=== PATIENT | male | born 1965 | race Caucasian/White ===

== ENCOUNTER 2020-03-22 13:50 | Outpatient (REF) | payer OTHER, SELFPAY | END 2020-03-22 13:51 | disposition home or self-care (01) | LOC: HO.LAB 13:50 | PROVIDERS: Visit Provider Internal Medicine | DX: Z20.828 Contact with and (suspected) exposure to other viral communicable diseases (principal) | CPT/HCPCS: C9803; U0003 ==

== ENCOUNTER 2020-04-10 07:30 | Outpatient (REF) | payer OTHER, SELFPAY ==
[2020-04-10 08:44] LABS: Alanine Aminotransferase 24 U/L (0-40); Albumin Level 4.3 g/dL (3.5-5.0); Alkaline Phosphatase 66 U/L (39-117); Anion Gap 12 (12-20); Aspartate Amino Transferase 18 U/L (5-37); Bilirubin Total 0.4 mg/dL (0.0-1.0); Blood Urea Nitrogen 14 mg/dL (9-16); Calcium 8.5 mg/dL (8.4-10.2); Carbon Dioxide 30 mmol/L (22-29); Chloride 101 mmol/L (96-108); Cholesterol 190 mg/dL; Estimated Glomerular Filt Rate > 60; Glucose Fasting 112 mg/dL (60-99); HDL Cholesterol 47 mg/dL; LDL Cholesterol Calculated 125 mg/dl; Potassium 3.6 mmol/l (3.3-5.1); Sodium 139 mmol/L (135-145); Total Protein 7.3 g/dL (6.5-8.0); Triglycerides 93 mg/dL
== END 2020-04-10 07:31 | disposition home or self-care (01) ==
LOC: HO.LAB 07:30
PROVIDERS: PCP Internal Medicine; Visit Provider Internal Medicine
DX: E78.00 Pure hypercholesterolemia, unspecified (principal)
CPT/HCPCS: 36415; 80053; 80061

== ENCOUNTER 2020-06-01 07:53 | Emergency (ER) | payer OTHER, SELFPAY ==
--- NOTE | ~2020-06-01 | XR_ITS ---
EXAMINATION: XR ANKLE, RIGHT CLINICAL INFORMATION: Right ankle pain status post twisting injury. COMPARISON: None TECHNIQUE: AP, lateral, and mortise views of the right ankle. FINDINGS: Mild to moderate soft tissue swelling is seen most pronounced laterally. Corticated osseous densities are seen subjacent to the lateral medial malleoli. The tibiotalar and subtalar joint spaces are unremarkable. Very small plantar and retrocalcaneal spurs are seen. XR/XR ankle RT min 3V IMPRESSION: Mild to moderate soft tissue swelling most pronounced laterally without definitive acute underlying osseous abnormality. Corticated osseous density subjacent to the malleoli do not appear acute and could represent accessory ossicles or could be secondary to old injury. Soft tissue/ligamentous injury cannot be excluded.
[2020-06-01 08:17] VITALS: BP 135/99; PULSE 73; RESP 16; TEMP 36.6; O2SAT 99; BMI 34.4
--- NOTE | 2020-06-01 09:17 | PC.NURSE ---
NO ACUTE FX NOTED IN THE [facility] PT AWAITING REASSESS FOR DISCHARGE
--- NOTE | 2020-06-01 09:36 | ED_ITS ---
HPI - Extremity Injury (Lower) General Chief Complaint: Extremity Injury, Lower Stated Complaint: rt ankle injury - work related Time Seen by Provider: 06/01/20 08:22 Source: patient Mode of arrival: ambulatory Limitations: no limitations History of Present Illness HPI Narrative: Pleasant 55-year-old male presenting with complaint of right ankle pain since yesterday. Injury occurred at work yesterday 06/01/2019 after he was on the last step and missed step and twisted his right ankle and had a fall. He denies any other injury. States right ankle is painful and swollen since. MD complaint: ankle injury Onset (ago): day(s) Injury: Right: ankle Place: work Severity: moderate Severity scale (1-10): 5 Relieving factors: immobilization Context: walking Associated symptoms: swelling and able to partially bear weight Other symptoms: none Related Data Home Medications Medication Instructions Recorded Confirmed hydrochlorothiazide 25 mg tablet 25 mg PO DAILY 04/12/20 05/24/20 loratadine 10 mg tablet 10 mg PO DAILY 04/12/20 05/24/20 venlafaxine 75 mg capsule,extended 75 mg PO DAILY 04/12/20 05/24/20 release 24 hr Previous Rx's Medication Instructions Recorded lisinopril 5 mg tablet 5 mg PO DAILY #90 tab 03/11/20 clotrimazole-betamethasone 1 1 appl TOPICAL BID 30 Days #30 g 03/14/ %-0.05 % topical cream atenolol 50 mg tablet 50 mg PO DAILY 90 Days #90 tab 03/31/20 fluticasone propionate 50 1 spray INTRANASAL DAILY #16 ml 04/23/20 mcg/actuation nasal spray,suspension cyclobenzaprine 10 mg tablet 10 mg PO BEDTIME PRN #10 tab 05/06/20 lidocaine 5 % topical patch 1 patch TOPICAL DAILY #15 ea 05/06/20 amoxicillin 875 mg-potassium 1 tab PO BID 7 Days #14 tab 05/25/20 clavulanate 125 mg tablet prednisone 20 mg tablet 20 mg PO DAILY 9 Days #18 tab 05/25/20 sildenafil 100 mg tablet 100 mg PO DAILY PRN #6 tab 05/27/20 Allergies Allergy/AdvReac Type Severity Reaction Status Date / Time No Known Allergies Allergy Verified 05/24/20 14:27 [No Known Allergies*] Review of Systems Review of Systems: Constitutional: No Weight loss, No Fever, No Chills, No Night Sweats, No Fatigue, No Malaise ENT/Mouth: No Hearing loss, No Ear Pain, No Nasal Congestion, No Sinus Pain, No Hoarseness, No sore throat, No Rhinorrhea, No Swallowing Difficulty Eyes: No Eye Pain, No Swelling, No Redness, No Foreign Body, No Discharge, No Vision Changes Cardiovascular: No Chest Pain, No SOB Respiratory: No Cough, No Sputum, No Wheezing, No Smoke Exposure, No Dyspnea Gastrointestinal: Negative Genitourinary: Negative Musculoskeletal: As noted per HPI Skin: No Skin Lesions, No rash Neuro: No Weakness, No Numbness, No Paresthesias, No Loss of Consciousness, No Dizziness, No Headache Psych: No Social Issues Heme/Lymph: No Bruising, No Bleeding,No Lymphadenopathy Endocrine: No Polyuria, No Polydipsia, No Temperature Intolerance Yes all other systems are reviewed and are negative [facility] Past Medical History Medical History Allergic rhinitis Eczema Essential hypertension Impaired glucose tolerance Insomnia Surgical History History of removal of cyst Family History Family History Father No problems noted. Mother Diabetes Hypertension Brother No problems noted. Sister No problems noted. Son No problems noted. Daughter No problems noted. Social History Social History Alcohol intake: former Smoking Status: Former smoker Tobacco Type: Cigarette Advance Directives: No Advance Directives Information Provided: No Physical Exam Vital Signs: Vital Signs: Last Vital Signs Temp 97.9 F 06/01/20 08:17 Pulse 73 06/01/20 08:17 Resp 16 06/01/20 08:17 BP 135/99 H 06/01/20 08:17 Pulse Ox 99 06/01/20 08:17 Body Mass Index 34.4 Reviewed Const: General: cooperative and healthy appearing; No acute distress or intoxicated appearing Nutritional Appearance: average body habitus Orientation/consciousness: patient oriented x3 HENMT: Head: Yes normal to inspection Ears: hearing grossly normal bilaterally Eyes: General: appearance normal, both eyes and all related structures Visual Mccabe: normal visual mccabe by confrontation Chest: Chest palpation & inspection: normal inspection of the chest Resp: Effort & Inspection: normal respiratory effort Auscultation: clear to auscultation bilaterally Cardio: Jugular venous distension: no JVD Rhythm: regular rhythm Heart sounds: S1 normal heart sound present and S2 normal heart sound present GI: Inspection: Yes normal to inspection Percussion: Yes normal to percussion Auscultation: normal bowel sounds : General: Yes no CVA tenderness Back/Spine/Pelvis: Back: no CVA tenderness Skin: General skin exam: no rashes or lesions noted Neuro: General: patient oriented x3 Extrem: General: Yes normal to inspection Right lower extremity: ankle (No erythema or open wound. Neurovascular intact. Cap refill wnl. ) Details: tenderness, swelling and abnormal ROM Details: pain with active ROM Course Course Course Narrative: Plan for [employer]irc[employer] and crutches however states he has not tolerated crutches in the past and does not want those. Will place an sure ortho boot and plan for follow-up with Orthopedics and [facility] given the injury occurred at work. Given work for note for 3 days and aware that he must follow up if any additional problems or time needed. MDM - Extremity Injury (Lower) Differential Diagnosis Differential diagnosis: Likely ankle sprain and strain and ankle fracture; Unlikely acute internal derangement of knee, fracture of femur, fracture of hip, puncture wound of foot and fracture of toe Medical Records Attestation: I reviewed the patient's medical records. Lab Data Attestation: I reviewed the patient's lab results. Imaging Data Right ankle x-ray: Radiologist's impression: [address] [id number] ReportSigned Patient: Heladio Kidd MMR#: [id number]: [id number]:[id number]/Sex: 55 / MADM Date: 06/01/20Loc: [address]: Ordering Physician: Jose Squires NP Date of Service: 06/01/20 Procedure(s): XR ankle RT min 3V Accession Number(s): [id number] cc: Jose Squires NP~ EXAMINATION: XR ANKLE, RIGHT CLINICAL INFORMATION: Right ankle pain status post twisting injury. COMPARISON: None TECHNIQUE: AP, lateral, and mortise views of the right ankle. FINDINGS: Mild to moderate soft tissue swelling is seen most pronounced laterally. Corticated osseous densities are seen subjacent to the lateral medial malleoli. The tibiotalar and subtalar joint spaces are unremarkable. Very small plantar and retrocalcaneal spurs are seen. XR/XR ankle RT min 3V IMPRESSION: Mild to moderate soft tissue swelling most pronounced laterally without definitive acute underlying osseous abnormality. Corticated osseous density subjacent to the malleoli do not appear acute and could represent accessory ossicles or could be secondary to old injury. Soft tissue/ligamentous injury cannot be excluded. Dictated By:TOÑO RANGEL MDSigned By:<Electronically signed by TOÑO RANGEL MD in OV>06/01/2053 DD/ TD/TT: Product Developer: DEV Discharge Plan Discharge Clinical Impression: Ankle sprain Patient Disposition: Home, Self-Care Instructions: Ankle Sprain (ED), Walking Boot (ED) Additional Instructions: Home care for ankle injury as reviewed Follow-up as instructed Return if any concerns or worsening symptoms Thank you Prescriptions: No Action lisinopril 5 mg tablet 5 mg PO DAILY Qty: 90 RF: 1 clotrimazole-betamethasone 1-0.05 % cream 1 appl topical BID 30 Days Qty: 30 RF: 3 atenolol 50 mg tablet 50 mg PO DAILY 90 Days Qty: 90 RF: 3 fluticasone propionate 50 mcg/actuation spray,suspension 1 spray intranasal DAILY Qty: 16 RF: 6 prednisone 20 mg tablet 20 mg PO DAILY 9 Days Qty: 18 RF: 0 amoxicillin-pot clavulanate 875-125 mg tablet 1 tab PO BID 7 Days Qty: 14 RF: 0 cyclobenzaprine 10 mg tablet 10 mg PO BEDTIME PRN (Reason: muscle spasm) Qty: 10 RF: 0 lidocaine 5 % adhesive patch,medicated 1 patch topical DAILY Qty: 15 RF: 0 sildenafil [Viagra] 100 mg tablet 100 mg PO DAILY PRN (Reason: sexual activity) Qty: 6 RF: 3 venlafaxine 75 mg capsule,extended release 24hr 75 mg PO DAILY RF: 0 hydrochlorothiazide 25 mg tablet 25 mg PO DAILY RF: 0 loratadine 10 mg tablet 10 mg PO DAILY RF: 0 Referrals: [facility] [Provider Group] - 3 days Eric Durant MD [Physician] - 2 days Zeynep Patel MD [Primary Care Provider] - 1 week Stand Alone Forms: Work/School Release
== END 2020-06-01 10:07 | disposition home or self-care (01) ==
PROVIDERS: Emergency Provider Emergency Medicine Emergency Medical Services; PCP Internal Medicine
DX: S99.911A Unspecified injury of right ankle, initial encounter (principal); M25.571 Pain in right ankle and joints of right foot; X50.1XXA Overexertion from prolonged static or awkward postures, initial encounter; Y93.01 Activity, walking, marching and hiking; Y92.9 Unspecified place or not applicable; Y99.0 Civilian activity done for income or pay; Z79.899 Other long term (current) drug therapy; Z87.891 Personal history of nicotine dependence
CPT/HCPCS: 73610; 99283

== ENCOUNTER → 2020-06-09 08:28 | Outpatient (BNVA) | payer OTHER, SELFPAY | PROVIDERS: Visit Provider Orthopaedic Surgery | DX: S93.491A Sprain of other ligament of right ankle, initial encounter (principal) | CPT/HCPCS: 99202 ==

== ENCOUNTER → 2020-06-23 08:30 | Outpatient (BNVA) | payer OTHER, MEDICAID, SELFPAY | PROVIDERS: Visit Provider Orthopaedic Surgery | DX: S93.491D Sprain of other ligament of right ankle, subsequent encounter (principal) | CPT/HCPCS: 99212 ==

== ENCOUNTER → 2020-07-06 13:24 | Outpatient (BNVA) | payer OTHER, MEDICAID, SELFPAY | PROVIDERS: PCP Internal Medicine; Visit Provider Orthopaedic Surgery | DX: S93.491D Sprain of other ligament of right ankle, subsequent encounter (principal) | CPT/HCPCS: 99212 ==

== ENCOUNTER 2020-11-21 09:21 | Emergency (ER) | payer OTHER, MEDICAID, SELFPAY ==
[2020-11-21 09:29] VITALS: BP 166/102; PULSE 64; RESP 16; TEMP 36.1; O2SAT 97; BMI 34.4
--- NOTE | 2020-11-21 09:42 | ED.BACK ---
HPI - Back Pain/Injury General Chief Complaint: Back Pain/Injury Stated Complaint: low back pain Time Seen by Provider: 11/21/20 09:41 Source: patient Mode of arrival: ambulatory Limitations: no limitations History of Present Illness HPI Narrative: 55 y/o male presenting with low back pain for the last 4 days. He reports it started when he was at work. 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 Pain is worse with movement. It improves with sitting and being still. He has intermittently taken Motrin for the pain with brief improvement. He reports pain is starting to shoot down his legs at times. No bladder or bowel incontinence, LE weakness, numbness or tingling. MD elicited complaint: back pain Pertinent past history: prior back pain Onset (ago): day(s) (4) Timing: intermittent Severity: moderate Similar Symptoms Previously: Yes Quality: sharp and aching Location: right lower back and left lower back Radiation: left upper leg and right upper leg Exacerbating factors: movement Relieving factors: supine and sitting upright Context: turning/twisting and bending Associated symptoms: denies other symptoms Treatments prior to arrival: NSAIDS Work related injury: Yes Related Data Previous Rx's Medication Instructions Recorded clotrimazole-betamethasone 1 1 appl TOPICAL BID 30 Days #30 g 12/20/20 %-0.05 % topical cream atenolol 50 mg tablet 50 mg PO DAILY 90 Days #90 tab 03/31/20 fluticasone propionate 50 1 spray INTRANASAL DAILY #16 ml 04/23/20 mcg/actuation nasal spray,suspension hydrochlorothiazide 25 mg tablet 25 mg PO DAILY #90 tab 06/09/20 cyclobenzaprine 10 mg tablet 10 mg PO BEDTIME PRN 30 Days #30 06/10/20 tab venlafaxine 75 mg capsule,extended 75 mg PO DAILY #90 cap 06/20/20 release 24 hr lisinopril 5 mg tablet 5 mg PO DAILY #90 tab 07/12/20 sildenafil 100 mg tablet (Viagra) 100 mg PO DAILY PRN #6 tab 08/11/20 loratadine 10 mg tablet 10 mg PO DAILY #90 tab 08/30/20 amoxicillin 875 mg-potassium 1 tab PO BID 7 Days #14 tab 09/13/20 clavulanate 125 mg tablet (Augmentin) azithromycin 250 mg tablet See Rx Instructions PO .COMPLEX #6 10/06/20 tab cyclobenzaprine 5 mg tablet 5 mg PO TID PRN #14 tab 11/21/20 lidocaine 5 % topical patch 1 patch TOPICAL DAILY #15 ea 11/21/20 (Lidoderm) naproxen 500 mg tablet 500 mg PO BID PRN #20 tab 11/21/20 Allergies Allergy/AdvReac Type Severity Reaction Status Date / Time No Known Allergies Allergy Verified 08/11/20 10:05 [No Known Allergies*] Review of Systems Constitutional: Constitutional: Denies chills and Denies fever(s) Cardiovascular: Cardiovascular: Denies chest pain and Denies dyspnea Respiratory: Respiratory: Denies cough and Denies dyspnea Gastrointestinal: Gastrointestinal: Denies abdominal pain, Denies nausea and Denies vomiting Genitourinary: Genitourinary: Denies hematuria and Denies dysuria Musculoskeletal: Musculoskeletal: Denies abnormal gait, Reports back pain, Denies myalgias, Denies arthralgias, Reports radiating pain into limb and Denies tingling Integumentary/Breasts: Skin/Breast: Denies rash Neurologic: Denies abnormal gait, Denies focal weakness, Denies tingling and Denies paresthesias [facility] Past Medical History Attestation statement: The following information was validated with the patient. Medical History Allergic rhinitis Anxiety and depression Eczema Erectile disorder, acquired, generalized, severe Essential hypertension Impaired glucose tolerance Insomnia Surgical History History of removal of cyst Family History Family History Father No problems noted. Mother Diabetes Hypertension Brother No problems noted. Sister No problems noted. Son No problems noted. Daughter No problems noted. 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 Vital Signs: Vital Signs: Last Vital Signs Temp 97 F 11/21/20 09:29 Pulse 64 11/21/20 09:29 Resp 16 11/21/20 09:29 BP 166/102 H 11/21/20 09:29 Pulse Ox 97 11/21/20 09:29 Body Mass Index 34.4 Const: General: cooperative, healthy appearing and comfortable Nutritional Appearance: average body habitus Orientation/consciousness: patient oriented x3 HENMT: Head: Yes normal to inspection Ears: hearing grossly normal bilaterally General nose exam: Normal external nose present Face and sinus: Yes normal facial exam and Yes face symmetric Mouth: Normal oral and palatal mucosa present and lip normal Eyes: General: appearance normal, both eyes and all related structures Neck: Neck: Yes normal visual inspection Chest: Chest palpation & inspection: normal inspection of the chest Resp: Effort & Inspection: normal respiratory effort and able to speak in complete sentences GI: Inspection: Yes obesity Palpation (GI): Soft to palpation, not firm and nontender : General: Yes no CVA tenderness Back/Spine/Pelvis: Back: no CVA tenderness Cervical Spine: normal cervical lordosis and cervical ROM normal Thoracic/Lumbar Spine: thoracic and lumbar spine normal to inspection, thoraco-lumbar ROM normal, straight leg raise negative bilaterally, thoraco-lumbar spasm on the right greater than left and No lumbar spinal tenderness Sacroiliac joints: bilaterally tender to palpation Sacrum: no tenderness Coccyx: no tenderness Skin: General skin exam: no rashes or lesions noted Neuro: General: patient oriented x3, gait normal, tone normal, moves all extremities and deep tendon reflexes 2+ bilaterally Extrem: General: Yes normal to inspection, Yes full ROM and Yes normal gait Psych: Appearance: grossly normal and well kempt Mental Status: mental status grossly normal Speech and movement: Normal speech and movement present Course Course Course Narrative: 55 y/o male presenting with LBP x4 days. 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 He has no red flag symptoms of LBP. His exam and clinical presentation are consistent with muscle strain and spasm as well as possible sciatica. Will treat with NSAID, muscle relaxer and lidoderm. He was encouraged to f/u with PCP this week. He will be given note for work to rest x3 days. Stable for d/c home with plan for outpatient follow up. Discharge Plan Discharge Clinical Impression: Strain of lumbar region Patient Disposition: Home, Self-Care Instructions: Low Back Strain (ED), Lower Back Exercises (ED) Additional Instructions: You pain is likely due to muscle strain and possible inflammation of your sciatic nerve. Recommend rest. No bending, lifting or twisting. Use ice several times per day for 20 minutes at a time for the next 48 hours and then change to heat. Take medications as prescribed to help with pain and discomfort. Follow up with your Primary Care Doctor this week. If your pain worsens, if you develop new numbness, tingling, weakness, loss of function or incontinence call 911 or come back to the ER right away for evaluation. Prescriptions: New cyclobenzaprine 5 mg tablet 5 mg PO TID PRN (Reason: muscle spasm) Qty: 14 RF: 0 lidocaine [Lidoderm] 5 % adhesive patch,medicated 1 patch topical DAILY Qty: 15 RF: 0 naproxen 500 mg tablet 500 mg PO BID PRN (Reason: pain) Qty: 20 RF: 0 No Action clotrimazole-betamethasone 1-0.05 % cream 1 appl topical BID 30 Days Qty: 30 RF: 3 atenolol 50 mg tablet 50 mg PO DAILY 90 Days Qty: 90 RF: 3 fluticasone propionate 50 mcg/actuation spray,suspension 1 spray intranasal DAILY Qty: 16 RF: 6 hydrochlorothiazide 25 mg tablet 25 mg PO DAILY Qty: 90 RF: 2 venlafaxine 75 mg capsule,extended release 24hr 75 mg PO DAILY Qty: 90 RF: 2 lisinopril 5 mg tablet 5 mg PO DAILY Qty: 90 RF: 3 loratadine 10 mg tablet 10 mg PO DAILY Qty: 90 RF: 3 amoxicillin-pot clavulanate [Augmentin] 875-125 mg tablet 1 tab PO BID 7 Days Qty: 14 RF: 0 sildenafil [Viagra] 100 mg tablet 100 mg PO DAILY PRN (Reason: sexual activity) Qty: 6 RF: 3 cyclobenzaprine 10 mg tablet 10 mg PO BEDTIME PRN (Reason: muscle spasm) 30 Days Qty: 30 RF: 0 azithromycin 250 mg tablet See Rx Instructions PO .COMPLEX Qty: 6 RF: 0 Referrals: Zeynep Patel MD [Primary Care Provider] - 2 days (LBP) Stand Alone Forms: Work/School Release Interventions: ED Discharge Assessment Last Done: 11/21/20 10:09 Discharge Date/Time: 11/21/20 10:09
== END 2020-11-21 10:09 | disposition home or self-care (01) ==
PROVIDERS: Emergency Provider Emergency Medicine; PCP Internal Medicine
DX: S39.012A Strain of muscle, fascia and tendon of lower back, initial encounter (principal); X50.0XXA Overexertion from strenuous movement or load, initial encounter; X50.9XXA Other and unspecified overexertion or strenuous movements or postures, initial encounter; Y93.9 Activity, unspecified; Y92.9 Unspecified place or not applicable; Y99.0 Civilian activity done for income or pay; Z79.899 Other long term (current) drug therapy
CPT/HCPCS: 99283

== ENCOUNTER 2020-11-25 07:28 | Emergency (ER) | payer OTHER, MEDICAID, SELFPAY ==
[2020-11-25 08:15] VITALS: BP 156/110; PULSE 64; RESP 18; TEMP 36.3; O2SAT 95; BMI 34.4
--- NOTE | 2020-11-25 08:24 | PC.NURSE ---
Pt alert and oriented x3, b/p 156/110, pt states he is on Atenolol and he took it this morning prior to coming here. Pt reports that he was here on Sunday for left lower back pain and he is to return to work today but is unable to go because he is still having the same pain.
--- NOTE | 2020-11-25 08:35 | ED.EXTPRO ---
HPI - Extremity Problem General Chief complaint: Extremity Problem Stated complaint: back pain Time Seen by Provider: 11/25/20 07:29 Source: patient Mode of arrival: ambulatory Limitations: no limitations History of Present Illness HPI Narrative: Patient comes emergency room complaining of a sciatica exacerbation. Patient was seen here a few days ago, states the pain is not improving. Patient states the pain starts in his lower back and runs down all the way down his left leg. Worse with hip flexion and extension. Related Data Previous Rx's Medication Instructions Recorded clotrimazole-betamethasone 1 1 appl TOPICAL BID 30 Days #30 g //20 %-0.05 % topical cream atenolol 50 mg tablet 50 mg PO DAILY 90 Days #90 tab 03/31/20 fluticasone propionate 50 1 spray INTRANASAL DAILY #16 ml 04/23/20 mcg/actuation nasal spray,suspension hydrochlorothiazide 25 mg tablet 25 mg PO DAILY #90 tab 06/09/20 cyclobenzaprine 10 mg tablet 10 mg PO BEDTIME PRN 30 Days #30 06/10/20 tab venlafaxine 75 mg capsule,extended 75 mg PO DAILY #90 cap 06/20/20 release 24 hr lisinopril 5 mg tablet 5 mg PO DAILY #90 tab 07/12/20 sildenafil 100 mg tablet (Viagra) 100 mg PO DAILY PRN #6 tab 08/11/20 loratadine 10 mg tablet 10 mg PO DAILY #90 tab 08/30/20 amoxicillin 875 mg-potassium 1 tab PO BID 7 Days #14 tab 09/13/20 clavulanate 125 mg tablet (Augmentin) azithromycin 250 mg tablet See Rx Instructions PO .COMPLEX #6 10/06/20 tab cyclobenzaprine 5 mg tablet 5 mg PO TID PRN #14 tab 11/21/20 lidocaine 5 % topical patch 1 patch TOPICAL DAILY #15 ea 11/21/20 (Lidoderm) naproxen 500 mg tablet 500 mg PO BID PRN #20 tab 11/21/20 cyclobenzaprine 10 mg tablet 10 mg PO TID PRN #10 tab 11/25/20 ketorolac 10 mg tablet 10 mg PO TID PRN 5 Days #10 tab 11/25/20 Allergies Allergy/AdvReac Type Severity Reaction Status Date / Time No Known Allergies Allergy Verified 08/11/20 10:05 [No Known Allergies*] Review of Systems Review of Systems: Constitutional : No Weight loss, No Fever, No Chills, No Night Sweats, No Fatigue, No Malaise ENT/Mouth : No Hearing loss, No Ear Pain, No Nasal Congestion, No Sinus Pain, No Hoarseness, No sore throat, No Rhinorrhea, No Swallowing Difficulty Eyes: No Eye Pain, No Swelling, No Redness, No Foreign Body, No Discharge, No Vision Changes Cardiovascular : No Chest Pain, No SOB, No Dyspnea on Exertion, No Orthopnea, No Edema, No Palpitations Respiratory : No Cough, No Sputum, No Wheezing, No Smoke Exposure, No Dyspnea Gastrointestinal : No Nausea, No Vomiting, No Diarrhea, No Constipation, No abdominal Pain, No Hematochezia, No Melena Genitourinary : no irregular bleeding, No Dysuria, No Urinary Frequency, No Hematuria, No Urinary Incontinence, No Urgency, No Flank Pain, No Urinary Flow Changes, No Hesitancy Musculoskeletal : Sciatica down the left leg, No Myalgias, No Joint Swelling Skin : No Skin Lesions, No rash Neuro : No Weakness, No Numbness, No Paresthesias, No Loss of Consciousness, No Dizziness, No Headache Psych : No Anxiety/Panic, No Depression, No SI/HI/AH/VH, No Social Issues, Heme/Lymph: No Bruising, No Bleeding,No Lymphadenopathy Endocrine : No Polyuria, No Polydipsia, No Temperature Intolerance PMFSH Past Medical History Medical History Allergic rhinitis Anxiety and depression Eczema Erectile disorder, acquired, generalized, severe Essential hypertension Impaired glucose tolerance Insomnia Surgical History History of removal of cyst Family History Family History Father No problems noted. Mother Diabetes Hypertension Brother No problems noted. Sister No problems noted. Son No problems noted. Daughter No problems noted. 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 Oriented X3. No acute distress. Eyes: Pupils equal, round and reactive to light. ENT: Pharynx normal. Neck: Normal inspection. Neck supple. No lymph nodes noted. No crepitus CVS: Normal heart rate and rhythm. Pulses normal. Normal S1 and S2 Respiratory: No respiratory distress. Breath sounds normal. No Wheezing. No rales Abdomen: Soft and nontender. No rigidity. No distention. good BS x4 Skin: Skin warm and dry. Normal skin color. Normal skin turgor. Extremities: No lower extremity edema. Positive straight leg raise test on the left side Neuro: Oriented X 3. No motor deficit. No sensory deficit. Moving all extermities. No slurred speech. Course Course Course Narrative: Patient received 1 dose of IM Decadron and IM Toradol. I discussed with the patient that he would like physical therapy, and possibly an MRI, something to discuss with his PCP. Discharge Plan Discharge Clinical Impression: Sciatica Qualifiers: Laterality: left Qualified Code(s): M54.32 - Sciatica, left side Patient Disposition: Home, Self-Care Instructions: Sciatica (ED) Additional Instructions: Please follow-up with your primary care physician tomorrow. If you have any worsening or new symptoms, please return to the emergency room or call 911 Prescriptions: New ketorolac 10 mg tablet 10 mg PO TID PRN (Reason: pain) 5 Days Qty: 10 RF: 0 cyclobenzaprine 10 mg tablet 10 mg PO TID PRN (Reason: muscle spasm) Qty: 10 RF: 0 No Action clotrimazole-betamethasone 1-0.05 % cream 1 appl topical BID 30 Days Qty: 30 RF: 3 atenolol 50 mg tablet 50 mg PO DAILY 90 Days Qty: 90 RF: 3 fluticasone propionate 50 mcg/actuation spray,suspension 1 spray intranasal DAILY Qty: 16 RF: 6 hydrochlorothiazide 25 mg tablet 25 mg PO DAILY Qty: 90 RF: 2 venlafaxine 75 mg capsule,extended release 24hr 75 mg PO DAILY Qty: 90 RF: 2 lisinopril 5 mg tablet 5 mg PO DAILY Qty: 90 RF: 3 loratadine 10 mg tablet 10 mg PO DAILY Qty: 90 RF: 3 amoxicillin-pot clavulanate [Augmentin] 875-125 mg tablet 1 tab PO BID 7 Days Qty: 14 RF: 0 cyclobenzaprine 5 mg tablet 5 mg PO TID PRN (Reason: muscle spasm) Qty: 14 RF: 0 lidocaine [Lidoderm] 5 % adhesive patch,medicated 1 patch topical DAILY Qty: 15 RF: 0 naproxen 500 mg tablet 500 mg PO BID PRN (Reason: pain) Qty: 20 RF: 0 sildenafil [Viagra] 100 mg tablet 100 mg PO DAILY PRN (Reason: sexual activity) Qty: 6 RF: 3 cyclobenzaprine 10 mg tablet 10 mg PO BEDTIME PRN (Reason: muscle spasm) 30 Days Qty: 30 RF: 0 azithromycin 250 mg tablet See Rx Instructions PO .COMPLEX Qty: 6 RF: 0
[2020-11-25] MEDS: dexAMETHasone sod phosphate 4 MG/ML VIAL IVPUSH (08:59)
[2020-11-25] MEDS: Ketorolac Tromethamine 60 MG/2 ML VIAL IM (09:00)
== END 2020-11-25 09:18 | disposition home or self-care (01) ==
PROVIDERS: Emergency Provider Emergency Medicine; PCP Internal Medicine
DX: M54.42 Lumbago with sciatica, left side (principal); Z87.891 Personal history of nicotine dependence; Z79.899 Other long term (current) drug therapy
CPT/HCPCS: 96372; 96374; 99283; 99284; J1100; J1885

== ENCOUNTER 2021-01-07 17:47 | Emergency (ER) | payer OTHER, MEDICAID, SELFPAY ==
--- NOTE | ~2021-01-07 | XR_ITS ---
EXAMINATION: XR CHEST CLINICAL INFORMATION: Cough COMPARISON: Chest x-ray May 21, 2016 TECHNIQUE: 2 views of the chest were obtained. FINDINGS: No significant abnormality is noted involving the heart, lungs, mediastinum, bony thorax or soft tissues. XR/XR chest 2V IMPRESSION: Unremarkable examination.
[2021-01-07 19:59] VITALS: BP 162/90; PULSE 86; RESP 18; TEMP 36.9; O2SAT 96; BMI 34.4
[2021-01-07 20:50] LABS: IDNOW Serial# 08D9AD1C; Strep A Nucleic Acid Negative (Negative)
[2021-01-07 20:55] LABS: COVID-19 Test Negative (Negative); IDNOW Serial# 9DD0AD1C
--- NOTE | 2021-01-07 22:18 | ED.URI ---
HPI - URI/Sore Throat General Chief Complaint: Upper Respiratory Symptoms Stated Complaint: Cough Source: patient Mode of arrival: ambulatory Limitations: no limitations History of Present Illness HPI Narrative: 55-year-old male presents with several days of upper respiratory symptoms, cough, sore throat, and chest pressure while coughing. Does not report any fevers or chills. MD elicited complaint: cough, sore throat, rhinorrhea and nasal congestion Onset (ago): day(s) Consistency: constant Severity: moderate Description of mucous: clear and watery Able to tolerate fluids by mouth: Yes Exacerbating factors: deep breaths Relieving factors: nothing Context: sick contacts Associated symptoms: rhinorrhea, nasal congestion, sore throat and cough Treatments prior to arrival: acetaminophen, ibuprofen and cold medicine Related Data Previous Rx's Medication Instructions Recorded clotrimazole-betamethasone 1 1 appl TOPICAL BID 30 Days #30 g 03/14/ %-0.05 % topical cream atenolol 50 mg tablet 50 mg PO DAILY 90 Days #90 tab 03/31/20 fluticasone propionate 50 1 spray INTRANASAL DAILY #16 ml 04/23/20 mcg/actuation nasal spray,suspension venlafaxine 75 mg capsule,extended 75 mg PO DAILY #90 cap 06/20/20 release 24 hr lisinopril 5 mg tablet 5 mg PO DAILY #90 tab 07/12/20 sildenafil 100 mg tablet (Viagra) 100 mg PO DAILY PRN #6 tab 08/11/20 loratadine 10 mg tablet 10 mg PO DAILY #90 tab 08/30/20 cyclobenzaprine 5 mg tablet 5 mg PO TID PRN #14 tab 11/21/20 naproxen 500 mg tablet 500 mg PO BID PRN #20 tab 11/21/20 ketorolac 10 mg tablet 10 mg PO TID PRN 5 Days #10 tab 11/25/20 hydrochlorothiazide 25 mg tablet 25 mg PO DAILY #90 tab 12/05/20 benzonatate 100 mg capsule 100 mg PO TID PRN #20 cap 01/07/21 (Lin Orellana) Allergies Allergy/AdvReac Type Severity Reaction Status Date / Time No Known Allergies Allergy Verified 01/07/21 19:59 [No Known Allergies*] Review of Systems Review of Systems: Constitutional: No Fever, No Chills ENT/Mouth: Positive Ear Pain, No Hoarseness, positive sore throat Eyes: No Eye Pain, No Swelling, No Redness, No Foreign Body Cardiovascular: No Chest Pain, No SOB Respiratory: Positive Cough, No Dyspnea Gastrointestinal: No Nausea, No Vomiting, No Diarrhea, No abdominal Pain Genitourinary: No Dysuria, No Hematuria Musculoskeletal: positive muscle pain, No Myalgias, No Joint Swelling Skin: No Skin lacerations, No rash Neuro: No Weakness, No Numbness, No Paresthesias, No Loss of Consciousness, No Dizziness, No Headache Psych: No Anxiety/Panic, No Depression Heme/Lymph: no easy bruising, no Lymphadenopathy Endocrine: No Polyuria, No Polydipsia Yes all other systems are reviewed and are negative [facility] Past Medical History Attestation statement: The following information was validated with the patient. Source: old records reviewed Medical History Allergic rhinitis Anxiety and depression Class 1 obesity with body mass index (BMI) of 34.0 to 34.9 in adult Eczema Erectile disorder, acquired, generalized, severe Essential hypertension Impaired glucose tolerance Insomnia Mild recurrent major depression Surgical History History of removal of cyst Family History Family History Father No problems noted. Mother Diabetes Hypertension Brother No problems noted. Sister No problems noted. Son No problems noted. Daughter No problems noted. 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 Oriented X3. Mild distress. Eyes: Pupils equal, round and reactive to light. Sclera nonicteric. ENT: Pharynx erythematous, tonsillar erythema, Centor scale 2 Neck: Normal inspection. Neck supple. No cervical lymphadenopathy noted. CVS: Normal heart rate and rhythm. Pulses normal. Respiratory: No respiratory distress. Expiratory wheezing noted. Abdomen: Soft and nontender. Skin: Skin warm and dry. Normal skin color. Normal skin turgor. Extremities: No lower extremity edema. Gait well balanced well coordinated. Moves all extremities against resistance. Neuro: No motor deficit. No sensory deficit. Cranial nerves 2-12 intact. Course Course Course Narrative: 55-year-old male presents with upper respiratory symptoms. COVID and strep test were negative. Patient does have some pharyngitis, tonsils are swollen without exudate, Centor scale 2. Patient does have some expiratory wheezing noted, clears with cough. Will order chest x-ray to rule out pneumonia. Chest x-rays negative for acute findings. Will give patient albuterol inhaler for shortness of breath and coughing. While patient does have pharyngitis, Centor scale 2 no indication for antibiotic at this time will provide Tessalon Perles for cough. Patient verbalized understanding of and agrees to plan of care discharge home. MDM - URI/Sore Throat Differential Diagnosis Differential diagnosis: Likely upper respiratory infection, otitis media, sinusitis, viral infection, bronchitis, influenza and pharyngitis Medical Records Attestation: I reviewed the patient's medical records. Lab Data Attestation: I reviewed the patient's lab results. Labs: Lab Results 01/07/21 01/07/21 Range/Units 20:32 20:32 COVID-19 (JULIO C) Negative (Negative) COVID-19 Clin Com See Note S. pyogenes GrpA ALICIA Negative (Negative) Imaging Data Chest x-ray: Attestation: I personally reviewed and interpreted this imaging study as follows: Radiologist's impression: EXAMINATION: XR CHEST CLINICAL INFORMATION: Cough COMPARISON: Chest x-ray May 21, 2016 TECHNIQUE: 2 views of the chest were obtained. FINDINGS: No significant abnormality is noted involving the heart, lungs, mediastinum, bony thorax or soft tissues. XR/XR chest 2V IMPRESSION: Unremarkable examination. Discharge Plan Discharge Clinical Impression: Upper respiratory infection Qualifiers: URI type: unspecified URI Qualified Code(s): J06.9 - Acute upper respiratory infection, unspecified Patient Disposition: Home, Self-Care Instructions: Upper Respiratory Infection (ED), Viral Syndrome (ED) Additional Instructions: You were evaluated for upper respiratory symptoms. Your COVID and strep test were negative. Your chest x-ray is negative for pneumonia. Please use albuterol inhaler for shortness of breath and cough. Use Tessalon Perles as needed for coughing. Drink plenty of fluids. Thank you for choosing this emergency department for evaluation. Please follow-up with primary care physician as needed. Return to the emergency department for any new, concerning, or worsening symptoms. Prescriptions: New benzonatate [Tessalon Perles] 100 mg capsule 100 mg PO TID PRN (Reason: cough) Qty: 20 RF: 0 No Action clotrimazole-betamethasone 1-0.05 % cream 1 appl topical BID 30 Days Qty: 30 RF: 3 atenolol 50 mg tablet 50 mg PO DAILY 90 Days Qty: 90 RF: 3 fluticasone propionate 50 mcg/actuation spray,suspension 1 spray intranasal DAILY Qty: 16 RF: 6 venlafaxine 75 mg capsule,extended release 24hr 75 mg PO DAILY Qty: 90 RF: 2 lisinopril 5 mg tablet 5 mg PO DAILY Qty: 90 RF: 3 loratadine 10 mg tablet 10 mg PO DAILY Qty: 90 RF: 3 hydrochlorothiazide 25 mg tablet 25 mg PO DAILY Qty: 90 RF: 2 cyclobenzaprine 5 mg tablet 5 mg PO TID PRN (Reason: muscle spasm) Qty: 14 RF: 0 naproxen 500 mg tablet 500 mg PO BID PRN (Reason: pain) Qty: 20 RF: 0 ketorolac 10 mg tablet 10 mg PO TID PRN (Reason: pain) 5 Days Qty: 10 RF: 0 sildenafil [Viagra] 100 mg tablet 100 mg PO DAILY PRN (Reason: sexual activity) Qty: 6 RF: 3 Stand Alone Forms: Work/School Release Interventions: ED Discharge Assessment Last Done: 01/08/21 00:13 Discharge Date/Time: 01/08/21 00:15
[2021-01-07] MEDS: Acetaminophen 325 MG TABLET 650 MG PO (23:42)
[2021-01-07] MEDS: Benzonatate 100 MG CAPSULE PO (23:43)
[2021-01-08] MEDS: Albuterol Sulfate 90 MCG 8 GM INHALER 2 PUFF INHALE (00:08)
== END 2021-01-08 00:15 | disposition home or self-care (01) ==
PROVIDERS: Emergency Provider Student in an Organized Health Care Education/Training Program; PCP Internal Medicine
DX: J06.9 Acute upper respiratory infection, unspecified (principal); R05.9 Cough, unspecified; R09.81 Nasal congestion; Z20.822 Contact with and (suspected) exposure to COVID-19; Z79.899 Other long term (current) drug therapy
CPT/HCPCS: 36415; 71046; 87635; 87651; 99284

== ENCOUNTER 2021-06-13 07:03 | Emergency (ER) | payer OTHER, MEDICAID, SELFPAY ==
[2021-06-13 07:12] VITALS: BP 157/103; PULSE 70; RESP 18; TEMP 36.6; O2SAT 96; BMI 34.4
[2021-06-13 07:36] LABS: COVID-19 Test Negative (Negative); IDNOW Serial# 16C4AD1C
--- NOTE | 2021-06-13 09:48 | ED.URI ---
HPI - URI/Sore Throat General Chief Complaint: Upper Respiratory Symptoms Stated Complaint: SOB/Cough/Headache Time Seen by Provider: 06/13/21 08:54 Source: patient Mode of arrival: ambulatory Limitations: no limitations History of Present Illness HPI Narrative: 56-year-old male who presents emergency department for evaluation of cough, headache and sinus congestion. Patient states he has been sick for 5 days. He states that he has a cough which is intermittent, productive of thick yellow sputum with no blood in the sputum, chest pain with coughing and shortness of breath with coughing only. He states that he feels like his sinuses are congested. The patient is having pressure in the right side of his face that radiates the back of his head. He states that the pressure is a constant pain which is 8/10 at its worst. He has had subjective fever and chills. He denied nausea, vomiting, diarrhea, myalgias arthralgias. He states that he gets frequent sinus infections. He denies tobacco use. He has been vaccinated with the Pfizer COVID-19 vaccine x2 shots. Related Data Previous Rx's Medication Instructions Recorded clotrimazole-betamethasone 1 1 appl TOPICAL BID 30 Days #30 g 03/14/ %-0.05 % topical cream fluticasone propionate 50 1 spray INTRANASAL DAILY #16 ml 04/23/20 mcg/actuation nasal spray,suspension sildenafil 100 mg tablet (Viagra) 100 mg PO DAILY PRN #6 tab 08/11/20 loratadine 10 mg tablet 10 mg PO DAILY #90 tab 08/30/20 cyclobenzaprine 5 mg tablet 5 mg PO TID PRN #14 tab 11/21/20 hydrochlorothiazide 25 mg tablet 25 mg PO DAILY #90 tab 12/05/20 atenolol 50 mg tablet 50 mg PO DAILY 90 Days #90 tab 04/03/21 venlafaxine 75 mg capsule,extended 75 mg PO DAILY #90 cap 05/02/21 release 24 hr lisinopril 10 mg tablet 10 mg PO DAILY 90 Days #90 tab 05/18/21 albuterol sulfate 90 mcg/actuation 2 puff INHALATION Q4-6H PRN #6.7 g 06/13/21 aerosol inhaler (ProAir HFA) amoxicillin 500 mg capsule 1,000 mg PO BID 10 Days #40 cap 06/13/21 benzonatate 200 mg capsule 200 mg PO TID PRN #15 cap 06/13/21 Allergies Allergy/AdvReac Type Severity Reaction Status Date / Time No Known Allergies Allergy Verified 05/18/21 15:59 [No Known Allergies*] Review of Systems Review of Systems: Yes all other systems are reviewed and are negative Constitutional: Constitutional: Reports as per HPI Cardiovascular: Cardiovascular: Reports as per HPI Respiratory: Respiratory: Reports as per HPI Gastrointestinal: Gastrointestinal: Reports as per HPI Genitourinary: Genitourinary: Reports as per HPI Musculoskeletal: Musculoskeletal: Reports as per HPI Integumentary/Breasts: Skin/Breast: Reports as per HPI Neurologic: Reports as per HPI and Reports Abnormal speech present Psychiatric: Psychiatric: Reports as per HPI COUNT INCLUDES THE [facility] Past Medical History Medical History Allergic rhinitis Anxiety and depression Class 1 obesity with body mass index (BMI) of 34.0 to 34.9 in adult Eczema Erectile disorder, acquired, generalized, severe Essential hypertension Impaired glucose tolerance Insomnia Mild recurrent major depression Physical exam Surgical History History of removal of cyst Family History Family History Father No problems noted. Mother Diabetes Hypertension Brother No problems noted. Sister No problems noted. Son No problems noted. Daughter No problems noted. 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 Current occupational exposures/hazards: No Physical Exam Vital Signs: Vital Signs: Last Vital Signs Temp 98 F 06/13/21 07:12 Pulse 70 06/13/21 07:12 Resp 18 06/13/21 07:12 BP 157/103 H 06/13/21 07:12 Pulse Ox 96 06/13/21 07:12 BMI result Body Mass Index 34.4 Const: General: cooperative, no acute distress, well developed, alert and awake Orientation/consciousness: oriented to person HEENT: Head: Yes normal to inspection, Yes normocephalic and Yes atraumatic Ears: hearing grossly normal bilaterally General nose exam: Normal external nose present Face and sinus: Yes normal facial exam and Yes sinus tenderness (Right maxillary, right frontal) Mouth: Normal oral and palatal mucosa present, lip normal, tongue normal, oropharynx normal and moist mucous membranes Throat: Yes posterior oropharynx normal, Yes tonsils normal and Yes uvula midline Eyes: General: appearance normal, both eyes and all related structures Eyelids: Yes eyelids normal Conjunctivae: conjunctivae normal Sclerae: sclerae normal Corneas: corneas normal Pupils: Equal, round and reactive pupils present Neck: Neck: Yes normal visual inspection, Yes no lymphadenopathy, Yes trachea midline and Yes supple Thyroid: Thyroid normal Lymphatic: no lymphadenopathy noted Chest: Chest palpation & inspection: normal inspection of the chest and normal palpation of entire chest wall Resp: Effort & Inspection: normal respiratory effort and able to speak in complete sentences Auscultation: clear to auscultation bilaterally Cardio: Rate: regular rate Rhythm: regular rhythm Heart sounds: S1 normal heart sound present, S2 normal heart sound present and no murmurs GI: Inspection: Yes normal to inspection Palpation (GI): Soft to palpation, nontender and No hepatosplenomegaly present Auscultation: normal bowel sounds : General: Yes no CVA tenderness Back/Spine/Pelvis: Back: no CVA tenderness Thoracic/Lumbar Spine: thoracic and lumbar spine normal to inspection Skin: General skin exam: no rashes or lesions noted, no erythema and no jaundice Lesions: no lesions Rashes: no rashes Trauma: no lacerations or abrasions Wounds: no wounds Neuro: General: oriented to person, moves all extremities and no focal motor deficits Cranial nerves: Yes Equal, round and reactive pupils present Cognition (Neuro): normal cognition Speech: Abnormal speech present Motor exam (neuro): Motor abnormalities not present Extrem: General: Yes normal to inspection, Yes no pedal edema and Yes no calf tenderness Right upper extremity: normal to inspection Left upper extremity: normal to inspection Right lower extremity: normal to inspection Left lower extremity: normal to inspection Psych: Appearance: grossly normal Mental Status: mental status grossly normal Speech and movement: Normal speech and movement present Affect: normal affect Attitude: cooperative Thought process: Normal thought process present Insight: Good insight present (Psych) Course Course Course Narrative: 56-year-old male who presents emergency department for evaluation of subjective fever, chills, cough productive of yellow sputum, right-sided facial pain and sinus congestion. Vital signs revealed an elevated blood pressure of 157/103 otherwise were unremarkable. Physical examination did reveal tenderness palpation of the right maxillary and right frontal sinus area. Patient's presentation is consistent with acute sinusitis and bronchitis. The patient was started on amoxicillin 1000 mg twice a day for 10 days, Tessalon Perles 200 mg 3 times a day as needed for cough and albuterol inhaler 2 puffs 4 times a day for 7 days for cough. Was given printed and verbal instructions. He was also given a work note. The patient did have a COVID-19 test here in the emergency department which was negative. He was given a work note as well. MDM - URI/Sore Throat Lab Data Labs: Lab Results 06/13/21 Range/Units 07:18 COVID-19 (JULIO C) Negative (Negative) COVID-19 Clin Com See Note Discharge Plan Discharge Clinical Impression: Bronchitis, Sinusitis Patient Disposition: Home, Self-Care Instructions: Sinusitis (ED), Acute Bronchitis (ED) Additional Instructions: Your symptoms are consistent with bronchitis and sinusitis. Your COVID-19 test was negative. If you continue to have symptoms or your symptoms are getting worse then you should consider getting a repeat test in 3 days since 20% of the time the COVID 19 test can be falsely negative. Take amoxicillin 1000 mg every 12 hours for 10 days. Take Tessalon Perles 200 mg pills, 1 pill every 6-8 hours as needed for cough. Use the albuterol inhaler 2 puffs 4 times a day for 1 week, that should reduce your cough and help with shortness of breath. Take ibuprofen 200 mg pills, 3 pills every 6 hours as needed for pain. Take Tylenol (acetaminophen) 500 mg pills, 2 pills every 4 to 6 hours as needed for pain. Follow-up with your doctor in 2 days. Please return to the emergency department if your symptoms get worse or if you develop any symptoms that are concerning to you. Please see work note Prescriptions: New amoxicillin 500 mg capsule 1,000 mg PO BID 10 Days Qty: 40 0RF albuterol sulfate [ProAir HFA] 90 mcg/actuation HFA aerosol inhaler 2 puff inhalation Q4-6H PRN (Reason: shortness of breath or wheezing) Qty: 6.7 0RF benzonatate 200 mg capsule 200 mg PO TID PRN (Reason: cough) Qty: 15 0RF No Action clotrimazole-betamethasone 1-0.05 % cream 1 appl topical BID 30 Days Qty: 30 3RF fluticasone propionate 50 mcg/actuation spray,suspension 1 spray intranasal DAILY Qty: 16 6RF loratadine 10 mg tablet 10 mg PO DAILY Qty: 90 3RF hydrochlorothiazide 25 mg tablet 25 mg PO DAILY Qty: 90 2RF atenolol 50 mg tablet 50 mg PO DAILY 90 Days Qty: 90 3RF venlafaxine 75 mg capsule,extended release 24hr 75 mg PO DAILY Qty: 90 2RF cyclobenzaprine 5 mg tablet 5 mg PO TID PRN (Reason: muscle spasm) Qty: 14 0RF sildenafil [Viagra] 100 mg tablet 100 mg PO DAILY PRN (Reason: sexual activity) Qty: 6 3RF Rx Instructions: administer 30 minutes to 4 hours before activity lisinopril 10 mg tablet 10 mg PO DAILY 90 Days Qty: 90 1RF Stand Alone Forms: Work/School Release
== END 2021-06-13 10:35 | disposition home or self-care (01) ==
PROVIDERS: Emergency Provider Emergency Medicine Emergency Medical Services; PCP Internal Medicine
DX: J40 Bronchitis, not specified as acute or chronic (principal); J32.9 Chronic sinusitis, unspecified; Z20.822 Contact with and (suspected) exposure to COVID-19; I10 Essential (primary) hypertension
CPT/HCPCS: 87635; 99283

== ENCOUNTER 2021-07-04 07:17 | Emergency (ER) | payer OTHER, MEDICAID, SELFPAY ==
[2021-07-04 07:18] VITALS: BP 174/106; PULSE 79; RESP 17; TEMP 36.6; O2SAT 99; BMI 35.2
--- NOTE | 2021-07-04 07:26 | ED.BACK ---
HPI - Back Pain/Injury General Chief Complaint: Back Pain/Injury Stated Complaint: BACK PAIN Time Seen by Provider: 07/04/21 07:22 Source: patient Mode of arrival: ambulatory Limitations: no limitations History of Present Illness MD elicited complaint: back pain Pertinent past history: prior back pain Onset (ago): day(s) (2) Timing: constant Severity: moderate Similar Symptoms Previously: Yes Quality: sharp Location: lumbar spine and sacrum Radiation: buttocks and left upper leg Exacerbating factors: movement and walking Relieving factors: immobilization Context: unknown Associated symptoms: denies other symptoms Treatments prior to arrival: NSAIDS Work related injury: No Related Data Previous Rx's Medication Instructions Recorded clotrimazole-betamethasone 1 1 appl TOPICAL BID 30 Days #30 g 03/14/ %-0.05 % topical cream fluticasone propionate 50 1 spray INTRANASAL DAILY #16 ml 04/23/20 mcg/actuation nasal spray,suspension sildenafil 100 mg tablet (Viagra) 100 mg PO DAILY PRN #6 tab 08/11/20 loratadine 10 mg tablet 10 mg PO DAILY #90 tab 08/30/20 cyclobenzaprine 5 mg tablet 5 mg PO TID PRN #14 tab 11/21/20 hydrochlorothiazide 25 mg tablet 25 mg PO DAILY #90 tab 12/05/20 atenolol 50 mg tablet 50 mg PO DAILY 90 Days #90 tab 04/03/21 venlafaxine 75 mg capsule,extended 75 mg PO DAILY #90 cap 05/02/21 release 24 hr lisinopril 10 mg tablet 10 mg PO DAILY 90 Days #90 tab 05/18/21 albuterol sulfate 90 mcg/actuation 2 puff INHALATION Q4-6H PRN #6.7 g 06/13/21 aerosol inhaler (ProAir HFA) amoxicillin 500 mg capsule 1,000 mg PO BID 10 Days #40 cap 06/13/21 benzonatate 200 mg capsule 200 mg PO TID PRN #15 cap 06/13/21 cyclobenzaprine 10 mg tablet 10 mg PO TID PRN #20 tab 07/04/21 hydrocodone 5 mg-acetaminophen 325 1 tab PO Q6H PRN #12 tab 07/04/21 mg tablet lidocaine 4 % topical patch 1 patch TOPICAL DAILY PRN #10 ea 07/04/21 Allergies Allergy/AdvReac Type Severity Reaction Status Date / Time No Known Allergies Allergy Verified 05/18/21 15:59 [No Known Allergies*] Review of Systems Review of Systems: Constitutional : No Weight loss, No Fever, No Chills, ENT/Mouth : No Hearing loss, No Ear Pain, No Nasal Congestion, No Sinus Pain, No Hoarseness, No sore throat, No Rhinorrhea, No Swallowing Difficulty Cardiovascular : No Chest Pain, No SOB Respiratory : No Cough, No Dyspnea Gastrointestinal : No Nausea, No Vomiting, No Diarrhea, No abdominal Pain, No Hematochezia, No Melena Genitourinary : No Dysuria, No Urinary Frequency, No Hematuria, No Urinary Incontinence, Musculoskeletal : positive back pain Skin : No Skin Lesions, No rash Neuro : No Weakness, No Numbness, No Paresthesias, no loss of bowel or bladder incontinence, no saddle anesthesia PMFSH Past Medical History Attestation statement: The following information was validated with the patient. Medical History Allergic rhinitis Anxiety and depression Class 1 obesity with body mass index (BMI) of 34.0 to 34.9 in adult Eczema Erectile disorder, acquired, generalized, severe Essential hypertension Impaired glucose tolerance Insomnia Mild recurrent major depression Physical exam Surgical History History of removal of cyst Family History Family History Father No problems noted. Mother Diabetes Hypertension Brother No problems noted. Sister No problems noted. Son No problems noted. Daughter No problems noted. 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 Oriented X3. No acute distress. Eyes: Pupils equal, round and reactive to light. ENT: Pharynx normal. Neck: Normal inspection. Neck supple. CVS: Normal heart rate and rhythm. Pulses normal. Respiratory: No respiratory distress. Breath sounds normal. Abdomen: Soft and non-tender. Back: ttp along left buttock area and lower PSIS area on left side reproduces pain Skin: Skin warm and dry. Normal skin color. Normal skin turgor. Extremities: No lower extremity edema. SILT inner thigh Neuro: Oriented X 3. No motor deficit. No sensory deficit. 2+ DTRs in patella, gait normal, good distal stength MDM - Back Pain/Injury MDM Narrative Medical decision making narrative: 56 yo male with hx of HTN, prior back pain, depression no blood thinners comes in with c/o L left back pain upon waking Sunday morning denies trauma - radiates down left leg. No b/b incontinence, no saddle anesthesia. Neurologically intact. No red flags. Will start on PO medications and refer to PCP if not better for PT/MRI. Patient aware. Discharge Plan Discharge Clinical Impression: Sciatica Qualifiers: Laterality: left Qualified Code(s): M54.32 - Sciatica, left side Patient Disposition: Home, Self-Care Instructions: Sciatica (ED), Lower Back Exercises (ED) Additional Instructions: return to ED for any worsening symptoms or concerns if not better in 3 days you need to see your doctor this may require a MRI or physical therapy please follow up. please take no more than two doses of motrin a day Prescriptions: New cyclobenzaprine 10 mg tablet 10 mg PO TID PRN (Reason: muscle spasm) Qty: 20 0RF lidocaine 4 % adhesive patch,medicated 1 patch topical DAILY PRN (Reason: pain) Qty: 10 0RF Rx Instructions: may leave on for up to 12 hrs hydrocodone-acetaminophen 5-325 mg tablet 1 tab PO Q6H PRN (Reason: pain) Qty: 12 0RF No Action clotrimazole-betamethasone 1-0.05 % cream 1 appl topical BID 30 Days Qty: 30 3RF fluticasone propionate 50 mcg/actuation spray,suspension 1 spray intranasal DAILY Qty: 16 6RF loratadine 10 mg tablet 10 mg PO DAILY Qty: 90 3RF hydrochlorothiazide 25 mg tablet 25 mg PO DAILY Qty: 90 2RF atenolol 50 mg tablet 50 mg PO DAILY 90 Days Qty: 90 3RF venlafaxine 75 mg capsule,extended release 24hr 75 mg PO DAILY Qty: 90 2RF cyclobenzaprine 5 mg tablet 5 mg PO TID PRN (Reason: muscle spasm) Qty: 14 0RF amoxicillin 500 mg capsule 1,000 mg PO BID 10 Days Qty: 40 0RF albuterol sulfate [ProAir HFA] 90 mcg/actuation HFA aerosol inhaler 2 puff inhalation Q4-6H PRN (Reason: shortness of breath or wheezing) Qty: 6.7 0RF benzonatate 200 mg capsule 200 mg PO TID PRN (Reason: cough) Qty: 15 0RF sildenafil [Viagra] 100 mg tablet 100 mg PO DAILY PRN (Reason: sexual activity) Qty: 6 3RF Rx Instructions: administer 30 minutes to 4 hours before activity lisinopril 10 mg tablet 10 mg PO DAILY 90 Days Qty: 90 1RF Referrals: Zeynep Patel MD [Primary Care Provider] - 3 days (if not better) Stand Alone Forms: Work/School Release
[2021-07-04] MEDS: Lidocaine 4 % Patch ADH..PATCH 1 PATCH TRANSDERMA (07:40)
--- NOTE | 2021-07-04 07:52 | PC.NURSE ---
PT EVALUATED BY DR VILLA. PT AWAKE, ALERT AND ORIENTED X 3. SKIN WARM AND DRY. RESP UNLABORED. DENIES N/V C/O LEFT LOWER BACK PAIN. NEUROS INTACT. AMBULATORY, GAIT STEADY PLAN IS FOR DC HOME. PT AGREEABLE TO PLAN
== END 2021-07-04 07:57 | disposition home or self-care (01) ==
LOC: HO.ED 07:37
PROVIDERS: Emergency Provider Emergency Medicine; PCP Internal Medicine
DX: M54.42 Lumbago with sciatica, left side (principal)
CPT/HCPCS: 99283

== ENCOUNTER 2021-10-19 17:00 | Outpatient (RCR) | payer OTHER, MEDICAID, SELFPAY ==
--- NOTE | 2021-09-14 18:07 | MHC.PT.EP ---
[facility] [place] Office [place] Office [place] Office [address] [phone] F: [phone] F: [phone] F: [phone] F: [phone] Physical Therapy Plan of Care Date of Evaluation: Date of Surgery: N/A Diagnosis: low back pain, unspecified Assessment: Pt is a pleasant and motivated 56yo M who presents to PT with L sided low back pain radiating into L LE for ~3-4 months. 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 He presents today with current impairments in pain, decreased lumbar ROM, soft tissue restrictions, decreased core stabilization, decreased hip strength, and decreased muscle length. He is TTP throughout L QL, piriformis, and glutes. He is limited functionally by prolonged standing, walking, transitional movements, and sleeping. He is a good candidate for skilled PT in order to address current impairments and to facilitate return to PLOF. He will be seen 2x/week for 4 weeks and will be reassessed at that time. Frequency and Duration: The patient will be seen 2x/week for 4 weeks Short Term Goals: Pt will be I with HEP to promote self management of symptoms Pt will centralize symptoms Pt will demonstrate improvements in postural awareness and body mechanics throughout the day Track Dresser Goals: Pt will tolerate standing and walking > 1 hour with minimal to no pain to assist with work related tasks Pt will demonstrate ability to squat and picker/puller 25# object with proper mechanics and minimal to no pain Pt will demonstrate improvements in function as evidenced by statistically significant improvement in Modified Oswestry Low Back Pain Disability Questionnaire Treatment Plan: Modalities to reduce pain, spasms and effusion. Manual therapy to restore motion and function. Therapeutic exercise to improve strength and flexibility. Neuromuscular re-education for posture and balance. Therapeutic activities to return to functional activities of daily living. Electronically signed by: Karyn Guzmán, PT, DPT Please sign and return to therapist. Thank you for your referral.
--- NOTE | 2021-10-19 17:39 | MHC.PT.DC ---
[facility] [place] Office [place] Office [place] Office [address] Yolanda Jacobsen [address] [phone] F: [phone] F: [phone] F: [phone] F: [phone] Physical Therapy Discharge Report Diagnosis: low back pain, unspecified Date of Surgery: N/A Date of Evaluation: 09/14/21 Date of Discharge: 10/19/21 Treatments to Date: 4 Cancellations to Date: 1 No Shows to Date: 4 Discharge Status: Visit Non-compliance Discharge Summary: Pt was seen for PT from 09/14/21-10/12/21. His last attended visit was 10/12/21. He has had 4 no-show appointments since SOC including his last scheduled appointment for today. Pt is being D/C from skilled PT per [facility] attendance policy and visit non-compliance. Pt current level of function unknown at this time. Electronically signed by: Karyn Guzmán, PT, DPT Please sign and return to therapist. Thank you for your referral.
== END 2021-10-19 17:40 | disposition home or self-care (01) ==
LOC: HO.PT 17:00
PROVIDERS: PCP Internal Medicine; Visit Provider Nurse Practitioner Family
DX: M54.50 Low back pain, unspecified (principal)
CPT/HCPCS: 97110; 97140; 97162; 97530

== ENCOUNTER 2021-12-20 08:30 | Emergency (ER) | payer OTHER, MEDICAID, SELFPAY ==
--- NOTE | ~2021-12-20 | XR_ITS ---
EXAMINATION: XR FOOT, LEFT CLINICAL INFORMATION: Pain COMPARISON: None TECHNIQUE: AP, lateral, and oblique views of the left foot. FINDINGS: Osseous alignment is anatomic. No acute fracture is seen. There is moderate degenerative change at the first MTP joint with joint space narrowing and spurring. Posterior and plantar calcaneal spurs are noted. No significant focal soft tissue abnormality identified. XR/XR foot LT 2V IMPRESSION: No acute findings identified. Moderate degenerative change at the first MTP joint.
[2021-12-20 08:36] VITALS: BP 156/92; PULSE 68; RESP 18; TEMP 37.1; O2SAT 97; BMI 34.4
--- NOTE | 2021-12-20 10:12 | ED_ITS ---
HPI - General Adult General Chief complaint: Extremity Problem Stated complaint: Left foot pain Time Seen by Provider: 12/20/21 09:07 Source: patient Mode of arrival: ambulatory Limitations: no limitations History of Present Illness HPI narrative: Patient is a 56 year old male presenting to the emergency department today with left foot pain. Patient states that his left foot hurts when he walks on it, specifically under his great toe. Patient denies any injury to the area. Patient denies any dizziness, lightheadedness, abdominal pain, nausea, vomiting, fever, chills, blurry vision, double vision, loss of vision, chest pain, difficulty breathing, shortness of breath, back pain, night sweats, pain with urination, increased urinary frequency, increased urinary urgency, blood in his urine or stool, syncope or a near syncopal episode, recent trauma or falls, bowel incontinence, bladder incontinence, bowel retention, bladder retention, or any other complaints at this time. Onset (ago): day(s) Location: left and lower extremity (foot) Radiation: non-radiation Severity: mild Severity scale (1-10): 2 Quality: aching and dull Pain Consistency: intermittent Relieving factors: none Exacerbating factors: movement Associated symptoms: denies other symptoms Treatments prior to arrival: none Related Data Previous Rx's Medication Instructions Recorded fluticasone propionate 50 1 spray intranasal DAILY #16 mL 04/23/20 mcg/actuation nasal spray,suspension atenolol 50 mg tablet 50 mg PO DAILY 90 days #90 tabs 04/03/21 venlafaxine 75 mg capsule,extended 75 mg PO DAILY #90 caps 05/02/21 release 24 hr albuterol sulfate 90 mcg/actuation 2 puff inhalation Q4-6H PRN 06/13/21 aerosol inhaler (ProAir HFA) shortness of breath or wheezing #6.7 grams clotrimazole-betamethasone 1 1 appl topical BID 30 days #30 07/08/21 %-0.05 % topical cream grams loratadine 10 mg tablet 10 mg PO DAILY #90 tabs 07/11/21 cyclobenzaprine 5 mg tablet 5 mg PO BEDTIME PRN muscle spasm 08/18/21 #10 tabs amoxicillin 500 mg tablet 500 mg PO BID 7 days #14 tabs 10/05/21 hydrochlorothiazide 25 mg tablet 25 mg PO DAILY #90 tabs 11/13/21 lisinopril 10 mg tablet 10 mg PO DAILY 90 days #90 tabs 11/13/21 Allergies Allergy/AdvReac Type Severity Reaction Status Date / Time No Known Allergies Allergy Verified 10/05/21 15:52 [No Known Allergies*] Review of Systems Constitutional: Constitutional: Reports no additional constitutional complaints, Denies chills, Denies fever(s) and Denies night sweats Eyes: Eyes: Reports no additional eye complaints, Denies blurry vision, Denies change in vision, Denies diplopia, Denies eye discharge, Denies loss of vision and Denies eye pain ENT: Denies dizziness Cardiovascular: Cardiovascular: Reports no additional cardiovascular complaints, Denies chest pain, Denies lightheadedness, Denies Loss of Consciousness and Denies dyspnea Respiratory: Respiratory: Reports no additional respiratory complaints and Denies dyspnea Gastrointestinal: Gastrointestinal: Reports no additional gastrointestinal complaints, Denies abdominal pain, Denies melena, Denies hematochezia, Denies change in bowel habits and Denies change in stool character Genitourinary: Genitourinary: Reports no additional male genitourinary complaints, Denies hematuria, Denies oliguria, Denies difficulty urinating, Denies dysuria, Denies urinary frequency, Denies urinary hesitancy, Denies urinary incontinence and Denies urinary urgency Musculoskeletal: Musculoskeletal: Reports no additional musculoskeletal complaints, Denies numbness and Denies tingling Comments: left foot pain Neurologic: Denies dizziness, Denies loss of vision, Denies numbness and Denies tingling Psychiatric: Psychiatric: Reports no additional psychiatric complaints Endocrine: Endocrine: Reports no additional endocrine complaints Hematologic/Lymphatic: Hematologic/Lymphatic: Reports no additional hematologic/lymphatic complaints Allergic/Immunologic: Allergic/Immunologic: Reports no additional allergic/immunologic complaints [facility] Past Medical History Attestation statement: The following information was validated with the patient. Source: old records reviewed Medical History Allergic rhinitis Anxiety and depression Class 1 obesity with body mass index (BMI) of 34.0 to 34.9 in adult Eczema Erectile disorder, acquired, generalized, severe Essential hypertension Impaired glucose tolerance Insomnia Mild recurrent major depression Physical exam Surgical History History of removal of cyst Family History Family History Father No problems noted. Mother Diabetes Hypertension Brother No problems noted. Sister No problems noted. Son No problems noted. Daughter No problems noted. 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 Current occupational exposures/hazards: No Cognitive needs: No Hearing needs: No Vision needs: Yes Physical Exam ED Vital Signs: Vital Signs - 24 hr 12/20/21 08:36 12/20/21 10:13 Temperature 98.8 F 98.0 F Pulse Rate 68 88 Respiratory Rate 18 18 Blood Pressure 156/92 H 138/98 H Pulse Oximetry 97 98 Oxygen Delivery Method Room Air Room Air BMI result Body Mass Index 34.4 Const General: cooperative, no acute distress, alert and awake Nutritional Appearance: well nourished Orientation/consciousness: patient oriented x3 Limitations: no limitations HENMT Head: Yes normal to inspection and Yes atraumatic Ears: hearing grossly normal bilaterally and external ears normal General nose exam: Normal external nose present, no nasal discharge noted and no epistaxis Face and sinus: Yes normal facial exam, No abrasion and No laceration Mouth: Normal oral and palatal mucosa present, no drooling and no muffled voice Eyes General: appearance normal, both eyes and all related structures Periorbital: periorbital findings normal Eyelids: Yes eyelids normal Conjunctivae: conjunctivae normal Pupils: Equal, round and reactive pupils present EOM: EOMs intact bilaterally Neck Neck: Yes normal visual inspection, Yes full ROM and Yes no lymphadenopathy Chest Chest palpation & inspection: normal inspection of the chest Resp Effort & Inspection: normal respiratory effort and able to speak in complete sentences Auscultation: clear to auscultation bilaterally Cardio Rate: regular rate Rhythm: regular rhythm GI Inspection: Yes normal to inspection Neuro General: patient oriented x3 and moves all extremities Cranial nerves: Yes Equal, round and reactive pupils present Cognition (Neuro): normal cognition Motor exam (neuro): 5/5 motor strength present throughout Sensory Exam: Normal double simultaneous stimulation for sensation Coordination: [id number] test normal Extrem General: Yes normal to inspection, Yes full ROM and Yes capillary refill normal Psych Appearance: grossly normal Mental Status: mental status grossly normal Affect: normal affect Attitude: cooperative Thought process: Normal thought process present Thought content: Normal thought content present Insight: Good insight present (Psych) Medical Decision Making MDM Narrative Medical decision making narrative: Patient is a 56 year old male presenting to the emergency department today with left foot pain. Patient's physical exam was unremarkable. No erythema or warmth to the left foot or the left great toe. Patient's left foot x-ray showed no acute fractures but did show degenerative changes. I explained my physical exam findings as well as all test results to the patient. I answered all questions asked by the patient. I stressed the importance of the patient taking his medication as prescribed. I stressed the importance of the patient following up with his primary care provider and if the pain persists, follow up with an business services specialist sales. I stressed the importance of the patient returning to the emergency department immediately if his symptoms were to worsen or if he were to develop any dizziness, shortness of breath, difficulty breathing, chest pain, blurry vision, loss of vision, nausea, vomiting, abdominal pain, fever, chills, back pain, or any other complaints. Patient verbalized agreement and understanding with this treatment plan and discharge. Medical Records Medical records reviewed: Yes I reviewed the patient's medical records. Imaging Data Left foot x-ray: Attestation: I personally reviewed and interpreted this imaging study as follows: My impression: No acute fracture. Radiologist's impression: EXAMINATION: XR FOOT, LEFT CLINICAL INFORMATION: Pain? COMPARISON: None? TECHNIQUE: AP, lateral, and oblique views of the left foot. FINDINGS: Osseous alignment is anatomic. No acute fracture is seen. There is moderate degenerative change at the first MTP joint with joint space narrowing and spurring. Posterior and plantar calcaneal spurs are noted. No significant focal soft tissue abnormality identified.? XR/XR foot LT 2V IMPRESSION: No acute findings identified. Moderate degenerative change at the first MTP joint. Dictated By: Doc Mercedes MD Signed By: Electronically signed by Doc Mercedes MD 12/20/21 1009 Discharge Plan Discharge Clinical Impression: Osteoarthritis Patient Disposition: Home, Self-Care Instructions: Osteoarthritis (ED) Additional Instructions: Follow up with your primary care provider. If pain persists, follow up with an business services specialist sales. Return to the emergency department immediately if your symptoms worsen or if you develop any dizziness, shortness of breath, difficulty breathing, chest pain, blurry vision, loss of vision, nausea, vomiting, abdominal pain, fever, chills, back pain, or any other complaints. Prescriptions: No Action fluticasone propionate 50 mcg/actuation spray,suspension 1 spray intranasal DAILY Qty: 16 6RF atenolol 50 mg tablet 50 mg PO DAILY 90 Days Qty: 90 3RF venlafaxine 75 mg capsule,extended release 24hr 75 mg PO DAILY Qty: 90 2RF clotrimazole-betamethasone 1-0.05 % cream 1 appl topical BID 30 Days Qty: 30 3RF loratadine 10 mg tablet 10 mg PO DAILY Qty: 90 3RF hydrochlorothiazide 25 mg tablet 25 mg PO DAILY Qty: 90 2RF lisinopril 10 mg tablet 10 mg PO DAILY 90 Days Qty: 90 1RF albuterol sulfate [ProAir HFA] 90 mcg/actuation HFA aerosol inhaler 2 puff inhalation Q4-6H PRN (Reason: shortness of breath or wheezing) Qty: 6.7 0RF amoxicillin 500 mg tablet 500 mg PO BID 7 Days Qty: 14 0RF cyclobenzaprine 5 mg tablet 5 mg PO BEDTIME PRN (Reason: muscle spasm) Qty: 10 0RF Referrals: [facility] [Provider Group] (If pain persists, follow up with an business services specialist sales. ) Zeynep Patel MD [Primary Care Provider] - Stand Alone Forms: Work/School Release Interventions: ED Discharge Assessment Last Done: 12/20/21 10:18 Discharge Date/Time: 12/20/21 10:21 Print Language: Telugu
[2021-12-20 10:13] VITALS: BP 138/98; PULSE 88; RESP 18; TEMP 36.7; O2SAT 98
== END 2021-12-20 10:21 | disposition home or self-care (01) ==
PROVIDERS: Emergency Provider Emergency Medicine; PCP Internal Medicine
DX: M79.672 Pain in left foot (principal); Z79.899 Other long term (current) drug therapy; Z87.891 Personal history of nicotine dependence
CPT/HCPCS: 73620; 99283; 99284

== ENCOUNTER 2022-03-23 09:45 | Emergency (ER) | payer OTHER, MEDICAID, SELFPAY ==
[2022-03-23 09:47] VITALS: BP 167/97; PULSE 80; RESP 18; TEMP 37.1; O2SAT 98; BMI 34.4
--- NOTE | 2022-03-23 12:27 | ED.BACK ---
HPI - Back Pain/Injury General Chief Complaint: Back Pain/Injury Stated Complaint: back pain Time Seen by Provider: 03/23/22 11:59 Source: patient Mode of arrival: ambulatory History of Present Illness HPI Narrative: 57-year-old male with a past medical history of allergic rhinitis, anxiety, depression, eczema, HTN, presenting to the ED complaining of acute on chronic left-sided low back pain radiating down left lower extremity x3 days. Admits to similar symptoms in the past. Reports associated paresthesias. Denies known injury, trauma, fall, tingling, weakness, urinary incontinence/retention MD elicited complaint: back pain Onset (ago): day(s) Related Data Previous Rx's Medication Instructions Recorded fluticasone propionate 50 1 spray intranasal DAILY #16 mL 04/23/20 mcg/actuation nasal spray,suspension atenolol 50 mg tablet 50 mg PO DAILY 90 days #90 tabs 04/03/21 albuterol sulfate 90 mcg/actuation 2 puff inhalation Q4-6H PRN 06/13/21 aerosol inhaler (ProAir HFA) shortness of breath or wheezing #6.7 grams clotrimazole-betamethasone 1 1 appl topical BID 30 days #30 07/08/21 %-0.05 % topical cream grams loratadine 10 mg tablet 10 mg PO DAILY #90 tabs 07/11/21 cyclobenzaprine 5 mg tablet 5 mg PO BEDTIME PRN muscle spasm 08/18/21 #10 tabs amoxicillin 500 mg tablet 500 mg PO BID 7 days #14 tabs 10/05/21 hydrochlorothiazide 25 mg tablet 25 mg PO DAILY #90 tabs 11/13/21 lisinopril 10 mg tablet 10 mg PO DAILY 90 days #90 tabs 11/13/21 venlafaxine 75 mg capsule,extended 75 mg PO DAILY #90 caps 01/26/22 release 24 hr acetaminophen 500 mg tablet 500 mg PO Q6H PRN fever or pain 03/23/22 (Tylenol Extra Strength) #14 tabs cyclobenzaprine 5 mg tablet 5 mg PO Q8H PRN pain (scale score 03/23/22 7-10) 5 days #14 tabs lidocaine 5 % topical patch 1 patch topical DAILY PRN pain #30 03/23/22 (Lidoderm) ea naproxen 500 mg tablet 500 mg PO BID PRN pain 10 days #20 03/23/22 tabs Allergies Allergy/AdvReac Type Severity Reaction Status Date / Time No Known Allergies Allergy Verified 02/01/22 15:55 [No Known Allergies*] Review of Systems Review of Systems: Constitutional: No Fever, No Chills ENT/Mouth: No Ear Pain, No Nasal Congestion, No Sinus Pain, No Hoarseness, No sore throat Cardiovascular: No Chest Pain, No SOB Respiratory: No Cough, No Sputum, No Wheezing Gastrointestinal: No Nausea, No Vomiting, No Diarrhea, No Constipation, No Abdominal pain Genitourinary: No Dysuria, No Urinary Frequency, No Hematuria, No Urinary Incontinence/retention, No Urgency, No Flank Pain Musculoskeletal: + joint pain, No Myalgias, No Joint Swelling Skin: No Skin Lesions, No rash Neuro: No Weakness, No Numbness, + Paresthesias Yes all other systems are reviewed and are negative Constitutional: Constitutional: Reports as per HPI Neurologic: Denies Sensory deficit (Neuro) [facility] Past Medical History Attestation statement: The following information was validated with the patient. Medical History Allergic rhinitis Anxiety and depression Class 1 obesity with body mass index (BMI) of 34.0 to 34.9 in adult Eczema Erectile disorder, acquired, generalized, severe Essential hypertension Impaired glucose tolerance Insomnia Mild recurrent major depression Physical exam Surgical History History of removal of cyst Family History Family History Father No problems noted. Mother Diabetes Hypertension Brother No problems noted. Sister No problems noted. Son No problems noted. Daughter No problems noted. 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 Current occupational exposures/hazards: No Cognitive needs: No Hearing needs: No Vision needs: Yes Physical Exam Vital Signs: Vital Signs: Last Vital Signs Temp 98.7 F 12/29/22 09:47 Pulse 80 03/23/22 09:47 Resp 18 03/23/22 09:47 BP 167/97 H 03/23/22 09:47 Pulse Ox 98 03/23/22 09:47 O2 Del Method 03/23/22 09:47 BMI result Body Mass Index 34.4 Const: General: cooperative, healthy appearing and no acute distress Orientation/consciousness: patient oriented x3 Limitations: no limitations HEENT: Head: Yes normal to inspection and Yes atraumatic Ears: hearing grossly normal bilaterally General nose exam: Normal external nose present Face and sinus: Yes normal facial exam Eyes: General: appearance normal, both eyes and all related structures EOM: EOMs intact bilaterally Neck: Other: No midline cervical spinous tenderness Neck: Yes normal visual inspection and Yes no meningeal signs Resp: Effort & Inspection: normal respiratory effort and no respiratory distress Cardio: Rate: regular rate Heart sounds: S1 normal heart sound present and S2 normal heart sound present GI: Inspection: Yes normal to inspection Palpation (GI): Soft to palpation, nontender, no guarding and not rigid : General: Yes no CVA tenderness Back/Spine/Pelvis: Other: No midline thoracic/lumbar spinous tenderness/step-off or deformity. + left-sided lower lumbar/buttock MSK tenderness Back: no CVA tenderness Skin: Rashes: no rashes Wounds: no wounds Neuro: Other: Strength intact throughout. No saddle anesthesia. Sensation intact to light touch. Neurovascular intact distally General: patient oriented x3, gait normal, tone normal, moves all extremities, no meningeal signs and no focal motor deficits Gait exam (Neuro): Normal gait present Motor exam (neuro): 5/5 motor strength present throughout Sensory Exam: No Sensory deficit (Neuro) Extrem: General: Yes normal to inspection Medical Decision Making Medical Decision Making MDM Narrative: 57-year-old male with a past medical history of allergic rhinitis, anxiety, depression, eczema, HTN, presenting to the ED complaining of acute on chronic left-sided low back pain radiating down left lower extremity x3 days. On exam vital signs stable, NAD, nontoxic appearing, no midline spinous tenderness throughout or red flag symptoms. Ambulating with steady gait. Concern for MSK pain/strain for sciatica. Low suspicion for fracture, cauda equina, cord compression, or epidural abscess. Low suspicion for renal stone/scott Plan: Pain control, PCP follow-up Differential Diagnosis Differential Diagnoses: The differential diagnosis associated with the presentation includes As above Discharge Plan Discharge Clinical Impression: Sciatica Patient Disposition: Home, Self-Care Instructions: Sciatica (ED) Additional Instructions: Your pain is likely musculoskeletal Flexeril is a muscle relaxer, take at night as it makes you drowsy, do not drive, drink alcohol, or operate machinery while taking it Naproxen as an anti-inflammatory / pain medication, take with food Lidoderm patches are numbing patches, apply to painful area In addition take Tylenol at home If symptoms persist or worsen, pain becomes unbearable, you developed urinary retention or incontinence, or weakness return to the ED Prescriptions: New acetaminophen [Tylenol Extra Strength] 500 mg tablet 500 mg PO Q6H PRN (Reason: fever or pain) Qty: 14 0RF lidocaine [Lidoderm] 5 % adhesive patch,medicated 1 patch topical DAILY MDD remove after 12 hours PRN (Reason: pain) Qty: 30 0RF Rx Instructions: leave on most painful area for up to 12 hrs naproxen 500 mg tablet 500 mg PO BID PRN (Reason: pain) 10 Days Qty: 20 0RF cyclobenzaprine 5 mg tablet 5 mg PO Q8H PRN (Reason: pain (scale score 7-10)) 5 Days Qty: 14 0RF No Action fluticasone propionate 50 mcg/actuation spray,suspension 1 spray intranasal DAILY Qty: 16 6RF atenolol 50 mg tablet 50 mg PO DAILY 90 Days Qty: 90 3RF clotrimazole-betamethasone 1-0.05 % cream 1 appl topical BID 30 Days Qty: 30 3RF loratadine 10 mg tablet 10 mg PO DAILY Qty: 90 3RF hydrochlorothiazide 25 mg tablet 25 mg PO DAILY Qty: 90 2RF lisinopril 10 mg tablet 10 mg PO DAILY 90 Days Qty: 90 1RF venlafaxine 75 mg capsule,extended release 24hr 75 mg PO DAILY Qty: 90 2RF albuterol sulfate [ProAir HFA] 90 mcg/actuation HFA aerosol inhaler 2 puff inhalation Q4-6H PRN (Reason: shortness of breath or wheezing) Qty: 6.7 0RF amoxicillin 500 mg tablet 500 mg PO BID 7 Days Qty: 14 0RF cyclobenzaprine 5 mg tablet 5 mg PO BEDTIME PRN (Reason: muscle spasm) Qty: 10 0RF Referrals: Zeynep Patel MD [Primary Care Provider] - 5 days Stand Alone Forms: Work/School Release
[2022-03-23] MEDS: Ketorolac Tromethamine 30 MG/ML VIAL IM (13:11)
== END 2022-03-23 13:23 | disposition home or self-care (01) ==
PROVIDERS: Emergency Provider Student in an Organized Health Care Education/Training Program; PCP Internal Medicine
DX: M54.42 Lumbago with sciatica, left side (principal); I10 Essential (primary) hypertension; E66.8 Other obesity; Z68.34 Body mass index [BMI] 34.0-34.9, adult; Z87.891 Personal history of nicotine dependence; Z79.899 Other long term (current) drug therapy
CPT/HCPCS: 96372; 99283; 99284; J1885

== ENCOUNTER 2022-06-05 07:42 | Emergency (ER) | payer OTHER, MEDICAID, SELFPAY ==
[2022-06-05 07:46] VITALS: BP 166/102; PULSE 75; RESP 18; TEMP 36.2; O2SAT 96; BMI 35.2
[2022-06-05 08:36] LABS: Influenza A PCR NEGATIVE (Negative); Influenza B PCR NEGATIVE (Negative); Resp Syncy Virus RNA Qual PCR NEGATIVE (Negative); SARS COV2 PCR INHOUSE NEGATIVE (Negative)
--- NOTE | 2022-06-05 08:46 | ED_ITS ---
HPI - General Adult General Chief complaint: Upper Respiratory Symptoms Stated complaint: body aches, throat and ear pain Time Seen by Provider: 06/05/22 08:17 Source: patient Mode of arrival: ambulatory Limitations: no limitations History of Present Illness HPI narrative: 57-year-old male with past medical history of high blood pressure, anxiety, depression, presents to the ED for sore throat, ear pain, and body aches. Patient denies any coughing, chest pain, shortness of breath. Patient denies any fever but admits to chills and night sweats. Related Data Previous Rx's Medication Instructions Recorded fluticasone propionate 50 1 spray intranasal DAILY #16 mL 04/23/20 mcg/actuation nasal spray,suspension albuterol sulfate 90 mcg/actuation 2 puff inhalation Q4-6H PRN 06/13/21 aerosol inhaler (ProAir HFA) shortness of breath or wheezing #6.7 grams clotrimazole-betamethasone 1 1 appl topical BID 30 days #30 07/08/21 %-0.05 % topical cream grams loratadine 10 mg tablet 10 mg PO DAILY #90 tabs 07/11/21 cyclobenzaprine 5 mg tablet 5 mg PO BEDTIME PRN muscle spasm 08/18/21 #10 tabs amoxicillin 500 mg tablet 500 mg PO BID 7 days #14 tabs 10/05/21 venlafaxine 75 mg capsule,extended 75 mg PO DAILY #90 caps 01/26/22 release 24 hr acetaminophen 500 mg tablet 500 mg PO Q6H PRN fever or pain 03/23/22 (Tylenol Extra Strength) #14 tabs cyclobenzaprine 5 mg tablet 5 mg PO Q8H PRN pain (scale score 03/23/22 7-10) 5 days #14 tabs lidocaine 5 % topical patch 1 patch topical DAILY PRN pain #30 03/23/22 (Lidoderm) ea naproxen 500 mg tablet 500 mg PO BID PRN pain 10 days #20 03/23/22 tabs atenolol 50 mg tablet 50 mg PO DAILY 90 days #90 tabs 04/05/22 lisinopril 10 mg tablet 10 mg PO DAILY 90 days #90 tabs 05/15/22 hydrochlorothiazide 25 mg tablet 25 mg PO DAILY #90 tabs 06/05/22 naproxen 500 mg tablet 500 mg PO BID PRN pain 10 days #20 06/05/22 tabs Allergies Allergy/AdvReac Type Severity Reaction Status Date / Time No Known Allergies Allergy Verified 02/01/22 15:55 [No Known Allergies*] Review of Systems Review of Systems: Sore throat, ear pain, and body aches Yes all other systems are reviewed and are negative [facility] Past Medical History Medical History Allergic rhinitis Anxiety and depression Class 1 obesity with body mass index (BMI) of 34.0 to 34.9 in adult Eczema Erectile disorder, acquired, generalized, severe Essential hypertension Impaired glucose tolerance Insomnia Mild recurrent major depression Physical exam Surgical History History of removal of cyst Family History Family History Father No problems noted. Mother Diabetes Hypertension Brother No problems noted. Sister No problems noted. Son No problems noted. Daughter No problems noted. 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 Current occupational exposures/hazards: No Cognitive needs: No Hearing needs: No Vision needs: Yes Physical Exam ED Vital Signs: Vital Signs - 24 hr 06/05/22 07:46 06/05/22 10:04 Temperature 97.2 F 98.4 F Pulse Rate 75 57 Respiratory Rate 18 16 Blood Pressure 166/102 H 153/99 H Pulse Oximetry 96 Oxygen Delivery Method Room Air Room Air BMI result Body Mass Index 35.2 Const General: cooperative, healthy appearing, comfortable, no acute distress, well developed, alert, awake and Physically active Orientation/consciousness: oriented to person, oriented to place, oriented to time and patient oriented x3 HENMT Head: Yes normal to inspection, Yes No palpable skull fracture present, Yes normocephalic, Yes atraumatic and No abrasion Ears: hearing grossly normal bilaterally, external ears normal, TM's normal bilaterally, EAC's normal and mastoids normal General nose exam: Normal external nose present and Normal nares present Face and sinus: Yes normal facial exam and Yes sinuses nontender Throat: Yes posterior oropharynx normal, Yes tonsils normal and Yes uvula midline Eyes General: appearance normal, both eyes and all related structures Neck Neck: Yes normal visual inspection, Yes full ROM, Yes no lymphadenopathy, Yes no meningeal signs, Yes trachea midline, Yes supple, No anterior neck swelling and No tender Chest Chest palpation & inspection: normal inspection of the chest and normal palpation of entire chest wall Resp Effort & Inspection: normal respiratory effort and able to speak in complete sentences Auscultation: clear to auscultation bilaterally Cardio Jugular venous distension: no JVD Heart sounds: S1 normal heart sound present and S2 normal heart sound present GI Inspection: Yes normal to inspection and No abdominal wall ecchymosis Palpation (GI): Soft to palpation, not firm, nontender, no guarding and not rigid General: No CVA tenderness and Yes no CVA tenderness Back/Spine/Pelvis Back: no CVA tenderness, No CVA tenderness and No back tenderness Skin General skin exam: no rashes or lesions noted and elasticity normal Neuro General: oriented to person, oriented to place, oriented to time, patient oriented x3, gait normal, tone normal, moves all extremities, Normal light touch and pain sensation, no meningeal signs, no focal motor deficits, CN's II-XI intact bilaterally and normal sensation to monofilament Extrem General: Yes normal to inspection and Yes full ROM Psych Appearance: grossly normal, well kempt and not disheveled Course Course Course Narrative: patient well-appearing and not in distress. SARS and strep ordered Reevaluation(s) Reevaluation #1: SARS and strep is normal. Patient states will be discharged. patinet is wel- appearing Time: 10:08 Medical Decision Making Medical Decision Making [facility] Narrative: 57 yold male preents to the ED for bodyaches, throat and ear pain. patient well-appearing. Patient not in distress. URI symptoms. Differential Diagnosis Differential Diagnoses: The differential diagnosis associated with the presentation includes ( COVID, RSV, influenza, tonsillitis, pharyngitis, otitis media, ) Lab Data [facility] Lab Attestation statement: I reviewed the patient's lab results. Labs: Lab Results 03/13/23 03/13/23 Range/Units 07:51 09:11 Influenza Type A (PCR) NEGATIVE (Negative) Influenza Type B (PCR) NEGATIVE (Negative) RSV RNA Qual (PCR) NEGATIVE (Negative) SARS-CoV-2 RNA (RT-PCR) NEGATIVE (Negative) S. pyogenes GrpA ALICIA Negative (Negative) Prescription Management I considered prescription management with: Pain Medication Discharge Plan Discharge Clinical Impression: Acute viral syndrome Patient Disposition: Home, Self-Care Instructions: Viral Syndrome (ED) Additional Instructions: your COVID, RSV, influenza, stress test came back negative. He will be dis charged with pain medication. Presently physical exam does not indicate infection. Please follow-up with your primary care provider. Return to the ED for headache, intractable fever, weakness, dizziness, nausea, vomiting, abdominal pain, chest pain, shortness of breath, coughing up blood, severe ear pain, severe sore throat, inability to tolerate solid food / liquid, drooling, or any other concerning symptoms. Prescriptions: New naproxen 500 mg tablet 500 mg PO BID PRN (Reason: pain) 10 Days Qty: 20 0RF No Action fluticasone propionate 50 mcg/actuation spray,suspension 1 spray intranasal DAILY Qty: 16 6RF clotrimazole-betamethasone 1-0.05 % cream 1 appl topical BID 30 Days Qty: 30 3RF loratadine 10 mg tablet 10 mg PO DAILY Qty: 90 3RF venlafaxine 75 mg capsule,extended release 24hr 75 mg PO DAILY Qty: 90 2RF atenolol 50 mg tablet 50 mg PO DAILY 90 Days Qty: 90 3RF lisinopril 10 mg tablet 10 mg PO DAILY 90 Days Qty: 90 1RF hydrochlorothiazide 25 mg tablet 25 mg PO DAILY Qty: 90 2RF acetaminophen [Tylenol Extra Strength] 500 mg tablet 500 mg PO Q6H PRN (Reason: fever or pain) Qty: 14 0RF lidocaine [Lidoderm] 5 % adhesive patch,medicated 1 patch topical DAILY MDD remove after 12 hours PRN (Reason: pain) Qty: 30 0RF Rx Instructions: leave on most painful area for up to 12 hrs naproxen 500 mg tablet 500 mg PO BID PRN (Reason: pain) 10 Days Qty: 20 0RF cyclobenzaprine 5 mg tablet 5 mg PO Q8H PRN (Reason: pain (scale score 7-10)) 5 Days Qty: 14 0RF albuterol sulfate [ProAir HFA] 90 mcg/actuation HFA aerosol inhaler 2 puff inhalation Q4-6H PRN (Reason: shortness of breath or wheezing) Qty: 6.7 0RF amoxicillin 500 mg tablet 500 mg PO BID 7 Days Qty: 14 0RF cyclobenzaprine 5 mg tablet 5 mg PO BEDTIME PRN (Reason: muscle spasm) Qty: 10 0RF Stand Alone Forms: Work/School Release Interventions: ED Discharge Assessment Last Done: 06/05/22 10:25 Discharge Date/Time: 06/05/22 10:25 Print Language: Frisian
[2022-06-05 09:36] LABS: IDNOW Serial# 6674DD1D; Strep A Nucleic Acid Negative (Negative)
[2022-06-05 10:04] VITALS: BP 153/99; PULSE 57; RESP 16; TEMP 36.9
== END 2022-06-05 10:25 | disposition home or self-care (01) ==
PROVIDERS: Physician Assistant; Emergency Provider Student in an Organized Health Care Education/Training Program; PCP Internal Medicine
DX: B34.9 Viral infection, unspecified (principal); M79.10 Myalgia, unspecified site; H92.03 Otalgia, bilateral; Z20.822 Contact with and (suspected) exposure to COVID-19; Z20.828 Contact with and (suspected) exposure to other viral communicable diseases; Z79.899 Other long term (current) drug therapy
CPT/HCPCS: 0241U; 36415; 87651; 99283; 99284

== ENCOUNTER 2022-06-16 11:25 | Outpatient (REF) | payer OTHER, MEDICAID, SELFPAY ==
[2022-06-16 11:50] LABS: Binax Internal Control QC Valid; Binax Now Covid-19 Ag Negative (Negative); Binax Performed by: HO.BONILM
== END 2022-06-16 11:26 | disposition home or self-care (01) ==
LOC: HO.HMGCLDS 11:25
PROVIDERS: PCP Internal Medicine; Visit Provider Physician Assistant
DX: Z20.822 Contact with and (suspected) exposure to COVID-19 (principal)
CPT/HCPCS: 87811; C9803

== ENCOUNTER 2022-07-24 14:02 | Outpatient (REF) | payer OTHER, MEDICAID, SELFPAY ==
--- NOTE | ~2022-07-24 | XR_ITS ---
EXAMINATION: XR LUMBAR SPINE XR SHOULDER, RIGHT XR CERVICAL SPINE CLINICAL INDICATION: Pain in right shoulder, cervical spine and lumbar spine. TECHNIQUE: Lumbar spine 3 views, right shoulder 4 views. Cervical spine 4 views. FINDINGS: RIGHT SHOULDER: There are 2 loose bodies seen within the subacromial bursa. Loss of joint glenohumeral joint space with moderate inferior spurring is noted. AC joint is normal. No loose body seen. No fracture noted. LUMBAR SPINE: There is normal lumbar lordosis. The vertebral heights and alignment are normal. There is loss of L5-S1 and L3-L4 disc heights with mild ventral spondylosis. There is no visible acute fracture, dislocation or lytic process seen. The paravertebral soft tissues are normal. The SI joints are normal. CERVICAL SPINE: There is normal cervical lordosis. The vertebral heights, alignment and the disc heights are normal. The craniovertebral junction and C1-C2 alignment is normal. No visible acute fracture, dislocation or subluxation seen. XR/XR shoulder RT min 2V IMPRESSION: Degenerative arthritic changes right shoulder with two moderate-sized loose bodies in the subacromial bursa. No acute fracture. L5-S1 degenerative disc changes lumbar spine. No acute fracture or lytic process. Unremarkable cervical spine exam.
--- NOTE | ~2022-07-24 | XR_ITS ---
EXAMINATION: XR LUMBAR SPINE XR SHOULDER, RIGHT XR CERVICAL SPINE CLINICAL INDICATION: Pain in right shoulder, cervical spine and lumbar spine. TECHNIQUE: Lumbar spine 3 views, right shoulder 4 views. Cervical spine 4 views. FINDINGS: RIGHT SHOULDER: There are 2 loose bodies seen within the subacromial bursa. Loss of joint glenohumeral joint space with moderate inferior spurring is noted. AC joint is normal. No loose body seen. No fracture noted. LUMBAR SPINE: There is normal lumbar lordosis. The vertebral heights and alignment are normal. There is loss of L5-S1 and L3-L4 disc heights with mild ventral spondylosis. There is no visible acute fracture, dislocation or lytic process seen. The paravertebral soft tissues are normal. The SI joints are normal. CERVICAL SPINE: There is normal cervical lordosis. The vertebral heights, alignment and the disc heights are normal. The craniovertebral junction and C1-C2 alignment is normal. No visible acute fracture, dislocation or subluxation seen. XR/XR lumbar spine 2-3V IMPRESSION: Degenerative arthritic changes right shoulder with two moderate-sized loose bodies in the subacromial bursa. No acute fracture. L5-S1 degenerative disc changes lumbar spine. No acute fracture or lytic process. Unremarkable cervical spine exam.
--- NOTE | ~2022-07-24 | XR_ITS ---
EXAMINATION: XR LUMBAR SPINE XR SHOULDER, RIGHT XR CERVICAL SPINE CLINICAL INDICATION: Pain in right shoulder, cervical spine and lumbar spine. TECHNIQUE: Lumbar spine 3 views, right shoulder 4 views. Cervical spine 4 views. FINDINGS: RIGHT SHOULDER: There are 2 loose bodies seen within the subacromial bursa. Loss of joint glenohumeral joint space with moderate inferior spurring is noted. AC joint is normal. No loose body seen. No fracture noted. LUMBAR SPINE: There is normal lumbar lordosis. The vertebral heights and alignment are normal. There is loss of L5-S1 and L3-L4 disc heights with mild ventral spondylosis. There is no visible acute fracture, dislocation or lytic process seen. The paravertebral soft tissues are normal. The SI joints are normal. CERVICAL SPINE: There is normal cervical lordosis. The vertebral heights, alignment and the disc heights are normal. The craniovertebral junction and C1-C2 alignment is normal. No visible acute fracture, dislocation or subluxation seen. XR/XR cervical spine 2V IMPRESSION: Degenerative arthritic changes right shoulder with two moderate-sized loose bodies in the subacromial bursa. No acute fracture. L5-S1 degenerative disc changes lumbar spine. No acute fracture or lytic process. Unremarkable cervical spine exam.
== END 2022-07-24 14:03 | disposition home or self-care (01) ==
LOC: HO.LAB 14:02
PROVIDERS: PCP Internal Medicine; Visit Provider Internal Medicine
DX: M25.511 Pain in right shoulder (principal); M54.50 Low back pain, unspecified; M54.2 Cervicalgia
CPT/HCPCS: 72040; 72100; 73030

== ENCOUNTER 2022-10-27 07:53 | Emergency (ER) | payer OTHER, MEDICAID, SELFPAY ==
[2022-10-27 08:06] VITALS: BP 149/94; PULSE 68; RESP 18; TEMP 36.9; O2SAT 93
[2022-10-27 08:09] VITALS: BMI 34.5
--- NOTE | 2022-10-27 08:41 | ED.GENADULT ---
HPI - General Adult General Chief complaint: Allergic Reaction Stated complaint: rash on belly Time Seen by Provider: 10/27/22 08:21 Source: patient Mode of arrival: ambulatory Limitations: no limitations History of Present Illness HPI narrative: 57-year-old male presents to ED for itchy rash on abdomen. Patient states since he had itchy rash on both thighs and legs that resolved and now has itchy rash on abdomen. Patient denies any lip swelling, tongue swelling, sensation of throat closing, facial swelling, or shortness of breath. Patient denies going into [employer]. Patient denies any known allergies. Denies any new foods, detergents, lotions, or recent travel into the [place]. Related Data Previous Rx's Medication Instructions Recorded fluticasone propionate 50 1 spray intranasal DAILY #16 mL 04/23/20 mcg/actuation nasal spray,suspension atenolol 50 mg tablet 50 mg PO DAILY 90 days #90 tabs 04/05/22 hydrochlorothiazide 25 mg tablet 25 mg PO DAILY #90 tabs 06/05/22 albuterol sulfate 90 mcg/actuation 2 puff inhalation Q6H PRN 06/16/22 aerosol inhaler shortness of breath or wheezing #6.7 grams omega-3 fatty acids 1,000 mg 1,000 mg PO DAILY #90 caps 08/04/22 capsule venlafaxine 75 mg capsule,extended 75 mg PO DAILY #90 caps 08/06/22 release 24 hr lisinopril 30 mg tablet 30 mg PO DAILY 90 days #90 tabs 08/17/22 ibuprofen 600 mg tablet 600 mg PO Q8H PRN pain #90 tabs 10/02/22 clotrimazole-betamethasone 1 1 appl topical BID 30 days #15 10/07/22 %-0.05 % topical cream grams lisinopril 10 mg tablet 10 mg PO DAILY 90 days #90 tabs 10/07/22 diphenhydramine HCl 25 mg capsule 25 mg PO TID PRN itching 7 days 10/27/22 (Benadryl) #21 caps famotidine 20 mg tablet (Pepcid) 20 mg PO BID 7 days #14 tabs 10/27/22 prednisone 20 mg tablet 60 mg PO DAILY 5 days #15 tabs 10/27/22 Allergies Allergy/AdvReac Type Severity Reaction Status Date / Time No Known Allergies Allergy Verified 07/19/22 17:11 [No Known Allergies*] Review of Systems Review of Systems: Itchy rash Yes all other systems are reviewed and are negative [facility] Past Medical History Medical History Allergic rhinitis Anxiety and depression Class 1 obesity with body mass index (BMI) of 34.0 to 34.9 in adult Eczema Erectile disorder, acquired, generalized, severe Essential hypertension Impaired glucose tolerance Insomnia Mild recurrent major depression Physical exam Surgical History History of removal of cyst Family History Family History Father No problems noted. Mother Diabetes Hypertension Brother No problems noted. Sister No problems noted. Son No problems noted. Daughter No problems noted. 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 Current occupational exposures/hazards: No Cognitive needs: No Hearing needs: No Vision needs: Yes Physical Exam ED Vital Signs: Vital Signs - 24 hr 10/27/22 08:06 Temperature 98.4 F Pulse Rate 68 Respiratory Rate 18 Blood Pressure 149/94 H Pulse Oximetry 93 Oxygen Delivery Method Room Air BMI result Body Mass Index 34.5 Const General: cooperative, healthy appearing, comfortable, no acute distress, well developed, alert, awake and Physically active Orientation/consciousness: oriented to person, oriented to place, oriented to time and patient oriented x3 HENMT Other: Negative for any facial swelling, lip swelling, or tongue swelling. Head: Yes normal to inspection, Yes No palpable skull fracture present, Yes normocephalic, Yes atraumatic and No abrasion Face and sinus: Yes normal facial exam, Yes sinuses nontender and Yes face symmetric Mouth: Normal oral and palatal mucosa present, lip normal and tongue normal Teeth and gingiva: dentition normal and gingiva normal Throat: Yes posterior oropharynx normal, Yes tonsils normal and Yes uvula midline Eyes General: appearance normal, both eyes and all related structures Neck Neck: Yes normal visual inspection, Yes full ROM, Yes no lymphadenopathy, Yes no meningeal signs, Yes trachea midline, Yes supple, No anterior neck swelling and No tender Chest Chest palpation & inspection: normal inspection of the chest and normal palpation of entire chest wall Resp Effort & Inspection: normal respiratory effort and able to speak in complete sentences Auscultation: clear to auscultation bilaterally Cardio Jugular venous distension: no JVD Heart sounds: S1 normal heart sound present and S2 normal heart sound present GI Other: positive for Uticaria Rash on abdomen Inspection: Yes normal to inspection and No abdominal wall ecchymosis Palpation (GI): Soft to palpation, not firm, nontender, no guarding and not rigid General: No CVA tenderness and Yes no CVA tenderness Back/Spine/Pelvis Back: no CVA tenderness, No CVA tenderness and No back tenderness Skin General skin exam: no rashes or lesions noted, elasticity normal and turgor normal Neuro General: oriented to person, oriented to place, oriented to time, patient oriented x3, gait normal, tone normal, moves all extremities, Normal light touch and pain sensation, no meningeal signs, no focal motor deficits, CN's II-XI intact bilaterally and normal sensation to monofilament Extrem General: Yes normal to inspection, Yes full ROM, Yes capillary refill normal and Yes normal exam except as noted Psych Appearance: grossly normal, well kempt and not disheveled Medical Decision Making Medical Decision Making [facility] Narrative: 57-year-old male presents to the ED for itchy rash on abdomen since Sunday. Patient also had itchy rash on thighs that resolved. Patient denies any shortness of breath, tongue swelling, sensation of throat closing or drooling. Patient denies any new allergen exposure. Patient denies any history of allergies. Patient denies any fever, chills, or abdominal pain. Patient denies any IV drug use. Differential Diagnosis Differential Diagnoses: The differential diagnosis associated with the presentation includes (Allergic reaction, contact dermatitis, anaphylaxis, cellulitis, Uticaria, ) Admission/Observation Consideration of admission/observation: Escalation of care including admission/observation considered External Record Review External record reviewed: Other (Prior ED visit) Prescription Management I considered prescription management with: Other (Benadryl, prednisone, Pepcid) Discharge Plan Discharge Clinical Impression: Acute urticaria, Allergic reaction Patient Disposition: Home, Self-Care Instructions: Urticaria (ED), Acute Rash (ED), General Allergic Reaction (ED) Additional Instructions: Return to the ED immediately for any swelling of lips, swelling of tongue, shortness of breath, drooling, sensation of throat closing, fever, chills, worsening rash, abdominal pain, or any other concerning symptoms. Please follow with primary care provider Prescriptions: New prednisone 20 mg tablet 60 mg PO DAILY 5 Days Qty: 15 0RF famotidine [Pepcid] 20 mg tablet 20 mg PO BID 7 Days Qty: 14 0RF diphenhydramine HCl [Benadryl] 25 mg capsule 25 mg PO TID PRN (Reason: itching) 7 Days Qty: 21 0RF No Action fluticasone propionate 50 mcg/actuation spray,suspension 1 spray intranasal DAILY Qty: 16 6RF atenolol 50 mg tablet 50 mg PO DAILY 90 Days Qty: 90 3RF hydrochlorothiazide 25 mg tablet 25 mg PO DAILY Qty: 90 2RF omega-3 fatty acids 1,000 mg capsule 1,000 mg PO DAILY Qty: 90 3RF venlafaxine 75 mg capsule,extended release 24hr 75 mg PO DAILY Qty: 90 2RF lisinopril 30 mg tablet 30 mg PO DAILY 90 Days Qty: 90 1RF ibuprofen 600 mg tablet 600 mg PO Q8H PRN (Reason: pain) Qty: 90 1RF lisinopril 10 mg tablet 10 mg PO DAILY 90 Days Qty: 90 1RF clotrimazole-betamethasone 1-0.05 % cream 1 appl topical BID 30 Days Qty: 15 1RF albuterol sulfate 90 mcg/actuation HFA aerosol inhaler 2 puff inhalation Q6H PRN (Reason: shortness of breath or wheezing) Qty: 6.7 0RF Stand Alone Forms: Work/School Release Interventions: ED Discharge Assessment Last Done: 10/27/22 09:42 Discharge Date/Time: 10/27/22 09:43 Print Language: Maltese
[2022-10-27 08:51] VITALS: PULSE 70; O2SAT 95
--- NOTE | 2022-10-27 09:40 | PC.NURSE ---
aox4. no changes to skin. breathing well- airway intact. vss. talking w/o distress. sitting in chair.
== END 2022-10-27 09:43 | disposition home or self-care (01) ==
PROVIDERS: Emergency Provider Emergency Medicine; PCP Internal Medicine
DX: L50.0 Allergic urticaria (principal); T78.40XA Allergy, unspecified, initial encounter; X58.XXXA Exposure to other specified factors, initial encounter; Z79.899 Other long term (current) drug therapy; Z87.891 Personal history of nicotine dependence
CPT/HCPCS: 99283; 99284

== ENCOUNTER 2022-12-21 16:37 | Outpatient (AMB) | payer OTHER, SELFPAY ==
[2022-12-21 16:38] VITALS: BP 132/86; BMI 33.8
--- NOTE | 2022-12-21 16:38 | MHC.PC.OV ---
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 Accompanied by: Self / Same As Patient Allergies No Known Allergies [No Known Allergies*] Allergy (Verified 12/21/22 16:56) Medication List - Last Reconciled 12/21/22 by Zeynep Borges MD albuterol sulfate 90 mcg/actuation 2 puffs inhalation Q6H PRN atenolol 50 mg PO DAILY 90 days clotrimazole-betamethasone 1-0.05 % 1 appl topical BID 30 days fluticasone propionate 50 mcg/actuation 1 spray intranasal DAILY hydrochlorothiazide 25 mg PO DAILY ibuprofen 600 mg PO Q8H PRN lisinopril 30 mg PO DAILY 90 days omega-3 fatty acids 1,000 mg PO DAILY venlafaxine ER 75 mg PO DAILY Tobacco use date assessed: 07/19/22 Dental Screening Dental Screen Date: 12/21/22 Did you have a dental visit in the last 12 months?: No Did you have a dental problem in the last 6 months where you did not have access to dental care?: No Was dental information given to patient?: Yes HPI HPI Comments History of Present Illness Details This is a 57 year old male with mild major depression that comes for his physical exam. Depression stable with venlafaxine. Has colonoscopy done in 2016 and next one should be 2026. [facility] Medical History Physical exam Mild recurrent major depression Class 1 obesity with body mass index (BMI) of 34.0 to 34.9 in adult Erectile disorder, acquired, generalized, severe Anxiety and depression Allergic rhinitis Insomnia Eczema Impaired glucose tolerance Essential hypertension Surgical History History of removal of cyst Family History (Updated 12/21/22 @ 17:02 by Zeynep Borges MD) Father Cancer Mother Diabetes Hypertension Brother No problems noted. Sister No problems noted. Son No problems noted. Daughter No problems noted. 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 Stiven Salmeron, Lavonne Enciso, Tanner Larios and colleagues, with an educational arden from [employer]. Review of Systems Const All systems reviewed & are unremarkable except as noted in HPI and below Eyes Reports no additional complaints, Denies change in vision and Denies other visual disturbances Card Denies chest pain at rest, Denies chest pain with activity, Denies edema, Denies irregular heart rhythm, Denies claudication, Denies dyspnea, Denies dyspnea on exertion, Denies orthopnea, Denies paroxysmal nocturnal dyspnea and Denies slow heart rate Resp Denies cough, Denies dyspnea and Denies dyspnea on exertion GI Denies abdominal pain, Denies change in bowel habits, Denies excessive flatus, Denies nausea and Denies vomiting Denies urinary hesitancy, Denies urinary incontinence and Denies urinary urgency Musc Denies abnormal gait, Denies atrophy, Denies deformity and Denies limited range of motion Skin/Breast Denies bleeding lesions, Denies changing lesions and Denies rash Neuro Denies abnormal gait and Denies lack of coordination Physical exam (Primary Care) Vital Signs: Last Vital Signs BP 132/86 12/21/22 16:38 BMI result Body Mass Index 33.8 Tobacco/Smoking Status: Tobacco use Status Tobacco use date assessed 07/19/22 12/21/22 16:43 Patient Tobacco Use Status Former Tobacco user 12/21/22 17:03 Tobacco use type Cigarette 12/21/22 17:03 e-Cigarette/Vaping Use Never Used 12/21/22 17:03 Thrive Assessment: Date of Thrive Assessment Date Thrive assessed 05/11/21 12/21/22 16:43 Const Orientation/consciousness: patient oriented x3 HENMT Head: Yes normal to inspection, Yes normocephalic and Yes atraumatic Ears: external ears normal Eyes General: appearance normal, both eyes and all related structures Eyelids: Yes eyelids normal Conjunctivae: conjunctivae normal Neck Neck: Yes normal visual inspection and Yes supple Resp Effort & Inspection: normal respiratory effort Auscultation: clear to auscultation bilaterally Cardio Jugular venous distension: no JVD Rate: regular rate Rhythm: regular rhythm Heart sounds: S1 normal heart sound present and S2 normal heart sound present GI Inspection: Yes normal to inspection Palpation (GI): Soft to palpation and nontender Auscultation: normal bowel sounds Skin General skin exam: no rashes or lesions noted Neuro General: patient oriented x3 and no focal motor deficits Extrem General: Yes full ROM Psych Appearance: grossly normal Assessment and Plan Assessment & Plan (1) Physical exam: Code(s): Z00.00 - Encounter for general adult medical examination without abnormal findings Plan: Repeat in a year (2) Mild recurrent major depression: Code(s): F33.0 - Major depressive disorder, recurrent, mild Plan: Continue venlafaxine Orders: Orders Vitamin D 25-OH Total 12/21/22 E55.9 - Vitamin D deficiency, unspecified Lipid Panel 12/21/22 Z00.00 - Encounter for general adult medical examination without abnormal findings Comprehensive [place]. Panel Fast 12/21/22 Z00.00 - Encounter for general adult medical examination without abnormal findings Coding Level of Care Code Est Pt Prev Care 40-64y(99912) Diagnoses Physical exam Z00.00 Mild recurrent major depression F33.0 Time Spent (min) 32
== END 2022-12-21 17:09 | disposition home or self-care (01) ==
PROVIDERS: Visit Provider Internal Medicine
DX: Z00.00 Encounter for general adult medical examination without abnormal findings (principal); F33.0 Major depressive disorder, recurrent, mild
CPT/HCPCS: 99396

== ENCOUNTER 2023-01-27 08:39 | Emergency (ER) | payer OTHER, MEDICAID, SELFPAY ==
--- NOTE | ~2023-01-27 | XR_ITS ---
EXAMINATION: XR FOOT, RIGHT CLINICAL INFORMATION: Pain COMPARISON: None available. TECHNIQUE: AP, lateral, and oblique views of the right foot. FINDINGS: Bone alignment is normal. No fracture or dislocation. Arthritis at the first MTP joint with joint space narrowing and osteophyte formation. Small calcaneal spurs. XR/XR foot RT 2V IMPRESSION: Arthritis at the first MTP joint. Small calcaneal spurs.
[2023-01-27 08:51] VITALS: BP 166/105; PULSE 80; RESP 18; TEMP 36.3; O2SAT 97; BMI 34.6
--- NOTE | 2023-01-27 08:59 | PC.NURSE ---
Pt reporting increased pain noted primarily in right foot, although noted in left foot as well, reports it starts in his great toe and radiates up to the top of his foot. He reports he was told he has arthritisis but feels the pain is increasing causing him to have a hard time walking. Awaiting xray at this time
--- NOTE | 2023-01-27 09:03 | ED.LOWEXIN ---
HPI - Extremity Injury (Lower) General Chief Complaint: Extremity Injury, Lower Stated Complaint: R foot pain Time Seen by Provider: 01/27/23 09:02 Source: patient and RN notes reviewed Mode of arrival: ambulatory Limitations: no limitations History of Present Illness HPI Narrative: 57-year-old male with pmhx significant for anxiety, depression, allergic rhinitis, eczema, obesity, HTN, and arthritis presents to the ED today with complaint of atraumatic right great toe pain x3 weeks. Pain radiates up into his right foot. Constant in nature. Rates pain 8/10 at present. States this feels like his typical arthritis. Has been receiving corticosteroid injections for this however had to stop recently as they would only see him on days that he works. He is able to ambulate with some discomfort. 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 Denies CRUZ, dizziness, vision changes, CP, SOB, N/V, abd pain, LE numbness/tingling/weakness. Related Data Previous Rx's Medication Instructions Recorded fluticasone propionate 50 1 spray intranasal DAILY #16 mL 04/23/20 mcg/actuation nasal spray,suspension atenolol 50 mg tablet 50 mg PO DAILY 90 days #90 tabs 04/05/22 hydrochlorothiazide 25 mg tablet 25 mg PO DAILY #90 tabs 06/05/22 albuterol sulfate 90 mcg/actuation 2 puff inhalation Q6H PRN 06/16/22 aerosol inhaler shortness of breath or wheezing #6.7 grams omega-3 fatty acids 1,000 mg 1,000 mg PO DAILY #90 caps 08/04/22 capsule venlafaxine 75 mg capsule,extended 75 mg PO DAILY #90 caps 08/06/22 release 24 hr clotrimazole-betamethasone 1 1 appl topical BID 30 days #15 10/07/22 %-0.05 % topical cream grams lisinopril 30 mg tablet 30 mg PO DAILY 90 days #90 tabs 12/07/22 ibuprofen 600 mg tablet 600 mg PO Q8H PRN pain #90 tabs 01/26/23 naproxen 500 mg tablet 500 mg PO BID PRN pain (scale 01/27/23 score 4-6) #20 tabs prednisone 20 mg tablet 40 mg (2 x 20 mg) PO DAILY 5 days 01/27/23 #10 tabs Allergies Allergy/AdvReac Type Severity Reaction Status Date / Time No Known Allergies Allergy Verified 01/27/23 08:51 [No Known Allergies*] Review of Systems Review of Systems: Constitutional: No fever, chills, fatigue, night sweats, weight changes ENT/Mouth: No ear pain, hearing loss, nasal congestion, sinus pain, rhinorrhea, sore throat Eyes: No eye pain, swelling, redness, vision changes, discharge Cardio: No chest pain, palpitations, RDZ, orthopnea, peripheral edema Pulm: No SOB, cough, sputum, wheezing, dyspnea, hemoptysis GI: No nausea, vomiting, hematemesis, abdominal pain, diarrhea, constipation, hematochezia, melena : No irregular bleeding, dysuria, frequency, urgency, hesitancy, hematuria, flank pain, urinary flow changes, urinary incontinence or retention MSK: No back pain, neck pain, joint pain, myalgias, +right great toe and foot pain Skin: No lesions, rashes Neuro: No weakness, numbness, paresthesias, LOC, dizziness, headache All other systems reviewed and are negative. [facility] Past Medical History Attestation statement: The following information was validated with the patient. Source: old records reviewed and nursing notes reviewed Medical History Physical exam Mild recurrent major depression Class 1 obesity with body mass index (BMI) of 34.0 to 34.9 in adult Erectile disorder, acquired, generalized, severe Anxiety and depression Allergic rhinitis Insomnia Eczema Impaired glucose tolerance Essential hypertension Surgical History History of removal of cyst Family History Family History Father Cancer Mother Diabetes Hypertension Brother No problems noted. Sister No problems noted. Son No problems noted. Daughter No problems noted. 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 Current occupational exposures/hazards: No Cognitive needs: No Hearing needs: No Vision needs: Yes Physical Exam Vital Signs: Vital Signs: Last Vital Signs Temp 96.5 F L 01/27/23 10:01 Pulse 78 01/27/23 10:01 Resp 18 01/27/23 10:01 BP 177/100 H 01/27/23 10:01 Pulse Ox 97 01/27/23 10:01 O2 Del Method Room Air 01/27/23 10:01 BMI result Body Mass Index 34.6 Vital signs notable for hypertension Const: General: cooperative, comfortable, no acute distress, alert and awake Orientation/consciousness: patient oriented x3 Limitations: no limitations HEENT: Head: Yes normal to inspection Ears: hearing grossly normal bilaterally General nose exam: Normal external nose present Eyes: General: appearance normal, both eyes and all related structures Conjunctivae: conjunctivae normal Sclerae: sclerae normal Pupils: Equal, round and reactive pupils present EOM: EOMs intact bilaterally Direct Ophthalmoscopy: normal light reflex, no photophobia, no papilledema, fundi normal bilaterally and anterior chamber normal Neck: Neck: Yes normal visual inspection, Yes full ROM and Yes no JVD Resp: Effort & Inspection: normal respiratory effort Auscultation: clear to auscultation bilaterally Cardio: Rate: regular rate Rhythm: regular rhythm Peripheral pulses: radial pulses present, posterior tibial pulses present and dorsalis pedis present Skin: General skin exam: no rashes or lesions noted Neuro: General: patient oriented x3, gait normal and moves all extremities Cranial nerves: Yes CN's II-XII intact bilaterally and Yes Equal, round and reactive pupils present Extrem: Other: + Edema noted to right great toe MCP joint. No overlying erythema or cellulitic changes. Mildly TTP without warmth, fluctuance. No tenderness overlying base of 5th tarsal. No medical or lateral malleolus tenderness. + 2+ PT/DP b/l General: Yes normal to inspection, Yes capillary refill normal and Yes no clubbing, cyanosis or edema Course Course Course Narrative: Patient noted to be hypertensive to 166/105. States that he took his antihypertensive prior to arrival. States his BP is always very elevated and plans to follow up with his PCP regarding this. He is asymptomatic. Denies CRUZ, dizziness, vision changes, chest pain, SOB, or syncope. As this is where patient lives and is asymptomatic I do not believe he needs further management. Educated patient on worrisome s/sx and strict return precautions. States he plans to follow up with pcp. Has upcoming appointment. >> XR right great toe/ foot without acute fracture or dislocation. Positive for chronic arthritic changes with bony spurs to MCP. Patient's symptoms are consistent with osteoarthritis. Will give him dose of Toradol in ED. Will send naproxen and five day course of prednisone to patient's pharmacy. Advised to follow up with pcp for further management. Patient expresses understanding. Discussed return precautions. All questions answered at this time. Patient agreeable with disposition and ready for d/c. Medications Administered Discontinued Medications Generic Name Dose Route Start Last Admin Trade Name Freq PRN Reason Stop Dose Admin Ketorolac Tromethamine 30 mg 01/27/23 09:52 01/27/23 10:05 Ketorolac Tromethamine 30 Mg/Ml Vial IM 01/27/23 09:53 30 mg ONCE ONE Administration Medical Decision Making Medical Decision Making MDM Narrative: 57-year-old male with pmhx significant for anxiety, depression, allergic rhinitis, eczema, obesity, HTN, and arthritis presents to the ED today with complaint of atraumatic right great toe pain x3 weeks. Vital signs notable for hypertension (patient's baseline) otherwise wnl. RRR. Lungs CTA b/l. On PE, there is edema noted to right great toe MCP joint without overlying erythema or cellulitic changes. Mildly TTP without warmth, fluctuance. No tenderness overlying base of 5th tarsal. No medical or lateral malleolus tenderness. 2+ PT/DP b/l. NV intact distally. Normal capillary refill. Clinical concern for arthritis, fracture, stress fracture, dislocation. Unlikely gout, pseudogout, septic joint. XR right great toe/foot ordered in xray. Plan to review imaging and re-evaluate patient. Differential Diagnosis Differential Diagnoses: The differential diagnosis associated with the presentation includes As above. Admission/Observation Not indicated Independent Interpretation I performed an independent interpretation of an: Plain X-Ray Interpretation: X-ray right foot without acute fracture, dislocation, does show some arthritic changes within the right MCP joint, agree with radiologist's interpretation. Radiology Impression Discussion of test interpretation with radiology: I have reviewed the radiologist's reading. Radiologist Impression: XR foot RT 2V IMPRESSION: Arthritis at the first MTP joint. Small calcaneal spurs. External Record Review External record reviewed: Inpatient record Prescription Management I considered prescription management with: Pain Medication and Other (steroid) Chronic Conditions Patient?s care impacted by: Hypertension and Other (arthritis) Critical Care Time Critical Care Time Critical Care Time: No Discharge Plan Discharge Clinical Impression: Arthritis, Hypertension Patient Disposition: Home, Self-Care Instructions: Osteoarthritis (ED) Additional Instructions: The x-ray of your right foot and right great toe does not demonstrate fracture. There are arthritic changes within the joint of your great toe. You were given a shot of Toradol in the emergency department today for pain. Naproxen is an anti-inflammatory that has been sent to your pharmacy. Take this as needed for pain/ discomfort. Do not take this with ibuprofen. You were ntoed to be hypertensive in ED despite you taking your medication this morning. Please return to the ED if your BP does not normalize or if you develop hedache, vision changes, chest pain or shortness of breath. follow up with your PCP. Additionally a steroid call prednisone has been sent to your pharmacy. Take this for the next 5 days to help with inflammation/ discomfort. Please follow-up with her primary care provider. If her symptoms persist or worsen please return to the emergency department. In the case of an emergency call 911. Prescriptions: New prednisone 20 mg tablet 40 mg PO DAILY 5 Days Qty: 10 0RF naproxen 500 mg tablet 500 mg PO BID PRN (Reason: pain (scale score 4-6)) Qty: 20 0RF No Action fluticasone propionate 50 mcg/actuation spray,suspension 1 spray intranasal DAILY Qty: 16 6RF atenolol 50 mg tablet 50 mg PO DAILY 90 Days Qty: 90 3RF hydrochlorothiazide 25 mg tablet 25 mg PO DAILY Qty: 90 2RF omega-3 fatty acids 1,000 mg capsule 1,000 mg PO DAILY Qty: 90 3RF venlafaxine 75 mg capsule,extended release 24hr 75 mg PO DAILY Qty: 90 2RF clotrimazole-betamethasone 1-0.05 % cream 1 appl topical BID 30 Days Qty: 15 1RF lisinopril 30 mg tablet 30 mg PO DAILY 90 Days Qty: 90 1RF ibuprofen 600 mg tablet 600 mg PO Q8H PRN (Reason: pain) Qty: 90 1RF albuterol sulfate 90 mcg/actuation HFA aerosol inhaler 2 puff inhalation Q6H PRN (Reason: shortness of breath or wheezing) Qty: 6.7 0RF Referrals: Zeynep Patel MD [Primary Care Provider] - Stand Alone Forms: Work/School Release Interventions: ED Discharge Assessment Last Done: 01/27/23 10:11 Discharge Date/Time: 01/27/23 10:14
[2023-01-27 10:01] VITALS: BP 177/100; PULSE 78; RESP 18; TEMP 35.8; O2SAT 97
[2023-01-27] MEDS: Ketorolac Tromethamine 30 MG/ML VIAL IM (10:05)
== END 2023-01-27 10:14 | disposition home or self-care (01) ==
PROVIDERS: Emergency Provider Emergency Medicine; PCP Internal Medicine
DX: M19.071 Primary osteoarthritis, right ankle and foot (principal); R60.0 Localized edema; M79.671 Pain in right foot; I10 Essential (primary) hypertension; E66.9 Obesity, unspecified; Z68.34 Body mass index [BMI] 34.0-34.9, adult; Z87.891 Personal history of nicotine dependence; Z79.899 Other long term (current) drug therapy
CPT/HCPCS: 73620; 96372; 99284; J1885

== ENCOUNTER 2023-01-30 08:32 | Outpatient (AMB) | payer OTHER, SELFPAY ==
[2023-01-30 08:36] VITALS: BP 142/90; PULSE 67; O2SAT 95; BMI 35.2
--- NOTE | 2023-01-30 08:36 | MHC.PC.OV ---
Vital Signs 01/30/23 08:36 Height 5 ft 7 in Weight 225 lb BMI 35.2 BP 142/90 H Blood Pressure Location Lt brachial Position Sitting Pulse 67 Pulse Source Pulse Oximeter Pulse Oximetry (%) 95 Oxygen Delivery Method Room Air Intake Visit Reasons: BP check Intake Note: Patient here for bp check, [facility] [place] ED follow up foot pain [employer] Supervisor Required: No Accompanied by: Self / Same As Patient Allergies No Known Allergies [No Known Allergies*] Allergy (Verified 01/30/23 09:10) Medication List - Last Reconciled 01/30/23 by Zeynep Borges MD albuterol sulfate 90 mcg/actuation 2 puffs inhalation Q6H PRN atenolol 50 mg PO DAILY 90 days clotrimazole-betamethasone 1-0.05 % 1 appl topical BID 30 days fluticasone propionate 50 mcg/actuation 1 spray intranasal DAILY hydrochlorothiazide 25 mg PO DAILY ibuprofen 600 mg PO Q8H PRN lisinopril 30 mg PO DAILY 90 days naproxen 500 mg PO BID PRN omega-3 fatty acids 1,000 mg PO DAILY prednisone 40 mg (2 x 20 mg) PO DAILY 5 days venlafaxine ER 75 mg PO DAILY Tobacco use date assessed: 07/19/22 HPI HPI Comments History of Present Illness Details This is a 57-year-old male with mild recurrent major depression, insomnia, hypertension that comes today as a hospital discharge follow-up with discharge date 01/27/2023 due to bilateral foot pain more prominent in the right foot that bothers him after work. He has had local steroid injection before which seem to work. 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 While in the ER he had x-ray showing right foot arthritis. Depression and insomnia stable with venlafaxine. Blood pressure elevated and I will increase lisinopril. [facility] Medical History (Updated 01/30/23 @ 09:46 by Zeynep Borges MD) Physical exam Mild recurrent major depression Class 1 obesity with body mass index (BMI) of 34.0 to 34.9 in adult Erectile disorder, acquired, generalized, severe Anxiety and depression Allergic rhinitis Insomnia Eczema Impaired glucose tolerance Essential hypertension Surgical History History of removal of cyst Family History Father Cancer Mother Diabetes Hypertension Brother No problems noted. Sister No problems noted. Son No problems noted. Daughter No problems noted. 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 Stiven Salmeron, Lavonne Enciso, Tanner Larios and colleagues, with an educational arden from [employer]. Review of Systems Const All systems reviewed & are unremarkable except as noted in HPI and below Eyes Reports no additional complaints, Denies change in vision and Denies other visual disturbances Card Denies chest pain at rest, Denies chest pain with activity, Denies edema, Denies irregular heart rhythm, Denies claudication, Denies dyspnea, Denies dyspnea on exertion, Denies orthopnea, Denies paroxysmal nocturnal dyspnea and Denies slow heart rate Resp Denies cough, Denies dyspnea and Denies dyspnea on exertion GI Denies abdominal pain, Denies change in bowel habits, Denies excessive flatus, Denies nausea and Denies vomiting Denies urinary hesitancy, Denies urinary incontinence and Denies urinary urgency Musc Denies abnormal gait, Denies atrophy, Denies deformity, Reports arthralgias and Denies limited range of motion Skin/Breast Denies bleeding lesions, Denies changing lesions and Denies rash Neuro Denies abnormal gait and Denies lack of coordination Physical exam (Primary Care) Vital Signs: Last Vital Signs Pulse 67 01/30/23 08:36 BP 142/90 H 01/30/23 08:36 Pulse Ox 95 01/30/23 08:36 Oxygen Delivery Method Room Air 01/30/23 08:36 BMI result Body Mass Index 35.2 Tobacco/Smoking Status: Tobacco use Status Tobacco use date assessed 07/19/22 01/30/23 08:43 Patient Tobacco Use Status Former Tobacco user 01/30/23 08:43 Tobacco use type Cigarette 01/30/23 08:43 e-Cigarette/Vaping Use Never Used 01/30/23 08:43 Thrive Assessment: Date of Thrive Assessment Date Thrive assessed 05/11/21 01/30/23 08:43 Eyes General: appearance normal, both eyes and all related structures Eyelids: Yes eyelids normal Conjunctivae: conjunctivae normal Neck Neck: Yes normal visual inspection and Yes supple Resp Effort & Inspection: normal respiratory effort Auscultation: clear to auscultation bilaterally Cardio Jugular venous distension: no JVD Rate: regular rate Rhythm: regular rhythm Heart sounds: S1 normal heart sound present and S2 normal heart sound present Extrem General: Yes full ROM Office Procedures Flu Questionnaire Does the patient have a severe egg allergy?: No Does the patient have severe life threatening allergies?: No Does the patient have a fever or illness today?: No Has the patient ever had Guillain-[place] Syndrome?: No Has the patient ever had any past reaction to a flu shot?: No Immunizations flu vacc [id number] 6mos up(PF) 60 mcg(15 mcgx4)/0.5 mL IM syringe Performing Provider: Zeynep Borges MD [facility] Administered by: AGUSTIN Vines on 01/30/23 09:38 Dose Route Admin Location Dispensed Lot Number Expiration Date NDC Configuration Consultant 0.5 mL IM Left Deltoid 0.5 mL [id number] 09/23/23 31255-550-41 [facility] Given Date VIS Provided VIS Publication Date 01/30/23 Single Vaccine 20 Eligibility Eligibility Date Funding Source Not [facility] Eligible 01/30/23 Private Assessment and Plan Assessment & Plan (1) Hospital discharge follow-up: Code(s): Z09 - Encounter for follow-up examination after completed treatment for conditions other than malignant neoplasm Plan: Discharge date was 01/27/2023 due to bilateral foot pain. X-ray of right foot was done showing right foot arthritis. Feels better when resting. Pain restart after a day of work. (2) Mild recurrent major depression: Code(s): F33.0 - Major depressive disorder, recurrent, mild Plan: Continue venlafaxine. (3) Foot pain: Code(s): M79.673 - Pain in unspecified foot Plan: Continue naproxen. (4) Essential hypertension: Code(s): I10 - Essential (primary) hypertension Plan: Continue hydrochlorothiazide. Increase lisinopril from 30 mg to 40 mg. Blood pressure will be recheck in 3 weeks by nurse navigator. (5) Insomnia: Code(s): G47.00 - Insomnia, unspecified Plan: Continue venlafaxine. Orders: Orders Influenza [id number] Immunization Today Z23 - Encounter for immunization Medications: New lisinopril 40 mg PO DAILY 90 days 90 tabs 1RF Discontinued lisinopril Discontinued Reason: Patient Completed Course 30 mg PO DAILY 90 days 90 tabs 1RF Coding Level of Care Code TCM Mod MDM <= 7 Days Diagnoses Hospital discharge follow-up Z09 Mild recurrent major depression F33.0 Foot pain M79.673 Essential hypertension I10 Insomnia G47.00 Time Spent (min) 21
== END 2023-01-30 09:30 | disposition home or self-care (01) ==
PROVIDERS: PCP Internal Medicine; Visit Provider Internal Medicine
DX: Z23 Encounter for immunization (principal); M79.671 Pain in right foot; M79.672 Pain in left foot; F33.0 Major depressive disorder, recurrent, mild; I10 Essential (primary) hypertension
CPT/HCPCS: 90471; 90686; 99214

== ENCOUNTER 2023-02-16 10:35 | Emergency (ER) | payer OTHER, SELFPAY ==
--- NOTE | ~2023-02-16 | XR_ITS ---
EXAMINATION: XR LUMBOSACRAL SPINE CLINICAL INFORMATION: Left-sided back tenderness COMPARISON: 07/24/2022. TECHNIQUE: Three views of the lumbosacral spine. FINDINGS: Lower pole nephrolith of the right kidney is again observed at approximately 5 mm as measured on the film. No acute lumbar compression fractures seen. Small spondylitic changes observed. There is degenerative disc space narrowing L5-S1. Multilevel facet arthrosis observed. XR/XR lumbar spine 2-3V IMPRESSION: No acute compression fracture. Degenerative disc space narrowing L5-S1. Lumbar spondylitic changes. Lower pole stone of the right kidney, not appreciably changed.
[2023-02-16 10:51] VITALS: BP 149/92; PULSE 65; RESP 16; TEMP 36.9; O2SAT 96; BMI 34.5
--- NOTE | 2023-02-16 10:51 | ED_ITS ---
HPI - General Adult General Chief complaint: Back Pain/Injury Stated complaint: lower back pain Time Seen by Provider: 02/16/23 13:31 Source: patient Mode of arrival: ambulatory Limitations: no limitations History of Present Illness HPI narrative: Patient is a 57-year-old male presenting to the ED with complaint of left lower back pain since Sunday. States the pain developed while at work but denies fall or other injury. Reports history of similar pain in the past, was diagnosed with sciatica. Pain radiates down left leg. Denies weakness, numbness, tingling. Denies fevers. Denies saddle anesthesia or bowel or bladder incontinence. MD complaint: back pain Onset (ago): day(s) Location: back and left Radiation: distal Severity: severe Quality: burning Pain Consistency: constant Relieving factors: none Exacerbating factors: none Associated symptoms: denies other symptoms Treatments prior to arrival: none Related Data Previous Rx's Medication Instructions Recorded fluticasone propionate 50 1 spray intranasal DAILY #16 mL 04/23/20 mcg/actuation nasal spray,suspension atenolol 50 mg tablet 50 mg PO DAILY 90 days #90 tabs 04/05/22 hydrochlorothiazide 25 mg tablet 25 mg PO DAILY #90 tabs 06/05/22 albuterol sulfate 90 mcg/actuation 2 puff inhalation Q6H PRN 06/16/22 aerosol inhaler shortness of breath or wheezing #6.7 grams omega-3 fatty acids 1,000 mg 1,000 mg PO DAILY #90 caps 08/04/22 capsule venlafaxine 75 mg capsule,extended 75 mg PO DAILY #90 caps 08/06/22 release 24 hr clotrimazole-betamethasone 1 1 appl topical BID 30 days #15 10/07/22 %-0.05 % topical cream grams ibuprofen 600 mg tablet 600 mg PO Q8H PRN pain #90 tabs 01/26/23 naproxen 500 mg tablet 500 mg PO BID PRN pain (scale 01/27/23 score 4-6) #20 tabs prednisone 20 mg tablet 40 mg (2 x 20 mg) PO DAILY 5 days 01/27/23 #10 tabs lisinopril 40 mg tablet 40 mg PO DAILY 90 days #90 tabs 01/30/23 cyclobenzaprine 5 mg tablet 5 mg PO TID PRN muscle spasm #10 02/16/23 tabs lidocaine 5 % topical patch 1 patch topical DAILY #15 ea 02/16/23 prednisone 20 mg tablet 40 mg (2 x 20 mg) PO DAILY #10 tabs 02/16/23 Allergies Allergy/AdvReac Type Severity Reaction Status Date / Time No Known Allergies Allergy Verified 02/16/23 10:53 [No Known Allergies*] Review of Systems Review of Systems: As per HPI. Yes all other systems are reviewed and are negative Constitutional: Constitutional: Reports as per HPI [facility] Past Medical History Medical History Physical exam Mild recurrent major depression Class 1 obesity with body mass index (BMI) of 34.0 to 34.9 in adult Erectile disorder, acquired, generalized, severe Anxiety and depression Allergic rhinitis Insomnia Eczema Impaired glucose tolerance Essential hypertension Surgical History History of removal of cyst Family History Family History Father Cancer Mother Diabetes Hypertension Brother No problems noted. Sister No problems noted. Son No problems noted. Daughter No problems noted. 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 Blood pressure elevated. Heart rate normal. Respiratory rate normal. Temperature normal. Oxygen saturation normal. Const General: cooperative, healthy appearing and no acute distress Orientation/consciousness: oriented to person, oriented to place, oriented to time and patient oriented x3 Limitations: no limitations HENMT Head: Yes normocephalic and Yes atraumatic Ears: external ears normal General nose exam: Normal external nose present Face and sinus: Yes face symmetric Mouth: oropharynx normal and moist mucous membranes Throat: Yes uvula midline Eyes Pupils: Equal, round and reactive pupils present Neck Neck: Yes normal visual inspection and Yes supple Resp Effort & Inspection: normal respiratory effort and able to speak in complete sentences Auscultation: clear to auscultation bilaterally Cardio Rate: regular rate Rhythm: regular rhythm Heart sounds: S1 normal heart sound present and S2 normal heart sound present GI Palpation (GI): Soft to palpation and nontender Auscultation: normoactive bowel sounds General: Yes no CVA tenderness Back/Spine/Pelvis Back: no CVA tenderness Cervical Spine: normal cervical lordosis, cervical ROM normal, No Cervical spine tenderness and No step off deformity Thoracic/Lumbar Spine: thoracic and lumbar spine normal to inspection, thoraco- lumbar ROM normal, pain with thoraco-lumbar ROM, paraspinal muscle tenderness on the left in the upper thoracic and in the mid lumbar, No thoracic spinal tenderness, No lumbar spinal tenderness and straight leg raise positive left Pelvis: no pain with anterior-posterior compression and no pain with lateral compression Skin General skin exam: elasticity normal and turgor normal Neuro General: oriented to person, oriented to place, oriented to time, patient oriented x3, moves all extremities, no focal motor deficits and CN's II-XI intact bilaterally Cranial nerves: Yes Equal, round and reactive pupils present Cognition (Neuro): normal cognition Extrem General: Yes full ROM, Yes no pedal edema and Yes no calf tenderness Psych Mental Status: mental status grossly normal Affect: normal affect Thought process: Normal thought process present Medical Decision Making Medical Decision Making MDM Narrative: Patient is a 57-year-old male presenting to the ED with complaint of left lower back pain since Sunday. On exam patient is awake, A+Ox3, VS WNL, afebrile, normal neurological exam without focal deficits, physical exam findings as above. Given reported symptoms and physical exam findings, initial differential includes lumbar radiculopathy, lumbar sprain, spondylosis, osteoarthritis. No red flag findings concerning for cauda equina, cord compression, spinal epidural abscess. X-ray notable for disc space narrowing at L5-S1, as well as spondylytic changes. My interpretation is in agreement with the radiologist's interpretation. Will treat with course of prednisone, cyclobenzaprine, and topical lidocaine patches. Instructed patient to follow-up with his primary care provider. Return precautions discussed. Patient verbalized understanding of and agreement with plan. Differential Diagnosis Differential Diagnoses: The differential diagnosis associated with the presentation includes Independent Interpretation I performed an independent interpretation of an: Plain X-Ray Interpretation: Disc space narrowing, spondylosis of lumbar spine Radiology Impression Discussion of test interpretation with radiology: I have reviewed the radiologist's reading. Radiologist Impression: XR/XR lumbar spine 2-3V IMPRESSION: No acute compression fracture. Degenerative disc space narrowing L5-S1. Lumbar spondylitic changes. Lower pole stone of the right kidney, not appreciably changed. External Record Review External record reviewed: Inpatient record, Office record and Outpatient record Prescription Management I considered prescription management with: Pain Medication and Other Discharge Plan Discharge Clinical Impression: Left lumbar radiculopathy Patient Disposition: Home, Self-Care Instructions: Lumbar Radiculopathy (ED) Additional Instructions: You were evaluated in the emergency department today for back pain. Your evaluation did not show signs of medical conditions requiring emergent intervention at this time. We recommended that you use ibuprofen or Tylenol per package directions every 6 hours as needed for pain. If necessary, you can alternate these medications so that you take one medication every 3 hours. For instance, at noon take ibuprofen, then at 3:00 p.m. take Tylenol, then at 6:00 p.m. take ibuprofen. You have been prescribed a muscle relaxer which you may take every 8 hours as needed for spasms. You are being prescribed a short course of steroids to decrease inflammation. You have been prescribed 5% topical lidocaine patches which you can wear for up to 12 hours in a 24 hour period. Do not apply heat directly over the patches. Please schedule an appointment for follow-up with your primary care physician this week for further evaluation of your symptoms. Return to the emergency department if you experience worsening back pain, difficulty walking, fevers, numbness, tingling, incontinence, groin numbness or tingling, or any other concerning symptoms. Prescriptions: New prednisone 20 mg tablet 40 mg PO DAILY Qty: 10 0RF cyclobenzaprine 5 mg tablet 5 mg PO TID PRN (Reason: muscle spasm) Qty: 10 0RF lidocaine 5 % adhesive patch,medicated 1 patch topical DAILY Qty: 15 0RF Rx Instructions: leave on most painful area for up to 12 hrs No Action fluticasone propionate 50 mcg/actuation spray,suspension 1 spray intranasal DAILY Qty: 16 6RF atenolol 50 mg tablet 50 mg PO DAILY 90 Days Qty: 90 3RF hydrochlorothiazide 25 mg tablet 25 mg PO DAILY Qty: 90 2RF omega-3 fatty acids 1,000 mg capsule 1,000 mg PO DAILY Qty: 90 3RF venlafaxine 75 mg capsule,extended release 24hr 75 mg PO DAILY Qty: 90 2RF clotrimazole-betamethasone 1-0.05 % cream 1 appl topical BID 30 Days Qty: 15 1RF ibuprofen 600 mg tablet 600 mg PO Q8H PRN (Reason: pain) Qty: 90 1RF prednisone 20 mg tablet 40 mg PO DAILY 5 Days Qty: 10 0RF naproxen 500 mg tablet 500 mg PO BID PRN (Reason: pain (scale score 4-6)) Qty: 20 0RF albuterol sulfate 90 mcg/actuation HFA aerosol inhaler 2 puff inhalation Q6H PRN (Reason: shortness of breath or wheezing) Qty: 6.7 0RF lisinopril 40 mg tablet 40 mg PO DAILY 90 Days Qty: 90 1RF
[2023-02-16 13:40] VITALS: BP 144/90; PULSE 67; RESP 20; O2SAT 98
== END 2023-02-16 14:02 | disposition home or self-care (01) ==
PROVIDERS: Emergency Provider Emergency Medicine; PCP Internal Medicine
DX: M54.16 Radiculopathy, lumbar region (principal); M54.50 Low back pain, unspecified; I10 Essential (primary) hypertension; R73.02 Impaired glucose tolerance (oral); Z79.899 Other long term (current) drug therapy
CPT/HCPCS: 72100; 99283

== ENCOUNTER 2023-02-26 09:23 | Emergency (ER) | payer OTHER, SELFPAY ==
[2023-02-26 09:36] VITALS: BP 146/92; PULSE 66; RESP 16; TEMP 36.1; O2SAT 94; BMI 34.5
--- NOTE | 2023-02-26 13:20 | ED_ITS ---
HPI - Back Pain/Injury General Chief Complaint: Back Pain/Injury Stated Complaint: back pain Time Seen by Provider: 02/26/23 12:32 Source: patient Mode of arrival: ambulatory Limitations: no limitations History of Present Illness HPI Narrative: This is a 57-year-old male history of obesity, depression, erectile dysfunction, anxiety, depression, eczema, hypertension presenting with complaints of left- sided back pain traveling down his left lower extremity just above the left knee. This has been going on for few weeks, patient reports he has been seen both in the ED in by his primary care provider, prescribed medications and it does not seem to be getting better. Reports pain is worse with movement better at rest. Denies saddle paresthesias, weakness, fevers, chills, urinary/bowel incontinence/retention, chest pain, shortness of breath, headache, vision changes, dizziness and weakness. Related Data Previous Rx's Medication Instructions Recorded fluticasone propionate 50 1 spray intranasal DAILY #16 mL 04/23/20 mcg/actuation nasal spray,suspension atenolol 50 mg tablet 50 mg PO DAILY 90 days #90 tabs 04/05/22 hydrochlorothiazide 25 mg tablet 25 mg PO DAILY #90 tabs 06/05/22 albuterol sulfate 90 mcg/actuation 2 puff inhalation Q6H PRN 06/16/22 aerosol inhaler shortness of breath or wheezing #6.7 grams omega-3 fatty acids 1,000 mg 1,000 mg PO DAILY #90 caps 08/04/22 capsule venlafaxine 75 mg capsule,extended 75 mg PO DAILY #90 caps 08/06/22 release 24 hr clotrimazole-betamethasone 1 1 appl topical BID 30 days #15 10/07/22 %-0.05 % topical cream grams ibuprofen 600 mg tablet 600 mg PO Q8H PRN pain #90 tabs 01/26/23 prednisone 20 mg tablet 40 mg (2 x 20 mg) PO DAILY 5 days 01/27/23 #10 tabs lisinopril 40 mg tablet 40 mg PO DAILY 90 days #90 tabs 01/30/23 cyclobenzaprine 5 mg tablet 5 mg PO TID PRN muscle spasm #10 02/16/23 tabs lidocaine 5 % topical patch 1 patch topical DAILY #15 ea 02/16/23 prednisone 20 mg tablet 40 mg (2 x 20 mg) PO DAILY #10 tabs 02/16/23 tramadol 50 mg tablet 50 mg PO BID PRN pain 5 days #10 02/20/23 tabs ketorolac 10 mg tablet 10 mg PO TID PRN pain 5 days #15 02/26/23 tabs lidocaine 5 % topical patch 1 patch topical DAILY PRN pain #15 02/26/23 ea prednisone 50 mg tablet 50 mg PO DAILY 5 days #5 tabs 02/26/23 Allergies Allergy/AdvReac Type Severity Reaction Status Date / Time No Known Allergies Allergy Verified 02/26/23 09:36 [No Known Allergies*] Review of Systems Review of Systems: Constitutional : No Weight loss, No Fever, No Chills, ENT/Mouth : No Hearing loss, No Ear Pain, No Nasal Congestion, No Sinus Pain, No Hoarseness, No sore throat, No Rhinorrhea, No Swallowing Difficulty Cardiovascular : No Chest Pain, No SOB Respiratory : No Cough, No Dyspnea Gastrointestinal : No Nausea, No Vomiting, No Diarrhea, No abdominal Pain, No Hematochezia, No Melena Genitourinary : No Dysuria, No Urinary Frequency, No Hematuria, No Urinary Incontinence, Musculoskeletal : positive back pain Skin : No Skin Lesions, No rash Neuro : No Weakness, No Numbness, No Paresthesias, no loss of bowel or bladder incontinence, no saddle anesthesia Yes all other systems are reviewed and are negative [facility] Past Medical History Attestation statement: The following information was validated with the patient. Source: old records reviewed and nursing notes reviewed Medical History Physical exam Mild recurrent major depression Class 1 obesity with body mass index (BMI) of 34.0 to 34.9 in adult Erectile disorder, acquired, generalized, severe Anxiety and depression Allergic rhinitis Insomnia Eczema Impaired glucose tolerance Essential hypertension Surgical History History of removal of cyst Family History Family History Father Cancer Mother Diabetes Hypertension Brother No problems noted. Sister No problems noted. Son No problems noted. Daughter No problems noted. 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 Oriented X3.? No acute distress.? Head: Normocephalic, atraumatic, no step-offs or deformities Eyes: Pupils equal, round and reactive to light.? CVS: Normal heart rate and rhythm.? Pulses normal.? Respiratory: No respiratory distress.? Breath sounds normal.? Abdomen: Soft and nontender.? Skin: Skin warm and dry.? Normal skin color.? Normal skin turgor.? Extremities: No lower extremity edema.? No calf ttp. 5/5 strength to bilateral upper and lower extremities Back: No midline tenderness, no C-spine tenderness, full range of motion, no CVA tenderness bilaterally thoracic and lumbar spine normal to inspection, thoraco-lumbar ROM normal, mild pain with thoraco-lumbar ROM, + paraspinal muscle tenderness to left lumbar region throughout no stepoffs. + left sided straight leg raise. Neuro: Oriented X 3.? No motor deficit.? No sensory deficit. CN 2-12 intact . No saddle paresthesias ambulating with steady gait normal coordination Course Reevaluation(s) Reevaluation #1: Patient feeling much better after Toradol and Lidoderm patch. Ambulating around the department would like to go home states he is feeling much better. Will discharge home on same. Told to stop taking naproxen. Educated patient on diagnosis and treatment plan, answered all question, patient verbalizes understanding. At this time patient will be discharged home, advised to return with new or worsening symptoms. Educated on worrisome signs and symptoms and when to return. At this time I feel comfortable discharge home. Time: 14:55 Medications Administered Discontinued Medications Generic Name Dose Route Start Last Admin Trade Name Christofer PRN Reason Stop Dose Admin Ketorolac Tromethamine 30 mg 02/26/23 13:20 02/26/23 13:43 Ketorolac Tromethamine 15 Mg/Ml Vial IM 02/26/23 13:21 30 mg ONCE ONE Administration Lidocaine 1 patch 02/26/23 13:20 02/26/23 13:43 Lidocaine 4 % Patch Adh..Patch TRANSDERMA 02/26/23 13:21 1 patch ONCE ONE Administration Protocol Medical Decision Making Medical Decision Making [facility] Narrative: 1322 57-year-old male presents with left lower back pain with radiation to left lower extremity just above the knee, atraumatic. Going on for a few weeks worsening Physical examination No midline tenderness, no C-spine tenderness, full range of motion, no CVA tenderness bilaterally thoracic and lumbar spine normal to inspection, thoraco-lumbar ROM normal, mild pain with thoraco-lumbar ROM, + paraspinal muscle tenderness to left lumbar region throughout no stepoffs. + left sided straight leg raise. No saddle paresthesias. Ambulating with steady gait. No weakness. History and physical exam concerning for lumbar radiculopathy versus lumbago versus lumbar herniated disc. Unlikely cauda equina, epidural abscess, cord compression. Unlikely obstructing uropathy, kidney stone, pyelonephritis. Plan at this time will give Toradol, Lidoderm patch. No indication for imaging at this time. Differential Diagnosis Differential Diagnoses: The differential diagnosis associated with the presentation includes History and physical exam concerning for lumbar radiculopathy versus lumbago versus lumbar herniated disc. Unlikely cauda equina, epidural abscess, cord compression. Unlikely obstructing uropathy, kidney stone, pyelonephritis. Admission/Observation Consideration of admission/observation: Escalation of care including admission/observation considered Unlikely Lab Data Labs: Lab Results 02/26/23 Range/Units 14:07 Urine Color Yellow Urine Appearance Clear Urine pH 7.0 (5.0-9.0) Ur Specific [place] 1.010 (1.005-1.025) Urine Protein Negative (Neg-Trace) mg/dL Urine Glucose (UA) Negative (Negative) mg/dL Urine Ketones Negative (Negative) mg/dL Urine Blood Small (1+) H (Negative) Urine Nitrite Negative (Negative) Ur Leukocyte Esterase Negative (Negative) Urine RBC 6-10 H (0-2) /HPF Urine WBC 0-5 (0-5) /HPF Ur Squamous Epith Cells 0-2 (0-2) /HPF Urine Bacteria None Seen (None Seen) Hyaline Casts 0-2 (0-2) /LPF Tests considered The following testing was considered but not selected: No red flag symptoms, no trauma no indication for imaging at this time. No indication for MRI or x-ray patient also did have an x-ray done on 02/16/2023 showing no acute compression fracture, degenerative disc narrowing at L5-S1, lower pole stone of the right kidney, no urinary symptoms at this time I do not suspect kidney stone. Critical Care Time Critical Care Time Critical Care Time: No Discharge Plan Discharge Clinical Impression: Lumbar radiculopathy Patient Disposition: Home, Self-Care Instructions: Lumbar Radiculopathy (ED) Additional Instructions: Take your medications as prescribed. If you were prescribed antibiotics today, it is important that you take your medication to their entirety, do not skip any doses, do not finish them early. Follow-up with your primary care provider this week. Return to the emergency department with new or worsening symptoms. Such as fevers, chills, chest pain, shortness of breath, nausea, vomiting, dizziness, headache, vision changes, lethargy In case of emergency call 911 Toradol has been sent to your pharmacy, you tolerated this well in the department. Please take this as prescribed do not take this with ibuprofen, or other NSAIDs, do not mix this with alcohol. Side effects of this medication including increased risk for bleeding and possible kidney injury. Prescriptions: New ketorolac 10 mg tablet 10 mg PO TID PRN (Reason: pain) 5 Days Qty: 15 0RF prednisone 50 mg tablet 50 mg PO DAILY 5 Days Qty: 5 0RF lidocaine 5 % adhesive patch,medicated 1 patch topical DAILY PRN (Reason: pain) Qty: 15 0RF Rx Instructions: leave on most painful area for up to 12 hrs No Action fluticasone propionate 50 mcg/actuation spray,suspension 1 spray intranasal DAILY Qty: 16 6RF atenolol 50 mg tablet 50 mg PO DAILY 90 Days Qty: 90 3RF hydrochlorothiazide 25 mg tablet 25 mg PO DAILY Qty: 90 2RF omega-3 fatty acids 1,000 mg capsule 1,000 mg PO DAILY Qty: 90 3RF venlafaxine 75 mg capsule,extended release 24hr 75 mg PO DAILY Qty: 90 2RF clotrimazole-betamethasone 1-0.05 % cream 1 appl topical BID 30 Days Qty: 15 1RF ibuprofen 600 mg tablet 600 mg PO Q8H PRN (Reason: pain) Qty: 90 1RF tramadol 50 mg tablet 50 mg PO BID PRN (Reason: pain) 5 Days Qty: 10 0RF prednisone 20 mg tablet 40 mg PO DAILY Qty: 10 0RF cyclobenzaprine 5 mg tablet 5 mg PO TID PRN (Reason: muscle spasm) Qty: 10 0RF lidocaine 5 % adhesive patch,medicated 1 patch topical DAILY Qty: 15 0RF Rx Instructions: leave on most painful area for up to 12 hrs prednisone 20 mg tablet 40 mg PO DAILY 5 Days Qty: 10 0RF albuterol sulfate 90 mcg/actuation HFA aerosol inhaler 2 puff inhalation Q6H PRN (Reason: shortness of breath or wheezing) Qty: 6.7 0RF lisinopril 40 mg tablet 40 mg PO DAILY 90 Days Qty: 90 1RF Referrals: Zeynep Patel MD [Primary Care Provider] - 2 days [facility] [Provider Group] - 2 days Stand Alone Forms: Work/School Release
[2023-02-26] MEDS: Lidocaine 4 % Patch ADH..PATCH 1 PATCH TRANSDERMA (13:43)
[2023-02-26] MEDS: Ketorolac Tromethamine 15 MG/ML VIAL 30 MG IM (13:43)
--- NOTE | 2023-02-26 13:46 | PC.NURSE ---
medication administered per provider order.
--- NOTE | 2023-02-26 14:12 | PC.NURSE ---
urine obtained/sent to lab.
[2023-02-26 14:14] LABS: Appearance Urine Clear; Color Urine Yellow; Glucose Urine UA Negative (Negative); Leukocyte Esterase Urine Negative (Negative); Nitrite Urine Negative (Negative); UMIC TRIGGER UACC YES; Urine Blood Small (1+) (Negative); Urine Ketones Negative (Negative); Urine Protein Negative (Neg-Trace)
[2023-02-26 14:25] LABS: Bacteria Urine None Seen (None Seen); Hyaline Casts Urine 0-2 /LPF (0-2); Squamous Epithelial Cell Urine 0-2 /HPF (0-2); WBC Urine 0-5 /HPF (0-5)
== END 2023-02-26 15:03 | disposition home or self-care (01) ==
PROVIDERS: Physician Assistant; Emergency Provider Emergency Medicine; PCP Internal Medicine
DX: M54.16 Radiculopathy, lumbar region (principal); M54.50 Low back pain, unspecified; F33.1 Major depressive disorder, recurrent, moderate; M25.562 Pain in left knee; Z79.899 Other long term (current) drug therapy
CPT/HCPCS: 81001; 96372; 99284; J1885

== ENCOUNTER 2023-03-08 07:37 | Emergency (ER) | payer OTHER, SELFPAY ==
--- NOTE | ~2023-03-08 | XR_ITS ---
EXAMINATION: 1. CHEST X-RAY 2. RADIOGRAPHS LUMBAR SPINE CLINICAL INFORMATION: Fall. Low back pain. COMPARISON: Chest x-ray January 07, 2021 and lumbar spine x-rays February 16, 2023 TECHNIQUE: Frontal view of the chest and 3 views of the lumbar spine were obtained. FINDINGS: Chest x-ray: Cardiac silhouette is normal in size. The lungs are well aerated. There is no lobar consolidation. No pleural effusion or pneumothorax. Degenerative changes of the spine and right shoulder. Lumbar spine: 5 nonrib-bearing lumbar vertebral bodies are visualized. Alignment is within normal limits. Lumbar vertebral body heights are maintained. There is mild disc space narrowing at the L3/4 and L5/S1 levels. Tiny osteophytes are scattered throughout the lumbar spine. There are mild degenerative changes of the posterior elements of the lower lumbar spine. Sacroiliac joints are symmetric. Suspected 4 mm right renal calculus. XR/XR chest 1V IMPRESSION: 1. No acute pulmonary pathology. 2. Mild degenerative changes of the lumbar spine without compression deformity.
--- NOTE | ~2023-03-08 | XR_ITS ---
EXAMINATION: 1. CHEST X-RAY 2. RADIOGRAPHS LUMBAR SPINE CLINICAL INFORMATION: Fall. Low back pain. COMPARISON: Chest x-ray January 07, 2021 and lumbar spine x-rays February 16, 2023 TECHNIQUE: Frontal view of the chest and 3 views of the lumbar spine were obtained. FINDINGS: Chest x-ray: Cardiac silhouette is normal in size. The lungs are well aerated. There is no lobar consolidation. No pleural effusion or pneumothorax. Degenerative changes of the spine and right shoulder. Lumbar spine: 5 nonrib-bearing lumbar vertebral bodies are visualized. Alignment is within normal limits. Lumbar vertebral body heights are maintained. There is mild disc space narrowing at the L3/4 and L5/S1 levels. Tiny osteophytes are scattered throughout the lumbar spine. There are mild degenerative changes of the posterior elements of the lower lumbar spine. Sacroiliac joints are symmetric. Suspected 4 mm right renal calculus. XR/XR lumbar spine 2-3V IMPRESSION: 1. No acute pulmonary pathology. 2. Mild degenerative changes of the lumbar spine without compression deformity.
--- NOTE | 2023-03-08 07:39 | ECG_ITS ---
Test Reason : Fall Blood Pressure : / mmHG Vent. Rate : 065 BPM Atrial Rate : 065 BPM P-R Int : 156 ms QRS Dur : 092 ms QT Int : 426 ms P-R-T Axes : 038 -14 002 degrees QTc Int : 443 ms Normal sinus rhythm Minimal voltage criteria for LVH, may be normal variant ( R in aVL ) Borderline ECG When compared with ECG of 21-MAY-2016 13:30, No significant change was found Referred By: Haseeb Hawkins Electronically Signed By:Francisco J Gifford
--- NOTE | 2023-03-08 07:40 | ED.GENADULT ---
HPI - General Adult General Chief complaint: Back Pain/Injury Stated complaint: collapsed in bathroom this morning Time Seen by Provider: 03/08/23 07:39 Source: patient Mode of arrival: ambulatory Limitations: no limitations History of Present Illness HPI narrative: This is a 58-year-old male history of obesity, erectile dysfunction, eczema, hypertension presenting to the emergency department with left-sided lower back pain with radiation into left lower extremity, patient reports that this morning he had an episode of severe pain while he was in the bathroom reaching for something, pain was so bad that he fell to the ground, no head strike or loss of consciousness. He reports he has been having pain like this for a while and he has a few episodes where pain is just greater than 10/10. No injury sustained with fall. Not on blood thinners. Patient denies headache, vision changes, dizziness, chest pain, shortness of breath, nausea, vomiting, abdominal pain, urinary/bowel incontinence and retention, saddle paresthesias, weakness. Patient denies preceding symptoms to fall such as chest pain, shortness of breath and dizziness Related Data Previous Rx's Medication Instructions Recorded fluticasone propionate 50 1 spray intranasal DAILY #16 mL 04/23/20 mcg/actuation nasal spray,suspension atenolol 50 mg tablet 50 mg PO DAILY 90 days #90 tabs 04/05/22 hydrochlorothiazide 25 mg tablet 25 mg PO DAILY #90 tabs 06/05/22 albuterol sulfate 90 mcg/actuation 2 puff inhalation Q6H PRN 06/16/22 aerosol inhaler shortness of breath or wheezing #6.7 grams omega-3 fatty acids 1,000 mg 1,000 mg PO DAILY #90 caps 08/04/22 capsule venlafaxine 75 mg capsule,extended 75 mg PO DAILY #90 caps 08/06/22 release 24 hr ibuprofen 600 mg tablet 600 mg PO Q8H PRN pain #90 tabs 01/26/23 prednisone 20 mg tablet 40 mg (2 x 20 mg) PO DAILY 5 days 01/27/23 #10 tabs lisinopril 40 mg tablet 40 mg PO DAILY 90 days #90 tabs 01/30/23 cyclobenzaprine 5 mg tablet 5 mg PO TID PRN muscle spasm #10 02/16/23 tabs lidocaine 5 % topical patch 1 patch topical DAILY #15 ea 02/16/23 prednisone 20 mg tablet 40 mg (2 x 20 mg) PO DAILY #10 tabs 02/16/23 tramadol 50 mg tablet 50 mg PO BID PRN pain 5 days #10 02/20/23 tabs ketorolac 10 mg tablet 10 mg PO TID PRN pain 5 days #15 02/26/23 tabs lidocaine 5 % topical patch 1 patch topical DAILY PRN pain #15 02/26/23 ea prednisone 50 mg tablet 50 mg PO DAILY 5 days #5 tabs 02/26/23 clotrimazole-betamethasone 1 1 appl topical BID 30 days #15 03/06/23 %-0.05 % topical cream grams ketorolac 10 mg tablet 10 mg PO TID PRN pain 5 days #15 03/08/23 tabs Allergies Allergy/AdvReac Type Severity Reaction Status Date / Time No Known Allergies Allergy Verified 02/26/23 09:36 [No Known Allergies*] Review of Systems Review of Systems: Constitutional : No Weight loss, No Fever, No Chills, ENT/Mouth : No Hearing loss, No Ear Pain, No Nasal Congestion, No Sinus Pain, No Hoarseness, No sore throat, No Rhinorrhea, No Swallowing Difficulty Cardiovascular : No Chest Pain, No SOB Respiratory : No Cough, No Dyspnea Gastrointestinal : No Nausea, No Vomiting, No Diarrhea, No abdominal Pain, No Hematochezia, No Melena Genitourinary : No Dysuria, No Urinary Frequency, No Hematuria, No Urinary Incontinence, Musculoskeletal : positive back pain Skin : No Skin Lesions, No rash Neuro : No Weakness, No Numbness, No Paresthesias, no loss of bowel or bladder incontinence, no saddle anesthesia Yes all other systems are reviewed and are negative [facility] Past Medical History Attestation statement: The following information was validated with the patient. Source: old records reviewed and nursing notes reviewed Medical History Physical exam Mild recurrent major depression Class 1 obesity with body mass index (BMI) of 34.0 to 34.9 in adult Erectile disorder, acquired, generalized, severe Anxiety and depression Allergic rhinitis Insomnia Eczema Impaired glucose tolerance Essential hypertension Surgical History History of removal of cyst Family History Family History Father Cancer Mother Diabetes Hypertension Brother No problems noted. Sister No problems noted. Son No problems noted. Daughter No problems noted. 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 Oriented X3.? No acute distress.? Head: Normocephalic, atraumatic, no step-offs or deformities Eyes: Pupils equal, round and reactive to light.? CVS: Normal heart rate and rhythm.? Pulses normal.? Respiratory: No respiratory distress.? Breath sounds normal.? Abdomen: Soft and nontender.? Skin: Skin warm and dry.? Normal skin color.? Normal skin turgor.? Extremities: No lower extremity edema.? No calf ttp. 5/5 strength to bilateral upper and lower extremities Back: No midline tenderness, no C-spine tenderness, full range of motion, no CVA tenderness bilaterally + left sided lower lumbar paraspinous muscle spasm/tenderness on palpation with radiation into left buttocks. Neuro: Oriented X 3.? No motor deficit.? No sensory deficit. CN 2-12 intact . No saddle paresthesias. Able to ambulate normal coordination. Course Reevaluation(s) Reevaluation #1: Chest x-ray no acute findings. Mild degenerative changes of lumbar spine without compression deformity, no signs of compressive myelopathy. Patient being medicated at this time. Will do an ambulatory trial discharge home with outpatient follow-up with [facility]. Educated patient on diagnosis and treatment plan, answered all question, patient verbalizes understanding. At this time patient will be discharged home, advised to return with new or worsening symptoms. Educated on worrisome signs and symptoms and when to return. At this time I feel comfortable discharge home. Time: 08:48 Medications Administered Discontinued Medications Generic Name Dose Route Start Last Admin Trade Name Christofer PRN Reason Stop Dose Admin Ketorolac Tromethamine 30 mg 03/08/23 08:02 03/08/23 08:38 Ketorolac Tromethamine 30 Mg/Ml Vial IM 03/08/23 08:03 30 mg ONCE ONE Administration Lidocaine 1 patch 03/08/23 07:44 03/08/23 07:47 Lidocaine 4 % Patch Adh..Patch TRANSDERMA 03/08/23 07:45 1 patch ONCE ONE Administration Protocol Morphine Sulfate 15 mg 03/08/23 07:44 03/08/23 07:50 Morphine Sulfate Immed Release 15 Mg Tablet PO 03/08/23 07:45 15 mg ONCE ONE Administration Medical Decision Making Medical Decision Making [facility] Narrative: 0759 58-year-old male presents with left lower back pain with radiation to left lower extremity which resulted in a fall. Patient was not on the ground for a long time. Physical exam left sided lower lumbar paraspinous muscle spasm/tenderness on palpation with radiation into left buttocks. History and physical exam concerning for sciatica versus lumbar paraspinous muscle spasms versus lumbago versus herniated disc. Unlikely cauda equina, epidural abscess, cord compression. I do not suspect pulmonary embolism, ACS or dissection. Unlikely rhabdo. Unlikely UTI, pyelonephritis. No signs of traumatic injury to head, neck, chest, abdomen or pelvis. NIH stroke scale 0 Plan at this time labs, imaging. Differential Diagnosis Differential Diagnoses: The differential diagnosis associated with the presentation includes History and physical exam concerning for sciatica versus lumbar paraspinous muscle spasms versus lumbago versus herniated disc. Unlikely cauda equina, epidural abscess, cord compression. I do not suspect pulmonary embolism, ACS or dissection. Unlikely rhabdo. Unlikely UTI, pyelonephritis. No signs of traumatic injury to head, neck, chest, abdomen or pelvis. Admission/Observation Consideration of admission/observation: Escalation of care including admission/observation considered Unlikely Independent Interpretation I performed an independent interpretation of an: EKG (Ventricular rate of 56 [place] normal, QRS normal, QT/QTC normal. EKG normal sinus rhythm mid and low voltage for LVH. No ST elevations or inversions concerning for acute ischemia) and Plain X-Ray Radiology Impression Discussion of test interpretation with radiology: I have reviewed the radiologist's reading. External Record Review External record reviewed: Inpatient record, Office record, Outpatient record, Prior outpatient labs, Prior outpatient radiology, Primary care record and Outside ED record Critical Care Time Critical Care Time Critical Care Time: No Discharge Plan Discharge Clinical Impression: Fall, Lumbar radiculopathy Patient Disposition: Home, Self-Care Instructions: Sciatica (ED), Back Pain (ED), Fall Prevention (ED) Additional Instructions: Take your medications as prescribed. If you were prescribed antibiotics today, it is important that you take your medication to their entirety, do not skip any doses, do not finish them early. Follow-up with your primary care provider this week. Return to the emergency department with new or worsening symptoms. Such as fevers, chills, chest pain, shortness of breath, nausea, vomiting, dizziness, headache, vision changes, lethargy In case of emergency call 911 Toradol has been sent to your pharmacy, you tolerated this well in the department. Please take this as prescribed do not take this with ibuprofen, or other NSAIDs, do not mix this with alcohol. Side effects of this medication including increased risk for bleeding and possible kidney injury. Prescriptions: New ketorolac 10 mg tablet 10 mg PO TID PRN (Reason: pain) 5 Days Qty: 15 0RF No Action fluticasone propionate 50 mcg/actuation spray,suspension 1 spray intranasal DAILY Qty: 16 6RF atenolol 50 mg tablet 50 mg PO DAILY 90 Days Qty: 90 3RF hydrochlorothiazide 25 mg tablet 25 mg PO DAILY Qty: 90 2RF omega-3 fatty acids 1,000 mg capsule 1,000 mg PO DAILY Qty: 90 3RF venlafaxine 75 mg capsule,extended release 24hr 75 mg PO DAILY Qty: 90 2RF ibuprofen 600 mg tablet 600 mg PO Q8H PRN (Reason: pain) Qty: 90 1RF tramadol 50 mg tablet 50 mg PO BID PRN (Reason: pain) 5 Days Qty: 10 0RF clotrimazole-betamethasone 1-0.05 % cream 1 appl topical BID 30 Days Qty: 15 1RF prednisone 20 mg tablet 40 mg PO DAILY Qty: 10 0RF cyclobenzaprine 5 mg tablet 5 mg PO TID PRN (Reason: muscle spasm) Qty: 10 0RF lidocaine 5 % adhesive patch,medicated 1 patch topical DAILY Qty: 15 0RF Rx Instructions: leave on most painful area for up to 12 hrs prednisone 20 mg tablet 40 mg PO DAILY 5 Days Qty: 10 0RF ketorolac 10 mg tablet 10 mg PO TID PRN (Reason: pain) 5 Days Qty: 15 0RF prednisone 50 mg tablet 50 mg PO DAILY 5 Days Qty: 5 0RF lidocaine 5 % adhesive patch,medicated 1 patch topical DAILY PRN (Reason: pain) Qty: 15 0RF Rx Instructions: leave on most painful area for up to 12 hrs albuterol sulfate 90 mcg/actuation HFA aerosol inhaler 2 puff inhalation Q6H PRN (Reason: shortness of breath or wheezing) Qty: 6.7 0RF lisinopril 40 mg tablet 40 mg PO DAILY 90 Days Qty: 90 1RF Referrals: Zeynep Patel MD [Primary Care Provider] - 2 days Stand Alone Forms: Work/School Release
[2023-03-08 07:41] VITALS: BP 155/97; PULSE 71; RESP 20; TEMP 36.1; O2SAT 98; BMI 34.5
[2023-03-08] MEDS: Lidocaine 4 % Patch ADH..PATCH 1 PATCH TRANSDERMA (07:47)
[2023-03-08] MEDS: Morphine Sulfate Immed Release 15 MG TABLET PO (07:50)
[2023-03-08] MEDS: Ketorolac Tromethamine 30 MG/ML VIAL IM (08:38)
[2023-03-08 08:42] VITALS: BP 155/101; PULSE 64; RESP 16; O2SAT 97
== END 2023-03-08 09:05 | disposition home or self-care (01) ==
PROVIDERS: Emergency Provider Student in an Organized Health Care Education/Training Program; PCP Internal Medicine
DX: M54.16 Radiculopathy, lumbar region (principal); R94.31 Abnormal electrocardiogram [ECG] [EKG]; Z79.899 Other long term (current) drug therapy
CPT/HCPCS: 71045; 72100; 93005; 96372; 99284; 99285; J1885

== ENCOUNTER → 2023-03-08 07:39 | Outpatient (BNV) | payer OTHER, SELFPAY | PROVIDERS: Emergency Provider Student in an Organized Health Care Education/Training Program; PCP Internal Medicine; Visit Provider Internal Medicine Cardiovascular Disease | DX: M54.50 Low back pain, unspecified (principal) | CPT/HCPCS: 93010 ==

== ENCOUNTER 2023-05-28 17:24 | Emergency (ER) | payer OTHER, SELFPAY | END 2023-05-28 19:30 | disposition left against medical advice (07) | LOC: HO.ED 19:29 | PROVIDERS: Emergency Provider Emergency Medicine; PCP Internal Medicine | DX: S61.213A Laceration without foreign body of left middle finger without damage to nail, initial encounter (principal); W45.8XXA Other foreign body or object entering through skin, initial encounter; Y93.9 Activity, unspecified; Y92.9 Unspecified place or not applicable; Y99.9 Unspecified external cause status ==

== ENCOUNTER 2023-06-20 16:38 | Outpatient (REF) | payer OTHER, SELFPAY ==
[2023-06-20 17:38] LABS: Influenza A PCR NEGATIVE (Negative); Influenza B PCR NEGATIVE (Negative); Resp Syncy Virus RNA Qual PCR NEGATIVE (Negative); SARS COV2 PCR INHOUSE NEGATIVE (Negative)
== END 2023-06-20 16:39 | disposition home or self-care (01) ==
LOC: HO.LAB 16:38
PROVIDERS: PCP Internal Medicine; Visit Provider Internal Medicine
DX: R09.89 Other specified symptoms and signs involving the circulatory and respiratory systems (principal)
CPT/HCPCS: 0241U

== ENCOUNTER 2023-07-16 09:19 | Emergency (ER) | payer OTHER, SELFPAY ==
[2023-07-16 09:48] VITALS: BP 163/81; PULSE 88; RESP 16; TEMP 36.9; O2SAT 97; BMI 34.5
[2023-07-16 10:53] LABS: IDNOW Serial# 08D9AD1C; Strep A Nucleic Acid Negative (Negative)
[2023-07-16 11:22] LABS: Influenza A PCR NEGATIVE (Negative); Influenza B PCR NEGATIVE (Negative); Resp Syncy Virus RNA Qual PCR NEGATIVE (Negative); SARS COV2 PCR INHOUSE NEGATIVE (Negative)
--- NOTE | 2023-07-16 12:48 | ED_ITS ---
HPI - General Adult General Chief complaint: Upper Respiratory Symptoms Stated complaint: flu symptoms ? Time Seen by Provider: 07/16/23 12:16 Source: patient Mode of arrival: ambulatory Limitations: no limitations History of Present Illness HPI narrative: 58-year-old male with history of asthma, depression, and hypertension presents to ED for coughing, nasal congestion, sore throat, and body aches. Patient st ates coughing relieved with albuterol pump at home. Patient denies any chest pain or shortness of breath. Patient denies any fever or chills. Patient denies any leg swelling, calf pain, or pitting edema. Related Data Previous Rx's ?Medication ?Instructions ?Recorded fluticasone propionate 50 1 spray intranasal DAILY #16 mL 04/23/20 mcg/actuation nasal spray,suspension albuterol sulfate 90 mcg/actuation 2 puff inhalation Q6H PRN 06/16/22 aerosol inhaler shortness of breath or wheezing #6.7 grams prednisone 20 mg tablet 40 mg (2 x 20 mg) PO DAILY 5 days 01/27/23 #10 tabs cyclobenzaprine 5 mg tablet 5 mg PO TID PRN muscle spasm #10 02/16/23 tabs lidocaine 5 % topical patch 1 patch topical DAILY #15 ea 02/16/23 prednisone 20 mg tablet 40 mg (2 x 20 mg) PO DAILY #10 tabs 02/16/23 tramadol 50 mg tablet 50 mg PO BID PRN pain 5 days #10 02/20/23 tabs ketorolac 10 mg tablet 10 mg PO TID PRN pain 5 days #15 02/26/23 tabs lidocaine 5 % topical patch 1 patch topical DAILY PRN pain #15 02/26/23 ea prednisone 50 mg tablet 50 mg PO DAILY 5 days #5 tabs 02/26/23 ketorolac 10 mg tablet 10 mg PO TID PRN pain 5 days #15 03/08/23 tabs prednisone 50 mg tablet 50 mg PO DAILY 5 days #5 tabs 03/08/23 ibuprofen 600 mg tablet 600 mg PO Q8H PRN pain #90 tabs 04/04/23 lorazepam 0.5 mg tablet (Ativan) 1 mg (2 x 0.5 mg) PO ONCE PRN 04/23/23 anxiety 1 day #2 tabs hydrochlorothiazide 25 mg tablet 25 mg PO DAILY #90 tabs 06/03/23 amoxicillin 875 mg-potassium 1 tab PO BID 7 days #14 tabs 06/21/23 clavulanate 125 mg tablet atenolol 50 mg tablet 50 mg PO DAILY 90 days #90 tabs 07/07/23 clotrimazole-betamethasone 1 1 appl topical BID 30 days #15 07/07/23 %-0.05 % topical cream grams lisinopril 40 mg tablet 40 mg PO DAILY 90 days #90 tabs 07/07/23 loratadine 10 mg tablet 10 mg PO DAILY PRN allergy 07/07/23 symptoms 90 days #90 tabs omega-3 fatty acids 1,000 mg 1,000 mg PO DAILY #90 caps 07/07/23 capsule benzonatate 200 mg capsule 200 mg PO TID PRN cough 5 days #15 07/16/23 caps prednisone 20 mg tablet 40 mg (2 x 20 mg) PO DAILY 5 days 07/16/23 #10 tabs venlafaxine 75 mg capsule,extended 75 mg PO DAILY #90 caps 07/16/23 release 24 hr Allergies Allergy/AdvReac Type Severity Reaction Status Date / Time No Known Allergies Allergy Verified 07/16/23 09:51 [No Known Allergies*] Review of Systems Review of Systems: Coughing, nasal congestion, sore throat, and body aches Yes all other systems are reviewed and are negative [facility] Past Medical History Medical History Physical exam Mild recurrent major depression Class 1 obesity with body mass index (BMI) of 34.0 to 34.9 in adult Erectile disorder, acquired, generalized, severe Anxiety and depression Allergic rhinitis Insomnia Eczema Impaired glucose tolerance Essential hypertension Surgical History History of removal of cyst Family History Family History Father Cancer Mother Diabetes Hypertension Brother No problems noted. Sister No problems noted. Son No problems noted. Daughter No problems noted. 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 Current occupational exposures/hazards: No Cognitive needs: No Hearing needs: No Vision needs: Yes Physical Exam ED Vital Signs: Vital Signs - 24 hr 07/16/23 09:48 Temperature 98.4 F Pulse Rate 88 Respiratory Rate 16 Blood Pressure 163/81 H Pulse Oximetry 97 Oxygen Delivery Method Room Air BMI result Body Mass Index 34.5 Const General: cooperative, healthy appearing, comfortable, no acute distress, well developed, alert, awake and Physically active Orientation/consciousness: oriented to person, oriented to place, oriented to time and patient oriented x3 HENMT Head: Yes normal to inspection, Yes No palpable skull fracture present, Yes normocephalic, Yes atraumatic and No abrasion Eyes General: appearance normal, both eyes and all related structures Neck Neck: Yes normal visual inspection, Yes full ROM, Yes no lymphadenopathy, Yes no meningeal signs, Yes trachea midline, Yes supple, No anterior neck swelling and No tender Chest Chest palpation & inspection: normal inspection of the chest and normal palpation of entire chest wall Resp Effort & Inspection: normal respiratory effort and able to speak in complete sentences Auscultation: clear to auscultation bilaterally Cardio Jugular venous distension: no JVD Heart sounds: S1 normal heart sound present and S2 normal heart sound present GI Inspection: Yes normal to inspection Palpation (GI): Soft to palpation, not firm, nontender, no guarding and not rigid General: No CVA tenderness and Yes no CVA tenderness Back/Spine/Pelvis Back: no CVA tenderness, No CVA tenderness and No back tenderness Skin General skin exam: no rashes or lesions noted, elasticity normal and turgor normal Neuro General: oriented to person, oriented to place, oriented to time, patient oriented x3, gait normal, tone normal, moves all extremities, Normal light touch and pain sensation, no meningeal signs, no focal motor deficits, CN's II-XI intact bilaterally and normal sensation to monofilament Extrem Other: bilateral lower extremity negative for swelling, pitting edema, or calf pain General: Yes normal to inspection, Yes full ROM and Yes capillary refill normal Psych Appearance: grossly normal, well kempt and not disheveled Medical Decision Making Medical Decision Making MDM Narrative: 58-year-old male presents to ED for URI symptoms. Lungs are clear. Patient not in distress. Patient denies any chest pain or shortness of breath. No indication for chest x-ray lungs are clear patient is afebrile non tachy. Patient requesting prednisone due to history of asthma. Patient has albuterol pump at home. Patient will be discharged with coughing medication. Negative for signs of peritonsillar abscess Differential Diagnosis Differential Diagnoses: The differential diagnosis associated with the presentation includes ( influenza, RSV, SARS, COVID, strep, bronchitis, asthma) Admission/Observation Consideration of admission/observation: Escalation of care including admission/observation considered Lab Data [facility] Lab Attestation statement: I reviewed the patient's lab results. Labs: Lab Results 07/16/23 Range/Units 10:31 Influenza Type A (PCR) NEGATIVE (Negative) Influenza Type B (PCR) NEGATIVE (Negative) RSV RNA Qual (PCR) NEGATIVE (Negative) SARS-CoV-2 RNA (RT-PCR) NEGATIVE (Negative) S. pyogenes GrpA ALICIA Negative (Negative) Independent Historian Clinical information obtained from an independent historian. History obtained from or confirmed by: Other ( patient) External Record Review External record reviewed: Other ( prior visits) Prescription Management I considered prescription management with: Other ( Edward coughing medication) Discharge Plan Discharge Clinical Impression: URI (upper respiratory infection), Asthma Patient Disposition: Home, Self-Care Instructions: Asthma (ED), Upper Respiratory Infection (ED) Additional Instructions: recommend follow-up with primary care provider. Return to the ED immediately for any chest pain, shortness of breath, coughing up blood, drooling, change in voice, sensation of throat closing, inability tolerate solid food / liquids, leg swelling, calf pain, or any other concerning symptoms. Continue using your albuterol inhaler at home as needed. Prescriptions: New prednisone 20 mg tablet 40 mg PO DAILY 5 Days Qty: 10 0RF benzonatate 200 mg capsule 200 mg PO TID PRN (Reason: cough) 5 Days Qty: 15 0RF No Action fluticasone propionate 50 mcg/actuation spray,suspension 1 spray intranasal DAILY Qty: 16 6RF tramadol 50 mg tablet 50 mg PO BID PRN (Reason: pain) 5 Days Qty: 10 0RF ibuprofen 600 mg tablet 600 mg PO Q8H PRN (Reason: pain) Qty: 90 1RF lorazepam [Ativan] 0.5 mg tablet 1 mg PO ONCE PRN (Reason: anxiety) 1 Days Qty: 2 0RF Rx Instructions: Take 1 to 2 tabs 45 minutes before MRI. hydrochlorothiazide 25 mg tablet 25 mg PO DAILY Qty: 90 2RF amoxicillin-pot clavulanate 875-125 mg tablet 1 tab PO BID 7 Days Qty: 14 0RF atenolol 50 mg tablet 50 mg PO DAILY 90 Days Qty: 90 3RF loratadine 10 mg tablet 10 mg PO DAILY PRN (Reason: allergy symptoms) 90 Days Qty: 90 11RF omega-3 fatty acids 1,000 mg capsule 1,000 mg PO DAILY Qty: 90 3RF clotrimazole-betamethasone 1-0.05 % cream 1 appl topical BID 30 Days Qty: 15 1RF lisinopril 40 mg tablet 40 mg PO DAILY 90 Days Qty: 90 1RF venlafaxine 75 mg capsule,extended release 24hr 75 mg PO DAILY Qty: 90 0RF prednisone 20 mg tablet 40 mg PO DAILY Qty: 10 0RF cyclobenzaprine 5 mg tablet 5 mg PO TID PRN (Reason: muscle spasm) Qty: 10 0RF lidocaine 5 % adhesive patch,medicated 1 patch topical DAILY Qty: 15 0RF Rx Instructions: leave on most painful area for up to 12 hrs ketorolac 10 mg tablet 10 mg PO TID PRN (Reason: pain) 5 Days Qty: 15 0RF prednisone 50 mg tablet 50 mg PO DAILY 5 Days Qty: 5 0RF prednisone 20 mg tablet 40 mg PO DAILY 5 Days Qty: 10 0RF ketorolac 10 mg tablet 10 mg PO TID PRN (Reason: pain) 5 Days Qty: 15 0RF prednisone 50 mg tablet 50 mg PO DAILY 5 Days Qty: 5 0RF lidocaine 5 % adhesive patch,medicated 1 patch topical DAILY PRN (Reason: pain) Qty: 15 0RF Rx Instructions: leave on most painful area for up to 12 hrs albuterol sulfate 90 mcg/actuation HFA aerosol inhaler 2 puff inhalation Q6H PRN (Reason: shortness of breath or wheezing) Qty: 6.7 0RF Stand Alone Forms: Work/School Release Interventions: ED Discharge Assessment Last Done: 07/16/23 13:07 Discharge Date/Time: 07/16/23 13:08 Print Language: Arabic
[2023-07-16 13:07] VITALS: BP 00/00; PULSE 0; RESP 0; TEMP -17.7; TEMP 0
== END 2023-07-16 13:08 | disposition home or self-care (01) ==
PROVIDERS: Emergency Provider Emergency Medicine; PCP Internal Medicine
DX: J06.9 Acute upper respiratory infection, unspecified (principal); J45.909 Unspecified asthma, uncomplicated; I10 Essential (primary) hypertension
CPT/HCPCS: 0241U; 87651; 99282; 99283

== ENCOUNTER 2023-08-22 16:48 | Outpatient (AMB) | payer OTHER, SELFPAY ==
--- NOTE | 2023-08-22 16:49 | MHC.PC.OV ---
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 Accompanied by: Self / Same As Patient Allergies No Known Allergies [No Known Allergies*] Allergy (Verified 08/22/23 17:04) Medication List - Last Reconciled 08/22/23 by Zeynep Borges MD albuterol sulfate 90 mcg/actuation 2 puffs inhalation Q6H PRN atenolol 50 mg PO DAILY 90 days clotrimazole-betamethasone 1-0.05 % 1 appl topical BID 30 days fluticasone propionate 50 mcg/actuation 1 spray intranasal DAILY hydrochlorothiazide 25 mg PO DAILY ibuprofen 600 mg PO Q8H PRN lisinopril 40 mg PO DAILY 90 days loratadine 10 mg PO DAILY PRN 90 days omega-3 fatty acids 1,000 mg PO DAILY venlafaxine ER 75 mg PO DAILY Tobacco use date assessed: 08/22/23 Dental Screening Dental Screen Date: 08/22/23 Did you have a dental visit in the last 12 months?: No Did you have a dental problem in the last 6 months where you did not have access to dental care?: No Was dental information given to patient?: Patient has dentist HPI HPI Comments History of Present Illness Details This is a 58-year-old male with hypertension, mild recurrent major depression and insomnia that complains of erectile dysfunction even with Viagra. I will refer him to Urology. Blood pressure borderline normal to elevated and will be recheck in 3 weeks by nurse navigator. Depression has been well control with venlafaxine as well as insomnia. We will follow-up for his depression in the next office visit. Denies any chest pain or shortness on breath. Low back pain has been improving after procedure. He has obese with a BMI of 35.4 and was advised to do diet and exercise to reach BMI goal less than 30. [facility] Medical History (Updated 08/22/23 @ 17:11 by Zeynep Borges MD) Physical exam Mild recurrent major depression Class 1 obesity with body mass index (BMI) of 34.0 to 34.9 in adult Erectile disorder, acquired, generalized, severe Anxiety and depression Allergic rhinitis Insomnia Eczema Impaired glucose tolerance Essential hypertension Surgical History History of removal of cyst Family History Father Cancer Mother Diabetes Hypertension Brother No problems noted. Sister No problems noted. Son No problems noted. Daughter No problems noted. 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 1. Little interest or pleasure in doing things: not at all 2. Feeling down, depressed, or hopeless: several days 3. Trouble falling or staying asleep, or sleeping too much: several days 4. Feeling tired or having little energy: not at all 5. Poor appetite or overeating: not at all 6. Feeling bad about yourself - or that you are a failure or have let yourself or your family down: not at all 7. Trouble concentrating on things, such as reading the newspaper or watching television: not at all 8. Moving or speaking so slowly that other people could have noticed. Or the opposite - being so fidgety or restless that you have been moving around a lot more than usual: not at all 9. Thoughts that you would be better off or of hurting yourself in some way: not at all Total score: 2 Depression Screening Interpretation: Positive Depression Screening Follow-up: Existing condition, In treatment and Follow-up Visit Requested Depression Screening Done: Yes 22321 - PHQ-9 Billing: Yes Source: Developed by Drs. Stiven Salmeron, Lavonne Enciso, Tanner Larios and colleagues, with an educational arden from [employer]. Thrive Questionnaire Date Thrive assessed: 08/22/23 I am a: Patient What is your living situation today?: I have a steady place to live Within the past 12 months, did the food you bought not last and you didn't have the money to get more?: Never true Within the past 12 months, did you worry whether your food would run out before you got money to buy more?: Never true Do you have trouble paying for medicines?: No Do you have trouble getting transportation to medical appointments?: No Do you have trouble paying your heating and electricity bill?: No Do you have trouble taking care of your child, family member or friend?: No Do you have trouble with day-to-day activities such as bathing, preparing meals, shopping, managing finances, etc.?: No Are you currently unemployed and looking for a job?: No Are you interested in more education?: No Please select the resources that you would like help with: None Currently or been in a relationship where the following occur: no concerns reported THRIVE Score: 0 AUDIT C Alcohol Use Questionnaire (AUDIT-C) 1. How often do you have a drink containing alcohol?: Never Total Score: 0 Score Reviewed/Action Taken: No MANN-7 AMB Questionnaire MANN-7 Date MANN - 7 assessed: 08/22/23 Feeling nervous, anxious, or on edge: 1 = Several days Not being able to stop or control worryin = Not at all Worrying too much about different things: 1 = Several days Trouble relaxin = Not at all Being so restless that it is hard to sit still: 0 = Not at all Becoming easily annoyed or irritable: 0 = Not at all Feeling afraid as if something awful might happen: 0 = Not at all Total MANN-7 score (0-4 normal; 5-9 mild; 10-14 moderate; 15-21 severe): 2 Source: Developed by Drs. Stiven Salmeron, Lavonne Enciso, Tanner Larios and colleagues, with an educational arden from [employer]. MANN-7 Assessment Billing MANN-7 Assessment Tool: MANN-7 Assessment 49806 Review of Systems Const All systems reviewed & are unremarkable except as noted in HPI and below Card Denies chest pain at rest, Denies chest pain with activity, Denies edema, Denies irregular heart rhythm, Denies claudication, Denies dyspnea, Denies dyspnea on exertion, Denies orthopnea, Denies paroxysmal nocturnal dyspnea and Denies slow heart rate Resp Denies cough, Denies dyspnea and Denies dyspnea on exertion Physical exam (Primary Care) Vital Signs: Last Vital Signs BP 138/82 08/22/23 17:03 BMI result Body Mass Index 35.4 BMI Assessment/Plan discussion: High BMI High, discussed plan: lifestyle, weight reduction, dietary and physical activity Tobacco/Smoking Status: Tobacco use Status Tobacco use date assessed 08/22/23 08/22/23 16:58 Patient Tobacco Use Status Former Tobacco user 08/22/23 16:58 Tobacco use type Cigarette 08/22/23 16:58 e-Cigarette/Vaping Use Never Used 08/22/23 16:58 PHQ-9: PHQ-9 Score PHQ-9: Total score 2 08/22/23 17:05 Depression Screening Interpretation: Positive Depression Screening Follow-up: Existing condition, In treatment and Follow-up Visit Requested Thrive Assessment: Date of Thrive Assessment Date Thrive assessed 08/22/23 08/22/23 16:58 Currently or been in a relationship where the following occur: no concerns reported Resp Effort & Inspection: normal respiratory effort Auscultation: clear to auscultation bilaterally Cardio Jugular venous distension: no JVD Rate: regular rate Rhythm: regular rhythm Heart sounds: S1 normal heart sound present and S2 normal heart sound present Extrem General: Yes full ROM Assessment and Plan Assessment & Plan (1) Mild recurrent major depression: Code(s): F33.0 - Major depressive disorder, recurrent, mild Plan: Continue venlafaxine. (2) Essential hypertension: Code(s): I10 - Essential (primary) hypertension Plan: Continue atenolol, lisinopril and hydrochlorothiazide. Blood pressure goal is equal or less than 130/80. Recheck blood pressure with nurse navigator in 3 weeks. (3) Erectile dysfunction: Code(s): N52.9 - Male erectile dysfunction, unspecified Plan: Referred to urology. (4) Insomnia: Code(s): G47.00 - Insomnia, unspecified Plan: Continue venlafaxine. Orders: Orders Testosterone, Free/Total Today N52.9 - Male erectile dysfunction, unspecified Lipid Panel Today E78.5 - Hyperlipidemia, unspecified, I10 - Essential (primary) hypertension Comprehensive [place]. Panel Fast Today I10 - Essential (primary) hypertension Referrals Urology Referral N52.9 - Male erectile dysfunction, unspecified Coding Level of Care Code Est Pt Level 4 (46785) Complex EM visit Add On G2211 Diagnoses Mild recurrent major depression F33.0 Essential hypertension I10 Erectile dysfunction N52.9 Insomnia G47.00 Additional Codes MANN-7 Assessment Billing - MANN-7 Assessment Tool: MANN-7 Assessment 66766 ([id number]) Time Spent (min) 23
[2023-08-22 16:51] VITALS: BP 140/86; BMI 35.4
[2023-08-22 17:03] VITALS: BP 138/82
== END 2023-08-22 17:11 | disposition home or self-care (01) ==
PROVIDERS: PCP Internal Medicine; Visit Provider Internal Medicine
DX: I10 Essential (primary) hypertension (principal); F33.0 Major depressive disorder, recurrent, mild; N52.9 Male erectile dysfunction, unspecified; G47.00 Insomnia, unspecified
CPT/HCPCS: 99214; G2211

== ENCOUNTER 2023-09-17 07:24 | Emergency (ER) | payer OTHER, SELFPAY ==
[2023-09-17 07:37] VITALS: BP 150/105; PULSE 69; RESP 18; TEMP 36.8; O2SAT 94; BMI 34.5
--- NOTE | 2023-09-17 08:17 | ED_ITS ---
HPI - Back Pain/Injury General Chief Complaint: Back Pain/Injury Stated Complaint: Back pain Time Seen by Provider: 09/17/23 08:16 Source: patient Mode of arrival: ambulatory Limitations: no limitations History of Present Illness ED Provider: Lindsay DAMIAN HPI Narrative: 58-year-old male history of hypertension eczema, lumbar back sprain, anxiety, depression, erectile dysfunction, obesity, depression, presenting to the emergency department with complaints of left-sided back pain in the lower back with radiation into left lower extremity just above the knee. Reports pain has been ongoing for the past few days 2 or 3. However he has had pain like this in the past. Pain is worse with movement better at rest. Also worse with lifting. Patient denies blunt trauma to the area. Denies urinary/bowel incontinence/retention, fevers, chills, chest pain, shortness breath, nausea, vomiting, abdominal pain, headache, vision changes, dizziness and weakness. Ambulatory into room without difficulty Related Data Previous Rx's ?Medication ?Instructions ?Recorded fluticasone propionate 50 1 spray intranasal DAILY #16 mL 04/23/20 mcg/actuation nasal spray,suspension albuterol sulfate 90 mcg/actuation 2 puff inhalation Q6H PRN 06/16/22 aerosol inhaler shortness of breath or wheezing #6.7 grams ibuprofen 600 mg tablet 600 mg PO Q8H PRN pain #90 tabs 04/04/23 hydrochlorothiazide 25 mg tablet 25 mg PO DAILY #90 tabs 06/03/23 atenolol 50 mg tablet 50 mg PO DAILY 90 days #90 tabs 07/07/23 clotrimazole-betamethasone 1 1 appl topical BID 30 days #15 07/07/23 %-0.05 % topical cream grams lisinopril 40 mg tablet 40 mg PO DAILY 90 days #90 tabs 07/07/23 loratadine 10 mg tablet 10 mg PO DAILY PRN allergy 07/07/23 symptoms 90 days #90 tabs venlafaxine 75 mg capsule,extended 75 mg PO DAILY #90 caps 07/16/23 release 24 hr omega-3 fatty acids 1,000 mg 1,000 mg PO DAILY #90 caps 08/12/23 capsule acetaminophen 325 mg capsule 325 mg PO Q4H PRN pain #30 caps 09/17/23 (Tylenol) ketorolac 10 mg tablet 10 mg PO TID PRN pain 5 days #15 09/17/23 tabs lidocaine 5 % topical patch 1 patch topical DAILY PRN pain #15 09/17/23 ea prednisone 20 mg tablet 40 mg (2 x 20 mg) PO DAILY 5 days 09/17/23 #10 tabs Allergies Allergy/AdvReac Type Severity Reaction Status Date / Time No Known Allergies Allergy Verified 09/17/23 07:38 [No Known Allergies*] Review of Systems Review of Systems: Yes all other systems are reviewed and are negative [facility] Past Medical History Attestation statement: The following information was validated with the patient. Source: old records reviewed and nursing notes reviewed Medical History Physical exam Mild recurrent major depression Class 1 obesity with body mass index (BMI) of 34.0 to 34.9 in adult Erectile disorder, acquired, generalized, severe Anxiety and depression Allergic rhinitis Insomnia Eczema Impaired glucose tolerance Essential hypertension Surgical History History of removal of cyst Family History Family History Father Cancer Mother Diabetes Hypertension Brother No problems noted. Sister No problems noted. Son No problems noted. Daughter No problems noted. 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 Oriented X3.? No acute distress.? Head: Normocephalic, atraumatic, no step-offs or deformities Eyes: Pupils equal, round and reactive to light.? ENT: Pharynx normal.? Neck: Normal inspection.? Neck supple.? CVS: Normal heart rate and rhythm.? Pulses normal.? Respiratory: No respiratory distress.? Breath sounds normal.? Abdomen: Soft and nontender.? Skin: Skin warm and dry.? Normal skin color.? Normal skin turgor.? Extremities: No lower extremity edema.? No calf ttp. 5/5 strength to bilateral upper and lower extremities Back: No midline tenderness, no C-spine tenderness, full range of motion, no CVA tenderness bilaterally + lumbar paraspinous muscle tenderness to palpation on exam and into left buttocks. Neuro: Oriented X 3.? No motor deficit.? No sensory deficit. CN 2-12 intact . Ambulating with steady gait normal coordination. No saddle anesthesias. Course Reevaluation(s) Reevaluation #1: Patient feell in better at time of discharge ambulating out of room. Has an appointment with specialist tomorrow. Educated patient on diagnosis and treatment plan, answered all question, patient verbalizes understanding. At this time patient will be discharged home, advised to return with new or worsening symptoms. Educated on worrisome signs and symptoms and when to return. At this time I feel comfortable discharge home. Time: 09:03 Medications Administered Discontinued Medications Generic Name Dose Route Start Last Admin Trade Name Onielq PRN Reason Stop Dose Admin Ketorolac Tromethamine 30 mg 09/17/23 08:17 09/17/23 08:44 Ketorolac Tromethamine 30 Mg/Ml Vial IM 09/17/23 08:18 30 mg ONCE ONE Administration Lidocaine 1 patch 09/17/23 08:17 09/17/23 08:43 Lidocaine 4 % Patch Adh..Patch TRANSDERMA 09/17/23 08:18 1 patch ONCE ONE Administration Protocol Medical Decision Making Medical Decision Making [facility] Narrative: 817 58 year old male presents w/ left sided back pain w/ radiation to LLE above the knee + lumbar paraspinous muscle tenderness to palpation on exam and into left buttocks. Ambulating with steady gait normal coordination. No saddle anesthesias. History and physical exam concerning for lumbar radiculopathy versus sciatica. Unlikely cauda equina, epidural abscess, cord compression. Plan- toradol and lidoderm patch Differential Diagnosis Differential Diagnoses: The differential diagnosis associated with the presentation includes History and physical exam concerning for lumbar radiculopathy versus sciatica. Unlikely cauda equina, epidural abscess, cord compression. Admission/Observation Consideration of admission/observation: Escalation of care including admission/observation considered No indication Tests considered The following testing was considered but not selected: No indication for MRI or imaging no red flag sx. Chronic Conditions Patient?s care impacted by: Hypertension and Other (Obesity, eczema, hypertension) Discharge Plan Discharge Clinical Impression: Left lumbar radiculopathy Patient Disposition: Home, Self-Care Instructions: Acute Low Back Pain (ED), Back Pain (ED) Additional Instructions: Take your medications as prescribed. If you were prescribed antibiotics today, it is important that you take your medication to their entirety, do not skip any doses, do not finish them early. Follow-up with your primary care provider this week. Return to the emergency department with new or worsening symptoms. Such as fevers, chills, chest pain, shortness of breath, nausea, vomiting, dizziness, headache, vision changes, lethargy In case of emergency call 911 Toradol has been sent to your pharmacy, you tolerated this well in the department. Please take this as prescribed do not take this with ibuprofen, or other NSAIDs, do not mix this with alcohol. Side effects of this medication including increased risk for bleeding and possible kidney injury. Prescriptions: New prednisone 20 mg tablet 40 mg PO DAILY 5 Days Qty: 10 0RF ketorolac 10 mg tablet 10 mg PO TID PRN (Reason: pain) 5 Days Qty: 15 0RF acetaminophen [Tylenol] 325 mg capsule 325 mg PO Q4H PRN (Reason: pain) Qty: 30 0RF lidocaine 5 % adhesive patch,medicated 1 patch topical DAILY PRN (Reason: pain) Qty: 15 0RF Rx Instructions: leave on most painful area for up to 12 hrs No Action fluticasone propionate 50 mcg/actuation spray,suspension 1 spray intranasal DAILY Qty: 16 6RF ibuprofen 600 mg tablet 600 mg PO Q8H PRN (Reason: pain) Qty: 90 1RF hydrochlorothiazide 25 mg tablet 25 mg PO DAILY Qty: 90 2RF atenolol 50 mg tablet 50 mg PO DAILY 90 Days Qty: 90 3RF loratadine 10 mg tablet 10 mg PO DAILY PRN (Reason: allergy symptoms) 90 Days Qty: 90 11RF clotrimazole-betamethasone 1-0.05 % cream 1 appl topical BID 30 Days Qty: 15 1RF lisinopril 40 mg tablet 40 mg PO DAILY 90 Days Qty: 90 1RF venlafaxine 75 mg capsule,extended release 24hr 75 mg PO DAILY Qty: 90 0RF omega-3 fatty acids 1,000 mg capsule 1,000 mg PO DAILY Qty: 90 6RF albuterol sulfate 90 mcg/actuation HFA aerosol inhaler 2 puff inhalation Q6H PRN (Reason: shortness of breath or wheezing) Qty: 6.7 0RF Referrals: [facility] [Provider Group] - 1 day Zeynep Patel MD [Primary Care Provider] - 1 week Stand Alone Forms: Work/School Release Interventions: ED Discharge Assessment Last Done: 09/17/23 08:48 Discharge Date/Time: 09/17/23 08:48 Print Language: French
[2023-09-17] MEDS: Lidocaine 4 % Patch ADH..PATCH 1 PATCH TRANSDERMA (08:43)
[2023-09-17] MEDS: Ketorolac Tromethamine 30 MG/ML VIAL IM (08:44)
[2023-09-17 08:48] VITALS: BP 153/98; PULSE 71; RESP 18; TEMP 36.7; O2SAT 94
== END 2023-09-17 08:48 | disposition home or self-care (01) ==
PROVIDERS: Emergency Provider Emergency Medicine; PCP Internal Medicine
DX: M54.16 Radiculopathy, lumbar region (principal); Z87.891 Personal history of nicotine dependence; Z79.899 Other long term (current) drug therapy
CPT/HCPCS: 96372; 99283; 99284; J1885

== ENCOUNTER 2023-10-05 10:06 | Outpatient (AMB) | payer OTHER, SELFPAY ==
--- NOTE | 2023-10-05 10:10 | A.OFFPC_ITS ---
Vital Signs 10/05/23 10:12 Height 5 ft 7 in Weight 222 lb BMI 34.8 BP 130/92 H Blood Pressure Location Lt brachial Position Sitting Pulse 73 Pulse Source Pulse Oximeter Pulse Oximetry (%) 94 Oxygen Delivery Method Room Air Intake Visit Reasons[place] [facility] [place] Intake Note: Patient is here to follow-up after a visit the emergency department at [facility] [place] 09/17/23 Statistical Methods Professor Required: No Clinical Quality Analyst: Not Required per policy Accompanied by: Self / Same As Patient Allergies No Known Allergies [No Known Allergies*] Allergy (Verified 10/05/23 10:11) Tobacco use date assessed: 10/05/23 Dental Screening Dental Screen Date: 08/22/23 HPI HPI Comments History of Present Illness Details 58 y/o male patient who presents to the clinic today for ED follow up. He was admitted at [facility] for Left sided lower back pain. DOS: 09/17/23 and DOD: same. He was discharged home on pain relief medications. Pt does have an appointment with [facility] 10/09/23 - he has been receiving Steroid injections from them routinely. Today reports some discomfort still on the lower back, but denies Bladder or bowel symptoms. [facility] Medical History Physical exam Mild recurrent major depression Class 1 obesity with body mass index (BMI) of 34.0 to 34.9 in adult Erectile disorder, acquired, generalized, severe Anxiety and depression Allergic rhinitis Insomnia Eczema Impaired glucose tolerance Essential hypertension Surgical History History of removal of cyst Family History Father Cancer Mother Diabetes Hypertension Brother No problems noted. Sister No problems noted. Son No problems noted. Daughter No problems noted. 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 Stiven Salmeron, Lavonne Enciso, Tanner Larios and colleagues, with an educational arden from [employer]. Review of Systems Const All systems reviewed & are unremarkable except as noted in HPI and below Physical exam (Primary Care) Vital Signs: Last Vital Signs Pulse 73 10/05/23 10:12 BP 130/92 H 10/05/23 10:12 Pulse Ox 94 10/05/23 10:12 Oxygen Delivery Method Room Air 10/05/23 10:12 BMI result Body Mass Index 34.8 Tobacco/Smoking Status: Tobacco use Status Tobacco use date assessed 10/05/23 10/05/23 10:14 Patient Tobacco Use Status Former Tobacco user 10/05/23 10:14 Tobacco use type Cigarette 10/05/23 10:14 e-Cigarette/Vaping Use Never Used 10/05/23 10:14 Thrive Assessment: Date of Thrive Assessment Date Thrive assessed 08/22/23 10/05/23 10:14 Const General: cooperative and no acute distress; No comfortable Nutritional Appearance: obese Orientation/consciousness: patient oriented x3 Back/Spine/Pelvis Back: back tenderness Thoracic/Lumbar Spine: pain with thoraco-lumbar ROM, paraspinal muscle tenderness and lumbar spinal tenderness Sacrum: tenderness on the left Neuro General: patient oriented x3, gait normal and moves all extremities Psych Speech and movement: Normal speech and movement present Vital Signs: Last Vital Signs Pulse 73 10/05/23 10:12 BP 130/92 H 10/05/23 10:12 Pulse Ox 94 10/05/23 10:12 Oxygen Delivery Method Room Air 10/05/23 10:12 BMI result Body Mass Index 34.8 Const General: cooperative and no acute distress; No comfortable Nutritional Appearance: obese Orientation/consciousness: patient oriented x3 Back/Spine/Pelvis Back: back tenderness Thoracic/Lumbar Spine: pain with thoraco-lumbar ROM, paraspinal muscle tenderness and lumbar spinal tenderness Sacrum: tenderness on the left Neuro General: patient oriented x3, gait normal and moves all extremities Psych Speech and movement: Normal speech and movement present Assessment and Plan Assessment & Plan (1) Left lumbar radiculopathy: Code(s): M54.16 - Radiculopathy, lumbar region Medications: New acetaminophen 1,000 mg (2 x 500 mg) PO Q6H PRN 30 caps 0RF pain M54.16 - Radiculopathy, lumbar region ibuprofen 800 mg PO Q8H 30 tabs 0RF M54.16 - Radiculopathy, lumbar region prednisone 50 mg PO DAILY 5 days 5 tabs 0RF M54.16 - Radiculopathy, lumbar region Discontinued acetaminophen (Tylenol) Discontinued Reason: Patient Completed Course 325 mg PO Q4H PRN 30 caps 0RF pain ibuprofen Discontinued Reason: No Longer Medically Relevant 600 mg PO Q8H PRN 90 tabs 1RF pain Coding Level of Care Code Est Pt Level 4 (29439) Diagnoses Left lumbar radiculopathy M54.16 Comment Spent 20 minutes reviewing hospital discharge notes and labs
[2023-10-05 10:12] VITALS: BP 130/92; PULSE 73; O2SAT 94; BMI 34.8
== END 2023-10-05 11:08 | disposition home or self-care (01) ==
PROVIDERS: PCP Internal Medicine; Visit Provider Nurse Practitioner Family
DX: M54.16 Radiculopathy, lumbar region (principal)
CPT/HCPCS: 99214

== ENCOUNTER 2023-10-25 14:34 | Outpatient (AMB) | payer OTHER, SELFPAY ==
--- NOTE | 2023-10-25 14:56 | MHC.OFFVIS ---
Intake Visit Reasons: erectile dysfunction Intake Note: New patient is present for Erectile Dysfunction Patient was on Sildenafil but it was no longer effective for him so he is no longer taking it Accompanied by: Self / Same As Patient Allergies No Known Allergies [No Known Allergies*] Allergy (Verified 11/22/23 16:13) HPI Comments Details: Heladio is a 58 year old male here for new patient evaluation for erectile dysfunction. He has used viagra in the past. PMH significant for hypertension. He denies obstructive voiding symptoms. Discussed daily cialis 5 mg. Will check testosterone levels. [facility] Medical History (Updated 11/22/23 @ 16:25 by Zeynep Borges MD) Physical exam Mild recurrent major depression Class 1 obesity with body mass index (BMI) of 34.0 to 34.9 in adult Erectile disorder, acquired, generalized, severe Anxiety and depression Allergic rhinitis Insomnia Eczema Impaired glucose tolerance Essential hypertension Surgical History (Updated 11/22/23 @ 16:18 by Zeynep Borges MD) H/O colonoscopy History of removal of cyst Family History Father Cancer Mother Diabetes Hypertension Brother No problems noted. Sister No problems noted. Son No problems noted. Daughter No problems noted. 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 Current occupational exposures/hazards: No Cognitive needs: No Hearing needs: No Vision needs: Yes Review of Systems Const All systems reviewed & are unremarkable except as noted in HPI and below Reports no additional complaints Eyes Reports no additional complaints ENT Reports no additional complaints Card Reports no additional complaints Resp Reports no additional complaints GI Reports no additional complaints Reports as per HPI Musc Reports no additional complaints Skin/Breast Reports system reviewed and no additional complaints, except as documented Neuro Reports no additional complaints Psych Reports no additional complaints Endo Reports no additional complaints Matt/Lymph Reports no additional complaints Aller/Immun Reports no additional complaints Physical Exam Const General: healthy appearing, no acute distress and well developed Orientation/consciousness: patient oriented x3 HEENT Head: Yes normocephalic and Yes atraumatic Eyes Conjunctivae: conjunctivae normal Neck Neck: Yes normal visual inspection Chest Chest palpation & inspection: normal inspection of the chest Resp Effort & Inspection: normal respiratory effort Cardio Rate: regular rate GI Inspection: Yes normal to inspection Skin General skin exam: no rashes or lesions noted Neuro General: patient oriented x3 Psych Appearance: grossly normal Affect: normal affect Assessment & Plan Assessment & Plan (1) Erectile dysfunction: Code(s): N52.9 - Male erectile dysfunction, unspecified Category: Medical (2) Screening PSA (prostate specific antigen): Code(s): Z12.5 - Encounter for screening for malignant neoplasm of prostate Category: Medical Plan Discussed daily cialis 5 mg. Will check testosterone levels. Orders: Orders PSA,Total (Free>4and<10) 10/29/23 Z12.5 - Encounter for screening for malignant neoplasm of prostate Testosterone, Free/Total 10/29/23 N52.9 - Male erectile dysfunction, unspecified Patient Instructions: The patient had an opportunity to ask questions regarding treatment plan. The patient expressed understanding and agreement with the above treatment plan. The patient is aware they should contact our office by phone for worsening of their current condition or the appearance of new symptoms. Compliance is encouraged with any medications and followup testing that is ordered. It is a privilege to be allowed the opportunity to participate in the urologic care of your patient. If you have any questions or concerns regarding treatment for the above conditions please do not hesitate to contact me. The office telephone contact is [phone]. This note is constructed in part using voice recognition software. While every effort has been made to ensure accuracy science technicians errors may have been included. Yours sincerely, Meaghan Wilson MD Coding Level of Care Code New Pt Level 4 (92153) Diagnoses Erectile dysfunction N52.9 Screening PSA (prostate specific antigen) Z12.5
== END 2023-10-25 15:36 | disposition home or self-care (01) ==
PROVIDERS: PCP Internal Medicine; Visit Provider Urology
DX: N52.9 Male erectile dysfunction, unspecified (principal); Z12.5 Encounter for screening for malignant neoplasm of prostate
CPT/HCPCS: 99204

== ENCOUNTER → 2023-10-25 14:34 | Outpatient (BNVA) | payer OTHER, SELFPAY | PROVIDERS: PCP Internal Medicine; Visit Provider Urology | DX: N52.9 Male erectile dysfunction, unspecified (principal); Z12.5 Encounter for screening for malignant neoplasm of prostate | CPT/HCPCS: 99202 ==

== ENCOUNTER 2023-10-29 08:37 | Outpatient (REF) | payer OTHER, SELFPAY ==
[2023-10-29 11:19] LABS: Alanine Aminotransferase 20 U/L (0-40); Alkaline Phosphatase 53 U/L (39-117); Anion Gap 13 (12-20); Aspartate Amino Transferase 17 U/L (5-37); Bilirubin Total 0.7 mg/dL (0.0-1.0); Blood Urea Nitrogen 15 mg/dL (9-16); Calcium 9.6 mg/dL (8.4-10.2); Carbon Dioxide 28 mmol/L (22-29); Chloride 101 mmol/L (96-108); Cholesterol 213 mg/dL (<200); Estimated Glomerular Filt Rate > 60; Glucose Fasting 111 mg/dL (60-99); HDL Cholesterol 39 mg/dL (>40); LDL Cholesterol Calculated 135 mg/dL (<100); Potassium 3.3 mmol/L (3.3-5.1); Sodium 139 mmol/L (135-145); Total Protein 7.3 g/dL (6.5-8.0); Triglycerides 198 mg/dL (<150)
[2023-10-29 11:22] LABS: Vitamin D 25-OH Total 39.8 ng/mL (>30)
[2023-10-29 11:23] LABS: PSA,Total (Free>4and<10) 0.66 ng/mL (0.00-4.00)
[2023-11-02 13:52] LABS: Testosterone, Free 53.2 pg/mL (35.0-155.0); Testosterone, Total 394 ng/dL (250-1100)
== END 2023-10-29 08:38 | disposition home or self-care (01) ==
LOC: HO.10HDL 08:37
PROVIDERS: Referring Provider Urology; Visit Provider Internal Medicine
DX: Z00.00 Encounter for general adult medical examination without abnormal findings (principal); Z12.5 Encounter for screening for malignant neoplasm of prostate; N52.9 Male erectile dysfunction, unspecified; E55.9 Vitamin D deficiency, unspecified
CPT/HCPCS: 36415; 80053; 80061; 82306; 84153; 84402; 84403

== ENCOUNTER 2023-11-22 15:51 | Outpatient (AMB) | payer OTHER, SELFPAY ==
[2023-11-22 15:52] VITALS: BP 130/86; BMI 34.3
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
== END 2023-11-22 16:29 | disposition home or self-care (01) ==
PROVIDERS: PCP Internal Medicine; Visit Provider Internal Medicine
DX: Z00.00 Encounter for general adult medical examination without abnormal findings (principal); F33.0 Major depressive disorder, recurrent, mild; E66.9 Obesity, unspecified; Z68.34 Body mass index [BMI] 34.0-34.9, adult
CPT/HCPCS: 99396

== ENCOUNTER 2024-01-24 10:05 | Outpatient (AMB) | payer OTHER, SELFPAY ==
--- NOTE | 2024-01-24 07:51 | MHC.OFFVIS ---
Intake Visit Reasons: 3m/labs Intake Note: Patient is present for 3M /LABS Urology Medication:TADALAFIL Antibiotic Allergy:NONE Blood Thinner:NONE Electric Power Superintendent Required: No Allergies No Known Allergies [No Known Allergies*] Allergy (Verified 01/24/24 10:08) Medication List - Last Reconciled 01/24/24 by Meaghan Wilson MD acetaminophen 1,000 mg (2 x 500 mg) PO Q6H PRN albuterol sulfate 90 mcg/actuation 2 puffs inhalation Q6H PRN atenolol 50 mg PO DAILY 90 days atorvastatin 20 mg PO BEDTIME 90 days clotrimazole-betamethasone 1-0.05 % 1 appl topical BID 30 days fluticasone propionate 50 mcg/actuation 1 spray intranasal DAILY hydrochlorothiazide 25 mg PO DAILY ibuprofen 800 mg PO Q8H lidocaine 5% 1 patch topical DAILY PRN lisinopril 40 mg PO DAILY 90 days loratadine 10 mg PO DAILY PRN 90 days lorazepam (Ativan) 0.5 mg PO DAILY PRN 1 day omega-3 fatty acids 1,000 mg PO DAILY tadalafil 5 mg PO DAILY 30 days tramadol 50 mg PO BID PRN 5 days venlafaxine ER 150 mg PO BEDTIME 90 days walker (Ultra-Light Rollator misc) As directed HPI Comments Details: 01/24/24--Heladio is a 58-year-old male who is here in follow-up for complaints of erectile dysfunction. He was initially evaluated on 10/25/2023. At that time I discussed daily Cialis use labs PSA and testosterone ordered. I have discussed that testosterone levels are low normal. The patient states he has been taking the Cialis daily and has noticed improvement in his erections. Will hold on testosterone replacement therapy. Continue Cialis 5 mg daily. Follow-up in 1 year recheck a PSA and testosterone levels. 10/29/23--PSA--0.66 ng/mL, TT--394 ng/dL. FT--53.2 pg/mL 10/25/23--Heladio is a 58 year old male here for new patient evaluation for erectile dysfunction. He has used viagra in the past. PMH significant for hypertension. He denies obstructive voiding symptoms. Discussed daily cialis 5 mg. Will check testosterone levels. [facility] Medical History Physical exam Mild recurrent major depression Class 1 obesity with body mass index (BMI) of 34.0 to 34.9 in adult Erectile disorder, acquired, generalized, severe Anxiety and depression Allergic rhinitis Insomnia Eczema Impaired glucose tolerance Essential hypertension Surgical History H/O colonoscopy History of removal of cyst Family History Father Cancer Mother Diabetes Hypertension Brother No problems noted. Sister No problems noted. Son No problems noted. Daughter No problems noted. 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 Current occupational exposures/hazards: No Cognitive needs: No Hearing needs: No Vision needs: Yes Review of Systems Const All systems reviewed & are unremarkable except as noted in HPI and below Reports no additional complaints Eyes Reports no additional complaints ENT Reports no additional complaints Card Reports no additional complaints Resp Reports no additional complaints GI Reports no additional complaints Reports as per HPI Musc Reports no additional complaints Skin/Breast Reports system reviewed and no additional complaints, except as documented Neuro Reports no additional complaints Psych Reports no additional complaints Endo Reports no additional complaints Matt/Lymph Reports no additional complaints Aller/Immun Reports no additional complaints Results AMB Urinalysis, Automated UA Leukoctes 0 Jaya/uL Last Edit by MODESTO Mckeon on 01/24/24 10:29 UA Nitrite Negative Last Edit by MODESTO Mckeon on 01/24/24 10:29 UA Urobilinogen 0.2 mg/dL Last Edit by MODESTO Mckeon on 01/24/24 10:29 UA Protein 0 mg/dL Last Edit by MODESTO Mckeon on 01/24/24 10:29 UA pH 6.0 Last Edit by MODESTO Mckeon on 01/24/24 10:29 UA Blood 0 Manolo/uL Last Edit by MODESTO Mckeon on 01/24/24 10:29 UA Specific [place] 1.015 Last Edit by MODESTO Mckeon on 01/24/24 10:29 UA Ketone Negative Last Edit by MODESTO Mckeon on 01/24/24 10:29 UA Bilirubin 0 mg/dL Last Edit by MODESTO Mckeon on 01/24/24 10:29 UA Glucose 0 mg/dL Last Edit by MODESTO Mckeon on 01/24/24 10:29 Assessment & Plan Assessment & Plan (1) Erectile dysfunction: Code(s): N52.9 - Male erectile dysfunction, unspecified Category: Medical (2) Screening PSA (prostate specific antigen): Code(s): Z12.5 - Encounter for screening for malignant neoplasm of prostate Category: Medical (3) Low serum testosterone: Code(s): R79.89 - Other specified abnormal findings of blood chemistry Category: Medical Plan The patient states he has been taking the Cialis daily and has noticed improvement in his erections. Will hold on testosterone replacement therapy. Continue Cialis 5 mg daily. Follow-up in 1 year recheck a PSA and testosterone levels. 10/29/23--PSA--0.66 ng/mL, TT--394 ng/dL. FT--53.2 pg/mL Orders: Orders AMB Urinalysis Automated Today Z13.9 - Encounter for screening, unspecified PSA,Total (Free>4and<10) 10 Months Z12.5 - Encounter for screening for malignant neoplasm of prostate Testosterone, Free/Total 10 Months R79.89 - Other specified abnormal findings of blood chemistry Medications: Changed From tadalafil PLEASE USE COUPON ATTACHED INSURANCE WILL NOT COVER MEDICATION 5 mg PO DAILY 30 days 30 tabs 4RF To tadalafil PLEASE USE COUPON ATTACHED INSURANCE WILL NOT COVER MEDICATION [id number] [facility] [id number] Member [id number] 5 mg PO DAILY 30 days 30 tabs 5RF Patient Instructions: The patient had an opportunity to ask questions regarding treatment plan. The patient expressed understanding and agreement with the above treatment plan. The patient is aware they should contact our office by phone for worsening of their current condition or the appearance of new symptoms. Compliance is encouraged with any medications and followup testing that is ordered. It is a privilege to be allowed the opportunity to participate in the urologic care of your patient. If you have any questions or concerns regarding treatment for the above conditions please do not hesitate to contact me. The office telephone contact is [phone]. This note is constructed in part using voice recognition software. While every effort has been made to ensure accuracy boat rigger errors may have been included. Yours sincerely, Meaghan Wilson MD Coding Level of Care Code Est Pt Level 4 (91853) Diagnoses Erectile dysfunction N52.9 Screening PSA (prostate specific antigen) Z12.5 Low serum testosterone R79.89
== END 2024-01-24 10:36 | disposition home or self-care (01) ==
LOC: HO.HUSH 10:06
PROVIDERS: PCP Internal Medicine; Visit Provider Urology
DX: N52.9 Male erectile dysfunction, unspecified (principal); Z12.5 Encounter for screening for malignant neoplasm of prostate; R79.89 Other specified abnormal findings of blood chemistry; Z13.9 Encounter for screening, unspecified
CPT/HCPCS: 99214

== ENCOUNTER → 2024-01-24 10:05 | Outpatient (BNVA) | payer OTHER, SELFPAY | PROVIDERS: PCP Internal Medicine; Visit Provider Urology | DX: Z12.5 Encounter for screening for malignant neoplasm of prostate (principal); N52.9 Male erectile dysfunction, unspecified; R79.89 Other specified abnormal findings of blood chemistry | CPT/HCPCS: 81003; 99212 ==

== ENCOUNTER 2024-01-25 09:52 | Outpatient (AMB) | payer OTHER, SELFPAY ==
--- NOTE | 2024-01-25 10:02 | MHC.OFFVIS ---
Vital Signs 01/25/24 10:15 Height 5 ft 7 in Weight 223 lb BMI 34.9 BP 136/92 H Blood Pressure Location Lt brachial Position Sitting Respiration 17 Pulse 70 Pulse Source Pulse Oximeter Pulse Oximetry (%) 95 Oxygen Delivery Method Room Air Intake Visit Reasons: Other intervertebral disc degeneration Intake Note: Patient comes in for initial visit was referred by [facility] primary care. Reports pain 11/02. 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 Denies any recent trauma, injury, or falls. He reports seeing provider at [facility] and receiving injection for L4-L5 level with good results. [facility] EMR review noted for multiple ER visits for lumbar strain, sciatica, left lumbar radiculopathy x7 visits from 11/21/20-09/17/23. 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 He completed physical therapy in 2021 without improvement in his functioning or pain. Denies previous spine surgery. This has been longstanding pain for him which is worse with movement and better with rest. Pain is constant and is most severe in the mornings. Pain affects his daily activities and functioning, mood, sleep, mobility, and recreational activities. He ambulates with mildly antalgic gait without limping. Denies any fever or chills, abdominal or groin pain, weakness, foot drop, bladder or bowel dysfunction or saddle anesthesia. Location: Left-sided low back pain radiates Duration: Chronic pain for 2 years, progressively getting worse for past one year Characteristics of symptom or complaint: Aching, shooting, numbness, tingling, burning Aggravating or associated factors: Walking, bending, heavy lifting, twisting, sleeping, rainy cold weather Relieving factors: Walker, rest, Tylenol, Ibuprofen, lidocaine patches, prednisone, tramadol Treatment: PT, back injection at [facility], MRI lumbar 2 months ago, multiple ER visits [facility] Medical History Physical exam Mild recurrent major depression Class 1 obesity with body mass index (BMI) of 34.0 to 34.9 in adult Erectile disorder, acquired, generalized, severe Anxiety and depression Allergic rhinitis Insomnia Eczema Impaired glucose tolerance Essential hypertension Surgical History H/O colonoscopy History of removal of cyst Family History Father Cancer Mother Diabetes Hypertension Brother No problems noted. Sister No problems noted. Son No problems noted. Daughter No problems noted. 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 No acute distress. Alert and oriented. Mood and affect appropriate. Follows and participates in conversation appropriately. Respiratory effort is unlabored. No cough. Able to transition from sit to stand unassisted. Ambulates with bilaterally normal heel strike and toe off. General: Yes no CVA tenderness Back/Spine/Pelvis Other: Patient is able to walk and stand on heels and tip toes with no difficulties demonstrating good motor tone. Mildly antalgic gait, no limping. Can flex forward to 70-75 degrees and extend to 5-10 degrees before experiencing lumbar pain. Demonstrates 5/5 right and 4/5 left strength of quadriceps bilaterally as well as flexion/dorsiflexion of bilateral feet against resistance. 2+ pedal pulses bilaterally. Straight leg rise with dorsiflexion negative bilaterally. +1 patellar and achilles reflexes bilaterally. Facet loading test positive bilaterally. Michelle sign positive on the left, Truman?s reproduces left lateral hip pain but not low back pain. No groin pain with I/E hip rotations. Significant paraspinals tenderness mostly on the left side, mid and lower back. Valsalva maneuver negative. Back: no CVA tenderness Cervical Spine: cervical ROM normal, cervical muscular tenderness, No Cervical spine tenderness and No step off deformity Thoracic/Lumbar Spine: thoracic and lumbar spine normal to inspection, No Thoracic/lumbar spine scar(s), Lasegue's sign negative, straight leg raise negative bilaterally, pain with thoraco-lumbar ROM, paraspinal muscle tenderness on the left greater than right, No thoracic spinal tenderness and lumbar spinal tenderness (L4-S1) Pelvis: no pain with anterior-posterior compression, buttock tenderness on the left and sciatic notch tenderness on the left Sacroiliac joints: bilaterally nontender Neuro General: CN's II-XI intact bilaterally Motor exam (neuro): no tremor noted and Motor abnormalities not present Sensory Exam: No Sensory deficit (Neuro) Extrem General: Yes capillary refill normal, Yes no clubbing, cyanosis or edema and Yes no calf tenderness Results Reviewed Results Reviewed: RADIOGRAPHS LUMBAR SPINE 03/08/23 CLINICAL INFORMATION: Fall. Low back pain. COMPARISON: Lumbar spine x-rays February 16, 2023 FINDINGS: Lumbar spine: 5 nonrib-bearing lumbar vertebral bodies are visualized. Alignment is within normal limits. Lumbar vertebral body heights are maintained. There is mild disc space narrowing at the L3/4 and L5/S1 levels. Tiny osteophytes are scattered throughout the lumbar spine. There are mild degenerative changes of the posterior elements of the lower lumbar spine. Sacroiliac joints are symmetric. Suspected 4 mm right renal calculus. IMPRESSION: 1. No acute pulmonary pathology. 2. Mild degenerative changes of the lumbar spine without compression deformity. Assessment & Plan Assessment & Plan (1) Lower back pain: Code(s): M54.50 - Low back pain, unspecified Category: Medical (2) Lumbar degenerative disc disease: Code(s): M51.36 - Other intervertebral disc degeneration, lumbar region Category: Medical (3) Left lumbar radiculopathy: Code(s): M54.16 - Radiculopathy, lumbar region Category: Medical (4) Lumbosacral spondylosis: Code(s): M47.817 - Spondylosis without myelopathy or radiculopathy, lumbosacral region Category: Medical (5) Class 1 obesity with body mass index (BMI) of 34.0 to 34.9 in adult: Code(s): E66.9 - Obesity, unspecified; Z68.34 - Body mass index [BMI] 34.0-34.9, adult Category: Medical Qualifiers: Obesity type: due to excess calories Serious obesity comorbidity presence: without serious comorbidity Qualified Code(s): E66.09 - Other obesity due to excess calories; Z68.34 - Body mass index [BMI] 34.0-34.9, adult Plan Discussed interventional treatments for axial and radicular low back pain. Medical release request sent to [facility] for previous injections and most recent lumbar spine imaging. Tentatively schedule bilateral diagnostic L3-L4 DR L5 MBB with local and fluoroscopy for axial low back pain. If he has significant relief from the diagnostic blocks for his axial low back pain, will consider either therapeutic injections, Sprint PNS or RFA depending on his preference. Informational pamphlets provided to patient today. Continue daily physical activity and home exercise program, weight loss, good posture and adequate hydration. All questions and concerns have been answered and patient agreed with the treatment plan. Follow-up for [facility] records/imaging review and sooner as needed. Coding Level of Care Code New Pt Level 4 (55318) Complex EM visit Add On G2211 Diagnoses Lower back pain M54.50 Lumbar degenerative disc disease M51.36 Left lumbar radiculopathy M54.16 Lumbosacral spondylosis M47.817 Class 1 obesity due to excess calories without serious comorbidity with body mass index (BMI) of 34.0 to 34.9 in adult E66.09; Z68.34 Obesity type: due to excess calories Serious obesity comorbidity presence: without serious comorbidity
[2024-01-25 10:15] VITALS: BP 136/92; PULSE 70; RESP 17; O2SAT 95; BMI 34.9
== END 2024-01-25 10:46 | disposition home or self-care (01) ==
LOC: HO.PMC 09:53
PROVIDERS: PCP Internal Medicine; Visit Provider Nurse Practitioner Family
DX: M54.50 Low back pain, unspecified (principal); M51.369 Other intervertebral disc degeneration, lumbar region without mention of lumbar back pain or lower extremity pain; M54.16 Radiculopathy, lumbar region; M47.817 Spondylosis without myelopathy or radiculopathy, lumbosacral region; E66.09 Other obesity due to excess calories; Z68.34 Body mass index [BMI] 34.0-34.9, adult
CPT/HCPCS: 99204; G2211

== ENCOUNTER → 2024-01-25 09:52 | Outpatient (BNVA) | payer OTHER, SELFPAY | PROVIDERS: PCP Internal Medicine; Visit Provider Nurse Practitioner Family | DX: M51.369 Other intervertebral disc degeneration, lumbar region without mention of lumbar back pain or lower extremity pain (principal); M54.50 Low back pain, unspecified; M54.16 Radiculopathy, lumbar region; M47.817 Spondylosis without myelopathy or radiculopathy, lumbosacral region; E66.09 Other obesity due to excess calories; Z68.34 Body mass index [BMI] 34.0-34.9, adult | CPT/HCPCS: 99202 ==

== ENCOUNTER 2024-02-15 09:43 | Outpatient (AMB) | payer OTHER, SELFPAY ==
--- NOTE | 2024-02-15 10:03 | HO.SPINEOV ---
Intake Visit Reasons: LBP Intake Note: Mr. Kidd is here today c/o low back pain. MRI done @ [facility]. Assisted Living Coordinator Required: Yes Assisted Living Coordinator Name: Maegan Meléndez Allergies No Known Allergies [No Known Allergies*] Allergy (Verified 01/25/24 10:15) Assessment & Plan Assessment & Plan (1) Lumbar disc herniation with radiculopathy: Code(s): M51.16 - Intervertebral disc disorders with radiculopathy, lumbar region Category: Medical Plan Dear Lorrie, Thank you for referring Mr Kidd to our office today. He is a 58 year old gentleman with history of 2 years of on/off left low back and left leg pain shooting down into his buttock, posterior thigh, lateral calf and knee. 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 In August of this year the pain significantly escalated to a point where he had to stop working. His leg would start to give out from underneath him. He saw [facility], underwent an injection at L4-5 TFE. He reports he had good relief for 2 weeks but ultimately the symptoms came back. He underwent physical therapy as well as medication trials including Tylenol, ibuprofen, tramadol. He is having pain pretty much all throughout the day and difficulty sleeping. Activity will aggravated. He is frustrated with his quality of life. He can only stand and walk for about 5 minutes or so before the pain gets too intense where he has to sit down or change positions. He uses a shopping cart at the store to get around. He is here today with an MRI done in April of this year showing disc degeneration his low back. PMH: He has a history obesity, hypertension, depression, anxiety, asthma, he had a benign mass removed from the right side of his neck 10 years ago. Denies any issues with his heart, lungs, kidney, liver, cancer, bleeding disorders, blood clots, major abdominal surgery Social hx: He does not smoke, drink use any recreational drugs Medications: Lisinopril, loratadine, albuterol, venlafaxine, atenolol, hydrochlorothiazide, fluticasone, fish oil, centrum silver Allergies: None Physical exam: He is uncomfortable standing up, positive straight leg raise at about 40 degrees. Strength is normal, reflexes diminished at the patella on the left. Imaging review: He is a lumbar MRI done at the [facility] at April of 2023 showing what looks like a disc bulge/herniation at L4-5, it is hanging slightly below the endplate of L5 and does appear to be narrowing the lateral recess somewhat around the L5 nerve root. This is the only evidence of nerve compression I see on the study. Overall his alignment is good, there is no spondylolisthesis spondylolysis or fracture. Impression: 58-year-old male presents with left-sided low back pain radiating down his left leg into his posterior thigh, buttock, lateral calf and into his knee. The symptoms has started a few years back but have progressively gotten worse and sometime around August they escalated significantly. His MRI does show that he has some disc degeneration/possible herniation at L4-5 which is crowding the lateral recess at L5. There is good evidence that this is where the symptoms are coming from as he did have 2 good weeks of relief from the L4-5 TFE's. The MRI however is about 9-month-old and if we are considering this as a possible disc herniation situation, we need to get an updated MRI to see if the disc has reabsorbed itself or not. Also, since his symptoms increased so much in August, we would need a updated MRI for that reason as well. I sat this gentleman down went through his films with him. Once the MRI is done I will see him back in the office. Thank you for allowing us to care for your patient. The total time spent with this visit with this patient was 45 minutes reviewing history, physical exam, lumbar imaging review, and implementation of treatment plan or further diagnostic testing Alan Campos MD,PhD [facility] Orders: Orders MR lumbar spine wo con 01/14/24 M51.36 - Other intervertebral disc degeneration, lumbar region Coding Level of Care Code New Pt Level 4 (36883) Diagnoses Lumbar disc herniation with radiculopathy M51.16
== END 2024-02-15 10:25 | disposition home or self-care (01) ==
PROVIDERS: PCP Internal Medicine; Referring Provider Nurse Practitioner Family; Visit Provider Physician Assistant
DX: M51.16 Intervertebral disc disorders with radiculopathy, lumbar region (principal)
CPT/HCPCS: 99204

== ENCOUNTER → 2024-02-15 09:43 | Outpatient (BNVA) | payer OTHER, SELFPAY | PROVIDERS: PCP Internal Medicine; Referring Provider Nurse Practitioner Family; Visit Provider Physician Assistant | DX: M51.16 Intervertebral disc disorders with radiculopathy, lumbar region (principal) | CPT/HCPCS: 99202 ==

== ENCOUNTER 2024-03-03 13:14 | Outpatient (AMB) | payer OTHER, SELFPAY ==
--- NOTE | 2024-03-03 13:30 | HO.SPINEOV ---
Intake Visit Reasons: MRI f/up Intake Note: Mr. Kidd is here to follow up on the results to his MRI. 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 Again it travels down his posterior thigh goes into his knee, his lateral calf and into his outer ankle. His previous MRI suggested there might be a disc herniation at L4-5 but it was about 8 months out dated so I got a new 1. It was done at the [facility]. It looks to me like the disc herniation at L4-5 may have retracted itself a little bit because I do not see compression in the lateral recess. The only thing I see is what looks like stenosis at L3-4. The radiologist did not comment done this but I think it is probably moderate. I will review with Dr. Campos to see if he thinks it fits the patient's clinical situation to be relevant enough to be an indication for surgery. He does have all of his pain with standing walking and goes away when he sits down. I will call the patient once I have a chance to review with Dr. Campos. Total amount of time spent in this visit was 20 minutes in discussion of symptoms, lumbar MRI imaging results and subsequent plan of care Alan Campos MD,PhD [facility] Coding Level of Care Code Est Pt Level 3 (96404) Diagnoses Lumbar disc herniation with radiculopathy M51.16
== END 2024-03-03 14:01 | disposition home or self-care (01) ==
PROVIDERS: PCP Internal Medicine; Visit Provider Physician Assistant
DX: M51.16 Intervertebral disc disorders with radiculopathy, lumbar region (principal)
CPT/HCPCS: 99213

== ENCOUNTER → 2024-03-03 13:14 | Outpatient (BNVA) | payer OTHER, SELFPAY | PROVIDERS: PCP Internal Medicine; Visit Provider Physician Assistant | DX: M51.16 Intervertebral disc disorders with radiculopathy, lumbar region (principal) | CPT/HCPCS: 99212 ==

== ENCOUNTER 2024-03-31 05:30 | Emergency (ER) | payer OTHER, SELFPAY ==
[2024-03-31 05:34] VITALS: BP 148/105; PULSE 78; RESP 18; TEMP 36.6; O2SAT 95; BMI 35.2
[2024-03-31 06:33] VITALS: BP 146/91; PULSE 69; RESP 14; TEMP 37; O2SAT 93
--- NOTE | 2024-03-31 06:37 | ED.GENADULT ---
HPI - General Adult General Chief complaint: Extremity Problem Stated complaint: sciatic nerve pain Time Seen by Provider: 03/31/24 06:36 Source: patient and RN notes reviewed Mode of arrival: ambulatory Limitations: no limitations History of Present Illness ED Provider: Marimar Escalera PA-C HPI narrative: This is a 59-year-old male, hypertension eczema, lumbar back sprain, anxiety, depression, erectile dysfunction, obesity, depression, presenting to the emergency department with complaints of left-sided back pain in the lower back with radiation into left lower extremity just above the knee. Patient denies any recent trauma, injury, heavy lifting or falls. He states that since yesterday he developed this symptom. Denies taking any medications at home to treat his current symptoms. He states that he typically gets injections to help however states he has had difficulties with his health insurance and has been unable to do so, has not had an injection several months. No saddle anesthesia. No urinary incontinence or retention. Denies any fevers, chills, chest pain, shortness for breath, abdominal pain, nausea, vomiting or diarrhea. No other complaints or concerns at this time. MD complaint: Back pain Onset (ago): day(s) Relieving factors: none Exacerbating factors: movement Associated symptoms: denies other symptoms Treatments prior to arrival: none Related Data Previous Rx's ?Medication ?Instructions ?Recorded fluticasone propionate 50 1 spray intranasal DAILY #16 mL 04/23/20 mcg/actuation nasal spray,suspension albuterol sulfate 90 mcg/actuation 2 puff inhalation Q6H PRN 06/16/22 aerosol inhaler shortness of breath or wheezing #6.7 grams atenolol 50 mg tablet 50 mg PO DAILY 90 days #90 tabs 07/07/23 lidocaine 5 % topical patch 1 patch topical DAILY PRN pain #15 09/17/23 ea palmer (Ultra-Light Rollator [facility] [place]) #1 ea 09/20/23 omega-3 fatty acids 1,000 mg 1,000 mg PO DAILY #90 caps 09/28/23 capsule acetaminophen 500 mg capsule 1,000 mg (2 x 500 mg) PO Q6H PRN 10/05/23 pain #30 caps venlafaxine 150 mg 150 mg PO BEDTIME 90 days #90 caps 10/24/23 capsule,extended release 24 hr loratadine 10 mg tablet 10 mg PO DAILY PRN allergy 10/25/23 symptoms 90 days #90 tabs lorazepam 0.5 mg tablet (Ativan) 0.5 mg PO DAILY PRN anxiety 1 day 01/15/24 #2 tabs tadalafil 5 mg tablet 5 mg PO DAILY 30 days #30 tabs 01/24/24 tramadol 50 mg tablet 50 mg PO BID PRN pain 5 days #10 01/28/24 tabs atorvastatin 20 mg tablet 20 mg PO BEDTIME 90 days #90 tabs 01/30/24 clotrimazole-betamethasone 1 1 appl topical BID 30 days #15 01/30/24 %-0.05 % topical cream grams hydrochlorothiazide 25 mg tablet 25 mg PO DAILY #90 tabs 01/30/24 ibuprofen 800 mg tablet 800 mg PO Q8H #30 tabs 01/30/24 lisinopril 40 mg tablet 40 mg PO DAILY 90 days #90 tabs 01/30/24 acetaminophen 500 mg tablet 500 - 1,000 mg (1 - 2 x 500 mg) PO 03/31/24 (Tylenol Extra Strength) Q6H PRN pain #30 tabs cyclobenzaprine 10 mg tablet 10 mg PO TID PRN muscle spasm #14 03/31/24 tabs lidocaine 5 % topical patch 1 patch topical DAILY #30 ea 03/31/24 (Lidoderm) prednisone 20 mg tablet 40 mg (2 x 20 mg) PO DAILY 5 days 03/31/24 #10 tabs Allergies Allergy/AdvReac Type Severity Reaction Status Date / Time No Known Allergies Allergy Verified 03/31/24 05:37 [No Known Allergies*] Review of Systems Review of Systems: Yes all other systems are reviewed and are negative Constitutional: Constitutional: Reports as per [facility] Past Medical History Attestation statement: The following information was validated with the patient. Medical History Physical exam Mild recurrent major depression Class 1 obesity with body mass index (BMI) of 34.0 to 34.9 in adult Erectile disorder, acquired, generalized, severe Anxiety and depression Allergic rhinitis Insomnia Eczema Impaired glucose tolerance Essential hypertension Surgical History H/O colonoscopy History of removal of cyst Family History Family History Father Cancer Mother Diabetes Hypertension Brother No problems noted. Sister No problems noted. Son No problems noted. Daughter No problems noted. 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 Current occupational exposures/hazards: No Cognitive needs: No Hearing needs: No Vision needs: Yes Physical Exam ED Vital Signs: Vital Signs - 24 hr 03/31/24 05:34 03/31/24 06:33 Temperature 97.9 F 98.6 F Pulse Rate 78 69 Respiratory Rate 18 14 Blood Pressure 148/105 H 146/91 H Pulse Oximetry 95 93 Oxygen Delivery Method Room Air Room Air BMI result Body Mass Index 35.2 Const General: cooperative, comfortable and no acute distress Orientation/consciousness: patient oriented x3 Limitations: no limitations HENMT Head: Yes normal to inspection, Yes normocephalic and Yes atraumatic Ears: hearing grossly normal bilaterally General nose exam: Normal external nose present Face and sinus: Yes normal facial exam Mouth: Normal oral and palatal mucosa present, oropharynx normal and moist mucous membranes Throat: Yes posterior oropharynx normal Eyes General: appearance normal, both eyes and all related structures Eyelids: Yes eyelids normal Conjunctivae: conjunctivae normal Sclerae: sclerae normal Pupils: Equal, round and reactive pupils present EOM: EOMs intact bilaterally Neck Neck: Yes normal visual inspection, Yes full ROM and Yes no lymphadenopathy Lymphatic: no lymphadenopathy noted Chest Chest palpation & inspection: normal inspection of the chest Resp Effort & Inspection: normal respiratory effort and able to speak in complete sentences Auscultation: clear to auscultation bilaterally, no crackles, no rales, no rhonchi and no wheezes Cardio Rate: regular rate Rhythm: regular rhythm Heart sounds: S1 normal heart sound present and S2 normal heart sound present GI Inspection: Yes normal to inspection Back/Spine/Pelvis Other: Tenderness palpation along the left lumbar musculature extending into the left buttocks. Strength 5/5 in lower extremities. Positive straight leg raise on the left Skin General skin exam: no rashes or lesions noted Trauma: no lacerations or abrasions Wounds: no wounds Neuro General: patient oriented x3 and moves all extremities Cranial nerves: Yes Equal, round and reactive pupils present Extrem Other: No calf tenderness, no pedal edema. General: Yes normal to inspection Right upper extremity: normal to inspection Left upper extremity: normal to inspection Right lower extremity: normal to inspection Left lower extremity: normal to inspection Course Reevaluation(s) Reevaluation #1: Patient feeling much better after receiving Toradol and Valium. Patient discharged on prednisone, Flexeril, Lidoderm patches and Tylenol. Advised to follow-up with Dr. Campos today. He understands and agrees with plan. Given strict return precautions. Patient stable for discharge. Time: 07:58 Medications Administered Discontinued Medications Generic Name Dose Route Start Last Admin Trade Name Freq PRN Reason Stop Dose Admin Diazepam 5 mg 03/31/24 07:15 03/31/24 07:23 Diazepam 5 Mg Tablet PO 03/31/24 07:16 5 mg ONCE ONE Administration Ketorolac Tromethamine 30 mg 03/31/24 07:15 03/31/24 07:23 Ketorolac Tromethamine 30 Mg/Ml Vial IM 03/31/24 07:16 30 mg ONCE ONE Administration Medical Decision Making Medical Decision Making MDM Narrative: 59-year-old male, with a history of lumbar radiculopathy, who presents emergency department with complaints of left low back pain, extending into the left leg. On arrival, blood pressure mildly elevated 148/105, all other vital signs within normal limits. He is speaking full sentences under no acute distress. He is ambulatory with steady gait. He has tenderness palpation along the left lumbar musculature extending into the left buttocks. He has been seen by Dr. Campos, recent MRI performed in January revealing degenerative changes in the L3-L4 and L4-L5, narrowing of the neuroforamina at the L5-S1 greater than left. He has had no new injury or trauma. No indication for repeat imaging. This patient presents with back pain most consistent with lumbar radiculopathy. Differential diagnoses includes lumbago versus musculoskeletal spasm / strain versus sciatica. No back pain red flags on history or physical. Presentation not consistent with malignancy (lack of history of malignancy, lack of B symptoms), fracture (no trauma, no bony tenderness to palpation), cauda equina (no bowel or urinary incontinence/retention, no saddle anesthesia, no distal weakness), AAA, viscus perforation , (afebrile, no CVAT, no urinary symptoms). Given the clinical picture, no indication for imaging at this time. Differential Diagnosis Differential Diagnoses: The differential diagnosis associated with the presentation includes See above Discharge Plan Discharge Clinical Impression: Left lumbar radiculopathy Patient Disposition: Still a Patient Instructions: Lumbar Radiculopathy (ED) Additional Instructions: You were seen in the emergency department due to sciatic pain. We medicated you with a medication called Toradol and Valium. I am discharging you on multiple medications including Tylenol, ibuprofen, prednisone, muscle relaxants, and lidocaine patches. Gentle stretching, massage, can help with your symptoms. Please be advised that cyclobenzaprine as a muscle relaxants, can cause drowsiness, do not drink alcohol or drive while taking this medication. You need to follow-up with your geophysical support specialist, call today to make an appointment. If any new or worsening symptoms occur including but not limited to worsening pain, loss of control of your bowel or bladder, severe chest pain, shortness for breath, please seek emergent care. Prescriptions: New acetaminophen [Tylenol Extra Strength] 500 mg tablet 500 - 1,000 mg PO Q6H PRN (Reason: pain) Qty: 30 0RF prednisone 20 mg tablet 40 mg PO DAILY 5 Days Qty: 10 0RF cyclobenzaprine 10 mg tablet 10 mg PO TID PRN (Reason: muscle spasm) Qty: 14 0RF lidocaine [Lidoderm] 5 % adhesive patch,medicated 1 patch topical DAILY Qty: 30 0RF Rx Instructions: leave on most painful area for up to 12 hrs No Action fluticasone propionate 50 mcg/actuation spray,suspension 1 spray intranasal DAILY Qty: 16 6RF atenolol 50 mg tablet 50 mg PO DAILY 90 Days Qty: 90 3RF (DME) Ultra-Light Rollator Misc See Rx Instructions .Route Qty: 1 0RF Rx Instructions: As directed omega-3 fatty acids 1,000 mg capsule 1,000 mg PO DAILY Qty: 90 6RF venlafaxine 150 mg capsule,extended release 24hr 150 mg PO BEDTIME 90 Days Qty: 90 1RF loratadine 10 mg tablet 10 mg PO DAILY PRN (Reason: allergy symptoms) 90 Days Qty: 90 1RF lorazepam [Ativan] 0.5 mg tablet 0.5 mg PO DAILY PRN (Reason: anxiety) 1 Days Qty: 2 0RF Rx Instructions: Take 1 to 2 tabs 45 minutes before MRI tramadol 50 mg tablet 50 mg PO BID PRN (Reason: pain) 5 Days Qty: 10 0RF lisinopril 40 mg tablet 40 mg PO DAILY 90 Days Qty: 90 1RF clotrimazole-betamethasone 1-0.05 % cream 1 appl topical BID 30 Days Qty: 15 1RF atorvastatin 20 mg tablet 20 mg PO BEDTIME 90 Days Qty: 90 0RF ibuprofen 800 mg tablet 800 mg PO Q8H Qty: 30 1RF hydrochlorothiazide 25 mg tablet 25 mg PO DAILY Qty: 90 2RF lidocaine 5 % adhesive patch,medicated 1 patch topical DAILY PRN (Reason: pain) Qty: 15 0RF Rx Instructions: leave on most painful area for up to 12 hrs albuterol sulfate 90 mcg/actuation HFA aerosol inhaler 2 puff inhalation Q6H PRN (Reason: shortness of breath or wheezing) Qty: 6.7 0RF acetaminophen 500 mg capsule 1,000 mg PO Q6H PRN (Reason: pain) Qty: 30 0RF tadalafil 5 mg tablet 5 mg PO DAILY 30 Days Qty: 30 5RF Rx Instructions: PLEASE USE COUPON ATTACHED INSURANCE WILL NOT COVER MEDICATION [id number] [facility] [id number] Member [id number] Print Language: [id number]
[2024-03-31] MEDS: Ketorolac Tromethamine 30 MG/ML VIAL IM (07:23)
[2024-03-31] MEDS: diazePAM 5 MG TABLET PO (07:23)
[2024-03-31 08:25] VITALS: BP 146/91; PULSE 69; RESP 14; TEMP 37; O2SAT 93
== END 2024-03-31 08:26 | disposition still patient (30) ==
PROVIDERS: Emergency Provider Emergency Medicine Emergency Medical Services; PCP Internal Medicine
DX: M54.16 Radiculopathy, lumbar region (principal); M54.42 Lumbago with sciatica, left side; I10 Essential (primary) hypertension; Z79.899 Other long term (current) drug therapy
CPT/HCPCS: 96372; 99284; J1885

== ENCOUNTER 2024-04-22 10:12 | Outpatient (AMB) | payer OTHER, SELFPAY ==
--- NOTE | 2024-04-22 10:24 | MHC.PC.OV ---
Vital Signs 04/22/24 10:30 Height 5 ft 7 in Weight 229 lb BMI 35.9 BP 152/96 H Blood Pressure Location Lt brachial Position Sitting Intake Visit Reasons: 4 month follow up Intake Note: Patient here for a 4 month follow up Electric Motor Control Assembler Required: Yes Electric Motor Control Assembler Language: Pockets And Pieces Necktie Operator Name: Zeynep Borges MD Information Interpreted: non-clinical & clinical Accompanied by: Self / Same As Patient Allergies No Known Allergies [No Known Allergies*] Allergy (Verified 04/22/24 10:38) Medication List - Last Reconciled 04/22/24 by Zeynep Borges MD acetaminophen (Tylenol Extra Strength) 500 - 1,000 mg (1 - 2 x 500 mg) PO Q6H PRN albuterol sulfate 90 mcg/actuation 2 puffs inhalation Q6H PRN atenolol 50 mg PO DAILY 90 days atorvastatin 20 mg PO BEDTIME 90 days clotrimazole-betamethasone 1-0.05 % 1 appl topical BID 30 days fluticasone propionate 50 mcg/actuation 1 spray intranasal DAILY hydrochlorothiazide 25 mg PO DAILY ibuprofen 800 mg PO Q8H lidocaine 5% (Lidoderm) 1 patch topical DAILY lisinopril 40 mg PO DAILY 90 days loratadine 10 mg PO DAILY PRN 90 days lorazepam (Ativan) 0.5 mg PO DAILY PRN 1 day omega-3 fatty acids 1,000 mg PO DAILY tadalafil 5 mg PO DAILY 30 days tramadol 50 mg PO BID PRN 5 days venlafaxine ER 150 mg PO BEDTIME 90 days walker (Ultra-Light Rollator misc) As directed Tobacco use date assessed: 04/22/24 Dental Screening Dental Screen Date: 04/22/24 Did you have a dental visit in the last 12 months?: No Did you have a dental problem in the last 6 months where you did not have access to dental care?: No Was dental information given to patient?: Patient has dentist HPI HPI Comments History of Present Illness Details The patient is a 59-year-old male presenting with hypertension management and stress evaluation. He reports the usage of several medications for his hypertension, including Atenolol 50 mg and Lisinopril 40 mg, as well as Atorvastatin 20 mg for hyperlipidemia. He experiences stress, particularly during the past day, but is hopeful for improvement. He reports that Tramadol was previously beneficial for severe pain but is currently out of medication. He also takes [place]-3, Tadalafil, Venlafaxine at night, and occasionally Loratadine for allergies. The patient denies frequent use of his inhaler, implying adequate management of respiratory symptoms. No additional exacerbating factors or specific alleviating factors apart from medication adherence were noted, and weight management was briefly mentioned as a potential focal point for reducing hypertension. Blood pressure elevated today and will be recheck in 3 weeks by nurse navigator. Has lumbar spondylosis follow by pain management. Also has mild major depression follow by counseling and psychiatry. [facility] Medical History (Updated 04/22/24 @ 10:52 by Zeynep Borges MD) Physical exam Mild recurrent major depression Class 1 obesity with body mass index (BMI) of 34.0 to 34.9 in adult Erectile disorder, acquired, generalized, severe Anxiety and depression Allergic rhinitis Insomnia Eczema Impaired glucose tolerance Essential hypertension Surgical History H/O colonoscopy History of removal of cyst Family History Father Cancer Mother Diabetes Hypertension Brother No problems noted. Sister No problems noted. Son No problems noted. Daughter No problems noted. 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 1. Little interest or pleasure in doing things: not at all 2. Feeling down, depressed, or hopeless: several days 3. Trouble falling or staying asleep, or sleeping too much: not at all 4. Feeling tired or having little energy: not at all 5. Poor appetite or overeating: not at all 6. Feeling bad about yourself - or that you are a failure or have let yourself or your family down: not at all 7. Trouble concentrating on things, such as reading the newspaper or watching television: not at all 8. Moving or speaking so slowly that other people could have noticed. Or the opposite - being so fidgety or restless that you have been moving around a lot more than usual: not at all 9. Thoughts that you would be better off or of hurting yourself in some way: not at all Total score: 1 Depression Screening Interpretation: Positive Depression Screening Follow-up: Existing condition, In treatment, Community Mental Health Worker F/U and Follow-up Visit Requested Depression Screening Done: Yes 48225 - PHQ-9 Billing: Yes Source: Developed by Drs. Stiven Salmeron, Lavonne Enciso, Tanner Larios and colleagues, with an educational arden from [employer] Thrive Questionnaire Date Thrive assessed: 04/22/24 I am a: Patient What is your living situation today?: I have a steady place to live Within the past 12 months, did the food you bought not last and you didn't have the money to get more?: Never true Within the past 12 months, did you worry whether your food would run out before you got money to buy more?: Never true Do you have trouble paying for medicines?: No Do you have trouble getting transportation to medical appointments?: No Do you have trouble paying your heating and electricity bill?: No Do you have trouble taking care of your child, family member or friend?: No Do you have trouble with day-to-day activities such as bathing, preparing meals, shopping, managing finances, etc.?: No Are you currently unemployed and looking for a job?: No Are you interested in more education?: No Please select the resources that you would like help with: None Currently or been in a relationship where the following occur: No concerns reported THRIVE Score: 0 AUDIT C Alcohol Use Questionnaire (AUDIT-C) 1. How often do you have a drink containing alcohol?: 2-3 times a week 2. How many drinks containing alcohol do you have on a typical day when you are drinking?: 1 or 2 3. How often do you have six or more drinks on one occasion?: Never Total Score: 3 MANN-7 AMB Questionnaire MANN-7 Date MANN - 7 assessed: 04/22/24 Feeling nervous, anxious, or on edge: 1 = Several days Not being able to stop or control worryin = Not at all Worrying too much about different things: 1 = Several days Trouble relaxin = Not at all Being so restless that it is hard to sit still: 0 = Not at all Becoming easily annoyed or irritable: 0 = Not at all Feeling afraid as if something awful might happen: 0 = Not at all Total MANN-7 score (0-4 normal; 5-9 mild; 10-14 moderate; 15-21 severe): 2 Source: Developed by Drs. Stiven Salmeron, Lavonne Enciso, Tanner Larios and colleagues, with an educational arden from [employer] MANN-7 Assessment Billing MANN-7 Assessment Tool: MANN-7 Assessment 11531 Review of Systems Const All systems reviewed & are unremarkable except as noted in HPI and below Card Denies chest pain at rest, Denies chest pain with activity, Denies edema, Denies irregular heart rhythm, Denies claudication, Denies dyspnea, Denies dyspnea on exertion, Denies orthopnea, Denies paroxysmal nocturnal dyspnea and Denies slow heart rate Resp Denies cough, Denies dyspnea and Denies dyspnea on exertion GI Denies abdominal pain, Denies change in bowel habits, Denies excessive flatus, Denies nausea and Denies vomiting Denies urinary hesitancy, Denies urinary incontinence and Denies urinary urgency Musc Denies atrophy, Denies deformity and Denies limited range of motion Skin/Breast Denies bleeding lesions, Denies changing lesions and Denies rash Physical exam (Primary Care) Vital Signs: Last Vital Signs BP 152/96 H 04/22/24 10:30 BMI result Body Mass Index 35.9 BMI Assessment/Plan discussion: High BMI High, discussed plan: lifestyle, weight reduction, dietary and physical activity Tobacco/Smoking Status: Tobacco use Status Tobacco use date assessed 04/22/24 04/22/24 10:29 Patient Tobacco Use Status Former Tobacco user 04/22/24 10:29 Tobacco use type Cigarette 04/22/24 10:29 e-Cigarette/Vaping Use Never Used 04/22/24 10:29 PHQ-9: PHQ-9 Score PHQ-9: Total score 1 04/22/24 10:34 Depression Screening Interpretation: Positive Depression Screening Follow-up: Existing condition, In treatment, Community Mental Health Worker F/U and Follow-up Visit Requested Thrive Assessment: Date of Thrive Assessment Date Thrive assessed 04/22/24 04/22/24 10:29 Currently or been in a relationship where the following occur: No concerns reported Resp Effort & Inspection: normal respiratory effort Auscultation: clear to auscultation bilaterally Cardio Jugular venous distension: no JVD Rate: regular rate Rhythm: regular rhythm Heart sounds: S1 normal heart sound present and S2 normal heart sound present Extrem General: Yes full ROM Coding Level of Care Code Est Pt Level 4 (09033) Complex EM visit Add On G2211 Diagnoses Osteoarthritis of spine with radiculopathy, lumbosacral region M47.27 Spinal osteoarthritis complication: with radiculopathy Pure hypercholesterolemia E78.00 Mild recurrent major depression F33.0 Essential hypertension I10 Additional Codes PHQ-9 - 91877 - PHQ-9 Billing: Yes ([id number]) MANN-7 Assessment Billing - MANN-7 Assessment Tool: MANN-7 Assessment 58095 ([id number]) Time Spent (min) 22 Assessment & Plan Assessment & Plan (1) Lumbosacral spondylosis: Code(s): M47.817 - Spondylosis without myelopathy or radiculopathy, lumbosacral region Category: Medical Qualifiers: Spinal osteoarthritis complication: with radiculopathy Qualified Code(s): M47.27 - Other spondylosis with radiculopathy, lumbosacral region (2) Pure hypercholesterolemia: Code(s): E78.00 - Pure hypercholesterolemia, unspecified Category: Medical (3) Mild recurrent major depression: Code(s): F33.0 - Major depressive disorder, recurrent, mild Category: Medical (4) Essential hypertension: Code(s): I10 - Essential (primary) hypertension Category: Medical Plan - Refill Tramadol for severe pain management as previously effective. - Continue current hypertension medication regimen, including Atenolol and Lisinopril. - Continue Atorvastatin for managing cholesterol levels. - Emphasize the importance of lifestyle modifications, particularly weight management and regular exercise, to support cardiovascular health. - Discuss stress management strategies and consider psychological interventions if stress persists. Patient was informed and verbally consented to the use of an ambient scribe for clinic note documentation during this visit. I discussed with the patient the continuation of his current hypertension management regimen, emphasizing the importance of adherence to prescribed antihypertensive and cholesterol-lowering medications. In regards to pain management, refilling Tramadol was considered appropriate given its prior effectiveness during episodes of severe pain. Given the patient's ongoing stress, we discussed the importance of lifestyle modifications, including weight management and exercises to enhance cardiovascular health, and possible psychological interventions if the stress continues. The patient was receptive to these recommendations and seemed motivated to improve his health outcomes. Orders: Orders Lipid Panel Today E78.5 - Hyperlipidemia, unspecified Comprehensive [place]. Panel Fast Today M51.16 - Intervertebral disc disorders with radiculopathy, lumbar region Medications: Refilled tramadol 50 mg PO BID 5 days PRN 10 tabs 0RF pain Patient Instructions: - Take medications as prescribed for hypertension and hyperlipidemia. - Use Tramadol for severe pain as needed, following refill. - Focus on losing weight safely through appropriate diet and exercise. - Monitor stress levels and practice stress-relief techniques. - Limit the frequency of inhaler use as discussed unless symptomatic. - Schedule a follow-up for continued evaluation of stress and hypertension.
[2024-04-22 10:30] VITALS: BP 152/96; BMI 35.9
== END 2024-04-22 10:48 | disposition home or self-care (01) ==
PROVIDERS: PCP Internal Medicine; Visit Provider Internal Medicine
DX: M47.27 Other spondylosis with radiculopathy, lumbosacral region (principal); E78.00 Pure hypercholesterolemia, unspecified; F33.0 Major depressive disorder, recurrent, mild; I10 Essential (primary) hypertension; Z23 Encounter for immunization

== ENCOUNTER → 2024-04-22 10:12 | Outpatient (BNVA) | payer OTHER, SELFPAY | PROVIDERS: PCP Internal Medicine; Visit Provider Internal Medicine | DX: M47.27 Other spondylosis with radiculopathy, lumbosacral region (principal); M51.16 Intervertebral disc disorders with radiculopathy, lumbar region; E78.00 Pure hypercholesterolemia, unspecified; F33.0 Major depressive disorder, recurrent, mild; I10 Essential (primary) hypertension; E78.5 Hyperlipidemia, unspecified; Z79.899 Other long term (current) drug therapy; Z28.21 Immunization not carried out because of patient refusal | CPT/HCPCS: 90471; 96127; 99212 ==

== ENCOUNTER → 2024-05-02 10:29 | Outpatient (AMB) | payer OTHER, SELFPAY ==
--- NOTE | 2024-05-02 10:45 | A.OFFVIS_ITS ---
Vital Signs 05/02/24 10:56 05/02/24 10:57 Height 5 ft 7 in Weight 227 lb 8 oz BMI 35.6 BP 189/120 H 140/80 H Blood Pressure Location Rt brachial Rt brachial Position Sitting Sitting Pulse 62 Pulse Source Pulse Oximeter Comment bp recheck manually Intake Visit Reasons: follow up from last visit 01/25/24 Intake Note: Pain today 11/02 Composition Board Press Operator Required: No Accompanied by: Self / Same As Patient Allergies No Known Allergies [No Known Allergies*] Allergy (Verified 04/22/24 10:38) HPI Comments Details: Patient presents today for follow-up for persistent chronic low back pain with left-sided radiculopathy. He was recently seen by [facility] and was deemed nonsurgical. Patient continues to endorse axial low back pain and left leg and numbness, tingling, and weakness in L5-S1 distribution. Back pain continues to limit his daily functioning and mobility, affects his sleep and has been resistant to conservative treatment including opioid and NSAID medications. Patient is interested to undergo interventional treatments to address his full axial low back pain and left-sided radiculopathy. Denies any fever or chills, abdominal or groin pain, bladder or bowel dysfunction or saddle anesthesia. Reports intermittent left lower extremity weakness with flare up in low back pain with left leg pain. PRIOR: Patient is a 58-year-old male with history of lumbar back sprain, left-sided radiculopathy, lumbar degenerative disc disease, anxiety, depression, obesity, erectile dysfunction, history of falls, presents today for initial evaluation of low back pain with radiation into his left buttock and into left lower extremity posteriorly with associated stabbing, sharp, tingling and numbness sensations. Denies any recent trauma, injury, or falls. He reports seeing provider at [facility] [place] and receiving injection for L4-L5 level with good results. [facility] EMR review noted for multiple ER visits for lumbar strain, sciatica, left lumbar radiculopathy x7 visits from 11/21/20-09/17/23. 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 He completed physical therapy in 2021 without improvement in his functioning or pain. Denies previous spine surgery. This has been longstanding pain for him which is worse with movement and better with rest. Pain is constant and is most severe in the mornings. Pain affects his daily activities and functioning, mood, sleep, mobility, and recreational activities. He ambulates with mildly antalgic gait without limping. Denies any fever or chills, abdominal or groin pain, weakness, foot drop, bladder or bowel dysfunction or saddle anesthesia. Location: Left-sided low back pain radiates Duration: Chronic pain for 2 years, progressively getting worse for past one year Characteristics of symptom or complaint: Aching, shooting, numbness, tingling, burning Aggravating or associated factors: Walking, bending, heavy lifting, twisting, sleeping, rainy cold weather Relieving factors: Walker, rest, Tylenol, Ibuprofen, lidocaine patches, prednisone, tramadol Treatment: PT, back injection at [facility] [place], MRI lumbar 2 months ago, multiple ER visits [facility] Medical History Physical exam Mild recurrent major depression Class 1 obesity with body mass index (BMI) of 34.0 to 34.9 in adult Erectile disorder, acquired, generalized, severe Anxiety and depression Allergic rhinitis Insomnia Eczema Impaired glucose tolerance Essential hypertension Surgical History H/O colonoscopy History of removal of cyst Family History Father Cancer Mother Diabetes Hypertension Brother No problems noted. Sister No problems noted. Son No problems noted. Daughter No problems noted. 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 Alert and oriented. Mood and affect appropriate. Follows and participates in conversation appropriately. Respiratory effort is unlabored. No cough. Able to transition from sit to stand unassisted. Ambulates with bilaterally normal heel strike and toe off, reports intermittent weakness LLE. General: Yes no CVA tenderness Back/Spine/Pelvis Other: Limited lumbar ROM due to pain. Mildly antalgic gait, no limping. Lumbar extension, axial rotations, and flexion forward reproduce moderate-severe pain. Demonstrates 5/5 right and 4/5 left strength of quadriceps bilaterally as well as flexion/dorsiflexion of bilateral feet against resistance. 2+ pedal pulses bilaterally. Straight leg rise with dorsiflexion positive on the left. +1 patellar and achilles reflexes bilaterally. Facet loading test positive kelle aterally. Michelle sign positive on the left, Truman?s reproduces left lateral hip pain but not low back pain. No groin pain with I/E hip rotations. Significant paraspinals tenderness mostly on the left side, mid and lower back. Valsalva maneuver is negative. Back: no CVA tenderness Cervical Spine: cervical ROM normal, cervical muscular tenderness, No Cervical spine tenderness and No step off deformity Thoracic/Lumbar Spine: thoracic and lumbar spine normal to inspection, No Thoracic/lumbar spine scar(s), Lasegue's sign positive on the left and localized, pain with thoraco-lumbar ROM, paraspinal muscle tenderness on the left greater than right, thoraco-lumbar ROM limited, No thoracic spinal tenderness and lumbar spinal tenderness (L4-S1) Pelvis: no pain with anterior-posterior compression, buttock tenderness on the left and sciatic notch tenderness on the left Sacroiliac joints: on the right nontender and on the left tender to palpation Extrem General: Yes capillary refill normal, Yes no clubbing, cyanosis or edema and Yes no calf tenderness Results Reviewed Results Reviewed: RADIOGRAPHS LUMBAR SPINE 03/08/23 CLINICAL INFORMATION: Fall. Low back pain. COMPARISON: Lumbar spine x-rays February 16, 2023 FINDINGS: Lumbar spine: 5 nonrib-bearing lumbar vertebral bodies are visualized. Alignment is within normal limits. Lumbar vertebral body heights are maintained. There is mild disc space narrowing at the L3/4 and L5/S1 levels. Tiny osteophytes are scattered throughout the lumbar spine. There are mild degenerative changes of the posterior elements of the lower lumbar spine. Sacroiliac joints are symmetric. Suspected 4 mm right renal calculus. IMPRESSION: 1. No acute pulmonary pathology. 2. Mild degenerative changes of the lumbar spine without compression deformity. MR SPINE LUMBAR without CONTRAST 02/19/24 RAYUS INDICATION: Lower back pain radiating to left ongoing for 2 years. Intervertebral disc degeneration. TECHNIQUE: Unenhanced multiplanar, multisequence MR imaging of the lumbar spine. COMPARISON: MR lumbar 04/28/2023. FINDINGS: Normal lumbar alignment is demonstrated. Vertebral heights are well maintained. There is disc desiccation and disc space narrowing at L3-4 and L4-5. Bone marrow signal is within normal limits, and no suspicious osseous lesion is identified. Conus medullaris is unremarkable. Paraspinal soft tissues and visualized portions of the abdomen and pelvis are unremarkable. At L1-2 there is no significant disc herniation or protrusion. No central canal or neural foraminal stenosis is demonstrated. At L2-3 there is mild annular disc bulge and mild facet arthrosis. Central canal is patent with foraminal stenosis. At L3-4 there is broad-based disc bulge and mild facet arthrosis and ligament flavum hypertrophy. There is mild narrowing of the central canal with mild right and moderate left neural foraminal stenosis. Findings appear stable. At L4-5 there is broad-based disc bulge and mild facet arthrosis. There is mild to moderate central canal stenosis with advanced right and moderate to advanced left neural foraminal stenosis. Findings appear stable. At L5-S1 there is mild annular disc bulge and mild facet arthrosis. Central canal is patent. There is moderate right and advanced left neural foraminal stenosis. Findings appear stable. IMPRESSION: Stable appearance degenerative changes lumbar spine greater at L3-4 and L4-5. Narrowing of the neuroforamina at L5-S1 greater on the left. Findings appear stable. Assessment & Plan Assessment & Plan (1) Lower back pain: Code(s): M54.50 - Low back pain, unspecified Category: Medical (2) Lumbar degenerative disc disease: Code(s): M51.36 - Other intervertebral disc degeneration, lumbar region Category: Medical (3) Left lumbar radiculopathy: Code(s): M54.16 - Radiculopathy, lumbar region Category: Medical (4) Left lumbosacral radiculopathy: Code(s): M54.17 - Radiculopathy, lumbosacral region Category: Medical Plan Discussed interventional treatments for axial and left radicular low back pain. [facility] records were reviewed for previous injections and were scanned into patient's chart. Schedule bilateral diagnostic L3-L4 DR L5 MBB with local and fluoroscopy for axial low back pain. If he has significant relief from the diagnostic blocks for his axial low back pain, will consider either therapeutic injections, Sprint PNS or RFA depending on his preference. For ongoing left radicular low back pain, will schedule Left L5-S1 TFESI with local and fluoroscopy. Expectations, risks and benefits were reviewed. Patient is aware he will be contacted to schedule this procedure. Continue daily physical activity and home exercise program, weight optimization, good posture and adequate hydration. All questions and concerns have been answered and patient agreed with the treatment plan. Follow-up after injections and sooner as needed. Medications: New gabapentin 300 mg PO BID 30 days 60 caps 0RF pain M51.16 - Intervertebral disc disorders with radiculopathy, lumbar region, M51.36 - Other intervertebral disc degeneration, lumbar region, M54.50 - Low back pain, unspecified Coding Level of Care Code Est Pt Level 4 (05810) Complex EM visit Add On G2211 Diagnoses Lower back pain M54.50 Lumbar degenerative disc disease M51.36 Left lumbar radiculopathy M54.16 Left lumbosacral radiculopathy M54.17
== END | disposition home or self-care (01) ==
PROVIDERS: PCP Internal Medicine; Referring Provider Physician Assistant; Visit Provider Nurse Practitioner Family
CPT/HCPCS: 99214; G2211

== ENCOUNTER → 2024-05-02 10:29 | Outpatient (BNVA) | payer OTHER, SELFPAY | PROVIDERS: PCP Internal Medicine; Referring Provider Physician Assistant; Visit Provider Nurse Practitioner Family | DX: M51.360 Other intervertebral disc degeneration, lumbar region with discogenic back pain only (principal); M54.16 Radiculopathy, lumbar region; M54.17 Radiculopathy, lumbosacral region | CPT/HCPCS: 99212 ==

== ENCOUNTER 2024-05-06 07:23 | Outpatient (REF) | payer OTHER, SELFPAY ==
[2024-05-06 09:16] LABS: Alanine Aminotransferase 30 U/L (0-40); Alkaline Phosphatase 65 U/L (39-117); Anion Gap 12 (12-20); Aspartate Amino Transferase 25 U/L (5-37); Bilirubin Total 0.4 mg/dL (0.0-1.0); Blood Urea Nitrogen 13 mg/dL (9-16); Calcium 8.9 mg/dL (8.4-10.2); Carbon Dioxide 30 mmol/L (22-29); Chloride 104 mmol/L (96-108); Cholesterol 141 mg/dL (<200); Estimated Glomerular Filt Rate > 60; Glucose Fasting 111 mg/dL (60-99); HDL Cholesterol 43 mg/dL (>40); LDL Cholesterol Calculated 75 mg/dL (<100); Potassium 3.7 mmol/L (3.3-5.1); Sodium 142 mmol/L (135-145); Total Protein 7.5 g/dL (6.5-8.0); Triglycerides 115 mg/dL (<150)
[2024-05-11 18:13] LABS: Testosterone, Free 57.6 pg/mL (35.0-155.0); Testosterone, Total 427 ng/dL (250-1100)
== END 2024-05-06 07:24 | disposition home or self-care (01) ==
LOC: HO.LAB 07:23
PROVIDERS: Urology; PCP Internal Medicine; Visit Provider Internal Medicine
DX: I10 Essential (primary) hypertension (principal); E78.5 Hyperlipidemia, unspecified; N52.9 Male erectile dysfunction, unspecified
CPT/HCPCS: 36415; 80053; 80061; 84402; 84403

== ENCOUNTER 2024-06-13 10:00 | Emergency (ER) | payer OTHER, SELFPAY ==
[2024-06-13 10:31] VITALS: BP 142/93; PULSE 74; RESP 16; TEMP 36.6; O2SAT 96; BMI 35.3
--- NOTE | 2024-06-13 12:07 | ED_ITS ---
HPI - Back Pain/Injury General Chief Complaint: Back Pain/Injury Stated Complaint: Lower back pain Time Seen by Provider: 06/13/24 11:02 Source: patient Mode of arrival: ambulatory Limitations: no limitations History of Present Illness ED Provider: Nazario Raymond PA-C HPI Narrative: 59 yo male with history of chronic back pain 2/2 left lumosacral radiculopathy, lumbar disc herniation on gabapentin who presents to the ER for evaluation of worsening left lower back pain since last night. no injury or preceding event that he can recall to cause the pain. he reports it is aching and stabbing in the left lower back and sends a shooting shock down the left leg. he has chronic numbness in the left toes. no weakness in the left leg. no bowel/bladder issues. no saddle paresthesias. he is due to follow up with the pain clinic for injections but he is still waiting for information to be sent over from his PCP. MD elicited complaint: back pain Pertinent past history: prior back pain Onset (ago): day(s) Timing: constant and progressively worsening Similar Symptoms Previously: Yes Quality: stabbing and aching Location: left lower back Radiation: left leg below the knee Exacerbating factors: movement Relieving factors: sitting upright Context: unknown Associated symptoms: denies other symptoms Work related injury: No Related Data Previous Rx's ?Medication ?Instructions ?Recorded fluticasone propionate 50 1 spray intranasal DAILY #16 mL 04/23/20 mcg/actuation nasal spray,suspension albuterol sulfate 90 mcg/actuation 2 puff inhalation Q6H PRN 06/16/22 aerosol inhaler shortness of breath or wheezing #6.7 grams walker (Ultra-Light Rollator misc) #1 ea 09/20/23 omega-3 fatty acids 1,000 mg 1,000 mg PO DAILY #90 caps 09/28/23 capsule venlafaxine 150 mg 150 mg PO BEDTIME 90 days #90 caps 10/24/23 capsule,extended release 24 hr loratadine 10 mg tablet 10 mg PO DAILY PRN allergy 10/25/23 symptoms 90 days #90 tabs lorazepam 0.5 mg tablet (Ativan) 0.5 mg PO DAILY PRN anxiety 1 day 01/15/24 #2 tabs tadalafil 5 mg tablet 5 mg PO DAILY 30 days #30 tabs 01/24/24 hydrochlorothiazide 25 mg tablet 25 mg PO DAILY #90 tabs 01/30/24 ibuprofen 800 mg tablet 800 mg PO Q8H #30 tabs 01/30/24 lisinopril 40 mg tablet 40 mg PO DAILY 90 days #90 tabs 01/30/24 acetaminophen 500 mg tablet 500 - 1,000 mg (1 - 2 x 500 mg) PO 03/31/24 (Tylenol Extra Strength) Q6H PRN pain #30 tabs lidocaine 5 % topical patch 1 patch topical DAILY #30 ea 03/31/24 (Lidoderm) atenolol 50 mg tablet 50 mg PO DAILY 90 days #90 tabs 04/06/24 tramadol 50 mg tablet 50 mg PO BID PRN pain 5 days #10 04/22/24 tabs clotrimazole-betamethasone 1 1 appl topical BID 30 days #15 04/25/24 %-0.05 % topical cream grams atorvastatin 20 mg tablet 20 mg PO BEDTIME 90 days #90 tabs 06/05/24 gabapentin 300 mg capsule 300 mg PO BID pain 30 days #60 caps 06/09/24 cyclobenzaprine 10 mg tablet 10 mg PO TID PRN muscle spasm #10 06/13/24 tabs lidocaine 5 % topical patch 1 patch topical DAILY #15 ea 06/13/24 prednisone 50 mg tablet 50 mg PO DAILY #4 tabs 06/13/24 Allergies Allergy/AdvReac Type Severity Reaction Status Date / Time No Known Allergies Allergy Verified 06/13/24 10:34 [No Known Allergies*] Review of Systems Review of Systems: Yes all other systems are reviewed and are negative PMFSH Past Medical History Medical History Physical exam Mild recurrent major depression Class 1 obesity with body mass index (BMI) of 34.0 to 34.9 in adult Erectile disorder, acquired, generalized, severe Anxiety and depression Allergic rhinitis Insomnia Eczema Impaired glucose tolerance Essential hypertension Surgical History H/O colonoscopy History of removal of cyst Family History Family History Father Cancer Mother Diabetes Hypertension Brother No problems noted. Sister No problems noted. Son No problems noted. Daughter No problems noted. 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 Oriented X3. No acute distress. HEENT: normal inspection CVS: Normal heart rate and rhythm. Pulses normal. Respiratory: No respiratory distress. Skin: Skin warm and dry. Normal skin color. Normal skin turgor. No rashes. Back: normal inspection. no midline tenderness of the cervical or thoracic spine. upper and middle lumbar spine with mild tenderness and left sided soft tissue tenderness with palpable spasm. +straight leg raise test. Extremities: normal inspection x4. no joint swelling Neuro: Oriented X 3. No motor deficit. No sensory deficit. slow but steady gait Medications Administered Discontinued Medications Generic Name Dose Route Start Last Admin Trade Name Christofer PRN Reason Stop Dose Admin Acetaminophen 975 mg 06/13/24 12:12 06/13/24 12:39 Acetaminophen 325 Mg Tablet PO 06/13/24 12:13 975 mg ONCE ONE Administration Ketorolac Tromethamine 30 mg 06/13/24 12:12 06/13/24 12:42 Ketorolac Tromethamine 30 Mg/Ml Vial IM 06/13/24 12:13 30 mg ONCE ONE Administration Lidocaine 1 patch 06/13/24 12:12 06/13/24 12:39 Lidocaine 4 % Patch Adh..Patch TRANSDERMA 06/13/24 12:13 1 patch ONCE ONE Administration Protocol Prednisone 50 mg 06/13/24 12:12 06/13/24 12:38 Prednisone 10 Mg Tablet PO 06/13/24 12:13 50 mg ONCE ONE Administration Medical Decision Making Medical Decision Making MDM Narrative: 59 yo male presenting with acute on chronic low back pain. no trauma or injury. no red flag symptoms of low back pain. he had MRI in feb 16 showing stable degenerative changes will start on prednisone and muscle relaxer. encouraged to f/u with PCP for possible PT as he has never tried this before. he is also awaiting pain clinic referral for injections return precautions discussed Differential Diagnosis Differential Diagnoses: The differential diagnosis associated with the presentation includes Inflammatory disorders, malignancy, trauma, osteoporosis, nerve root compression, radiculopathy, plexopathy, degenerative disc disease, disc herniation, spinal stenosis, sacroiliac joint dysfunction, facet joint injury, and less likely infection?like abscess or diskitis External Record Review External record reviewed: Prior outpatient labs and Prior outpatient radiology Tests considered The following testing was considered but not selected: considered UA and spinal x-rays Prescription Management I considered prescription management with: Pain Medication and Other (steroid, muscle relaxer) Chronic Conditions Patient?s care impacted by: Other (back pain) Critical Care Time Critical Care Time Critical Care Time: No Discharge Plan Discharge Clinical Impression: Lumbar radiculopathy Patient Disposition: Home, Self-Care Instructions: Lumbar Radiculopathy (ED), Lower Back Exercises (ED) Additional Instructions: Take the prescribed prednisone course, starting tomorrow to help with the inflam mation in your back. No bending, lifting or twisting. Use ice several times per day for 20 minutes at a time for the next 48 hours and then change to heat. Take the prescribed muscle relaxer to help with pain and discomfort. Follow up with your Primary Care Doctor this week. If your pain worsens, if you develop new numbness, tingling, weakness, loss of function or incontinence call 911 or come back to the ER right away for evaluation. Prescriptions: New cyclobenzaprine 10 mg tablet 10 mg PO TID PRN (Reason: muscle spasm) Qty: 10 0RF prednisone 50 mg tablet 50 mg PO DAILY Qty: 4 0RF lidocaine 5 % adhesive patch,medicated 1 patch topical DAILY Qty: 15 0RF Rx Instructions: leave on most painful area for up to 12 hrs No Action fluticasone propionate 50 mcg/actuation spray,suspension 1 spray intranasal DAILY Qty: 16 6RF (DME) Ultra-Light Rollator Misc See Rx Instructions .Route Qty: 1 0RF Rx Instructions: As directed omega-3 fatty acids 1,000 mg capsule 1,000 mg PO DAILY Qty: 90 6RF venlafaxine 150 mg capsule,extended release 24hr 150 mg PO BEDTIME 90 Days Qty: 90 1RF loratadine 10 mg tablet 10 mg PO DAILY PRN (Reason: allergy symptoms) 90 Days Qty: 90 1RF lorazepam [Ativan] 0.5 mg tablet 0.5 mg PO DAILY PRN (Reason: anxiety) 1 Days Qty: 2 0RF Rx Instructions: Take 1 to 2 tabs 45 minutes before MRI lisinopril 40 mg tablet 40 mg PO DAILY 90 Days Qty: 90 1RF ibuprofen 800 mg tablet 800 mg PO Q8H Qty: 30 1RF hydrochlorothiazide 25 mg tablet 25 mg PO DAILY Qty: 90 2RF atenolol 50 mg tablet 50 mg PO DAILY 90 Days Qty: 90 3RF clotrimazole-betamethasone 1-0.05 % cream 1 appl topical BID 30 Days Qty: 15 1RF atorvastatin 20 mg tablet 20 mg PO BEDTIME 90 Days Qty: 90 0RF gabapentin 300 mg capsule 300 mg PO BID 30 Days Qty: 60 1RF acetaminophen [Tylenol Extra Strength] 500 mg tablet 500 - 1,000 mg PO Q6H PRN (Reason: pain) Qty: 30 0RF lidocaine [Lidoderm] 5 % adhesive patch,medicated 1 patch topical DAILY Qty: 30 0RF Rx Instructions: leave on most painful area for up to 12 hrs albuterol sulfate 90 mcg/actuation HFA aerosol inhaler 2 puff inhalation Q6H PRN (Reason: shortness of breath or wheezing) Qty: 6.7 0RF tadalafil 5 mg tablet 5 mg PO DAILY 30 Days Qty: 30 5RF Rx Instructions: PLEASE USE COUPON ATTACHED INSURANCE WILL NOT COVER MEDICATION [id number] [facility] [id number] Member [id number] tramadol 50 mg tablet 50 mg PO BID PRN (Reason: pain) 5 Days Qty: 10 0RF Interventions: ED Discharge Assessment Last Done: 06/13/24 13:13 Discharge Date/Time: 06/13/24 13:15 Print Language: Mongolian
[2024-06-13] MEDS: predniSONE 10 MG TABLET 50 MG PO (12:38)
[2024-06-13] MEDS: Acetaminophen 325 MG TABLET 975 MG PO (12:39)
[2024-06-13] MEDS: Lidocaine 4 % Patch ADH..PATCH 1 PATCH TRANSDERMA (12:39)
[2024-06-13] MEDS: Ketorolac Tromethamine 30 MG/ML VIAL IM (12:42)
[2024-06-13 13:13] VITALS: BP 161/103; PULSE 62; RESP 20; TEMP 36.9; O2SAT 96
== END 2024-06-13 13:15 | disposition home or self-care (01) ==
PROVIDERS: Emergency Provider Emergency Medicine; PCP Internal Medicine
DX: M54.16 Radiculopathy, lumbar region (principal); M79.605 Pain in left leg; M54.50 Low back pain, unspecified; Z79.899 Other long term (current) drug therapy; Z87.891 Personal history of nicotine dependence
CPT/HCPCS: 96372; 99284; J1885

== ENCOUNTER 2024-07-01 09:37 | Outpatient (AMB) | payer OTHER, SELFPAY ==
--- NOTE | 2024-07-01 09:41 | A.OFFVIS_ITS ---
Vital Signs 07/01/24 09:44 Height 5 ft 7 in Weight 231 lb 8 oz BMI 36.3 BP 175/111 H Blood Pressure Location Rt brachial Position Sitting Pulse 78 Pulse Source Pulse Oximeter Pulse Oximetry (%) 99 Oxygen Delivery Method Room Air Intake Visit Reasons: Follow Up/Pt Request/missed on 06/24 Intake Note: Pain today 7/10 Sql Manager Required: No Accompanied by: Self / Same As Patient Allergies No Known Allergies [No Known Allergies*] Allergy (Verified 07/01/24 09:45) HPI Comments Details: The patient is a 59-year-old male presenting with chronic low back pain management. He experiences multifactorial back pain due to left lumbar radiculopathy, compounded by degenerative disc disease and spinal osteoarthritis. Symptoms include pain radiating to the left leg, occasionally affecting the front but mainly posteriorly, with an intensity rating of 7/10. Pain has been persistent over months and intensifies with activities such as extended walking, bending, lifting, or twisting. The patient has a history of seeking emergency care, with temporary relief achieved through prescribed medication regimens including lidocaine patches, prednisone, and cyclobenzaprine. The patient experiences numbness in the left leg and buttock when standing too long, but no bowel or urinary incontinence. Current and past pain management includes nonsteroidal anti-inflammatory drugs, gabapentin, and requests for cyclobenzaprine refills are noted. - Onset and Timing: Chronic pain,persistent over past 4 months - Quality and Character: Multifactorial pain, due to radiculopathy and arthritis - Primary Location: Lumbar region - Radiation: Left buttock and posteriorly to left leg, at times to anterior thigh - Exacerbating Factors: Extended walking, bending, lifting, twisting, standing too long - Alleviating Factors: Lidocaine patches, prednisone, cyclobenzaprine provided temporary relief - Impact on Function: Pain level 7/10; interferes with mobility and daily activities - Affect: Impacting daily functioning, with responsibilities at home increasing stress - Analgesia: Lidocaine patches, prednisone, cyclobenzaprine, ibuprofen, gabapentin; pain remains 7/10 with temporary relief from medication - Adverse Effects: Significant drowsiness from cyclobenzaprine; avoids usage with alcohol, gabapentin, and tramadol (past use) - Activities of Daily Living: Pain impacts mobility and caregiving responsibilities; aims to improve function and reduce pain with therapy and medication - Aberrant Drug Related Behaviors: None reported PRIOR: Patient presents today for follow-up for persistent chronic low back pain with left-sided radiculopathy. He was recently seen by [facility] and was deemed nonsurgical. Patient continues to endorse axial low back pain and left leg and numbness, tingling, and weakness in L5-S1 distribution. Back pain continues to limit his daily functioning and mobility, affects his sleep and has been resistant to conservative treatment including opioid and NSAID medications. Patient is interested to undergo interventional treatments to address his full axial low back pain and left-sided radiculopathy. Denies any fever or chills, abdominal or groin pain, bladder or bowel dysfunction or saddle anesthesia. Reports intermittent left lower extremity weakness with flare up in low back pain with left leg pain. PRIOR: Patient is a 58-year-old male with history of lumbar back sprain, left-sided radiculopathy, lumbar degenerative disc disease, anxiety, depression, obesity, erectile dysfunction, history of falls, presents today for initial evaluation of low back pain with radiation into his left buttock and into left lower extremity posteriorly with associated stabbing, sharp, tingling and numbness sensations. Denies any recent trauma, injury, or falls. He reports seeing provider at [facility] and receiving injection for L4-L5 level with good results. [facility] EMR review noted for multiple ER visits for lumbar strain, sciatica, left lumbar radiculopathy x7 visits from 11/21/20-09/17/23. 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 He completed physical therapy in 2021 without improvement in his functioning or pain. Denies previous spine surgery. This has been longstanding pain for him which is worse with movement and better with rest. Pain is constant and is most severe in the mornings. Pain affects his daily activities and functioning, mood, sleep, mobility, and recreational activities. He ambulates with mildly antalgic gait without limping. Denies any fever or chills, abdominal or groin pain, weakness, foot drop, bladder or bowel dysfunction or saddle anesthesia. Location: Left-sided low back pain radiates Duration: Chronic pain for 2 years, progressively getting worse for past one year Characteristics of symptom or complaint: Aching, shooting, numbness, tingling, burning Aggravating or associated factors: Walking, bending, heavy lifting, twisting, sleeping, rainy cold weather Relieving factors: Walker, rest, Tylenol, Ibuprofen, lidocaine patches, prednisone, tramadol Treatment: PT, back injection at [facility], MRI lumbar 2 months ago, multiple ER visits [facility] Medical History Physical exam Mild recurrent major depression Class 1 obesity with body mass index (BMI) of 34.0 to 34.9 in adult Erectile disorder, acquired, generalized, severe Anxiety and depression Allergic rhinitis Insomnia Eczema Impaired glucose tolerance Essential hypertension Surgical History H/O colonoscopy History of removal of cyst Family History Father Cancer Mother Diabetes Hypertension Brother No problems noted. Sister No problems noted. Son No problems noted. Daughter No problems noted. 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 Alert and oriented. Mood and affect appropriate. Follows and participates in conversation appropriately. Respiratory effort is unlabored. No cough. Able to transition from sit to stand unassisted. Ambulates with bilaterally normal heel strike and toe off. Observed ability to transfer between chair to exam table without significant difficulty, with some improvement noted since the previous visit. General: Yes no CVA tenderness Back/Spine/Pelvis Other: Limited lumbar ROM due to pain. Mildly antalgic gait, no limping. Lumbar extension, axial rotations, and flexion forward reproduce moderate pain. Demonstrates 5/5 strength of quadriceps bilaterally as well as flexion/dorsiflexion of bilateral feet against resistance. 2+ pedal pulses bilaterally. Straight leg rise with dorsiflexion is negative bilaterally. +1 patellar and achilles reflexes bilaterally. Facet loading test positive bilaterally. Michelle sign positive on the left, Truman?s reproduces left lateral hip pain but not low back pain. No groin pain with I/E hip rotations. Valsalva maneuver is negative. Back: no CVA tenderness Cervical Spine: cervical ROM normal, cervical muscular tenderness, No Cervical spine tenderness and No step off deformity Thoracic/Lumbar Spine: thoracic and lumbar spine normal to inspection, No Thoracic/lumbar spine scar(s), Lasegue's sign negative, straight leg raise negative bilaterally, pain with thoraco-lumbar ROM, paraspinal muscle tenderness on the left greater than right, thoraco-lumbar ROM limited, No thoracic spinal tenderness and lumbar spinal tenderness (L4-S1) Pelvis: no pain with anterior-posterior compression and buttock tenderness on the left Sacroiliac joints: on the right nontender and on the left tender to palpation Extrem General: Yes capillary refill normal, Yes no clubbing, cyanosis or edema and Yes no calf tenderness Results Reviewed Results Reviewed: RADIOGRAPHS LUMBAR SPINE 03/08/23 CLINICAL INFORMATION: Fall. Low back pain. COMPARISON: Lumbar spine x-rays February 16, 2023 FINDINGS: Lumbar spine: 5 nonrib-bearing lumbar vertebral bodies are visualized. Alignment is within normal limits. Lumbar vertebral body heights are maintained. There is mild disc space narrowing at the L3/4 and L5/S1 levels. Tiny osteophytes are scattered throughout the lumbar spine. There are mild degenerative changes of the posterior elements of the lower lumbar spine. Sacroiliac joints are symmetric. Suspected 4 mm right renal calculus. IMPRESSION: 1. No acute pulmonary pathology. 2. Mild degenerative changes of the lumbar spine without compression deformity. MR SPINE LUMBAR without CONTRAST 02/19/24 RAYUS INDICATION: Lower back pain radiating to left ongoing for 2 years. Intervertebral disc degeneration. TECHNIQUE: Unenhanced multiplanar, multisequence MR imaging of the lumbar spine. COMPARISON: MR lumbar 04/28/2023. FINDINGS: Normal lumbar alignment is demonstrated. Vertebral heights are well maintained. There is disc desiccation and disc space narrowing at L3-4 and L4-5. Bone marrow signal is within normal limits, and no suspicious osseous lesion is identified. Conus medullaris is unremarkable. Paraspinal soft tissues and visualized portions of the abdomen and pelvis are unremarkable. At L1-2 there is no significant disc herniation or protrusion. No central canal or neural foraminal stenosis is demonstrated. At L2-3 there is mild annular disc bulge and mild facet arthrosis. Central canal is patent with foraminal stenosis. At L3-4 there is broad-based disc bulge and mild facet arthrosis and ligament flavum hypertrophy. There is mild narrowing of the central canal with mild right and moderate left neural foraminal stenosis. Findings appear stable. At L4-5 there is broad-based disc bulge and mild facet arthrosis. There is mild to moderate central canal stenosis with advanced right and moderate to advanced left neural foraminal stenosis. Findings appear stable. At L5-S1 there is mild annular disc bulge and mild facet arthrosis. Central canal is patent. There is moderate right and advanced left neural foraminal stenosis. Findings appear stable. IMPRESSION: Stable appearance degenerative changes lumbar spine greater at L3-4 and L4-5. Narrowing of the neuroforamina at L5-S1 greater on the left. Findings appear stable. Assessment & Plan Assessment & Plan (1) Lumbar degenerative disc disease: Code(s): M51.36 - Other intervertebral disc degeneration, lumbar region Category: Medical (2) Lumbosacral spondylosis: Code(s): M47.817 - Spondylosis without myelopathy or radiculopathy, lumbosacral region Category: Medical Qualifiers: Spinal osteoarthritis complication: with radiculopathy Qualified Code(s): M47.27 - Other spondylosis with radiculopathy, lumbosacral region (3) Left lumbosacral radiculopathy: Code(s): M54.17 - Radiculopathy, lumbosacral region Category: Medical (4) Muscle spasm of back: Code(s): M62.830 - Muscle spasm of back Category: Medical Plan Patient with chronic low back pain and partial improvement in left sided radicular symptoms s/p ER visit in May with oral steroid and muscle relaxant. He is willing to continue conservative management approach that includes physical therapy to reduce pain and enhance core strength. Before considering injection therapy post-physical therapy, reevaluation will be essential. The patient is advised on safe medication practices, avoiding simultaneous use of cyclobenzaprine, gabapentin, and tramadol. Patient reports he is no longer taking tramadol. Continuation of ibuprofen and cyclobenzaprine will be prescribed as necessary. An appointment for reassessment following therapy completion is planned. Patient was informed and verbally consented to the use of an ambient scribe for clinic note documentation during this visit. Orders: Orders PT Evaluation and Treatment Today M47.27 - Other spondylosis with radiculopathy, lumbosacral region, M51.36 - Other intervertebral disc degeneration, lumbar region, M54.17 - Radiculopathy, lumbosacral region Medications: Refilled cyclobenzaprine 10 mg PO TID PRN 10 tabs 0RF muscle spasm Discontinued tramadol Discontinued Reason: Doctor's Order 50 mg PO BID 5 days PRN 10 tabs 0RF pain Patient Instructions: We extensively discussed the current management of chronic low back pain and lumbar radiculopathy. The patient was briefed on the multifactorial nature of his pain, involving both radiculopathy, disc degeneration and osteoarthritis. Emphasis was placed on starting physical therapy at [facility] to strengthen the core and reduce pain. The patient consented to referrals for physical therapy and the adoption of conservative management measures. Risks of improper medication use were highlighted, focusing on the potential for drug interactions. Future interventions will be considered following evaluation after completion of physical therapy. - Begin physical therapy at [facility] for pain management and core strengthening. - Continue taking ibuprofen, gabapentin and cyclobenzaprine as prescribed. - Refill cyclobenzaprine as needed, avoiding drowsiness-causing activities. - Avoid combining medication use of cyclobenzaprine with gabapentin. - Schedule a follow-up appointment post-physical therapy for reassessment of pain and consideration of injection therapy if needed. - Report any new or worsening symptoms immediately. Coding Level of Care Code Est Pt Level 4 (15807) Complex EM visit Add On G2211 Diagnoses Lumbar degenerative disc disease M51.36 Osteoarthritis of spine with radiculopathy, lumbosacral region M47.27 Spinal osteoarthritis complication: with radiculopathy Left lumbosacral radiculopathy M54.17 Muscle spasm of back M62.830
[2024-07-01 09:44] VITALS: BP 175/111; PULSE 78; O2SAT 99; BMI 36.3
== END 2024-07-01 09:58 | disposition home or self-care (01) ==
LOC: HO.PMC 09:37
PROVIDERS: PCP Internal Medicine; Visit Provider Nurse Practitioner Family
DX: M51.369 Other intervertebral disc degeneration, lumbar region without mention of lumbar back pain or lower extremity pain (principal); M47.27 Other spondylosis with radiculopathy, lumbosacral region; M62.830 Muscle spasm of back
CPT/HCPCS: 99214; G2211

== ENCOUNTER → 2024-07-01 09:37 | Outpatient (BNVA) | payer OTHER, SELFPAY | PROVIDERS: PCP Internal Medicine; Visit Provider Nurse Practitioner Family | DX: M51.360 Other intervertebral disc degeneration, lumbar region with discogenic back pain only (principal); M47.27 Other spondylosis with radiculopathy, lumbosacral region; M62.830 Muscle spasm of back | CPT/HCPCS: 99212 ==

== ENCOUNTER 2024-08-21 09:43 | Outpatient (RCR) | payer OTHER, SELFPAY ==
--- NOTE | 2024-07-30 13:24 | MHC.PT.EP ---
[facility] [place] [facility] [place] [facility] [place] [facility] [address] Yolanda Jacobsen [address] [phone] F: [phone] F: [phone] F: [phone] F: [phone] Physical Therapy Plan of Care Date of Evaluation: 07/30/24 Date of Surgery: Diagnosis: lumbosacral radiculopathy, spondylosis with radiculopathy, LEFT lumbosacral radiculopathy, lymbar degenerative disc disease (MD Dx) LEFT lumbar radiculopathy with disc bulges from L3-S1 verified on MRI (PT Dx) RS Assessment: Heladio is a pleasant, motivated 59 y.o. male who is referred to PT by Dr. Lorrie Tinsley MD, with Dx of lumbosacral radiculopathy, spondylosis with radiculopathy, LEFT lumbosacral radiculopathy, lymbar degenerative disc disease. PT diagnosis is LEFT lumbar radiculopathy with disc bulges from L3-S1 verified on MRI. Patient impairments include poor postures, pain with radiculopathy to L toes, limited lumbar ROM, weakness in core/abdominal musculature creating reduced stability of lumbar spine, weakness in L LE in hip, knee and ankle. Patient current functional limitations are difficulty putting on shoes, stair use, bend/squat, prolonged walking. Patient will benefit from skilled PT to address aforementioned impairments and functional limitations to meet established goals. Frequency and Duration: The patient will be seen 2x/week for 4 weeks Short Term Goals: 2 weeks Patient demonstrates consistency and independence with HEP to self manage symptoms. Patient is able to demonstrate understanding of centralization vs peripheralization of lumbar radicular sxs in positional management of his symptoms. Mcfp Goals: 4 weeks Patient presents with increased lumbar spine flexion 80 degrees to restore mobility for putting on shoes/socks. Patient presents with increased L hip glute med strength 4/5 to improve gait long distances without compensations for grocery shopping. Treatment Plan: Modalities to reduce pain, spasms and effusion. Manual therapy to restore motion and function. Therapeutic exercise to improve strength and flexibility. Neuromuscular re-education for posture and balance. Therapeutic activities to return to functional activities of daily living. Electronically signed by: William Steel PT, DPT Please sign and return to therapist. Thank you for your referral.
--- NOTE | 2024-10-16 15:27 | MHC.PT.DC ---
[facility] [place] Office [place] Office [place] Office [address] Yolanda Jacobsen [address] [phone] F: [phone] F: [phone] F: [phone] F: [phone] Physical Therapy Discharge Report Diagnosis: lumbosacral radiculopathy, spondylosis with radiculopathy, LEFT lumbosacral radiculopathy, lymbar degenerative disc disease (MD Dx) LEFT lumbar radiculopathy with disc bulges from L3-S1 verified on MRI (PT Dx) RS Date of Surgery: Date of Evaluation: 07/30/24 Date of Discharge: 10/16/24 Treatments to Date: 7 Cancellations to Date: 2 No Shows to Date: 4 Discharge Status: Improved Function Independent with HEP Patient Elected to Stop Discharge Summary: Heladio was last seen in PT on 08/21/24 the assessment on that date reads, He reports his back feels great after massage in prone. He does well with all core and glute strengthening exercises. His back symptoms continue to remain centralized and pain level is reducing. He did not attend his last scheduled PT session. His is discharged from PT at this time. Electronically signed by: William Steel, PT, DPT Please sign and return to therapist. Thank you for your referral.
== END 2024-10-16 15:28 | disposition home or self-care (01) ==
LOC: HO.PT 09:43
PROVIDERS: PCP Internal Medicine; Visit Provider Nurse Practitioner Family
DX: M47.27 Other spondylosis with radiculopathy, lumbosacral region (principal); M51.369 Other intervertebral disc degeneration, lumbar region without mention of lumbar back pain or lower extremity pain
CPT/HCPCS: 97110; 97140; 97162; 97530; 97535

== ENCOUNTER 2024-09-11 09:37 | Outpatient (REF) | payer OTHER, SELFPAY ==
--- NOTE | ~2024-09-11 | XR_ITS ---
CLINICAL HISTORY: M54.2 - Cervicalgia 8 views cervical spine Comparison: None provided Findings: Normal vertebral body alignment. No acute fractures or dislocation. No significant degenerative change. No prevertebral soft tissue swelling. Oblique views demonstrate widely patent bony foramen. IMPRESSION: No acute findings. No significant degenerative change. This document has been electronically signed by: Akbar Martinez MD on 09/12/2024 08:51:45
== END 2024-09-11 09:38 | disposition home or self-care (01) ==
LOC: HO.XRAY 09:37
PROVIDERS: PCP Internal Medicine; Visit Provider Nurse Practitioner Family
DX: M54.2 Cervicalgia (principal); M62.838 Other muscle spasm; M51.360 Other intervertebral disc degeneration, lumbar region with discogenic back pain only; M47.27 Other spondylosis with radiculopathy, lumbosacral region
CPT/HCPCS: 72052; 99212

== ENCOUNTER 2024-09-11 09:37 | Outpatient (AMB) | payer OTHER, SELFPAY ==
--- NOTE | 2024-09-11 09:39 | A.OFFVIS_ITS ---
Vital Signs 09/11/24 09:42 Height 5 ft 7 in Weight 225 lb 4 oz BMI 35.3 BP 163/114 H Blood Pressure Location Rt brachial Position Sitting Pulse 98 Pulse Source Pulse Oximeter Pulse Oximetry (%) 99 Oxygen Delivery Method Room Air Intake Visit Reasons: Follow up Intake Note: Pain today 3/10 Owner Operator Required: No Accompanied by: Self / Same As Patient Allergies No Known Allergies (No Known Allergies*) Allergy (Verified 09/11/24 09:43) HPI Comments Details: The patient is a 59-year-old male presenting with chronic low back pain and left-sided lumbosacral radiculopathy. The low back pain has been persistent, with a current pain level of 3/10. The patient completed 7 sessions of physical therapy, which he found very beneficial, and continues to perform stretching exercises at home. The patient reports minimal left leg pain and no significant numbness or tingling in the back or leg currently. He has a history of spondylosis, arthritis, and degenerative disc disease, which contribute to his chronic symptoms. The patient has not been taking any medications for pain management since physical therapy and has not received any injections at the current facility. Given minimal low back pain and no left leg pain today, he would like to hold off on any interventional treatments for now. The patient also experiences cervical tension, particularly in the mornings, which sometimes leads to neck pain and tension headaches. 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 A neck x-ray was performed two years ago and was normal, we will update his imaging to assess current conditions before further chiropractic interventions. PRIOR: The patient is a 59-year-old male presenting with chronic low back pain management. He experiences multifactorial back pain due to left lumbar radiculopathy, compounded by degenerative disc disease and spinal osteoarthritis. Symptoms include pain radiating to the left leg, occasionally affecting the front but mainly posteriorly, with an intensity rating of 7/10. Pain has been persistent over months and intensifies with activities such as extended walking, bending, lifting, or twisting. The patient has a history of seeking emergency care, with temporary relief achieved through prescribed medication regimens including lidocaine patches, prednisone, and cyclobenzaprine. The patient experiences numbness in the left leg and buttock when standing too long, but no bowel or urinary incontinence. Current and past pain management includes nonsteroidal anti-inflammatory drugs, gabapentin, and requests for cyclobenzaprine refills are noted. - Onset and Timing: Chronic pain,persistent over past 4 months - Quality and Character: Multifactorial pain, due to radiculopathy and arthritis - Primary Location: Lumbar region - Radiation: Left buttock and posteriorly to left leg, at times to anterior thigh - Exacerbating Factors: Extended walking, bending, lifting, twisting, standing too long - Alleviating Factors: Lidocaine patches, prednisone, cyclobenzaprine provided temporary relief - Impact on Function: Pain level 7/10; interferes with mobility and daily activities - Affect: Impacting daily functioning, with responsibilities at home increasing stress - Analgesia: Lidocaine patches, prednisone, cyclobenzaprine, ibuprofen, gabapentin; pain remains 7/10 with temporary relief from medication - Adverse Effects: Significant drowsiness from cyclobenzaprine; avoids usage with alcohol, gabapentin, and tramadol (past use) - Activities of Daily Living: Pain impacts mobility and caregiving responsibilities; aims to improve function and reduce pain with therapy and medication - Aberrant Drug Related Behaviors: None reported PRIOR: Patient presents today for follow-up for persistent chronic low back pain with left-sided radiculopathy. He was recently seen by [facility] and was deemed nonsurgical. Patient continues to endorse axial low back pain and left leg and numbness, tingling, and weakness in L5-S1 distribution. Back pain continues to limit his daily functioning and mobility, affects his sleep and has been resistant to conservative treatment including opioid and NSAID medications. Patient is interested to undergo interventional treatments to address his full axial low back pain and left-sided radiculopathy. Denies any fever or chills, abdominal or groin pain, bladder or bowel dysfunction or saddle anesthesia. Reports intermittent left lower extremity weakness with flare up in low back pain with left leg pain. PRIOR: Patient is a 58-year-old male with history of lumbar back sprain, left-sided radiculopathy, lumbar degenerative disc disease, anxiety, depression, obesity, erectile dysfunction, history of falls, presents today for initial evaluation of low back pain with radiation into his left buttock and into left lower extremity posteriorly with associated stabbing, sharp, tingling and numbness sensations. Denies any recent trauma, injury, or falls. He reports seeing provider at [facility] and receiving injection for L4-L5 level with good results. [facility] EMR review noted for multiple ER visits for lumbar strain, sciatica, left lumbar radiculopathy x7 visits from 11/21/20-09/17/23. 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 He completed physical therapy in 2021 without improvement in his functioning or pain. Denies previous spine surgery. This has been longstanding pain for him which is worse with movement and better with rest. Pain is constant and is most severe in the mornings. Pain affects his daily activities and functioning, mood, sleep, mobility, and recreational activities. He ambulates with mildly antalgic gait without limping. Denies any fever or chills, abdominal or groin pain, weakness, foot drop, bladder or bowel dysfunction or saddle anesthesia. Location: Left-sided low back pain radiates Duration: Chronic pain for 2 years, progressively getting worse for past one y ear Characteristics of symptom or complaint: Aching, shooting, numbness, tingling, burning Aggravating or associated factors: Walking, bending, heavy lifting, twisting, sleeping, rainy cold weather Relieving factors: Walker, rest, Tylenol, Ibuprofen, lidocaine patches, prednisone, tramadol Treatment: PT, back injection at [facility], MRI lumbar 2 months ago, multiple ER visits [facility] Medical History Physical exam Mild recurrent major depression Class 1 obesity with body mass index (BMI) of 34.0 to 34.9 in adult Erectile disorder, acquired, generalized, severe Anxiety and depression Allergic rhinitis Insomnia Eczema Impaired glucose tolerance Essential hypertension Surgical History H/O colonoscopy History of removal of cyst Family History Father Cancer Mother Diabetes Hypertension Brother No problems noted. Sister No problems noted. Son No problems noted. Daughter No problems noted. 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 - Neurological: Denies significant numbness or tingling in the back or leg. - Cervical: Reports pain and tension in the neck, especially in the mornings. All systems reviewed & are unremarkable except as noted in HPI and below Physical Exam Vital Signs: Last Vital Signs Pulse 98 09/11/24 09:42 BP 163/114 H 09/11/24 09:42 Pulse Ox 99 09/11/24 09:42 Oxygen Delivery Method Room Air 09/11/24 09:42 BMI result Body Mass Index 35.3 General: Appears afebrile. No acute distress. Alert and oriented. Mood and affect appropriate. Follows and participates in conversation appropriately. Respiratory effort is unlabored. No cough. Able to transition from sit to stand unassisted. Ambulates with bilaterally normal heel strike and toe off. Neck Neck: Yes normal visual inspection, Yes no lymphadenopathy, Yes supple, No anterior neck swelling, Yes no JVD, No prominent supraclavicular fat pad and Yes prominent dorsocervical fat pad General: Yes no CVA tenderness Back/Spine/Pelvis Back: no CVA tenderness Cervical Spine: No Lhermitte's sign positive, cervical muscular tenderness, pain with cervical ROM (limited with extension and right lateral rotation), No Cervical spine scars present, cervical spasm (right>left), No Cervical spine tenderness and No step off deformity Thoracic/Lumbar Spine: thoracic and lumbar spine normal to inspection, No Thoracic/lumbar spine scar(s), Lasegue's sign negative, straight leg raise negative bilaterally, pain with thoraco-lumbar ROM, paraspinal muscle tenderness, thoraco-lumbar ROM limited, No thoracic spinal tenderness and lumbar spinal tenderness (L4-S1) Pelvis: no pain with anterior-posterior compression and buttock tenderness on the left Sacroiliac joints: on the right nontender and on the left tender to palpation Extrem General: Yes capillary refill normal, Yes no clubbing, cyanosis or edema and Yes no calf tenderness Results Reviewed Results Reviewed: RADIOGRAPHS LUMBAR SPINE 03/08/23 CLINICAL INFORMATION: Fall. Low back pain. COMPARISON: Lumbar spine x-rays February 16, 2023 FINDINGS: Lumbar spine: 5 nonrib-bearing lumbar vertebral bodies are visualized. Alignment is within normal limits. Lumbar vertebral body heights are maintained. There is mild disc space narrowing at the L3/4 and L5/S1 levels. Tiny osteophytes are scattered throughout the lumbar spine. There are mild degenerative changes of the posterior elements of the lower lumbar spine. Sacroiliac joints are symmetric. Suspected 4 mm right renal calculus. IMPRESSION: 1. No acute pulmonary pathology. 2. Mild degenerative changes of the lumbar spine without compression deformity. MR SPINE LUMBAR without CONTRAST 02/19/24 RAYUS INDICATION: Lower back pain radiating to left ongoing for 2 years. Intervertebral disc degeneration. TECHNIQUE: Unenhanced multiplanar, multisequence MR imaging of the lumbar spine. COMPARISON: MR lumbar 04/28/2023. FINDINGS: Normal lumbar alignment is demonstrated. Vertebral heights are well maintained. There is disc desiccation and disc space narrowing at L3-4 and L4-5. Bone marrow signal is within normal limits, and no suspicious osseous lesion is identified. Conus medullaris is unremarkable. Paraspinal soft tissues and visualized portions of the abdomen and pelvis are unremarkable. At L1-2 there is no significant disc herniation or protrusion. No central canal or neural foraminal stenosis is demonstrated. At L2-3 there is mild annular disc bulge and mild facet arthrosis. Central canal is patent with foraminal stenosis. At L3-4 there is broad-based disc bulge and mild facet arthrosis and ligament flavum hypertrophy. There is mild narrowing of the central canal with mild right and moderate left neural foraminal stenosis. Findings appear stable. At L4-5 there is broad-based disc bulge and mild facet arthrosis. There is mild to moderate central canal stenosis with advanced right and moderate to advanced left neural foraminal stenosis. Findings appear stable. At L5-S1 there is mild annular disc bulge and mild facet arthrosis. Central canal is patent. There is moderate right and advanced left neural foraminal stenosis. Findings appear stable. IMPRESSION: Stable appearance degenerative changes lumbar spine greater at L3-4 and L4-5. Narrowing of the neuroforamina at L5-S1 greater on the left. Findings appear stable. XR LUMBAR SPINE XR SHOULDER, RIGHT XR CERVICAL SPINE 07/24/22 CLINICAL INDICATION: Pain in right shoulder, cervical spine and lumbar spine. TECHNIQUE: Lumbar spine 3 views, right shoulder 4 views. Cervical spine 4 views. FINDINGS: RIGHT SHOULDER: There are 2 loose bodies seen within the subacromial bursa. Loss of joint glenohumeral joint space with moderate inferior spurring is noted. AC joint is normal. No loose body seen. No fracture noted. LUMBAR SPINE: There is normal lumbar lordosis. The vertebral heights and alignment are normal. There is loss of L5-S1 and L3-L4 disc heights with mild ventral spondylosis. There is no visible acute fracture, dislocation or lytic process seen. The paravertebral soft tissues are normal. The SI joints are normal. CERVICAL SPINE: There is normal cervical lordosis. The vertebral heights, alignment and the disc heights are normal. The craniovertebral junction and C1-C2 alignment is normal. No visible acute fracture, dislocation or subluxation seen. IMPRESSION: Degenerative arthritic changes right shoulder with two moderate-sized loose bodies in the subacromial bursa. No acute fracture. L5-S1 degenerative disc changes lumbar spine. No acute fracture or lytic process. Unremarkable cervical spine exam. Assessment & Plan Assessment & Plan (1) Neck pain: Code(s): M54.2 - Cervicalgia Category: Medical (2) Muscle spasms of neck: Code(s): M62.838 - Other muscle spasm Category: Medical (3) Lower back pain: Code(s): M54.50 - Low back pain, unspecified Category: Medical (4) Lumbar degenerative disc disease: Code(s): M51.36 - Other intervertebral disc degeneration, lumbar region Category: Medical (5) Lumbosacral spondylosis: Code(s): M47.817 - Spondylosis without myelopathy or radiculopathy, lumbosacral region Category: Medical Qualifiers: Spinal osteoarthritis complication: with radiculopathy Qualified Code(s): M47.27 - Other spondylosis with radiculopathy, lumbosacral region (6) Muscle spasm of back: Code(s): M62.830 - Muscle spasm of back Category: Medical Plan The patient will continue with home exercises to manage chronic low back pain and left-sided lumbosacral radiculopathy, as physical therapy has been beneficial. Cervical spine x-ray is planned to evaluate cervical tension before considering further chiropractic interventions. If the patient wishes to address arthritis- related back pain further, scheduling injections may be considered. All questions and concerns been answered and patient agreed with the treatment plan. Follow-up as noted. Patient was informed and verbally consented to the use of an ambient scribe for clinic note documentation during this visit. Orders: Orders XR cervical spine w flex/ext Today M54.2 - Cervicalgia, M62.838 - Other muscle spasm Referrals Chiropractic Referral M54.2 - Cervicalgia, M62.838 - Other muscle spasm Coding Level of Care Code Est Pt Level 4 (52295) Complex EM visit Add On G2211 Diagnoses Neck pain M54.2 Muscle spasms of neck M62.838 Lower back pain M54.50 Lumbar degenerative disc disease M51.36 Osteoarthritis of spine with radiculopathy, lumbosacral region M47.27 Spinal osteoarthritis complication: with radiculopathy Muscle spasm of back M62.830
[2024-09-11 09:42] VITALS: BP 163/114; PULSE 98; O2SAT 99; BMI 35.3
== END 2024-09-11 10:03 | disposition home or self-care (01) ==
LOC: HO.PMC 09:38
PROVIDERS: PCP Internal Medicine; Visit Provider Nurse Practitioner Family
DX: M54.2 Cervicalgia (principal); M62.838 Other muscle spasm; M54.50 Low back pain, unspecified; M51.369 Other intervertebral disc degeneration, lumbar region without mention of lumbar back pain or lower extremity pain; M47.27 Other spondylosis with radiculopathy, lumbosacral region; M62.830 Muscle spasm of back
CPT/HCPCS: 99214; G2211

== ENCOUNTER → 2024-09-11 10:07 | Outpatient (BNV) | payer OTHER, SELFPAY | PROVIDERS: PCP Internal Medicine; Visit Provider Radiology Vascular & Interventional Radiology | DX: M54.2 Cervicalgia (principal) | CPT/HCPCS: 72052 ==

== ENCOUNTER 2024-09-25 10:37 | Outpatient (AMB) | payer OTHER, SELFPAY ==
--- NOTE | 2024-09-25 10:47 | MHC.OFFVIS ---
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 The back pain has been persistent for the past 3 years and has been worsening more recently. Pain primarily affects the left side, occasionally radiating to the left leg with associated numbness and tingling. The patient reports that sitting for extended periods, particularly while driving or walking, exacerbates the pain. Denies any bladder or bowel dysfunction or saddle anesthesia. The patient has a history of moderate right and moderately severe left neuroforaminal stenosis at the L5-S1 level, consistent with his symptoms. He underwent an MRI last year, which confirmed these findings. The patient has completed seven sessions of physical therapy this year, which did not alleviate the symptoms significantly. He continues to take Tylenol, cyclobenzaprine, gabapentin, lidocaine patch, and ibuprofen with minimal relief. Patient is interested to undergo therapeutic epidural steroidal injections to alleviate his leg and back pain symptoms. Denies any recent cough, cold, infection, fever or any significant changes in medical history since last office visit. PRIOR: The patient is a 59-year-old male presenting with chronic low back pain and left-sided lumbosacral radiculopathy. The low back pain has been persistent, with a current pain level of 3/10. The patient completed 7 sessions of physical therapy, which he found very beneficial, and continues to perform stretching exercises at home. The patient reports minimal left leg pain and no significant numbness or tingling in the back or leg currently. He has a history of spondylosis, arthritis, and degenerative disc disease, which contribute to his chronic symptoms. The patient has not been taking any medications for pain management since physical therapy and has not received any injections at the current facility. Given minimal low back pain and no left leg pain today, he would like to hold off on any interventional treatments for now. The patient also experiences cervical tension, particularly in the mornings, which sometimes leads to neck pain and tension headaches. 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 A neck x-ray was performed two years ago and was normal, we will update his imaging to assess current conditions before further chiropractic interventions. PRIOR: The patient is a 59-year-old male presenting with chronic low back pain management. He experiences multifactorial back pain due to left lumbar radiculopathy, compounded by degenerative disc disease and spinal osteoarthritis. Symptoms include pain radiating to the left leg, occasionally affecting the front but mainly posteriorly, with an intensity rating of 7/10. Pain has been persistent over months and intensifies with activities such as extended walking, bending, lifting, or twisting. The patient has a history of seeking emergency care, with temporary relief achieved through prescribed medication regimens including lidocaine patches, prednisone, and cyclobenzaprine. The patient experiences numbness in the left leg and buttock when standing too long, but no bowel or urinary incontinence. Current and past pain management includes nonsteroidal anti-inflammatory drugs, gabapentin, and requests for cyclobenzaprine refills are noted. - Onset and Timing: Chronic pain,persistent over past 4 months - Quality and Character: Multifactorial pain, due to radiculopathy and arthritis - Primary Location: Lumbar region - Radiation: Left buttock and posteriorly to left leg, at times to anterior thigh - Exacerbating Factors: Extended walking, bending, lifting, twisting, standing too long - Alleviating Factors: Lidocaine patches, prednisone, cyclobenzaprine provided temporary relief - Impact on Function: Pain level 7/10; interferes with mobility and daily activities - Affect: Impacting daily functioning, with responsibilities at home increasing stress - Analgesia: Lidocaine patches, prednisone, cyclobenzaprine, ibuprofen, gabapentin; pain remains 7/10 with temporary relief from medication - Adverse Effects: Significant drowsiness from cyclobenzaprine; avoids usage with alcohol, gabapentin, and tramadol (past use) - Activities of Daily Living: Pain impacts mobility and caregiving responsibilities; aims to improve function and reduce pain with therapy and medication - Aberrant Drug Related Behaviors: None reported PRIOR: Patient presents today for follow-up for persistent chronic low back pain with left-sided radiculopathy. He was recently seen by [facility] and was deemed nonsurgical. Patient continues to endorse axial low back pain and left leg and numbness, tingling, and weakness in L5-S1 distribution. Back pain continues to limit his daily functioning and mobility, affects his sleep and has been resistant to conservative treatment including opioid and NSAID medications. Patient is interested to undergo interventional treatments to address his full axial low back pain and left-sided radiculopathy. Denies any fever or chills, abdominal or groin pain, bladder or bowel dysfunction or saddle anesthesia. Reports intermittent left lower extremity weakness with flare up in low back pain with left leg pain. PRIOR: Patient is a 58-year-old male with history of lumbar back sprain, left-sided radiculopathy, lumbar degenerative disc disease, anxiety, depression, obesity, erectile dysfunction, history of falls, presents today for initial evaluation of low back pain with radiation into his left buttock and into left lower extremity posteriorly with associated stabbing, sharp, tingling and numbness sensations. Denies any recent trauma, injury, or falls. He reports seeing provider at [facility] and receiving injection for L4-L5 level with good results. [facility] EMR review noted for multiple ER visits for lumbar strain, sciatica, left lumbar radiculopathy x7 visits from 11/21/20-09/17/23. 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 He completed physical therapy in 2021 without improvement in his functioning or pain. Denies previous spine surgery. This has been longstanding pain for him which is worse with movement and better with rest. Pain is constant and is most severe in the mornings. Pain affects his daily activities and functioning, mood, sleep, mobility, and recreational activities. He ambulates with mildly antalgic gait without limping. Denies any fever or chills, abdominal or groin pain, weakness, foot drop, bladder or bowel dysfunction or saddle anesthesia. Location: Left-sided low back pain radiates Duration: Chronic pain for 2 years, progressively getting worse for past one year Characteristics of symptom or complaint: Aching, shooting, numbness, tingling, burning Aggravating or associated factors: Walking, bending, heavy lifting, twisting, sleeping, rainy cold weather Relieving factors: Walker, rest, Tylenol, Ibuprofen, lidocaine patches, prednisone, tramadol Treatment: PT, back injection at [facility], MRI lumbar 2 months ago, multiple ER visits [facility] Medical History Physical exam Mild recurrent major depression Class 1 obesity with body mass index (BMI) of 34.0 to 34.9 in adult Erectile disorder, acquired, generalized, severe Anxiety and depression Allergic rhinitis Insomnia Eczema Impaired glucose tolerance Essential hypertension Surgical History H/O colonoscopy History of removal of cyst Family History Father Cancer Mother Diabetes Hypertension Brother No problems noted. Sister No problems noted. Son No problems noted. Daughter No problems noted. 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 Alert and oriented. Mood and affect appropriate. Follows and participates in conversation appropriately. Respiratory effort is unlabored. No cough. Able to transition from sit to stand unassisted. Ambulates with bilaterally normal heel strike and toe off, reports intermittent weakness LLE. General: Yes no CVA tenderness Back/Spine/Pelvis Other: Limited lumbar ROM due to pain. Mildly antalgic gait, no limping. Lumbar extension, axial rotations, and flexion forward reproduce moderate-severe pain. Demonstrates 5/5 right and 4/5 left strength of quadriceps bilaterally as well as flexion/dorsiflexion of bilateral feet against resistance. 2+ pedal pulses bilaterally. Straight leg rise with dorsiflexion positive on the left. +1 patellar and achilles reflexes bilaterally. Facet loading test positive bilaterally. Michelle sign positive on the left, Truman?s reproduces left lateral hip pain but not low back pain. No groin pain with I/E hip rotations. Valsalva maneuver is negative. Back: no CVA tenderness Cervical Spine: cervical ROM normal, cervical muscular tenderness and No Cervical spine tenderness Thoracic/Lumbar Spine: thoracic and lumbar spine normal to inspection, No Thoracic/lumbar spine scar(s), Lasegue's sign positive on the left and localized, pain with thoraco-lumbar ROM, paraspinal muscle tenderness on the left greater than right, thoraco-lumbar ROM limited, No thoracic spinal tenderness and lumbar spinal tenderness (L4-S1) Pelvis: sciatic notch tenderness on the left Sacroiliac joints: on the right nontender and on the left tender to palpation Extrem General: Yes capillary refill normal, Yes no clubbing, cyanosis or edema and Yes no calf tenderness Results Reviewed Results Reviewed: RADIOGRAPHS LUMBAR SPINE 03/08/23 CLINICAL INFORMATION: Fall. Low back pain. COMPARISON: Lumbar spine x-rays February 16, 2023 FINDINGS: Lumbar spine: 5 nonrib-bearing lumbar vertebral bodies are visualized. Alignment is within normal limits. Lumbar vertebral body heights are maintained. There is mild disc space narrowing at the L3/4 and L5/S1 levels. Tiny osteophytes are scattered throughout the lumbar spine. There are mild degenerative changes of the posterior elements of the lower lumbar spine. Sacroiliac joints are symmetric. Suspected 4 mm right renal calculus. IMPRESSION: 1. No acute pulmonary pathology. 2. Mild degenerative changes of the lumbar spine without compression deformity. MR SPINE LUMBAR without CONTRAST 02/19/24 RAYUS INDICATION: Lower back pain radiating to left ongoing for 2 years. Intervertebral disc degeneration. TECHNIQUE: Unenhanced multiplanar, multisequence MR imaging of the lumbar spine. COMPARISON: MR lumbar 04/28/2023. FINDINGS: Normal lumbar alignment is demonstrated. Vertebral heights are well maintained. There is disc desiccation and disc space narrowing at L3-4 and L4-5. Bone marrow signal is within normal limits, and no suspicious osseous lesion is identified. Conus medullaris is unremarkable. Paraspinal soft tissues and visualized portions of the abdomen and pelvis are unremarkable. At L1-2 there is no significant disc herniation or protrusion. No central canal or neural foraminal stenosis is demonstrated. At L2-3 there is mild annular disc bulge and mild facet arthrosis. Central canal is patent with foraminal stenosis. At L3-4 there is broad-based disc bulge and mild facet arthrosis and ligament flavum hypertrophy. There is mild narrowing of the central canal with mild right and moderate left neural foraminal stenosis. Findings appear stable. At L4-5 there is broad-based disc bulge and mild facet arthrosis. There is mild to moderate central canal stenosis with advanced right and moderate to advanced left neural foraminal stenosis. Findings appear stable. At L5-S1 there is mild annular disc bulge and mild facet arthrosis. Central canal is patent. There is moderate right and advanced left neural foraminal stenosis. Findings appear stable. IMPRESSION: Stable appearance degenerative changes lumbar spine greater at L3-4 and L4-5. Narrowing of the neuroforamina at L5-S1 greater on the left. Findings appear stable. XR LUMBAR SPINE XR SHOULDER, RIGHT XR CERVICAL SPINE 07/24/22 CLINICAL INDICATION: Pain in right shoulder, cervical spine and lumbar spine. TECHNIQUE: Lumbar spine 3 views, right shoulder 4 views. Cervical spine 4 views. FINDINGS: RIGHT SHOULDER: There are 2 loose bodies seen within the subacromial bursa. Loss of joint glenohumeral joint space with moderate inferior spurring is noted. AC joint is normal. No loose body seen. No fracture noted. LUMBAR SPINE: There is normal lumbar lordosis. The vertebral heights and alignment are normal. There is loss of L5-S1 and L3-L4 disc heights with mild ventral spondylosis. There is no visible acute fracture, dislocation or lytic process seen. The paravertebral soft tissues are normal. The SI joints are normal. CERVICAL SPINE: There is normal cervical lordosis. The vertebral heights, alignment and the disc heights are normal. The craniovertebral junction and C1-C2 alignment is normal. No visible acute fracture, dislocation or subluxation seen. IMPRESSION: Degenerative arthritic changes right shoulder with two moderate-sized loose bodies in the subacromial bursa. No acute fracture. L5-S1 degenerative disc changes lumbar spine. No acute fracture or lytic process. Unremarkable cervical spine exam. XR cervical spine w flex/ext 09/11/24 CLINICAL HISTORY: M54.2 - Cervicalgia 8 views cervical spine Comparison: None provided Findings: Normal vertebral body alignment. No acute fractures or dislocation. No significant degenerative change. No prevertebral soft tissue swelling. Oblique views demonstrate widely patent bony foramen. IMPRESSION: No acute findings. No significant degenerative change. Assessment & Plan Assessment & Plan (1) Lower back pain: Code(s): M54.50 - Low back pain, unspecified Category: Medical (2) Lumbar degenerative disc disease: Code(s): M51.36 - Other intervertebral disc degeneration, lumbar region Category: Medical (3) Lumbosacral spondylosis: Code(s): M47.817 - Spondylosis without myelopathy or radiculopathy, lumbosacral region Category: Medical Qualifiers: Spinal osteoarthritis complication: with radiculopathy Qualified Code(s): M47.27 - Other spondylosis with radiculopathy, lumbosacral region (4) Lumbar disc herniation with radiculopathy: Code(s): M51.16 - Intervertebral disc disorders with radiculopathy, lumbar region Category: Medical (5) Left lumbosacral radiculopathy: Code(s): M54.17 - Radiculopathy, lumbosacral region Category: Medical Plan The patient will be scheduled for a left L5-S1 epidural steroid injection with local, oral Ativan and fluoroscopy to alleviate the back and left leg pain. Prior to the procedure, the patient is advised to discontinue Motrin and fish oil 1 week before the injection to minimize bleeding risk. Expectations, risks and benefits were reviewed. Patient is aware he will be contacted to schedule this procedure. The patient will be followed up one month post-injection to assess the effectiveness of the treatment. Patient was informed and verbally consented to the use of an ambient scribe for clinic note documentation during this visit. Coding Level of Care Code Est Pt Level 4 (98487) Complex EM visit Add On G2211 Diagnoses Lower back pain M54.50 Lumbar degenerative disc disease M51.36 Osteoarthritis of spine with radiculopathy, lumbosacral region M47.27 Spinal osteoarthritis complication: with radiculopathy Lumbar disc herniation with radiculopathy M51.16 Left lumbosacral radiculopathy M54.17
[2024-09-25 10:52] VITALS: BP 156/94; BP 172/105; PULSE 66; O2SAT 98; BMI 35.5
--- OUTSIDE RECORDS SUMMARY | 2024-09-25 11:25 | XMS_ITS | Patient Health Record ---
Author Organization [facility] Address [address] [place] [id number] Care Team Providers Care Supervisor Burling And Joining Name Role Phone Sera(inactive) Sean WALLER Primary Care Provider U angelitaemigdioStiven Fuller Unavailable [phone] Reason For Referral No Information Medications Medication SIG (Take, Route, Frequency, Duration) Notes Start Date End Date Status Multi Vitamin/Minerals - Orally Active Motrin IB 200 MG 4 tablet as needed O rally prn Active Venlafaxine HCl ER 75 MG 1 capsule with food Orally Once a day Active hydroCHLOROthiazide 25 MG 1 tablet in th e morning Orally Once a day Active Atenolol 50 MG 1 tablet Orally Once a day Active Social History Tobacco Use: Social History Observation Description Date Details (start date - stop date) Never Smoker NA - NA Tobacco Use/Smoking Question Answer Notes Patient is a nonsmoker Alcohol Screen Question Answer Notes Did you have a drink containing alcohol in the p ast year? No Points 0 Interpretation Negative Section Notes: Nonsmoker; no sig alcohol Problems Problem Type SNOMED Code ICD Code Onset Dates Problem Status W/U Status Risk Notes Problem 598638152 Encounter for screening for malignant neoplasm of colon (Z12.11) Active confirmed Problem 815519714 Preprocedural examination (Z01.818) Active confirmed Plan Of Treatment Future Test Test Name Order Date COLONOSCOPY 09/20/2016 Insurance Providers Payer Name Payer Address Payer Phone Subscriber Number Group Number Insured Name Patient Relationship to Insured Coverage Start Date Coverage End Date [facility] [address] [place] [address] [id number] JUSTICE [employer] Self - patient is the insured Medical (General) History Medical History History ICD Code Denies MO,DM,CVA,Lung disease,renal dise ase HTN Depression Surgical History Surgery Date(Month/Year) Cyst removal from neck
== END 2024-09-25 11:43 | disposition home or self-care (01) ==
LOC: HO.PMC 10:37
PROVIDERS: PCP Internal Medicine; Visit Provider Nurse Practitioner Family
DX: M54.50 Low back pain, unspecified (principal); M51.369 Other intervertebral disc degeneration, lumbar region without mention of lumbar back pain or lower extremity pain; M47.27 Other spondylosis with radiculopathy, lumbosacral region; M51.16 Intervertebral disc disorders with radiculopathy, lumbar region; M54.17 Radiculopathy, lumbosacral region
CPT/HCPCS: 99214; G2211

== ENCOUNTER → 2024-09-25 10:37 | Outpatient (BNVA) | payer OTHER, SELFPAY | PROVIDERS: PCP Internal Medicine; Visit Provider Nurse Practitioner Family | DX: M51.16 Intervertebral disc disorders with radiculopathy, lumbar region (principal); M47.27 Other spondylosis with radiculopathy, lumbosacral region; M51.360 Other intervertebral disc degeneration, lumbar region with discogenic back pain only | CPT/HCPCS: 99212 ==

== ENCOUNTER 2024-09-29 10:23 | Emergency (ER) | payer OTHER, SELFPAY ==
[2024-09-29 10:40] VITALS: BP 146/91; PULSE 78; RESP 18; TEMP 36.6; O2SAT 96; BMI 35.8
--- NOTE | 2024-09-29 12:01 | ED_ITS ---
HPI - Back Pain/Injury General Chief Complaint: Back Pain/Injury Stated Complaint: Back pain Time Seen by Provider: 09/29/24 12:08 Source: patient Mode of arrival: ambulatory Limitations: no limitations History of Present Illness ED Provider: teresa lama np HPI Narrative: Patient is a 59-year-old male who presents to the emergency department for evaluation of lower back pain with radiation to leg exacerbated over the past 5 days, intermittent numbness and tingling to the left leg. Pain exacerbates with prolonged sitting or walking. This is acute on chronic in nature. He follows with pain management, was most recently seen by them 10/02/2024 he is awaiting insurance authorization and appointment scheduling for epidural steroid injection. 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 Denies recent precipitating injury, fevers, chills, burning with micturition, urinary frequency/urgency/hesitancy, bladder or bowel dysfunction, numbness or tingling of the perineum. Denies any recent surgical procedures, any known immune compromising conditions, personal history of cancer, or IV drug usage. MD elicited complaint: back pain Related Data Home Medications ?Medication ?Instructions ?Recorded ?Confirmed omega 2-odx-zur-fish oil 1,000 mg 1 cap PO DAILY 07/01 (120 mg-180 mg) capsule Previous Rx's ?Medication ?Instructions ?Recorded fluticasone propionate 50 1 spray intranasal DAILY #16 mL 04/23/20 mcg/actuation nasal spray,suspension albuterol sulfate 90 mcg/actuation 2 puff inhalation Q 6H PRN 06/16/22 aerosol inhaler shortness of breath or wheez ing #6.7 grams walker (Ultra-Light Rollator misc) #1 ea 09/20/23 omega-3 fatty acids 1,000 mg 1,000 mg PO DAILY #90 cap s 09/28/23 capsule lorazepam 0.5 mg tablet (Ativan) 0.5 mg PO DAILY PRN a nxiety 1 day 01/15/24 #2 tabs tadalafil 5 mg tablet 5 mg PO DAILY 30 days #30 ta bs 01/24/24 hydrochlorothiazide 25 mg tablet 25 mg PO DAILY #90 ta bs 01/30/24 ibuprofen 800 mg tablet 800 mg PO Q8H #30 tabs 01/29 acetaminophen 500 mg tablet 500 - 1,000 mg (1 - 2 x 50 0 mg) PO 03/31/24 (Tylenol Extra Strength) Q6H PRN pain #30 tabs lidocaine 5 % topical patch 1 patch topical DAILY #30 ea 03/31/24 (Lidoderm) atenolol 50 mg tablet 50 mg PO DAILY 90 days #90 t abs 04/06/24 gabapentin 300 mg capsule 300 mg PO BID pain 30 days # 60 caps 06/09/24 lidocaine 5 % topical patch 1 patch topical DAILY #15 ea 06/13/24 prednisone 50 mg tablet 50 mg PO DAILY #4 tabs 06/13 lisinopril 40 mg tablet 40 mg PO DAILY 90 days #90 t abs 06/29/24 cyclobenzaprine 10 mg tablet 10 mg PO TID PRN muscle s pasm #10 07/01/24 tabs loratadine 10 mg tablet 10 mg PO DAILY PRN allergy 0 07/29/24 symptoms 90 days #90 tabs clotrimazole-betamethasone 1 1 appl topical BID 30 day s #15 08/21/24 %-0.05 % topical cream grams atorvastatin 20 mg tablet 20 mg PO BEDTIME 90 days #90 tabs 08/31/24 venlafaxine 150 mg 150 mg PO BEDTIME 90 days #9 0 caps 08/31/24 capsule,extended release 24 hr tramadol 50 mg tablet 50 mg PO TID PRN pain #14 ta bs 09/29/24 Allergies Allergy/AdvReac Type Severity Reaction Status Date / Time No Known Allergies (No Known Allergy Verified 09/29/24 10:43 Allergies*) Review of Systems Review of Systems: Yes all other systems are reviewed and are negative [facility] Past Medical History Attestation statement: The following information was validated with the patient. Source: old records reviewed Medical History Physical exam Mild recurrent major depression Class 1 obesity with body mass index (BMI) of 34.0 to 34.9 in adult Erectile disorder, acquired, generalized, severe Anxiety and depression Allergic rhinitis Insomnia Eczema Impaired glucose tolerance Essential hypertension Surgical History H/O colonoscopy History of removal of cyst Family History Family History Father Cancer Mother Diabetes Hypertension Brother No problems noted. Sister No problems noted. Son No problems noted. Daughter No problems noted. 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 No acute distre ss.?Normal affect. Eyes: Pupils equal, round and reactive to light.? ENT: Pharynx normal.?? Neck: Normal inspection.? Neck supple.?? CVS: Heart sounds normal. Normal heart rate and rhythm.? Pulses normal; bilateral radial pulses 2+, bilateral posterior tibial/dorsalis pedis pulses 2+.? Respiratory: No respiratory distress.? Lung sounds clear to auscultation bilaterally?? Abdomen: Soft and non-tender. Normoactive bowel sounds. No pulsatile mass.?? Skin: Skin warm and dry.? Normal skin color.? Normal skin turgor.?? Extremities: No lower extremity edema.? No calf ttp? Back: + moderate paraspinal muscular tenderness from lumbar region to coccyx. No CVA tenderness. No midline spinal tenderness, step-off's, or deformity. Limited AROM to the lumbar spine. Full ROM intact in bilateral lower extremities. Straight leg test negative on right; Straight leg test positive on left. No rashes, lesions, areas of induration or fluctuance, or signs of infection noted., Neuro: Moves all extremities spontaneously. Sensation to light touch intact bilaterally. Patellar and Achilles reflex 1+ bilaterally. No ataxia, antalgic gait.. No focal neuro deficits. Medical Decision Making Medical Decision Making MDM Narrative: Patient is a 59-year-old male with past medical history of obesity, depression, anxiety, insomnia, eczema, impaired glucose intolerance, essential hypertension, lumbosacral radiculopathy who presents emergency department for evaluation of acute on chronic low back pain radiation to the left lower extremity as per HPI. Pain is most consistent with radiculopathy, although cannot completely exclude herniated disc. On neurological exam there are no deficits. Atraumatic in nature, no acute bony tenderness, unlikely to be spinal fracture. Exam findings not consistent with cauda equina syndrome. No indication for emergent CT/MRI imaging. No recent fevers, unintentional weight loss, history of IVDA, high- risk past medical history, immunosuppression, recent surgery or lumbar puncture to suggest spinal infection, epidural abscess, malignancy. Not consistent with AAA or dissection. No genitourinary symptoms, afebrile, no CVA tenderness, unlikely urinary tract infection, pyelonephritis, renal colic. Plan for discharge home with short prescription for tramadol, and follow-up with primary care provider/pain management, and patient agreed with plan. Differential Diagnosis Differential Diagnoses: The differential diagnosis associated with the presentation includes ( see narrative above) Admission/Observation Consideration of admission/observation: Escalation of care including admission/observation considered ( see narrative above) External Record Review External record reviewed: Outpatient record and Other I attest that I have reviewed patients [place], and at the time prescribing the patient a controlled substance is appropriate based off of patients diagnosis and treatment plan. Prescription Management I considered prescription management with: Pain Medication Chronic Conditions Patient?s care impacted by: Other (See narrative above) Discharge Plan Discharge Clinical Impression: Left lumbosacral radiculopathy Patient Disposition: Home, Self-Care Instructions: Back Pain (ED) Additional Instructions: As discussed, continue taking your medication as prescribed, follow up with pain management for scheduling of the epidural steroid injection. I am sending a short prescription for tramadol to your pharmacy to use for severe pain unrelieved by your current medication regimen. This medication may be addicting, can make you drowsy. You should not drive, drink alcohol, or work while taking this medication. You may return back to emergency with any new or worsening symptoms or concerns Prescriptions: New tramadol 50 mg tablet 50 mg PO TID PRN (Reason: pain) Qty: 14 0RF No Action fluticasone propionate 50 mcg/actuation spray,suspension 1 spray intranasal DAILY Qty: 16 6RF (DME) Ultra-Light Rollator Misc See Rx Instructions .Route Qty: 1 0RF Rx Instructions: As directed omega-3 fatty acids 1,000 mg capsule 1,000 mg PO DAILY Qty: 90 6RF lorazepam [Ativan] 0.5 mg tablet 0.5 mg PO DAILY PRN (Reason: anxiety) 1 Days Qty: 2 0RF Rx Instructions: Take 1 to 2 tabs 45 minutes before MRI ibuprofen 800 mg tablet 800 mg PO Q8H Qty: 30 1RF hydrochlorothiazide 25 mg tablet 25 mg PO DAILY Qty: 90 2RF atenolol 50 mg tablet 50 mg PO DAILY 90 Days Qty: 90 3RF gabapentin 300 mg capsule 300 mg PO BID 30 Days Qty: 60 1RF lisinopril 40 mg tablet 40 mg PO DAILY 90 Days Qty: 90 1RF loratadine 10 mg tablet 10 mg PO DAILY PRN (Reason: allergy symptoms) 90 Days Qty: 90 11RF clotrimazole-betamethasone 1-0.05 % cream 1 appl topical BID 30 Days Qty: 15 1RF atorvastatin 20 mg tablet 20 mg PO BEDTIME 90 Days Qty: 90 0RF venlafaxine 150 mg capsule,extended release 24hr 150 mg PO BEDTIME 90 Days Qty: 90 1RF prednisone 50 mg tablet 50 mg PO DAILY Qty: 4 0RF lidocaine 5 % adhesive patch,medicated 1 patch topical DAILY Qty: 15 0RF Rx Instructions: leave on most painful area for up to 12 hrs acetaminophen [Tylenol Extra Strength] 500 mg tablet 500 - 1,000 mg PO Q6H PRN (Reason: pain) Qty: 30 0RF lidocaine [Lidoderm] 5 % adhesive patch,medicated 1 patch topical DAILY Qty: 30 0RF Rx Instructions: leave on most painful area for up to 12 hrs albuterol sulfate 90 mcg/actuation HFA aerosol inhaler 2 puff inhalation Q6H PRN (Reason: shortness of breath or wheezing) Qty: 6.7 0RF tadalafil 5 mg tablet 5 mg PO DAILY 30 Days Qty: 30 5RF Rx Instructions: PLEASE USE COUPON ATTACHED INSURANCE WILL NOT COVER MEDICATION [id number] [facility] [id number] Member [id number] omega 8-ukk-hmq-fish oil 1,000 (120-180) mg capsule 1 cap PO DAILY cyclobenzaprine 10 mg tablet 10 mg PO TID PRN (Reason: muscle spasm) Qty: 10 0RF Referrals: Zeynep Patel MD [Primary Care Provider, Internal Medicine] Lorrie Tinsley FNP [Nurse Practitioner, Pain Management] Interventions: ED Discharge Assessment Last Done: 09/29/24 12:15 Print Language: Prydeinig
[2024-09-29 12:15] VITALS: BP 146/91; PULSE 78; RESP 18; TEMP 36.6; O2SAT 96
--- OUTSIDE RECORDS SUMMARY | 2024-09-29 12:57 | XMS_ITS | Patient Health Record ---
Author Organization [facility] Address [address] [place] [id number] Care Team Providers Care Twister In Name Role Phone Sera(inactive) Sean WALLER Primary Care Provider U angelitaemigdioStiven Fuller Unavailable [phone] Reason For Referral No Information Medications Medication [...] Problem Status W/U Status Risk Notes Problem [id number] Encounter for screening for malignant neoplasm of colon (Z12.11) Active confirmed Problem [id number] Preprocedural examination (Z01.818) Active confirmed Plan Of Treatment Future Test Test Name Order Date COLONOSCOPY 09/20/2016 Insurance Providers Payer Name Payer Address Payer Phone Subscriber Number Group Number Insured Name Patient Relationship to Insured Coverage Start Date Coverage End Date MEDICA[employer] OF [facility] [address] [place] [address] [id number] JUSTICE ARITA Self - patient is the insured Medical (General) History Medical History History ICD Code Denies [place],DM,CVA,Lung disease,renal dise ase HTN Depression Surgical History Surgery Date(Month/Year) Cyst removal from neck
== END 2024-09-29 12:16 | disposition home or self-care (01) ==
LOC: HO.ED 12:12
PROVIDERS: Emergency Provider Emergency Medicine; PCP Internal Medicine
DX: M54.17 Radiculopathy, lumbosacral region (principal); M54.50 Low back pain, unspecified
CPT/HCPCS: 99282; 99283

== ENCOUNTER 2024-11-06 07:29 | Outpatient (REF) | payer OTHER, SELFPAY ==
--- NOTE | ~2024-11-06 | FL_ITS ---
EXAMINATION: FL GUIDANCE ONLY HISTORY: M47.27 - Other spondylosis with radiculopathy, lumbosacral region COMPARISON: None available. TECHNIQUE: Fluoroscopy time: 0.2 minutes. Cumulative Dose: 6.37 mGy. DAP: 0.542 mGym2 Images: 4. FINDINGS: Fluoroscopic spot films of the lumbar spine demonstrate a needle and contrast material in the region of the left L5 pedicle. FL/FL guidance in treatment room IMPRESSION: Fluoroscopy during procedure. Please see procedure report for additional information. Electronically signed by: Stiven Bonilla MD 11/06/2024 01:49 PM EDT
--- OUTSIDE RECORDS SUMMARY | 2024-11-06 07:31 | XMS_ITS | Patient Health Record ---
Author Organization [facility] Address [address] [place] [phone] Care Team Providers Care Sheet Metal Welder Name Role Phone Sera(inactive) Sean WALLER Primary Care Provider U angelitaemigdioStiven Fuller Unavailable [phone] Reason For Referral No Information Medications Medication [...] Problem Status W/U Status Risk Notes Problem [id number] Encounter for screening for malignant neoplasm of colon (Z12.11) Active confirmed Problem [id number] Preprocedural examination (Z01.818) Active confirmed Plan Of Treatment Future Test Test Name Order Date COLONOSCOPY 09/20/2016 Insurance Providers Payer Name Payer Address Payer Phone Subscriber Number Group Number Insured Name Patient Relationship to Insured Coverage Start Date Coverage End Date [facility]ICA[facility] [address] [place] [address] [id number] JUSTICE ARITA Self - patient is the insured Medical (General) History Medical History History ICD Code Denies [place],DM,CVA,Lung disease,renal dise ase HTN Depression Surgical History Surgery Date(Month/Year) Cyst removal from neck
== END 2024-11-06 07:30 | disposition home or self-care (01) ==
LOC: CF 07:29
PROVIDERS: Visit Provider Internal Medicine
DX: M47.27 Other spondylosis with radiculopathy, lumbosacral region (principal)
CPT/HCPCS: 64483; J1100; J2003; Q9967

== ENCOUNTER 2024-11-06 10:04 | Outpatient (AMB) | payer OTHER, SELFPAY ==
[2024-11-06 10:05] VITALS: BP 163/86; PULSE 90; RESP 16; O2SAT 93; BMI 35.7
--- NOTE | 2024-11-06 10:05 | MHC.OFFVIS ---
Vital Signs 11/06/24 10:05 11/06/24 10:59 Height 5 ft 7 in Weight 228 lb BMI 35.7 BP 163/86 H 178/105 H Blood Pressure Location Lt brachial Lt brachial Position Sitting Sitting Respiration 16 16 Pulse 90 74 Pulse Source Pulse Oximeter Pulse Oximeter Pulse Oximetry (%) 93 95 Oxygen Delivery Method Room Air Room Air Intake Visit Reasons: Left L5-S1 TFESI Allergies No Known Allergies (No Known Allergies*) Allergy (Verified 09/29/24 10:43) HPI HPI Left L5-S1 TFESI: Details: Patient presents for scheduled procedure. Denies any recent cough, cold, infection, fever or other significant changes in medical history since last office visit. [facility] Medical History Physical exam Mild recurrent major depression Class 1 obesity with body mass index (BMI) of 34.0 to 34.9 in adult Erectile disorder, acquired, generalized, severe Anxiety and depression Allergic rhinitis Insomnia Eczema Impaired glucose tolerance Essential hypertension Surgical History H/O colonoscopy History of removal of cyst Family History Father Cancer Mother Diabetes Hypertension Brother No problems noted. Sister No problems noted. Son No problems noted. Daughter No problems noted. 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 The patient was placed in the prone position on the fluoroscopy table. The lumbosacral area was prepped with chloraprep, allowed to dry and draped in sterile fashion. Using fluoroscopy, the skin overlying our target was anesthetized with 0.5% lidocaine. A 22 gauge 3.5 inch spinal needle was advanced to the safe triangle in the upper pole of the left L5 foramen. No paresthesias were elicited with needle placement and aspiration was negative for blood and CSF. Correct needle position was confirmed with approximately 1 ml contrast dye (Omnipaque 180 mg/ml) injected under real-time fluoroscopy. No evidence of vascular or intrathecal uptake was seen and there was both epidural and peripheral spread of the contrast agent. 10 mg dexamethasone plus 1 ml containing 0.5% lidocaine was slowly injected. The needle was flushed and removed. The skin was cleansed and a sterile bandages were applied. The patient tolerated the procedure well and no complications were encountered. Following the procedure the patient's vital signs were stable. The patient was discharged home in good condition with post-procedural instructions. Time Out: Immediately prior to the procedure, the following was verbally confirmed that there is a signed consent form and that the correct patient, planned procedure, site and side are consistent with documentation and that necessary equipment and/or blood products are available prior to the start of the case. Complications: none EBL: <5 cc 70550 - Lumbar/Sacral Procedure code (CPT) selection complete Assessment & Plan Assessment & Plan (1) Left lumbosacral radiculopathy: Code(s): M54.17 - Radiculopathy, lumbosacral region Category: Medical Plan Patient is status post left L5 TFESI. Patient tolerated procedure well and was discharged home in stable condition with discharge instructions. All questions were answered. We will follow-up via telephone or in clinic to assess response to therapy. A follow-up appointment was made during today's visit. Orders: Orders AMB Transforaminal Epidural Steroid Injection Today M54.16 - Radiculopathy, lumbar region FL guidance in treatment room Today M47.27 - Other spondylosis with radiculopathy, lumbosacral region, M54.17 - Radiculopathy, lumbosacral region Coding Level of Care Code Procedure Only Diagnoses Left lumbosacral radiculopathy M54.17 CPT Codes Transforaminal Epidural Steroid Inj - TESI 3: 39311 - Lumbar/Sacral ([id number])
[2024-11-06 10:59] VITALS: BP 178/105; PULSE 74; RESP 16; O2SAT 95
== END 2024-11-06 11:01 | disposition home or self-care (01) ==
LOC: HO.PMCPRC 10:04
PROVIDERS: PCP Internal Medicine; Visit Provider Internal Medicine
DX: M54.17 Radiculopathy, lumbosacral region (principal)
CPT/HCPCS: 64483

== ENCOUNTER 2024-11-17 11:01 | Outpatient (REF) | payer OTHER, SELFPAY ==
[2024-11-17 12:15] LABS: Resp Syncy Virus RNA Qual PCR NEGATIVE (Negative); SARS COV2 PCR INHOUSE POSITIVE (Negative)
--- OUTSIDE RECORDS SUMMARY | 2024-11-17 12:22 | XMS_ITS | Patient Health Record ---
Author Organization [facility] Address [address] [place] [id number] Care Team Providers Care Joint Runner Name Role Phone Sera(inactive) Sean WALLER Primary Care Provider U angelitaemigdioStiven Fuller Unavailable [phone] Reason For Referral No Information Medications Medication [...] Problem Status W/U Status Risk Notes Problem [id number] Encounter for screening for malignant neoplasm of colon (Z12.11) Active confirmed Problem [id number] Preprocedural examination (Z01.818) Active confirmed Plan Of Treatment Future Test Test Name Order Date COLONOSCOPY 09/20/2016 Insurance Providers Payer Name Payer Address Payer Phone Subscriber Number Group Number Insured Name Patient Relationship to Insured Coverage Start Date Coverage End Date [facility] [address] [place] [phone] [id number] JUSTICE ARITA Self - patient is the insured Medical (General) History Medical History History ICD Code Denies [place],DM,CVA,Lung disease,renal dise ase HTN Depression Surgical History Surgery Date(Month/Year) Cyst removal from neck
== END 2024-11-17 11:02 | disposition home or self-care (01) ==
LOC: HO.LAB 11:01
PROVIDERS: PCP Internal Medicine; Visit Provider Internal Medicine
DX: R09.89 Other specified symptoms and signs involving the circulatory and respiratory systems (principal); Z11.52 Encounter for screening for COVID-19
CPT/HCPCS: 87637

== ENCOUNTER 2024-11-25 08:49 | Outpatient (AMB) | payer OTHER, SELFPAY ==
[2024-11-25 09:08] VITALS: BP 140/86; PULSE 66; RESP 18; TEMP 36.2; O2SAT 94; BMI 35.4
--- NOTE | 2024-11-25 09:08 | MHC.PC.OV ---
Vital Signs 11/25/24 09:08 Height 5 ft 7 in Weight 226 lb 2 oz BMI 35.4 BP 140/86 H Blood Pressure Location Lt brachial Position Sitting Respiration 18 Pulse 66 Pulse Source Pulse Oximeter Temp 97.1 F Temp Source Temporal Artery Scan Pulse Oximetry (%) 94 Oxygen Delivery Method Room Air Intake Visit Reasons: PE Psychiatric Therapist Required: No Accompanied by: Self / Same As Patient Allergies No Known Allergies (No Known Allergies*) Allergy (Verified 11/25/24 09:34) Medication List - Last Reconciled 11/25/24 by Zeynep Borges MD acetaminophen (Tylenol Extra Strength) 500 - 1,000 mg (1 - 2 x 500 mg) PO Q6H PRN albuterol sulfate 90 mcg/actuation 2 puffs inhalation Q6H PRN atenolol 50 mg PO DAILY 90 days atorvastatin 20 mg PO BEDTIME 90 days clotrimazole-betamethasone 1-0.05 % 1 appl topical BID 30 days fluticasone propionate 50 mcg/actuation 1 spray intranasal DAILY hydrochlorothiazide 25 mg PO DAILY ibuprofen 800 mg PO Q8H lidocaine 5% 1 patch topical DAILY lidocaine 5% (Lidoderm) 1 patch topical DAILY lisinopril 40 mg PO DAILY 90 days loratadine 10 mg PO DAILY PRN 90 days lorazepam (Ativan) 0.5 mg PO DAILY PRN 1 day omega 3-uki-xwh-fish oil 1,000 (120-180) mg 1 cap PO DAILY 90 days omega-3 fatty acids 1,000 mg PO DAILY venlafaxine ER 150 mg PO BEDTIME 90 days walker (Ultra-Light Rollator misc) As directed Tobacco use date assessed: 11/25/24 Dental Screening Dental Screen Date: 11/25/24 Did you have a dental visit in the last 12 months?: No Did you have a dental problem in the last 6 months where you did not have access to dental care?: No Was dental information given to patient?: Patient has dentist HPI HPI Comments History of Present Illness Details The patient is a 59-year-old male presenting for a physical examination and preventative care. The patient has a history of hypertension, which has shown improvement but remains elevated. He is currently on multiple antihypertensive medications including atenolol, hydrochlorothiazide, and lisinopril. The patient also has hyperlipidemia, managed with atorvastatin 20 mg daily. Previous lab results indicated improvement in cholesterol levels. He reports a minimal level of depression with a PHQ-9 score of 3, which is not considered severe. He is currently taking venlafaxine at night for this condition. The patient has a history of hyperglycemia and has been advised to undergo laboratory testing this week to monitor glucose levels. He has been instructed to fast for 8 hours prior to the test. In 2016, a small hyperplastic colon polyp was removed, and he is scheduled for follow-up colonoscopy in 2026. There is no current evidence of adenomatous polyps. Family history is significant for diabetes and hypertension in his mother, who at age 90, and cancer in his father. The patient does not smoke or consume alcohol currently, although he smoked as a teenager. [facility] Medical History Physical exam Mild recurrent major depression Class 1 obesity with body mass index (BMI) of 34.0 to 34.9 in adult Erectile disorder, acquired, generalized, severe Anxiety and depression Allergic rhinitis Insomnia Eczema Impaired glucose tolerance Essential hypertension Surgical History H/O colonoscopy History of removal of cyst Family History Father Cancer Mother Diabetes Hypertension Brother No problems noted. Sister No problems noted. Son No problems noted. Daughter No problems noted. 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 1. Little interest or pleasure in doing things: not at all 2. Feeling down, depressed, or hopeless: several days 3. Trouble falling or staying asleep, or sleeping too much: several days 4. Feeling tired or having little energy: several days 5. Poor appetite or overeating: not at all 6. Feeling bad about yourself - or that you are a failure or have let yourself or your family down: not at all 7. Trouble concentrating on things, such as reading the newspaper or watching television: not at all 8. Moving or speaking so slowly that other people could have noticed. Or the opposite - being so fidgety or restless that you have been moving around a lot more than usual: not at all 9. Thoughts that you would be better off or of hurting yourself in some way: not at all Total score: 3 Depression Screening Interpretation: Positive Depression Screening Follow-up: Existing condition, In treatment, Community Mental Health Worker F/U and Follow-up Visit Requested Depression Screening Done: Yes 58874 - PHQ-9 Billing: Yes Source: Developed by Drs. Stiven Salmeron, Lavonne Enciso, Tanner Larios and colleagues, with an educational arden from [employer]. Thrive Questionnaire Date Thrive assessed: 11/25/24 I am a: Patient What is your living situation today?: I have a steady place to live Within the past 12 months, did the food you bought not last and you didn't have the money to get more?: Sometimes True Within the past 12 months, did you worry whether your food would run out before you got money to buy more?: Sometimes True Do you have trouble paying for medicines?: No Do you have trouble getting transportation to medical appointments?: No Do you have trouble paying your heating and electricity bill?: No Do you have trouble taking care of your child, family member or friend?: No Do you have trouble with day-to-day activities such as bathing, preparing meals, shopping, managing finances, etc.?: No Are you currently unemployed and looking for a job?: No Are you interested in more education?: No Please select the resources that you would like help with: None Currently or been in a relationship where the following occur: No concerns reported THRIVE Score: 2 AUDIT C Alcohol Use Questionnaire (AUDIT-C) 1. How often do you have a drink containing alcohol?: Never Total Score: 0 Score Reviewed/Action Taken: No MANN-7 AMB Questionnaire MANN-7 Date MANN - 7 assessed: 11/25/24 Feeling nervous, anxious, or on edge: 1 = Several days Not being able to stop or control worryin = Not at all Worrying too much about different things: 1 = Several days Trouble relaxin = Several days Being so restless that it is hard to sit still: 0 = Not at all Becoming easily annoyed or irritable: 3 = Nearly every day Feeling afraid as if something awful might happen: 0 = Not at all Total MANN-7 score (0-4 normal; 5-9 mild; 10-14 moderate; 15-21 severe): 6 Source: Developed by Drs. Stiven Salmeron, Lavonne Enciso, Tanner Larios and colleagues, with an educational arden from [employer]. MANN-7 Assessment Billing MANN-7 Assessment Tool: MANN-7 Assessment 86065 Review of Systems Const All systems reviewed & are unremarkable except as noted in HPI and below Card Denies chest pain at rest, Denies chest pain with activity, Denies edema, Denies irregular heart rhythm, Denies claudication, Denies dyspnea, Denies dyspnea on exertion, Denies orthopnea, Denies paroxysmal nocturnal dyspnea and Denies slow heart rate Resp Denies cough, Denies dyspnea and Denies dyspnea on exertion Neuro Denies lack of coordination Physical exam (Primary Care) Vital Signs: Last Vital Signs Temp 97.1 F 11/25/24 09:08 Pulse 66 11/25/24 09:08 Resp 18 11/25/24 09:08 BP 140/86 H 11/25/24 09:08 Pulse Ox 94 11/25/24 09:08 Oxygen Delivery Method Room Air 11/25/24 09:08 BMI result Body Mass Index 35.4 BMI Assessment/Plan discussion: High BMI High, discussed plan: lifestyle, weight reduction, dietary and physical activity Tobacco/Smoking Status: Tobacco use Status Tobacco use date assessed 11/25/24 11/25/24 09:22 Patient Tobacco Use Status Former Tobacco user 11/25/24 09:22 Tobacco use type Cigarette 11/25/24 09:22 e-Cigarette/Vaping Use Never Used 11/25/24 09:22 PHQ-9: PHQ-9 Score PHQ-9: Total score 3 11/25/24 09:36 Depression Screening Interpretation: Positive Depression Screening Follow-up: Existing condition, In treatment, Community Mental Health Worker F/U and Follow-up Visit Requested Thrive Assessment: Date of Thrive Assessment Date Thrive assessed 11/25/24 11/25/24 09:22 Currently or been in a relationship where the following occur: No concerns reported HENMT Head: Yes normal to inspection, Yes normocephalic and Yes atraumatic Ears: external ears normal Eyes General: appearance normal, both eyes and all related structures Eyelids: Yes eyelids normal Conjunctivae: conjunctivae normal Neck Neck: Yes normal visual inspection and Yes supple Resp Effort & Inspection: normal respiratory effort Auscultation: clear to auscultation bilaterally Cardio Jugular venous distension: no JVD Rate: regular rate Rhythm: regular rhythm Heart sounds: S1 normal heart sound present and S2 normal heart sound present GI Inspection: Yes normal to inspection Palpation (GI): Soft to palpation and nontender Auscultation: normal bowel sounds Skin General skin exam: no rashes or lesions noted Neuro General: no focal motor deficits Extrem General: Yes full ROM Psych Appearance: grossly normal Coding Level of Care Code Est Pt Level 3 (24099) Est Pt Prev Care 40-64y(91225) Diagnoses Physical exam Z00.00 Mild recurrent major depression F33.0 Essential hypertension I10 Additional Codes MANN-7 Assessment Billing - MANN-7 Assessment Tool: MANN-7 Assessment 63997 ([id number]) PHQ-9 - 02611 - PHQ-9 Billing: Yes ([id number]) Time Spent (min) 31 Assessment & Plan Assessment & Plan (1) Physical exam: Code(s): Z00.00 - Encounter for general adult medical examination without abnormal findings Category: Medical (2) Mild recurrent major depression: Code(s): F33.0 - Major depressive disorder, recurrent, mild Category: Medical (3) Essential hypertension: Code(s): I10 - Essential (primary) hypertension Category: Medical Plan Plan Patient was informed and verbally consented to the use of an ambient scribe for clinic note documentation during this visit. 1. Encounter for general adult medical examination without abnormal findings Z00.00 The patient is scheduled for a follow-up colonoscopy in 2026 after the removal of a small hyperplastic polyp in 2016. 2. Essential (primary) hypertension I10 The patient continues to have elevated blood pressure despite current medication regimen, which includes atenolol, hydrochlorothiazide, and lisinopril. Further monitoring and potential adjustment of medications may be necessary to achieve optimal control. 3. Major depressive disorder, recurrent, mild F33.0 HCC 59 The patient reports minimal depression with a PHQ-9 score of 3 and is currently taking venlafaxine at night. Orders: Orders Lipid Panel Today E78.5 - Hyperlipidemia, unspecified Comprehensive [place]. Panel Fast Today R73.02 - Impaired glucose tolerance (oral)
--- OUTSIDE RECORDS SUMMARY | 2024-11-25 09:35 | XMS_ITS | Patient Health Record ---
Author Organization [facility] Address [address] [place] [id number] Care Team Providers Care Construction Consultant Name Role Phone Sera(inactive) Sean WALLER Primary Care Provider U angelitaemigdioStiven Fuller Unavailable [phone] Reason For Referral No Information Medications Medication [...] Problem Status W/U Status Risk Notes Problem [id number] Encounter for screening for malignant neoplasm of colon (Z12.11) Active confirmed Problem [id number] Preprocedural examination (Z01.818) Active confirmed Plan Of Treatment Future Test Test Name Order Date COLONOSCOPY 09/20/2016 Insurance Providers Payer Name Payer Address Payer Phone Subscriber Number Group Number Insured Name Patient Relationship to Insured Coverage Start Date Coverage End Date [facility] [address] [place] [address] [id number] JUSTICE ARITA Self - patient is the insured Medical (General) History Medical History History ICD Code Denies NH,DM,CVA,Lung disease,renal dise ase HTN Depression Surgical History Surgery Date(Month/Year) Cyst removal from neck
== END 2024-11-25 09:48 | disposition home or self-care (01) ==
LOC: HO.HMCH 08:50
PROVIDERS: PCP Internal Medicine; Visit Provider Internal Medicine
DX: Z00.00 Encounter for general adult medical examination without abnormal findings (principal); I10 Essential (primary) hypertension; F33.0 Major depressive disorder, recurrent, mild; E78.5 Hyperlipidemia, unspecified; R73.02 Impaired glucose tolerance (oral)

== ENCOUNTER → 2024-11-25 08:49 | Outpatient (BNVA) | payer OTHER, SELFPAY | PROVIDERS: PCP Internal Medicine; Visit Provider Internal Medicine | DX: Z00.00 Encounter for general adult medical examination without abnormal findings (principal); I10 Essential (primary) hypertension; E78.5 Hyperlipidemia, unspecified; F33.0 Major depressive disorder, recurrent, mild; R73.02 Impaired glucose tolerance (oral); Z86.0102 Personal history of hyperplastic colon polyps | CPT/HCPCS: 96127; 99212; 99396 ==

== ENCOUNTER 2024-12-04 09:33 | Outpatient (AMB) | payer OTHER, SELFPAY ==
--- NOTE | 2024-12-04 09:36 | MHC.OFFVIS ---
Vital Signs 12/04/24 09:39 Height 5 ft 7 in Weight 226 lb 4 oz BMI 35.4 BP 173/93 H Blood Pressure Location Rt brachial Position Sitting Pulse 64 Pulse Source Pulse Oximeter Pulse Oximetry (%) 99 Oxygen Delivery Method Room Air Intake Visit Reasons: s/p Left L5-S1 TFESI Intake Note: Pain today 11/02 Plan Coordinator Required: No Accompanied by: Self / Same As Patient Allergies No Known Allergies (No Known Allergies*) Allergy (Verified 12/04/24 09:40) HPI Comments Details: The patient is a 59-year-old male presenting with chronic low back pain, one month status post Left L5 TFESI injection. The chronic low back pain has been associated with arthritis and left-sided radiculopathy, which has shown left leg improvement following an injection. He denies any tingling or numbness in the legs. The patient reports that the leg pain has completely resolved, although axial low back pain persists. Patient was previously seen by [facility] and was deemed nonsurgical. He completed physical therapy in the past with temporary improvement. He attempts with home exercise program but finds it limiting due to constant back pain. The patient has been taking medications such as Tylenol, cyclobenzaprine, gabapentin, lidocaine patch, and ibuprofen with continues symptoms in the lower back. - Onset: Chronic, ongoing for several years - Quality: Persistent back pain, previously associated with left leg pain - Location: Primarily in the lower back, previously radiating to the left leg - Exacerbating factors: Leaning backwards increases pain, especially on the right side - Relieving factors: Previous injection has alleviated left leg pain, continues with OTC and prescribed oral and topical medications Past Procedures: 11/06/24: Left L5 TFESI-100% left leg pain relief, minimal back pain relief PRIOR: Patient is a 58-year-old male with history of lumbar back sprain, left-sided radiculopathy, lumbar degenerative disc disease, anxiety, depression, obesity, erectile dysfunction, history of falls, presents today for initial evaluation of low back pain with radiation into his left buttock and into left lower extremity posteriorly with associated stabbing, sharp, tingling and numbness sensations. Denies any recent trauma, injury, or falls. He reports seeing provider at [facility] and receiving injection for L4-L5 level with good results. [facility] EMR review noted for multiple ER visits for lumbar strain, sciatica, left lumbar radiculopathy x7 visits from 11/21/20-09/17/23. 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 He completed physical therapy in 2021 without improvement in his functioning or pain. Denies previous spine surgery. This has been longstanding pain for him which is worse with movement and better with rest. Pain is constant and is most severe in the mornings. Pain affects his daily activities and functioning, mood, sleep, mobility, and recreational activities. He ambulates with mildly antalgic gait without limping. Denies any fever or chills, abdominal or groin pain, weakness, foot drop, bladder or bowel dysfunction or saddle anesthesia. Location: Left-sided low back pain radiates Duration: Chronic pain for 2 years, progressively getting worse for past one year Characteristics of symptom or complaint: Aching, shooting, numbness, tingling, burning Aggravating or associated factors: Walking, bending, heavy lifting, twisting, sleeping, rainy cold weather Relieving factors: Walker, rest, Tylenol, Ibuprofen, lidocaine patches, prednisone, tramadol Treatment: PT, back injection at [facility], MRI lumbar 2 months ago, multiple ER visits [facility] Medical History Physical exam Mild recurrent major depression Class 1 obesity with body mass index (BMI) of 34.0 to 34.9 in adult Erectile disorder, acquired, generalized, severe Anxiety and depression Allergic rhinitis Insomnia Eczema Impaired glucose tolerance Essential hypertension Surgical History H/O colonoscopy History of removal of cyst Family History Father Cancer Mother Diabetes Hypertension Brother No problems noted. Sister No problems noted. Son No problems noted. Daughter No problems noted. 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 Alert and oriented. Mood and affect appropriate. Follows and participates in conversation appropriately. Respiratory effort is unlabored. No cough. Able to transition from sit to stand unassisted. Ambulates with bilaterally normal heel strike and toe off. General: Yes no CVA tenderness Back/Spine/Pelvis Other: Limited lumbar ROM due to pain. Mildly antalgic gait, no limping. Lumbar extension and axial rotations reproduce moderate-severe pain, flexion and bending down reproduces mild pain. Demonstrates 5/5 bilateral strength of quadriceps bilaterally as well as flexion/dorsiflexion of bilateral feet against resistance. 2+ pedal pulses bilaterally. Straight leg rise with dorsiflexion positive on the left. +1 patellar and achilles reflexes bilaterally. Facet loading test positive bilaterally. Michelle sign positive on the left, Truman?s reproduces left lateral hip pain but not low back pain. No groin pain with I/E hip rotations. Valsalva maneuver is negative. Back: no CVA tenderness Cervical Spine: cervical ROM normal, cervical muscular tenderness and No Cervical spine tenderness Thoracic/Lumbar Spine: thoracic and lumbar spine normal to inspection, No Thoracic/lumbar spine scar(s), Lasegue's sign positive on the left and localized, pain with thoraco-lumbar ROM, paraspinal muscle tenderness on the left greater than right, thoraco-lumbar ROM limited, No thoracic spinal tenderness and lumbar spinal tenderness (L4-S1) Sacroiliac joints: on the right nontender and on the left tender to palpation Results Reviewed Results Reviewed: RADIOGRAPHS LUMBAR SPINE 03/08/23 CLINICAL INFORMATION: Fall. Low back pain. COMPARISON: Lumbar spine x-rays February 16, 2023 FINDINGS: Lumbar spine: 5 nonrib-bearing lumbar vertebral bodies are visualized. Alignment is within normal limits. Lumbar vertebral body heights are maintained. There is mild disc space narrowing at the L3/4 and L5/S1 levels. Tiny osteophytes are scattered throughout the lumbar spine. There are mild degenerative changes of the posterior elements of the lower lumbar spine. Sacroiliac joints are symmetric. Suspected 4 mm right renal calculus. IMPRESSION: 1. No acute pulmonary pathology. 2. Mild degenerative changes of the lumbar spine without compression deformity. MR SPINE LUMBAR without CONTRAST 02/19/24 RAYUS INDICATION: Lower back pain radiating to left ongoing for 2 years. Intervertebral disc degeneration. TECHNIQUE: Unenhanced multiplanar, multisequence MR imaging of the lumbar spine. COMPARISON: MR lumbar 04/28/2023. FINDINGS: Normal lumbar alignment is demonstrated. Vertebral heights are well maintained. There is disc desiccation and disc space narrowing at L3-4 and L4-5. Bone marrow signal is within normal limits, and no suspicious osseous lesion is identified. Conus medullaris is unremarkable. Paraspinal soft tissues and visualized portions of the abdomen and pelvis are unremarkable. At L1-2 there is no significant disc herniation or protrusion. No central canal or neural foraminal stenosis is demonstrated. At L2-3 there is mild annular disc bulge and mild facet arthrosis. Central canal is patent with foraminal stenosis. At L3-4 there is broad-based disc bulge and mild facet arthrosis and ligament flavum hypertrophy. There is mild narrowing of the central canal with mild right and moderate left neural foraminal stenosis. Findings appear stable. At L4-5 there is broad-based disc bulge and mild facet arthrosis. There is mild to moderate central canal stenosis with advanced right and moderate to advanced left neural foraminal stenosis. Findings appear stable. At L5-S1 there is mild annular disc bulge and mild facet arthrosis. Central canal is patent. There is moderate right and advanced left neural foraminal stenosis. Findings appear stable. IMPRESSION: Stable appearance degenerative changes lumbar spine greater at L3-4 and L4-5. Narrowing of the neuroforamina at L5-S1 greater on the left. Findings appear stable. XR LUMBAR SPINE XR SHOULDER, RIGHT XR CERVICAL SPINE 07/24/22 CLINICAL INDICATION: Pain in right shoulder, cervical spine and lumbar spine. TECHNIQUE: Lumbar spine 3 views, right shoulder 4 views. Cervical spine 4 views. FINDINGS: RIGHT SHOULDER: There are 2 loose bodies seen within the subacromial bursa. Loss of joint glenohumeral joint space with moderate inferior spurring is noted. AC joint is normal. No loose body seen. No fracture noted. LUMBAR SPINE: There is normal lumbar lordosis. The vertebral heights and alignment are normal. There is loss of L5-S1 and L3-L4 disc heights with mild ventral spondylosis. There is no visible acute fracture, dislocation or lytic process seen. The paravertebral soft tissues are normal. The SI joints are normal. CERVICAL SPINE: There is normal cervical lordosis. The vertebral heights, alignment and the disc heights are normal. The craniovertebral junction and C1-C2 alignment is normal. No visible acute fracture, dislocation or subluxation seen. IMPRESSION: Degenerative arthritic changes right shoulder with two moderate-sized loose bodies in the subacromial bursa. No acute fracture. L5-S1 degenerative disc changes lumbar spine. No acute fracture or lytic process. Unremarkable cervical spine exam. XR cervical spine w flex/ext 09/11/24 CLINICAL HISTORY: M54.2 - Cervicalgia 8 views cervical spine Comparison: None provided Findings: Normal vertebral body alignment. No acute fractures or dislocation. No significant degenerative change. No prevertebral soft tissue swelling. Oblique views demonstrate widely patent bony foramen. IMPRESSION: No acute findings. No significant degenerative change. Assessment & Plan Assessment & Plan (1) Lower back pain: Code(s): M54.50 - Low back pain, unspecified Category: Medical (2) Lumbar degenerative disc disease: Code(s): M51.36 - Other intervertebral disc degeneration, lumbar region Category: Medical (3) Left lumbosacral radiculopathy: Code(s): M54.17 - Radiculopathy, lumbosacral region Category: Medical (4) Lumbosacral spondylosis: Code(s): M47.817 - Spondylosis without myelopathy or radiculopathy, lumbosacral region Category: Medical Plan The plan includes scheduling diagnostic injections to further evaluate and manage the patient's arthritic back pain through potential treatments such as lumbar RFA or Sprint PNS trial, which could provide extended pain relief. Schedule diagnostic bilateral L3-L4 DR L5 medial branch blocks with local and fluoroscopy. Expectations, risks and benefits were reviewed. Patient is aware he will be contacted to schedule this procedure. Continue taking Tylenol, cyclobenzaprine, gabapentin, lidocaine patch, and ibuprofen as needed for pain management. All questions and concerns have been answered and patient agreed with the treatment plan. Follow up after injections and sooner as needed. Patient was informed and verbally consented to the use of an ambient scribe for clinic note documentation during this visit. Coding Level of Care Code Est Pt Level 4 (67104) Complex EM visit Add On G2211 Diagnoses Lower back pain M54.50 Lumbar degenerative disc disease M51.36 Left lumbosacral radiculopathy M54.17 Lumbosacral spondylosis M47.817
[2024-12-04 09:39] VITALS: BP 173/93; PULSE 64; O2SAT 99; BMI 35.4
--- OUTSIDE RECORDS SUMMARY | 2024-12-04 11:10 | XMS_ITS | Patient Health Record ---
Author Organization [facility] Address [address] [place] [id number] Care Team Providers Care Blind Hanger Name Role Phone Sera(inactive) Sean WALLER Primary Care Provider U angelitaemigdioStiven Fuller Unavailable [phone] Reason For Referral No Information Medications Medication [...] Problem Status W/U Status Risk Notes Problem [id number] Encounter for screening for malignant neoplasm of colon (Z12.11) Active confirmed Problem [id number] Preprocedural examination (Z01.818) Active confirmed Plan Of Treatment Future Test Test Name Order Date COLONOSCOPY 09/20/2016 Insurance Providers Payer Name Payer Address Payer Phone Subscriber Number Group Number Insured Name Patient Relationship to Insured Coverage Start Date Coverage End Date [facility] [address] [place] [phone] [id number] JUSTICE ARITA Self - patient is the insured Medical (General) History Medical History History ICD Code Denies [place],DM,CVA,Lung disease,renal dise ase HTN Depression Surgical History Surgery Date(Month/Year) Cyst removal from neck
== END 2024-12-04 09:50 | disposition home or self-care (01) ==
LOC: HO.PMC 09:34
PROVIDERS: PCP Internal Medicine; Visit Provider Nurse Practitioner Family
DX: M54.50 Low back pain, unspecified (principal); M51.369 Other intervertebral disc degeneration, lumbar region without mention of lumbar back pain or lower extremity pain; M54.17 Radiculopathy, lumbosacral region; M47.817 Spondylosis without myelopathy or radiculopathy, lumbosacral region
CPT/HCPCS: 99214

== ENCOUNTER → 2024-12-04 09:33 | Outpatient (BNVA) | payer OTHER, SELFPAY | PROVIDERS: PCP Internal Medicine; Visit Provider Nurse Practitioner Family | DX: M54.50 Low back pain, unspecified (principal); M51.369 Other intervertebral disc degeneration, lumbar region without mention of lumbar back pain or lower extremity pain; M54.17 Radiculopathy, lumbosacral region; M47.817 Spondylosis without myelopathy or radiculopathy, lumbosacral region | CPT/HCPCS: 99212 ==

== ENCOUNTER → 2025-01-08 12:57 | Outpatient (BNVA) | payer OTHER, SELFPAY | PROVIDERS: PCP Internal Medicine | DX: I10 Essential (primary) hypertension (principal); E66.811 Obesity, class 1; Z68.34 Body mass index [BMI] 34.0-34.9, adult; Z87.891 Personal history of nicotine dependence | CPT/HCPCS: 99211 ==

== ENCOUNTER 2025-01-22 06:06 | Outpatient (REF) | payer OTHER, SELFPAY ==
--- NOTE | ~2025-01-22 | FL_ITS ---
EXAMINATION: FL GUIDANCE ONLY HISTORY: M47.27 - Other spondylosis with radiculopathy, lumbosacral region COMPARISON: None available. TECHNIQUE: Fluoroscopy time: 13 seconds. Cumulative Dose: 4.10 mGy. DAP: 419.20 mGycm2 Images: 4. FINDINGS: Fluoroscopic spot films of the lumbar spine projection demonstrate needles and contrast material in the regions of the bilateral L3-4, L4-5, and L5-S1 facet joints. FL/FL guidance in treatment room IMPRESSION: Fluoroscopy during procedure. Please see procedure report for additional information. Electronically signed by: Stiven Bonilla MD 01/22/2025 02:38 PM EDT
--- OUTSIDE RECORDS SUMMARY | 2025-01-22 06:10 | XMS_ITS | Patient Health Record ---
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 Name Role Phone Sera(inactive) Sean WALLER Primary Care Provider U angelitapoornima Kennedy Stiven Unavailable [phone] Reason For Referral No Information Medications Medication [...] Problem Status W/U Status Risk Notes Problem Screening for malignant neoplasm of colon ([id number]) Encounter for screening for malignant neoplasm of colon (Z12.11) Active confirmed Problem Preprocedural examination ([id number]) Preprocedural examination (Z01.818) Active confirmed Plan Of Treatment Future Test Test Name Order Date COLONOSCOPY 09/20/2016 Insurance Providers Payer Name Payer Address Payer Phone Subscriber Number Group Number Insured Name Patient Relationship to Insured Coverage Start Date Coverage End Date [place] [address] [place] [phone] [id number] JUSTICE ARITA Self - patient is the insured Medical (General) History Medical History History ICD Code Denies [place],DM,CVA,Lung disease,renal dise ase HTN Depression Surgical History Surgery Date(Month/Year) Cyst removal from neck
== END 2025-01-22 06:07 | disposition home or self-care (01) ==
LOC: CF 06:06
PROVIDERS: Visit Provider Internal Medicine
DX: M47.27 Other spondylosis with radiculopathy, lumbosacral region (principal)
CPT/HCPCS: 64493; 64494; J2003; J2795; Q9967

== ENCOUNTER 2025-01-22 08:46 | Outpatient (AMB) | payer OTHER, SELFPAY ==
[2025-01-22 08:58] VITALS: BP 140/82; PULSE 62; RESP 16; O2SAT 94
--- NOTE | 2025-01-22 08:58 | MHC.OFFVIS ---
Vital Signs 01/22/25 08:58 01/22/25 09:46 BP 140/82 H 138/86 Blood Pressure Location Lt brachial Lt brachial Position Sitting Sitting Respiration 16 16 Pulse 62 63 Pulse Source Pulse Oximeter Pulse Oximeter Pulse Oximetry (%) 94 94 Oxygen Delivery Method Room Air Room Air Intake Visit Reasons: Bilateral diagnostic L3-L4 DR L5 MBB Cancer Registry Manager Required: No Allergies No Known Allergies (No Known Allergies*) Allergy (Verified 01/22/25 08:59) Medication List - Last Reconciled 01/22/25 by Mackenzie Muir LPN acetaminophen (Tylenol Extra Strength) 500 - 1,000 mg (1 - 2 x 500 mg) PO Q6H PRN albuterol sulfate 90 mcg/actuation 2 puffs inhalation Q6H PRN atenolol 50 mg PO DAILY 90 days atorvastatin 20 mg PO BEDTIME 90 days clotrimazole-betamethasone 1-0.05 % 1 appl topical BID 30 days fluticasone propionate 50 mcg/actuation 1 spray intranasal DAILY hydrochlorothiazide 25 mg PO DAILY ibuprofen 800 mg PO Q8H lidocaine 5% (Lidoderm) 1 patch topical DAILY lisinopril 40 mg PO DAILY 90 days loratadine 10 mg PO DAILY PRN 90 days lorazepam (Ativan) 0.5 mg PO DAILY PRN 1 day omega 3-iaj-zgf-fish oil 1,000 (120-180) mg 1 cap PO DAILY 90 days venlafaxine ER 150 mg PO BEDTIME 90 days verapamil ER 120 mg PO DAILY 90 days walker (Ultra-Light Rollator misc) As directed HPI HPI Bilateral diagnostic L3-L4 L5 MBB: Details: Patient presents for scheduled procedure. Denies any recent cough, cold, infection, fever or other significant changes in medical history since last office visit. [facility] Medical History Physical exam Mild recurrent major depression Class 1 obesity with body mass index (BMI) of 34.0 to 34.9 in adult Erectile disorder, acquired, generalized, severe Anxiety and depression Allergic rhinitis Insomnia Eczema Impaired glucose tolerance Essential hypertension Surgical History H/O colonoscopy History of removal of cyst Family History Father Cancer Mother Diabetes Hypertension Brother No problems noted. Sister No problems noted. Son No problems noted. Daughter No problems noted. 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 The patient was placed in a prone position. The respective lumbosacral area was prepped with chloraprep and draped in sterile fashion. The skin over the target medial branch nerves was anesthetized with 0.5% lidocaine. A 22 gauge 3.5 inch needle was inserted into the target medial branch nerve under fluoroscopic guidance. No paresthesias were elicited with needle placement and aspiration was negative for blood and CSF. Next, 0.2cc of omnipaque 180 was injected to verify positioning in AP imaging. Next 0.5 ml 0.5% ropivicaine was injected (0.5cc total per level). The identical procedure was performed at the remaining levels. The skin was cleansed and a sterile bandage was applied. Following the procedure the patient's vital signs were stable. The patient tolerated the procedure well and no complications were encountered. Following the procedure the patient's vital signs were stable. The patient was discharged home in good condition with post-procedural instructions. Time Out: Immediately prior to the procedure, the following was verbally confirmed that there is a signed consent form and that the correct patient, planned procedure, site and side are consistent with documentation and that necessary equipment and/or blood products are available prior to the start of the case. Complications: none EBL: <5 cc 57547 - with Fluoroscopy (L3-L4) (bilateral) 37984 - second level with Fluoroscopy (L3-L4-L5) Procedure code (CPT) selection complete Assessment & Plan Assessment & Plan (1) Lumbosacral spondylosis: Code(s): M47.817 - Spondylosis without myelopathy or radiculopathy, lumbosacral region Category: Medical Qualifiers: Spinal osteoarthritis complication: with radiculopathy Qualified Code(s): M47.27 - Other spondylosis with radiculopathy, lumbosacral region Plan Patient is status post bilateral lumbar MBBs. Patient tolerated procedure well and was discharged home in stable condition with discharge instructions. All questions were answered. We will follow-up via telephone or in clinic to assess response to therapy. A follow-up appointment was made during today's visit. Orders: Orders FL guidance in treatment room Today Alis Mireles APRN, ADDICTION MEDICINE PHYSICIAN M47.27 - Other spondylosis with radiculopathy, lumbosacral region AMB Medial Branch Block - Lumbar/Sacral Today Luis Manuel Giang MD M47.816 - Spondylosis without myelopathy or radiculopathy, lumbar region Coding Level of Care Code Procedure Only Diagnoses Osteoarthritis of spine with radiculopathy, lumbosacral region M47.27 Spinal osteoarthritis complication: with radiculopathy CPT Codes Medial Branch Block Lumbar/Sacral1 - Branch Block Lumb/Sac 1: 96129 - with Fluoroscopy (L3-L4) ([id number]) Medial Branch Block Lumbar/Sacral1 - Branch Block Lumb/Sac 2: 27477 - second level with Fluoroscopy (L3-L4-L5) ([id number])
[2025-01-22 09:46] VITALS: BP 138/86; PULSE 63; RESP 16; O2SAT 94
== END 2025-01-22 09:46 | disposition home or self-care (01) ==
LOC: HO.PMCPRC 08:46
PROVIDERS: PCP Internal Medicine; Visit Provider Internal Medicine
DX: M47.816 Spondylosis without myelopathy or radiculopathy, lumbar region (principal); M47.897 Other spondylosis, lumbosacral region
CPT/HCPCS: 64493; 64494

== ENCOUNTER 2025-01-26 09:33 | Outpatient (AMB) | payer OTHER, SELFPAY ==
--- NOTE | 2025-01-26 09:37 | MHC.OFFVIS ---
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 He recently underwent bilateral diagnostic lumbar medial branch blocks on January 12, 2025, performed by Dr. Giang. Previously, he received a left L5 transforaminal epidural steroid injection, which relieved his left leg pain but did not significantly alleviate his back pain. The patient has a history of lumbar back strain, left-sided radiculopathy, lumbar degenerative disc disease, and obesity. He was evaluated by [facility] neurosurgery and was deemed nonsurgical. Previous physical therapy provided temporary improvement, and he attempts a home exercise program but finds it limiting due to constant back pain. He continues to take medications such as Tylenol, cyclobenzaprine, gabapentin, lidocaine patch, and ibuprofen. Recent back injections provided complete pain relief for one and a half days. He is interested to proceed with lumbar medial branch RFA as next steps for a longer term pain relief. Patient also reports recent onset of left hip pain with walking, putting on clothes especially shoes or socks, sleeping on left side or getting out from car or bed on left side. His left hip pain radiates to left groin with external hip rotation or crossing his leg. He reports mild pain in his right hip as well. Denies any recent injury, trauma, or falls or engaging in strenuous physical activities or exercise. Denies any recent cough, cold, infection, fever or any significant changes in medical history since last office visit. Past Procedures: 01/22/25: Bilateral diagnostic L3-L4 DR L5 MBB-100% pain relief for 1.5 days 11/06/24: Left L5 TFESI-100% left leg pain relief, minimal back pain relief PRIOR: Patient is a 58-year-old male with history of lumbar back sprain, left-sided radiculopathy, lumbar degenerative disc disease, anxiety, depression, obesity, erectile dysfunction, history of falls, presents today for initial evaluation of low back pain with radiation into his left buttock and into left lower extremity posteriorly with associated stabbing, sharp, tingling and numbness sensations. Denies any recent trauma, injury, or falls. He reports seeing provider at [facility] and receiving injection for L4-L5 level with good results. [facility] EMR review noted for multiple ER visits for lumbar strain, sciatica, left lumbar radiculopathy x7 visits from 11/21/20-09/17/23. 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 He completed physical therapy in 2021 without improvement in his functioning or pain. Denies previous spine surgery. This has been longstanding pain for him which is worse with movement and better with rest. Pain is constant and is most severe in the mornings. Pain affects his daily activities and functioning, mood, sleep, mobility, and recreational activities. He ambulates with mildly antalgic gait without limping. Denies any fever or chills, abdominal or groin pain, weakness, foot drop, bladder or bowel dysfunction or saddle anesthesia. Location: Left-sided low back pain radiates Duration: Chronic pain for 2 years, progressively getting worse for past one year Characteristics of symptom or complaint: Aching, shooting, numbness, tingling, burning Aggravating or associated factors: Walking, bending, heavy lifting, twisting, sleeping, rainy cold weather Relieving factors: Walker, rest, Tylenol, Ibuprofen, lidocaine patches, prednisone, tramadol Treatment: PT, back injection at [facility], MRI lumbar 2 months ago, multiple ER visits [facility] Medical History Physical exam Mild recurrent major depression Class 1 obesity with body mass index (BMI) of 34.0 to 34.9 in adult Erectile disorder, acquired, generalized, severe Anxiety and depression Allergic rhinitis Insomnia Eczema Impaired glucose tolerance Essential hypertension Surgical History H/O colonoscopy History of removal of cyst Family History Father Cancer Mother Diabetes Hypertension Brother No problems noted. Sister No problems noted. Son No problems noted. Daughter No problems noted. 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 Current occupational exposures/hazards: No Cognitive needs: No Hearing needs: No Vision needs: Yes Review of Systems Const Details: - Musculoskeletal: Reports chronic low back pain, left leg pain, and groin pain - Neurological: Denies any numbness or tingling, weakness, bladder or bowel dysfunction or saddle anesthesia - Endocrine: Denies diabetes All systems reviewed & are unremarkable except as noted in HPI and below Physical Exam Vital Signs: Last Vital Signs Pulse 101 H 01/26/25 09:41 BP 152/80 H 01/26/25 09:41 Pulse Ox 98 01/26/25 09:41 Oxygen Delivery Method Room Air 01/26/25 09:41 BMI result Body Mass Index 35.9 General: Appears afebrile. Alert and oriented. Mood and affect appropriate. Follows and participates in conversation appropriately. Respiratory effort is unlabored. No cough. Able to transition from sit to stand unassisted. Ambulates with bilaterally normal heel strike and toe off, reports left leg pain due with weightbearing and walking. General: Yes no CVA tenderness Back/Spine/Pelvis Other: Limited lumbar ROM due to pain. Mildly antalgic gait, mild limping. Lumbar extension and axial rotations reproduce moderate pain, flexion and bending down reproduces mild pain. Demonstrates 5/5 right and 4/5 left due to pain bilateral strength of quadriceps bilaterally as well as flexion/dorsiflexion of bilateral feet against resistance. 2+ pedal pulses bilaterally. Straight leg rise with dorsiflexion negative bilaterally. +1 patellar and achilles reflexes bilaterally. Facet loading test positive bilaterally. Michelle sign positive on the left, Truman?s reproduces left lateral hip and groin pain but not low back pain. Mild to moderate groin pain with left hip external rotations. Valsalva maneuver is negative. Back: no CVA tenderness Cervical Spine: cervical ROM normal, cervical muscular tenderness and No Cervical spine tenderness Thoracic/Lumbar Spine: thoracic and lumbar spine normal to inspection, No Thoracic/lumbar spine scar(s), pain with thoraco-lumbar ROM, paraspinal muscle tenderness on the left greater than right, thoraco-lumbar ROM limited, No thoracic spinal tenderness and lumbar spinal tenderness (L4-S1) Sacroiliac joints: on the right nontender and on the left tender to palpation Extrem General: Yes capillary refill normal, Yes no clubbing, cyanosis or edema and Yes no calf tenderness Results Reviewed Results Reviewed: LUMBAR SPINE 03/08/23 CLINICAL INFORMATION: Fall. Low back pain. COMPARISON: Lumbar spine x-rays February 16, 2023 FINDINGS: Lumbar spine: 5 nonrib-bearing lumbar vertebral bodies are visualized. Alignment is within normal limits. Lumbar vertebral body heights are maintained. There is mild disc space narrowing at the L3/4 and L5/S1 levels. Tiny osteophytes are scattered throughout the lumbar spine. There are mild degenerative changes of the posterior elements of the lower lumbar spine. Sacroiliac joints are symmetric. Suspected 4 mm right renal calculus. IMPRESSION: 1. No acute pulmonary pathology. 2. Mild degenerative changes of the lumbar spine without compression deformity. MR SPINE LUMBAR without CONTRAST 02/19/24 RAYUS INDICATION: Lower back pain radiating to left ongoing for 2 years. Intervertebral disc degeneration. TECHNIQUE: Unenhanced multiplanar, multisequence MR imaging of the lumbar spine. COMPARISON: MR lumbar 04/28/2023. FINDINGS: Normal lumbar alignment is demonstrated. Vertebral heights are well maintained. There is disc desiccation and disc space narrowing at L3-4 and L4-5. Bone marrow signal is within normal limits, and no suspicious osseous lesion is identified. Conus medullaris is unremarkable. Paraspinal soft tissues and visualized portions of the abdomen and pelvis are unremarkable. At L1-2 there is no significant disc herniation or protrusion. No central canal or neural foraminal stenosis is demonstrated. At L2-3 there is mild annular disc bulge and mild facet arthrosis. Central canal is patent with foraminal stenosis. At L3-4 there is broad-based disc bulge and mild facet arthrosis and ligament flavum hypertrophy. There is mild narrowing of the central canal with mild right and moderate left neural foraminal stenosis. Findings appear stable. At L4-5 there is broad-based disc bulge and mild facet arthrosis. There is mild to moderate central canal stenosis with advanced right and moderate to advanced left neural foraminal stenosis. Findings appear stable. At L5-S1 there is mild annular disc bulge and mild facet arthrosis. Central canal is patent. There is moderate right and advanced left neural foraminal stenosis. Findings appear stable. IMPRESSION: Stable appearance degenerative changes lumbar spine greater at L3-4 and L4-5. Narrowing of the neuroforamina at L5-S1 greater on the left. Findings appear stable. XR LUMBAR SPINE XR SHOULDER, RIGHT XR CERVICAL SPINE 07/24/22 CLINICAL INDICATION: Pain in right shoulder, cervical spine and lumbar spine. TECHNIQUE: Lumbar spine 3 views, right shoulder 4 views. Cervical spine 4 views. FINDINGS: RIGHT SHOULDER: There are 2 loose bodies seen within the subacromial bursa. Loss of joint glenohumeral joint space with moderate inferior spurring is noted. AC joint is normal. No loose body seen. No fracture noted. LUMBAR SPINE: There is normal lumbar lordosis. The vertebral heights and alignment are normal. There is loss of L5-S1 and L3-L4 disc heights with mild ventral spondylosis. There is no visible acute fracture, dislocation or lytic process seen. The paravertebral soft tissues are normal. The SI joints are normal. CERVICAL SPINE: There is normal cervical lordosis. The vertebral heights, alignment and the disc heights are normal. The craniovertebral junction and C1-C2 alignment is normal. No visible acute fracture, dislocation or subluxation seen. IMPRESSION: Degenerative arthritic changes right shoulder with two moderate-sized loose bodies in the subacromial bursa. No acute fracture. L5-S1 degenerative disc changes lumbar spine. No acute fracture or lytic process. Unremarkable cervical spine exam. XR cervical spine w flex/ext 09/11/24 CLINICAL HISTORY: M54.2 - Cervicalgia 8 views cervical spine Comparison: None provided Findings: Normal vertebral body alignment. No acute fractures or dislocation. No significant degenerative change. No prevertebral soft tissue swelling. Oblique views demonstrate widely patent bony foramen. IMPRESSION: No acute findings. No significant degenerative change. XR BILATERAL HIPS WITH AP PELVIS 01/26/25 CLINICAL INFORMATION: M25.551 - Pain in right hip COMPARISON: None available. TECHNIQUE: AP and frog-leg lateral views of each hip and an AP view of the pelvis. FINDINGS: SI joints are symmetrical and unremarkable. Hip joint spaces are symmetrical and congruent. No osteophytes are identified. There is no sclerosis or degenerative cystic change. Pubic symphysis joint is within normal limits. IMPRESSION: Unremarkable pelvis and bilateral hips. Assessment & Plan Assessment & Plan (1) Hip pain, bilateral: Code(s): M25.551 - Pain in right hip; M25.552 - Pain in left hip Category: Medical (2) Lower back pain: Code(s): M54.50 - Low back pain, unspecified Category: Medical (3) Lumbar degenerative disc disease: Code(s): M51.36 - Other intervertebral disc degeneration, lumbar region Category: Medical (4) Lumbosacral spondylosis: Code(s): M47.817 - Spondylosis without myelopathy or radiculopathy, lumbosacral region Category: Medical Plan The patient will be considered for radiofrequency ablation (RFA) as the next step in managing his chronic low back pain, given the positive response to recent injections. Due to insurance limitations, the sprint peripheral nerve stimulator is not an option. Informative pamphlets were provided to patient about lumbar medial branch RFA. In parallel, an evaluation of the hip pain will be conducted, with x-rays ordered to assess for any significant arthritis. If arthritis is confirmed, a hip steroid injection may be considered before proceeding with RFA. Patient completed hip with pelvic view x-rays after today's visit and findings are normal. Schedule bilateral L3 L4 DR L5 medial branch RFA with local, oral sedation and fluoroscopy. Expectations, risks and benefits were reviewed. Patient is aware he will be contacted to schedule this procedure. All questions and concerns have been answered and patient agreed with the treatment plan. Follow up after lumbar RFA and sooner as needed. Patient was informed and verbally consented to the use of an ambient scribe for clinic note documentation during this visit. Orders: Orders XR hip BI w PEL1V Today M25.551 - Pain in right hip, M25.552 - Pain in left hip Coding Level of Care Code Est Pt Level 4 (40133) Complex EM visit Add On G2211 Diagnoses Hip pain, bilateral M25.551; M25.552 Lower back pain M54.50 Lumbar degenerative disc disease M51.36 Lumbosacral spondylosis M47.817
[2025-01-26 09:41] VITALS: BP 152/80; PULSE 101; O2SAT 98; BMI 35.9
--- OUTSIDE RECORDS SUMMARY | 2025-01-26 10:55 | XMS_ITS | Patient Health Record ---
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 Name Role Phone Sera(inactive) Sean WALLER Primary Care Provider U angelitapoornima Kennedy Stiven Unavailable [phone] Reason For Referral No Information Medications Medication [...] Problem Screening for malignant neoplasm of colon ([id number]) Encounter for screening for malignant neoplasm of colon (Z12.11) Active confirmed Problem Preprocedural examination ([id number]) Preprocedural examination (Z01.818) Active confirmed Plan Of Treatment Future Test Test Name Order Date COLONOSCOPY 09/20/2016 Insurance Providers Payer Name Payer Address Payer Phone Subscriber Number Group Number Insured Name Patient Relationship to Insured Coverage Start Date Coverage End Date [place] [address] [place] [phone] [id number] JUSTICE ARITA Self - patient is the insured Medical (General) History Medical History History ICD Code Denies DC,DM,CVA,Lung disease,renal dise ase HTN Depression Surgical History Surgery Date(Month/Year) Cyst removal from neck
== END 2025-01-26 09:51 | disposition home or self-care (01) ==
LOC: HO.PMC 09:34
PROVIDERS: PCP Internal Medicine; Visit Provider Nurse Practitioner Family
DX: M25.551 Pain in right hip (principal); M25.552 Pain in left hip; M54.50 Low back pain, unspecified; M51.369 Other intervertebral disc degeneration, lumbar region without mention of lumbar back pain or lower extremity pain; M47.817 Spondylosis without myelopathy or radiculopathy, lumbosacral region
CPT/HCPCS: 99214

== ENCOUNTER 2025-01-26 09:33 | Outpatient (REF) | payer OTHER, SELFPAY ==
--- NOTE | ~2025-01-26 | XR_ITS ---
EXAMINATION: XR BILATERAL HIPS WITH AP PELVIS CLINICAL INFORMATION: M25.551 - Pain in right hip COMPARISON: None available. TECHNIQUE: AP and frog-leg lateral views of each hip and an AP view of the pelvis. FINDINGS: SI joints are symmetrical and unremarkable. Hip joint spaces are symmetrical and congruent. No osteophytes are identified. There is no sclerosis or degenerative cystic change. Pubic symphysis joint is within normal limits. XR/XR hip BI w PEL1V IMPRESSION: Unremarkable pelvis and bilateral hips. Electronically signed by: Luis Cortés MD 01/26/2025 10:31 AM RUBÉN
== END 2025-01-26 09:34 | disposition home or self-care (01) ==
LOC: HO.XRAY 09:33
PROVIDERS: PCP Internal Medicine; Visit Provider Nurse Practitioner Family
DX: M51.372 Other intervertebral disc degeneration, lumbosacral region with discogenic back pain and lower extremity pain (principal); M47.817 Spondylosis without myelopathy or radiculopathy, lumbosacral region; M25.551 Pain in right hip; M25.552 Pain in left hip
CPT/HCPCS: 73521; 99212

== ENCOUNTER → 2025-01-26 10:04 | Outpatient (BNV) | payer OTHER, SELFPAY | PROVIDERS: PCP Internal Medicine; Visit Provider Radiology Diagnostic Radiology | DX: M25.551 Pain in right hip (principal) | CPT/HCPCS: 73521 ==

== ENCOUNTER 2025-01-29 08:30 | Outpatient (AMB) | payer OTHER, SELFPAY ==
--- NOTE | 2025-01-29 08:50 | MHC.OFFVIS ---
Intake Visit Reasons: 1y/PSA/Testo Intake Note: Patient is present for 1yr/PSA/Testo 05/06 Total Testosterone:427/Free Testosterone:57.6 Urology Medication:None Antibiotic Allergy:NONE Blood Thinner:NONE Registered Nurse Behavioral Health Required: No Allergies No Known Allergies (No Known Allergies*) Allergy (Verified 01/29/25 08:52) Medication List - Last Reconciled 01/29/25 by Meaghan Wilson MD acetaminophen (Tylenol Extra Strength) 500 - 1,000 mg (1 - 2 x 500 mg) PO Q6H PRN albuterol sulfate 90 mcg/actuation 2 puffs inhalation Q6H PRN atenolol 50 mg PO DAILY 90 days atorvastatin 20 mg PO BEDTIME 90 days clotrimazole-betamethasone 1-0.05 % 1 appl topical BID 30 days fluticasone propionate 50 mcg/actuation 1 spray intranasal DAILY hydrochlorothiazide 25 mg PO DAILY ibuprofen 800 mg PO Q8H lidocaine 5% (Lidoderm) 1 patch topical DAILY lisinopril 40 mg PO DAILY 90 days loratadine 10 mg PO DAILY PRN 90 days lorazepam (Ativan) 0.5 mg PO DAILY PRN 1 day omega 2-yaa-rfz-fish oil 1,000 (120-180) mg 1 cap PO DAILY 90 days venlafaxine ER 150 mg PO BEDTIME 90 days verapamil ER 120 mg PO DAILY 90 days walker (Ultra-Light Rollator misc) As directed HPI Comments Details: 01/29/2025--Heladio is a 59-year-old male who is followed for ED he was prescribed daily Cialis. History of Present Illness The patient is a 59-year-old male presenting with erectile dysfunction. He has been on daily Cialis, but reports no significant improvement in erectile function, with erections not sustaining long enough for satisfactory intercourse. The patient has not tried other medications like Viagra and has been using daily Cialis for almost three months without notable success. The patient has undergone blood work, which showed a testosterone level - 04/2024 was 427. He has expressed frustration with the current treatment and is considering alternative therapies. Plan 1. Erectile Dysfunction - Continue Cialis with a new regimen of 20 mg twice a week around sexual activity. - Consider penile injection therapy if Cialis remains ineffective, with training to be provided by a nurse practitioner. - Follow-up in eight weeks to assess the effectiveness of the new Cialis regimen and discuss further treatment options. 2. Preventative Care: Psa Screening - Schedule PSA screening for prostate health monitoring. 01/24/24--Heladio is a 58-year-old male who is here in follow-up for complaints of erectile dysfunction. He was initially evaluated on 10/25/2023. At that time I discussed daily Cialis use labs PSA and testosterone ordered. I have discussed that testosterone levels are low normal. The patient states he has been taking the Cialis daily and has noticed improvement in his erections. Will hold on testosterone replacement therapy. Continue Cialis 5 mg daily. Follow-up in 1 year recheck a PSA and testosterone levels. 10/29/23--PSA--0.66 ng/mL, TT--394 ng/dL. FT--53.2 pg/mL 10/25/23--Heladio is a 58 year old male here for new patient evaluation for erectile dysfunction. He has used viagra in the past. PMH significant for hypertension. He denies obstructive voiding symptoms. Discussed daily cialis 5 mg. Will check testosterone levels. [facility] Medical History Physical exam Mild recurrent major depression Class 1 obesity with body mass index (BMI) of 34.0 to 34.9 in adult Erectile disorder, acquired, generalized, severe Anxiety and depression Allergic rhinitis Insomnia Eczema Impaired glucose tolerance Essential hypertension Surgical History H/O colonoscopy History of removal of cyst Family History Father Cancer Mother Diabetes Hypertension Brother No problems noted. Sister No problems noted. Son No problems noted. Daughter No problems noted. 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 Current occupational exposures/hazards: No Cognitive needs: No Hearing needs: No Vision needs: Yes Review of Systems Const All systems reviewed & are unremarkable except as noted in HPI and below Reports no additional complaints Eyes Reports no additional complaints ENT Reports no additional complaints Card Reports no additional complaints Resp Reports no additional complaints GI Reports no additional complaints Reports as per HPI Musc Reports no additional complaints Skin/Breast Reports system reviewed and no additional complaints, except as documented Neuro Reports no additional complaints Psych Reports no additional complaints Endo Reports no additional complaints Matt/Lymph Reports no additional complaints Aller/Immun Reports no additional complaints Results AMB Urinalysis, Automated UA Leukoctes 0 Jaya/uL Last Edit by Crystal Worthington on 01/29/25 16:06 UA Nitrite Negative Last Edit by Crystal Worthington on 01/29/25 16:06 UA Urobilinogen 0.2 mg/dL Last Edit by Crystal Worthington on 01/29/25 16:06 UA Protein 15 mg/dL Last Edit by Crystal Worthington on 01/29/25 16:06 UA pH 6.0 Last Edit by Lashay Worthington on 01/29/25 16:06 UA Blood 25 Manolo/uL Last Edit by Crystal Worthington on 01/29/25 16:06 UA Specific [place] 1.015 Last Edit by Crystal Worthington on 01/29/25 16:06 UA Ketone Negative Last Edit by Crystal Worthington on 01/29/25 16:06 UA Bilirubin 0 mg/dL Last Edit by Crystal Worthington on 01/29/25 16:06 UA Glucose 0 mg/dL Last Edit by Crystal Worthington on 01/29/25 16:06 Results Reviewed Results Reviewed: Laboratory Last Values Urine pH (Auto) 6.0 01/29/25 12:43 Specific [place] (Auto) 1.015 01/29/25 12:43 Urine Protein (Auto) 15 mg/dL 01/29/25 12:43 Glucose (UA)(Auto) 0 mg/dL 01/29/25 12:43 Urine Ketones (Auto) Negative 01/29/25 12:43 Urine Blood (Auto) 25 Manolo/uL 01/29/25 12:43 Urine Nitrite (Auto) Negative 01/29/25 12:43 Urine Bilirubin (Auto) 0 mg/dL 01/29/25 12:43 Urine Urobilinogen (Auto) 0.2 mg/dL 01/29/25 12:43 Leukocyte Esterase (Auto) 0 Jaya/uL 01/29/25 12:43 Assessment & Plan Assessment & Plan (1) Erectile dysfunction: Code(s): N52.9 - Male erectile dysfunction, unspecified Category: Medical (2) Screening PSA (prostate specific antigen): Code(s): Z12.5 - Encounter for screening for malignant neoplasm of prostate Category: Medical Plan Plan 1. Erectile Dysfunction - Continue Cialis with a new regimen of 20 mg twice a week around sexual activity. - Consider penile injection therapy if Cialis remains ineffective, with training to be provided by a nurse practitioner. - Follow-up in eight weeks to assess the effectiveness of the new Cialis regimen and discuss further treatment options. 2. Preventative Care: Psa Screening - Schedule PSA screening for prostate health monitoring. Orders: Orders AMB Urinalysis Automated Today Z13.9 - Encounter for screening, unspecified Patient Instructions: The patient had an opportunity to ask questions regarding treatment plan. The patient expressed understanding and agreement with the above treatment plan. The patient is aware they should contact our office by phone for worsening of their current condition or the appearance of new symptoms. Compliance is encouraged with any medications and followup testing that is ordered. It is a privilege to be allowed the opportunity to participate in the urologic care of your patient. If you have any questions or concerns regarding treatment for the above conditions please do not hesitate to contact me. The office telephone contact is [phone]. This note is constructed in part using voice recognition software. While every effort has been made to ensure accuracy prototype engineer manager errors may have been included. Yours sincerely, Meaghan Wilson MD Scribe Plan - Not visible on output: Patient was informed and verbally consented to the use of an ambient scribe for clinic note documentation during this visit. Coding Level of Care Code Est Pt Level 4 (90801) Diagnoses Erectile dysfunction N52.9 Screening PSA (prostate specific antigen) Z12.5
--- OUTSIDE RECORDS SUMMARY | 2025-01-29 08:56 | XMS_ITS | Patient Health Record ---
Author Organization [facility] Address [address] [place] [id number] Care Team Providers Care Dot Compliance Coordinator Name Role Phone Sera(inactive) Sean WALLER Primary Care Provider U angelitapoornima Kennedy Stiven Unavailable [phone] Reason For Referral No Information Medications Medication [...] Problem Screening for malignant neoplasm of colon (291786550) Encounter for screening for malignant neoplasm of colon (Z12.11) Active confirmed Problem Preprocedural examination ([id number]) Preprocedural examination (Z01.818) Active confirmed Plan Of Treatment Future Test Test Name Order Date COLONOSCOPY 09/20/2016 Insurance Providers Payer Name Payer Address Payer Phone Subscriber Number Group Number Insured Name Patient Relationship to Insured Coverage Start Date Coverage End Date [place] [address] [place] [phone] [id number] JUSTICE ARITA Self - patient is the insured Medical (General) History Medical History History ICD Code Denies ME,DM,CVA,Lung disease,renal dise ase HTN Depression Surgical History Surgery Date(Month/Year) Cyst removal from neck
== END 2025-01-29 09:18 | disposition home or self-care (01) ==
LOC: HO.HUSH 08:31
PROVIDERS: PCP Internal Medicine; Visit Provider Urology
DX: N52.9 Male erectile dysfunction, unspecified (principal); Z12.5 Encounter for screening for malignant neoplasm of prostate; Z13.9 Encounter for screening, unspecified
CPT/HCPCS: 99214

== ENCOUNTER → 2025-01-29 08:30 | Outpatient (BNVA) | payer OTHER, SELFPAY | PROVIDERS: PCP Internal Medicine; Visit Provider Urology | DX: N52.9 Male erectile dysfunction, unspecified (principal) | CPT/HCPCS: 81003; 99212 ==

== ENCOUNTER 2025-02-02 09:30 | Outpatient (AMB) | payer OTHER, SELFPAY ==
--- NOTE | 2025-02-02 09:47 | A.OFFVIS_ITS ---
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 The left hip pain has been present for approximately two weeks and is associated with difficulty in performing daily activities such as dressing and getting in and out of a car. The patient reports that the pain is significant enough to interfere with these activities, indicating a moderate to severe impact on his daily life. The patient also experiences back pain, which was previously managed with medial branch blocks providing temporary relief for about a day and a half. In October, a left L5 transforaminal injection was administered, which completely relieved posterior and lateral left leg pain and resulted in minimal back pain. The patient denies any history of diabetes. Denies any recent cough, cold, infection, fever or any significant changes in medical history since last office visit. PRIOR: The patient is a 59-year-old male presenting with chronic low back pain. He recently underwent bilateral diagnostic lumbar medial branch blocks on January 12, 2025, performed by Dr. Giang. Previously, he received a left L5 transforaminal epidural steroid injection, which relieved his left leg pain but did not significantly alleviate his back pain. The patient has a history of lumbar back strain, left-sided radiculopathy, lumbar degenerative disc disease, and obesity. He was evaluated by [facility] neurosu reba and was deemed nonsurgical. Previous physical therapy provided temporary improvement, and he attempts a home exercise program but finds it limiting due to constant back pain. He continues to take medications such as Tylenol, cyclobenzaprine, gabapentin, lidocaine patch, and ibuprofen. Recent back injections provided complete pain relief for one and a half days. He is interested to proceed with lumbar medial branch RFA as next steps for a longer term pain relief. Patient also reports recent onset of left hip pain with walking, putting on clothes especially shoes or socks, sleeping on left side or getting out from car or bed on left side. His left hip pain radiates to left groin with external hip rotation or crossing his leg. He reports mild pain in his right hip as well. Denies any recent injury, trauma, or falls or engaging in strenuous physical activities or exercise. Denies any recent cough, cold, infection, fever or any significant changes in medical history since last office visit. Past Procedures: 01/22/25: Bilateral diagnostic L3-L4 DR L5 MBB-100% pain relief for 1.5 days 11/06/24: Left L5 TFESI-100% left leg pain relief, minimal back pain relief PRIOR: Patient is a 58-year-old male with history of lumbar back sprain, left-sided radiculopathy, lumbar degenerative disc disease, anxiety, depression, obesity, erectile dysfunction, history of falls, presents today for initial evaluation of low back pain with radiation into his left buttock and into left lower extremity posteriorly with associated stabbing, sharp, tingling and numbness sensations. Denies any recent trauma, injury, or falls. He reports seeing provider at [facility] and receiving injection for L4-L5 level with good results. [facility] EMR review noted for multiple ER visits for lumbar strain, sciatica, left lumbar radiculopathy x7 visits from 11/21/20-09/17/23. 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 He completed physical therapy in 2021 without improvement in his functioning or pain. Denies previous spine surgery. This has been longstanding pain for him which is worse with movement and better with rest. Pain is constant and is most severe in the mornings. Pain affects his daily activities and functioning, mood, sleep, mobility, and recreational activities. He ambulates with mildly antalgic gait without limping. Denies any fever or chills, abdominal or groin pain, weakness, foot drop, bladder or bowel dysfunction or saddle anesthesia. Location: Left-sided low back pain radiates Duration: Chronic pain for 2 years, progressively getting worse for past one year Characteristics of symptom or complaint: Aching, shooting, numbness, tingling, burning Aggravating or associated factors: Walking, bending, heavy lifting, twisting, sleeping, rainy cold weather Relieving factors: Walker, rest, Tylenol, Ibuprofen, lidocaine patches, prednisone, tramadol Treatment: PT, back injection at [facility], MRI lumbar 2 months ago, multiple ER visits [facility] Medical History Physical exam Mild recurrent major depression Class 1 obesity with body mass index (BMI) of 34.0 to 34.9 in adult Erectile disorder, acquired, generalized, severe Anxiety and depression Allergic rhinitis Insomnia Eczema Impaired glucose tolerance Essential hypertension Surgical History H/O colonoscopy History of removal of cyst Family History Father Cancer Mother Diabetes Hypertension Brother No problems noted. Sister No problems noted. Son No problems noted. Daughter No problems noted. 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 Denies any other musculoskeletal issues. - Endocrine: Denies diabetes. All systems reviewed & are unremarkable except as noted in HPI and below Physical Exam Vital Signs: Last Vital Signs Pulse 72 02/02/25 09:51 BP 162/99 H 02/02/25 09:52 Pulse Ox 98 02/02/25 09:51 Oxygen Delivery Method Room Air 02/02/25 09:51 BMI result Body Mass Index 35.7 General: Appears afebrile. Alert and oriented. Mood and affect appropriate. Follows and participates in conversation appropriately. Respiratory effort is unlabored. No cough. Able to transition from sit to stand unassisted. Ambulates with bilaterally normal heel strike and toe off, reports left leg pain due with weightbearing and walking. General: Yes no CVA tenderness Back/Spine/Pelvis Other: Limited lumbar ROM due to pain. Mildly antalgic gait, no limping. Lumbar extension and axial rotations reproduce mild pain, flexion and bending down reproduces moderate pain. Demonstrates 5/5 right and 4/5 left due to pain bilateral strength of quadriceps bilaterally as well as flexion/dorsiflexion of bilateral feet against resistance. 2+ pedal pulses bilaterally. Straight leg rise with dorsiflexion negative bilaterally. +1 patellar and achilles reflexes bilaterally. Facet loading test positive bilaterally. Michelle sign positive on the left, Truman?s reproduces left lateral hip and groin pain but not low back pain. Mild to moderate groin pain with left hip external rotations. Valsalva maneuver is negative. Back: no CVA tenderness Cervical Spine: cervical ROM normal, cervical muscular tenderness and No Cervical spine tenderness Thoracic/Lumbar Spine: thoracic and lumbar spine normal to inspection, No Thoracic/lumbar spine scar(s), pain with thoraco-lumbar ROM, paraspinal muscle tenderness on the left greater than right, thoraco-lumbar ROM limited, No thoracic spinal tenderness and lumbar spinal tenderness (L4-S1) Sacroiliac joints: on the right nontender and on the left tender to palpation Extrem General: Yes capillary refill normal, Yes no clubbing, cyanosis or edema and Yes no calf tenderness Left lower extremity: knee Details: normal to inspection, tenderness Location: of the patella, of the medial joint line and of the lateral joint line, normal ROM and crepitus; no swelling, no ecchymosis, no deformity and no unusual warmth Results Reviewed Results Reviewed: LUMBAR SPINE 03/08/23 CLINICAL INFORMATION: Fall. Low back pain. COMPARISON: Lumbar spine x-rays February 16, 2023 FINDINGS: Lumbar spine: 5 nonrib-bearing lumbar vertebral bodies are visualized. Alignment is within normal limits. Lumbar vertebral body heights are maintained. There is mild disc space narrowing at the L3/4 and L5/S1 levels. Tiny osteophytes are scattered throughout the lumbar spine. There are mild degenerative changes of the posterior elements of the lower lumbar spine. Sacroiliac joints are symmetric. Suspected 4 mm right renal calculus. IMPRESSION: 1. No acute pulmonary pathology. 2. Mild degenerative changes of the lumbar spine without compression deformity. MR SPINE LUMBAR without CONTRAST 02/19/24 RAYUS INDICATION: Lower back pain radiating to left ongoing for 2 years. Intervertebral disc degeneration. TECHNIQUE: Unenhanced multiplanar, multisequence MR imaging of the lumbar spine. COMPARISON: MR lumbar 04/28/2023. FINDINGS: Normal lumbar alignment is demonstrated. Vertebral heights are well maintained. There is disc desiccation and disc space narrowing at L3-4 and L4-5. Bone marrow signal is within normal limits, and no suspicious osseous lesion is identified. Conus medullaris is unremarkable. Paraspinal soft tissues and visualized portions of the abdomen and pelvis are unremarkable. At L1-2 there is no significant disc herniation or protrusion. No central canal or neural foraminal stenosis is demonstrated. At L2-3 there is mild annular disc bulge and mild facet arthrosis. Central canal is patent with foraminal stenosis. At L3-4 there is broad-based disc bulge and mild facet arthrosis and ligament flavum hypertrophy. There is mild narrowing of the central canal with mild right and moderate left neural foraminal stenosis. Findings appear stable. At L4-5 there is broad-based disc bulge and mild facet arthrosis. There is mild to moderate central canal stenosis with advanced right and moderate to advanced left neural foraminal stenosis. Findings appear stable. At L5-S1 there is mild annular disc bulge and mild facet arthrosis. Central canal is patent. There is moderate right and advanced left neural foraminal stenosis. Findings appear stable. IMPRESSION: Stable appearance degenerative changes lumbar spine greater at L3-4 and L4-5. Narrowing of the neuroforamina at L5-S1 greater on the left. Findings appear stable. XR LUMBAR SPINE XR SHOULDER, RIGHT XR CERVICAL SPINE 07/24/22 CLINICAL INDICATION: Pain in right shoulder, cervical spine and lumbar spine. TECHNIQUE: Lumbar spine 3 views, right shoulder 4 views. Cervical spine 4 views. FINDINGS: RIGHT SHOULDER: There are 2 loose bodies seen within the subacromial bursa. Loss of joint glenohumeral joint space with moderate inferior spurring is noted. AC joint is normal. No loose body seen. No fracture noted. LUMBAR SPINE: There is normal lumbar lordosis. The vertebral heights and alignment are normal. There is loss of L5-S1 and L3-L4 disc heights with mild ventral spondylosis. There is no visible acute fracture, dislocation or lytic process seen. The paravertebral soft tissues are normal. The SI joints are normal. CERVICAL SPINE: There is normal cervical lordosis. The vertebral heights, alignment and the disc heights are normal. The craniovertebral junction and C1-C2 alignment is normal. No visible acute fracture, dislocation or subluxation seen. IMPRESSION: Degenerative arthritic changes right shoulder with two moderate-sized loose bodies in the subacromial bursa. No acute fracture. L5-S1 degenerative disc changes lumbar spine. No acute fracture or lytic process. Unremarkable cervical spine exam. XR cervical spine w flex/ext 09/11/24 CLINICAL HISTORY: M54.2 - Cervicalgia 8 views cervical spine Comparison: None provided Findings: Normal vertebral body alignment. No acute fractures or dislocation. No significant degenerative change. No prevertebral soft tissue swelling. Oblique views demonstrate widely patent bony foramen. IMPRESSION: No acute findings. No significant degenerative change. XR BILATERAL HIPS WITH AP PELVIS 01/26/25 CLINICAL INFORMATION: M25.551 - Pain in right hip COMPARISON: None available. TECHNIQUE: AP and frog-leg lateral views of each hip and an AP view of the pelvis. FINDINGS: SI joints are symmetrical and unremarkable. Hip joint spaces are symmetrical and congruent. No osteophytes are identified. There is no sclerosis or degenerative cystic change. Pubic symphysis joint is within normal limits. IMPRESSION: Unremarkable pelvis and bilateral hips. Assessment & Plan Assessment & Plan (1) Left hip pain: Code(s): M25.552 - Pain in left hip Category: Medical (2) Left knee pain: Code(s): M25.562 - Pain in left knee Category: Medical (3) Lumbar degenerative disc disease: Code(s): M51.36 - Other intervertebral disc degeneration, lumbar region Category: Medical (4) Lumbosacral spondylosis: Code(s): M47.817 - Spondylosis without myelopathy or radiculopathy, lumbosacral region Category: Medical Qualifiers: Spinal osteoarthritis complication: with radiculopathy Qualified Code(s): M47.27 - Other spondylosis with radiculopathy, lumbosacral region (5) Lumbosacral spondylosis: Code(s): M47.817 - Spondylosis without myelopathy or radiculopathy, lumbosacral region Category: Medical (6) Lumbar disc herniation with radiculopathy: Code(s): M51.16 - Intervertebral disc disorders with radiculopathy, lumbar region Category: Medical Plan The plan includes referring the patient to Orthopedics for further evaluation of the left hip and knee pain, as the current hip and pelvic imaging is normal and does not correlate with the patient's symptoms. The patient will undergo a left L3-L4 transforaminal injection with local and fluoroscopy to address radicular pain, which is consistent with the described symptoms and moderate left neural foraminal stenosis at this level per most recent MRI. Expectations, risks and benefits were reviewed. Patient is aware he will be contacted to schedule this procedure. All questions and concerns have been answered and patient agreed with the treatment plan. Follow up after injections and sooner as needed. Patient was informed and verbally consented to the use of an ambient scribe for clinic note documentation during this visit. Orders: Referrals Orthopedics Referral M25.552 - Pain in left hip, M25.562 - Pain in left knee Coding Level of Care Code Est Pt Level 4 (88162) Complex EM visit Add On G2211 Diagnoses Left hip pain M25.552 Left knee pain M25.562 Lumbar degenerative disc disease M51.36 Osteoarthritis of spine with radiculopathy, lumbosacral region M47.27 Spinal osteoarthritis complication: with radiculopathy Lumbar disc herniation with radiculopathy M51.16
[2025-02-02 09:51] VITALS: BP 193/113; PULSE 72; O2SAT 98; BMI 35.7
[2025-02-02 09:52] VITALS: BP 162/99
--- OUTSIDE RECORDS SUMMARY | 2025-02-02 10:37 | XMS_ITS | Patient Health Record ---
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 Name Role Phone Sera(inactive) Sean WALLER Primary Care Provider U angelitapoornima Kennedy Stiven Unavailable [phone] Reason For Referral No Information Medications Medication [...] Problem Screening for malignant neoplasm of colon ([id number]) Encounter for screening for malignant neoplasm of colon (Z12.11) Active confirmed Problem Preprocedural examination ([id number]) Preprocedural examination (Z01.818) Active confirmed Plan Of Treatment Future Test Test Name Order Date COLONOSCOPY 09/20/2016 Insurance Providers Payer Name Payer Address Payer Phone Subscriber Number Group Number Insured Name Patient Relationship to Insured Coverage Start Date Coverage End Date [employer] [address] [place] [phone] [id number] JUSTICE ARITA Self - patient is the insured Medical (General) History Medical History History ICD Code Denies [place],DM,CVA,Lung disease,renal dise ase HTN Depression Surgical History Surgery Date(Month/Year) Cyst removal from neck
== END 2025-02-02 10:10 | disposition home or self-care (01) ==
LOC: HO.PMC 09:31
PROVIDERS: PCP Internal Medicine; Visit Provider Nurse Practitioner Family
DX: M25.552 Pain in left hip (principal); M25.562 Pain in left knee; M51.369 Other intervertebral disc degeneration, lumbar region without mention of lumbar back pain or lower extremity pain; M47.27 Other spondylosis with radiculopathy, lumbosacral region; M51.16 Intervertebral disc disorders with radiculopathy, lumbar region; M47.817 Spondylosis without myelopathy or radiculopathy, lumbosacral region
CPT/HCPCS: 99214

== ENCOUNTER → 2025-02-02 09:30 | Outpatient (BNVA) | payer OTHER, SELFPAY | PROVIDERS: PCP Internal Medicine; Visit Provider Nurse Practitioner Family | DX: M25.552 Pain in left hip (principal); M25.562 Pain in left knee; M51.360 Other intervertebral disc degeneration, lumbar region with discogenic back pain only; M47.27 Other spondylosis with radiculopathy, lumbosacral region; M51.16 Intervertebral disc disorders with radiculopathy, lumbar region | CPT/HCPCS: 99212 ==

== ENCOUNTER 2025-03-02 08:33 | Outpatient (AMB) | payer OTHER, SELFPAY ==
--- NOTE | 2025-03-02 09:03 | A.OFFVIS_ITS ---
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: No Allergies No Known Allergies (No Known Allergies*) Allergy (Verified 03/02/25 09:07) Medication List - Last Reconciled 03/02/25 by Mackenzie Muir LPN acetaminophen (Tylenol Extra Strength) 500 - 1,000 mg (1 - 2 x 500 mg) PO Q6H PRN albuterol sulfate 90 mcg/actuation 2 puffs inhalation Q6H PRN atenolol 50 mg PO DAILY 90 days atorvastatin 20 mg PO BEDTIME 90 days clotrimazole-betamethasone 1-0.05 % 1 appl topical BID 30 days fluticasone propionate 50 mcg/actuation 1 spray intranasal DAILY hydrochlorothiazide 25 mg PO DAILY ibuprofen 800 mg PO Q8H lidocaine 5% (Lidoderm) 1 patch topical DAILY lisinopril 40 mg PO DAILY 90 days loratadine 10 mg PO DAILY PRN 90 days lorazepam (Ativan) 0.5 mg PO DAILY PRN 1 day omega 3-nwo-lvf-fish oil 1,000 (120-180) mg 1 cap PO DAILY 90 days sodium chloride 0.9% (Simply Saline) 1 spray intranasal BID 7 days tadalafil 5 mg PO DAILY 30 days tadalafil (Cialis) 20 mg PO DAILY PRN venlafaxine ER 150 mg PO BEDTIME 90 days verapamil ER 120 mg PO DAILY 90 days walker (Ultra-Light Rollator mis) As directed HPI HPI EXTREME PAIN AFTER PROCEDURE: Details: History of Present Illness The patient is a 60 year old male presenting for follow-up for low back pain approximately six weeks after receiving lumbar medial branch blocks. He reports that the injections provided significant, notable relief on the first day, but the pain returned three days later. Currently, he has pain on the side which causes difficulty lifting his foot. He experiences trouble with activities of daily living such as dressing and putting on his shoes and socks. The pain is on the left side and is described as touchy, with associated numbness on that side, particularly when driving. His past medical history is significant for two hip dislocations, the last of which was 6-7 years ago. Lumbar spine x-rays from two years ago showed degenerative changes, including disc degeneration at L5-S1. He has previously attended physical therapy, which he found helpful, and he continues to perform e xercises at home. Pain Description - Onset and Timing: The patient's current pain began three days after he received lumbar medial branch blocks about six weeks ago. - Location: Pain is now located on the side, specifically the left side, and in the left thigh. - Quality and Character: The pain is described as touchy and is associated with some numbness. - Exacerbating Factors: Pain is worsened by certain movements, including lifting the left foot and activities like dressing. - Interference with Function: The pain interferes with his ability to dress himself, specifically putting on shoes and socks. Physical Exam - Musculoskeletal: No significant pain was elicited in the lumbar spine. - There is pain in the left thigh. - Examination of the left hip revealed pain with flexion, extension, and abduction of the hip joint. - A straight leg raise test was positive, but it may be related to hip pathology. Results - Imaging: - Hip X-ray (performed last month): Results were reviewed, but no specific findings were discussed during the visit. - Lumbar Spine X-ray (from 2 years ago): Showed degenerative changes and disc degeneration at L5-S1. - Lumbar MRI: Findings include a couple of bulging discs, which were noted as not being severe and may not fully explain the patient's pain. - Procedures: - Lumbar Medial Branch Blocks (performed 6 weeks ago): The patient had a positive diagnostic response with notable relief for the first day. Pain Management - Affect: The patient states he is feeling blue. - Analgesia: Recent lumbar medial branch blocks provided significant but temp orary relief for one day. - Activities of Daily Living: The patient has difficulty with dressing, specifically putting on shoes and socks, due to pain. [facility] Medical History Physical exam Mild recurrent major depression Class 1 obesity with body mass index (BMI) of 34.0 to 34.9 in adult Erectile disorder, acquired, generalized, severe Anxiety and depression Allergic rhinitis Insomnia Eczema Impaired glucose tolerance Essential hypertension Surgical History H/O colonoscopy History of removal of cyst Family History Father Cancer Mother Diabetes Hypertension Brother No problems noted. Sister No problems noted. Son No problems noted. Daughter No problems noted. 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 1. Left Hip Pain; Low Back Pain - The patient's presentation, including pain with flexion, extension, and abduction of the left hip, is suggestive of a hip pathology as the primary source of his pain rather than a lumbar spine issue. - Although he had a positive diagnostic response to lumbar medial branch blocks, the relief was transient. - An MRI of the left hip will be ordered to further evaluate for a hip joint- related etiology. - If the hip MRI is normal, a left L3 transforaminal epidural steroid injection will be considered to address a potential radicular component from his known lumbar disc bulges. - Insurance authorization will be obtained prior to scheduling these procedures. Discussion Notes I discussed with the patient that he had a positive but temporary diagnostic response to the lumbar medial branch blocks. I explained that his current symptoms and physical exam findings, particularly pain with motion of the left hip, are more suggestive of a hip problem rather than a primary back issue. We reviewed that his existing imaging does not clearly explain his severe pain. The plan is to first order an MRI of his left hip to rule out any underlying hip pathology. I informed him that if the hip MRI is normal, we will then proceed with a cortisone injection in his back (a left L3 transforaminal epidural steroid injection) to see if it helps. I noted that we will need to obtain insurance authorization for these studies. When he inquired about foster care therapist, I explained that it may provide temporary relief but does not typically correct an underlying structural problem. Patient Instructions - We are going to order an MRI of your left hip to better understand the cause of your pain. - Our office will work on getting approval from your insurance company for the MRI and will contact you for scheduling. - If the MRI of your hip is normal, we will then discuss scheduling a cortisone injection in your back. - Try to wear loose-fitting pants and avoid tight belts, as this can sometimes put pressure on nerves. Coding Level of Care Code Est Pt Level 4 (05993) Diagnoses Left hip pain M25.552
[2025-03-02 09:05] VITALS: BP 140/98; PULSE 73; RESP 16; O2SAT 93; BMI 36.0
== END 2025-03-02 09:57 | disposition home or self-care (01) ==
LOC: HO.PMC 08:33
PROVIDERS: PCP Internal Medicine; Visit Provider Internal Medicine
DX: M25.552 Pain in left hip (principal); G89.28 Other chronic postprocedural pain
CPT/HCPCS: 99214

== ENCOUNTER → 2025-03-02 08:33 | Outpatient (BNVA) | payer OTHER, SELFPAY | PROVIDERS: PCP Internal Medicine; Visit Provider Internal Medicine | DX: M25.552 Pain in left hip (principal); M54.50 Low back pain, unspecified | CPT/HCPCS: 99212 ==